=== PATIENT | female | born 1940 | race Caucasian/White ===

== ENCOUNTER 2020-04-18 11:26 | Outpatient (REF) | payer MEDICARE, SELFPAY ==
--- NOTE | 2020-04-18 11:31 | MM_ITS ---
EXAMINATION: MM SCREENING DIGITAL BREAST TOMOSYNTHESIS, BILATERAL CLINICAL INFORMATION: Screening. Asymptomatic. The lifetime risk of breast cancer based on the Tyrer-Cuzick Model is 2%. COMPARISON: Mammography: 04/06/2019, 03/28/2018, 03/05/2017 TECHNIQUE: Digital breast tomosynthesis is performed in both the craniocaudal and mediolateral oblique views along with computer-aided detection (CAD). Synthesized 2D images are generated from the tomosynthesis. FINDINGS: There are scattered areas of fibroglandular density (ACR BI-RADS breast composition Category b). Breast tissue composition borders on predominantly fatty. Background stromal densities are stable. There are no significant masses, abnormal calcifications, or other abnormalities. Right axillary node stable. No significant changes. MM/MM tomosynthesis screening BI IMPRESSION: No significant changes from prior studies. ASSESSMENT: BI-RADS 2: Benign RECOMMENDATION: Routine annual mammography screening. This patient's information was entered into a reminder system with a target due date for their next mammogram.
== END 2020-04-18 11:27 | disposition home or self-care (01) ==
LOC: HO.MAMMO 11:26
PROVIDERS: PCP Nurse Practitioner Family; Visit Provider Nurse Practitioner Family
DX: Z12.31 Encounter for screening mammogram for malignant neoplasm of breast (principal)
CPT/HCPCS: 77063; 77067

== ENCOUNTER → 2020-06-05 08:21 | Outpatient (BNVA) | payer MEDICARE, SELFPAY | PROVIDERS: PCP Nurse Practitioner Family; Visit Provider Internal Medicine | DX: Z13.89 Encounter for screening for other disorder (principal) | CPT/HCPCS: Q3014 ==

== ENCOUNTER 2020-06-07 07:20 | Outpatient (REF) | payer MEDICARE, SELFPAY ==
[2020-06-07 08:31] LABS: Anion Gap 11 (12-20); Blood Urea Nitrogen 14 mg/dL (9-16); Calcium 8.9 mg/dL (8.4-10.2); Carbon Dioxide 29 mmol/L (22-29); Chloride 105 mmol/L (96-108); Estimated Glomerular Filt Rate > 60; Glucose Fasting 90 mg/dL (60-99); Potassium 4.6 mmol/l (3.3-5.1); Sodium 140 mmol/L (135-145)
[2020-06-07 08:53] LABS: Thyroid Stimulating Hormone 1.47 uIU/mL (0.32-4.0)
[2020-06-07 09:33] LABS: Glucose Fasting 91 mg/dL (60-99)
[2020-06-07 09:33] LABS: Glucose 1 Hour 149 mg/dL
[2020-06-07 12:32] LABS: Glucose 3 Hour 62 mg/dL
[2020-06-07 12:54] LABS: Glucose 4 Hour 80 mg/dL
[2020-06-07 13:12] LABS: Glucose 2 Hour 34 mg/dL
[2020-06-09 07:37] LABS: C Peptide 0.96 ng/mL (0.80-3.85)
[2020-06-10 13:12] LABS: Insulin Level Total 4.7 uIU/mL
[2020-06-10 22:38] LABS: Adrenocorticotropic Hormone 14 pg/mL (6-50)
[2020-06-12 22:52] LABS: Beta-Hydroxybutyrate 0.05 mmol/L
[2020-06-13 00:52] LABS: Insulin Auto Antibody <0.4 U/mL (<0.4)
[2020-06-14 10:56] LABS: Chlorpropamide None Detected; Glimepiride None Detected; Glipizide None Detected; Glyburide None Detected; Nateglinide None Detected; Pioglitazone None Detected; Repaglinide None Detected; Rosiglitazone None Detected; Tolazamide None Detected; Tolbutamide None Detected
[2020-06-14 18:26] LABS: Insulinoma associated 2 aatb <5.4 U/mL (<5.4)
[2020-06-16 13:22] LABS: Insulin Growth Factor 2 512 ng/mL (267-616)
[2020-06-19 04:08] LABS: Proinsulin 4.5 pmol/L (< OR = 18.8)
== END 2020-06-07 07:21 | disposition home or self-care (01) ==
LOC: HO.LAB 07:20
PROVIDERS: PCP Nurse Practitioner Family; Visit Provider Internal Medicine
DX: E16.2 Hypoglycemia, unspecified (principal)
CPT/HCPCS: 36415; 80048; 80337; 82010; 82024; 82533; 82952; 83525; 83789; 84206; 84439; 84443; 84681; 86337

== ENCOUNTER 2020-06-17 08:26 | Outpatient (REF) | payer MEDICARE, SELFPAY ==
[2020-06-18 13:12] LABS: Cortisol 30 Minute 28.4 mcg/dL; Cortisol 60 Minute 35.9 mcg/dL; Cortisol Baseline 17.4 mcg/dL
[2020-06-19 22:08] LABS: Adrenocorticotropic Hormone 21 pg/mL (6-50)
== END 2020-06-17 08:27 | disposition home or self-care (01) ==
LOC: HO.MDS 08:26
PROVIDERS: PCP Nurse Practitioner Family; Visit Provider Internal Medicine
DX: E27.40 Unspecified adrenocortical insufficiency (principal)
CPT/HCPCS: 36415; 82024; 82533; 96374; J0834

== ENCOUNTER → 2020-08-12 09:39 | Outpatient (BNVA) | payer MEDICARE, SELFPAY | PROVIDERS: PCP Nurse Practitioner Family; Visit Provider Internal Medicine | DX: Z13.89 Encounter for screening for other disorder (principal) | CPT/HCPCS: Q3014 ==

== ENCOUNTER → 2021-02-17 10:34 | Outpatient (BNVA) | payer MEDICARE, SELFPAY | PROVIDERS: PCP Nurse Practitioner Family; Visit Provider Internal Medicine | DX: E16.2 Hypoglycemia, unspecified (principal) | CPT/HCPCS: 99212 ==

== ENCOUNTER 2021-04-26 10:27 | Outpatient (REF) | payer MEDICARE, SELFPAY ==
--- NOTE | ~2021-04-26 | MM_ITS ---
EXAMINATION: MM SCREENING DIGITAL BREAST TOMOSYNTHESIS, BILATERAL CLINICAL INFORMATION: Screening. Asymptomatic. The lifetime risk of breast cancer based on the Tyrer-Cuzick Model is under 2%. COMPARISON: Mammography: 04/18/2020, 04/06/2019, 03/28/2018 TECHNIQUE: Digital breast tomosynthesis is performed in both the craniocaudal and mediolateral oblique views along with computer-aided detection (CAD). Synthesized 2D images are generated from the tomosynthesis. FINDINGS: There are scattered areas of fibroglandular density (ACR BI-RADS breast composition Category b). There are no significant masses, abnormal calcifications, or other abnormalities. Breast tissue composition borders on predominantly fatty. The stromal markings are stable. There is no developing density or significant changes from prior exams. MM/MM tomosynthesis screening BI IMPRESSION: No mammographic evidence of malignancy. ASSESSMENT: BI-RADS 1: Negative RECOMMENDATION: Routine annual mammography screening. This patient's information was entered into a reminder system with a target due date for their next mammogram.
== END 2021-04-26 10:28 | disposition home or self-care (01) ==
LOC: HO.MAMMO 10:27
PROVIDERS: Visit Provider Internal Medicine
DX: Z12.31 Encounter for screening mammogram for malignant neoplasm of breast (principal)
CPT/HCPCS: 77063; 77067

== ENCOUNTER 2021-05-05 11:00 | Outpatient (RCR) | payer MEDICARE, SELFPAY | END 2021-08-28 09:34 | disposition home or self-care (01) | LOC: HO.PTCHIC 11:00 | PROVIDERS: PCP Internal Medicine; Visit Provider Physician Assistant | DX: M54.32 Sciatica, left side (principal) | CPT/HCPCS: 97110; 97140; 97162 ==

== ENCOUNTER 2021-06-23 20:59 | Inpatient (IN) | payer MEDICARE, SELFPAY ==
--- NOTE | ~2021-06-23 | XR_ITS ---
EXAMINATION: XR CHEST CLINICAL INFORMATION: NG tube placement COMPARISON: 06/23/2021 TECHNIQUE: Frontal view of the chest was obtained. FINDINGS: Enteric tube terminates in the stomach. The side port is near the gastroesophageal junction. The lungs are well expanded. Bibasilar markings favor atelectasis. No pleural effusion or pneumothorax. The cardiomediastinal silhouette is within normal limits of size with a calcified aorta. XR/XR chest 1V IMPRESSION: Enteric tube side port is at the level of the gastroesophageal junction. Suggest advancement.
--- NOTE | ~2021-06-23 | XR_ITS ---
EXAMINATION: XR ABDOMEN KUB CLINICAL INDICATION: Abdominal pain. History of small bowel obstruction. COMPARISON: CT abdomen pelvis dated 04/03/2013. TECHNIQUE: AP view of the abdomen. FINDINGS: Multiple dilated loops of small bowel are evident in the central abdomen, measuring up to 3.5 cm in diameter. Intraluminal gas is present within the colon which is relatively decompressed by comparison. No gross evidence of intraperitoneal free gas on these supine images. Status post ventral hernia mesh repair. Cholecystectomy clips are present in the right upper quadrant. Lung bases are clear. Mild sigmoid scoliosis with degenerative disc disease. Bones are osteopenic. No acute osseous findings in the pelvis. XR/XR KUB IMPRESSION: Small bowel dilatation with relative decompression of the colon, most concerning for obstruction. Ileus is also on the differential.
--- NOTE | ~2021-06-23 | CT_ITS ---
EXAMINATION: CT ABDOMEN AND PELVIS WITH CONTRAST CLINICAL INFORMATION: Abdominal distention. KUB earlier today suspicious for small bowel obstruction COMPARISON: KUB earlier today CT abdomen pelvis 04/03/2013 TECHNIQUE: Multidetector volumetric images were obtained from the superior aspect of the liver through the pubic symphysis following administration 85 mL of Omnipaque 350 intravenous contrast. Sagittal and coronal reformatted images were obtained on the technologist's workstation. Oral contrast: No This CT examination was performed using dose optimization techniques as appropriate, variously including the following: *Automated exposure control *Adjustment of mA and/or kV according to patient size (this includes techniques or standardized protocols for targeted exams where dose is matched to indication/reason for exam; i.e. extremities or head) *Use of iterative reconstruction technique DLP: 535 mGy-cm FINDINGS: LUNG BASES: Bibasilar atelectasis is present. LIVER, GALLBLADDER, AND BILIARY TREE: The liver is normal in size, shape, and attenuation. No focal hepatic lesion or biliary ductal dilatation is present. Status post cholecystectomy PANCREAS: Unremarkable. SPLEEN: Unremarkable. ADRENAL GLANDS: Unremarkable. KIDNEYS AND URETERS: The kidneys are normal in size, shape, and attenuation. There is some mild fullness in the right collecting system slightly greater than in 2013. No erosive hydronephrosis, hydroureter, or calculi seen. No perinephric stranding. BLADDER: Markedly distended but unremarkable. GASTROINTESTINAL TRACT: Status post gastric bypass the colon appears unremarkable with stool seen throughout. Multiple mildly dilated loops of small bowel are seen measuring up to 3.3 cm in diameter. A clear-cut transition zone is not seen and at this point I do not see definite evidence of small bowel obstruction. Findings may be due to ileus. Continued follow-up is recommended. The small and large bowel are unremarkable. The appendix is unremarkable. ABDOMINAL WALL: There is been prior abdominal wall surgery with extensive mesh anchors, also seen in 2013. There is marked diastases and forward bulging, more than in 2013. LYMPH NODES: There is some shotty retroperitoneal lymph nodes present but no gross adenopathy. Mildly enlarged left external iliac node slightly increased in size measuring 1.9 x 1.5 cm compared with 1.5 x 1.3 cm (see geller image) . VASCULAR: Calcific atherosclerotic plaque is present but there is no aneurysm PELVIC VISCERA: Surgically removed. A small amount of free pelvic fluid is present in the cul-de-sac OSSEOUS STRUCTURES: Degenerative changes are present. No bony destructive lesions are seen. CT/CT abdomen pelvis w con IMPRESSION: Dilatation of small bowel without transition zone seen. Gas and stool seen throughout the colon. Findings more suggestive of ileus rather than obstruction. Continued follow-up recommended. Fleischner guidelines were followed.
--- NOTE | ~2021-06-23 | XR_ITS ---
EXAMINATION: XR CHEST CLINICAL INFORMATION: NG tube placement COMPARISON: 06/24/2021 TECHNIQUE: Frontal view of the chest was obtained. FINDINGS: Advancement of the enteric tube now terminating in good position within the stomach. The lungs are well expanded. Minimal basilar atelectasis. No consolidation. No edema or effusion. No pneumothorax. The cardiomediastinal silhouette is normal in size with a calcified aorta. XR/XR chest 1V IMPRESSION: Enteric tube terminates in the stomach, in good position.
--- NOTE | ~2021-06-23 | XR_ITS ---
EXAMINATION: XR CHEST CLINICAL INFORMATION: Shortness of breath. COMPARISON: 07/29/2017 TECHNIQUE: Frontal view of the chest was obtained. FINDINGS: Cardiac and mediastinal contours are normal. Lungs are mildly hyperexpanded. No consolidation, pneumothorax, or pleural effusion. Calcific atherosclerosis is present in the thoracic aorta. Pulmonary vasculature is unremarkable. Bones are osteopenic. No acute osseous findings. Mild right convex thoracic scoliosis. XR/XR chest 1V IMPRESSION: No acute pulmonary findings.
[2021-06-23 21:22] VITALS: BP 156/54; PULSE 73; RESP 18; TEMP 36.6; O2SAT 99; BMI 32.5
[2021-06-23 21:58] LABS: Basophils Absolute Auto 0.1 X10*3/uL (0.0-0.2); Basophils Percent Auto 0.4 % (0-2); Lymphocytes Absolute Auto 5.3 X10*3/uL (1.2-4.9); SCAN SMEAR FLAG 1
--- NOTE | 2021-06-23 21:59 | PC.NURSE ---
Josemanuel (Son) HCP is waiting in car [phone]
[2021-06-23 22:00] LABS: Eosinophils Absolute Auto 0.2 X10*3/uL (0.0-0.4); Eosinophils Percent Auto 1.2 % (0-4); Hematocrit 34.5 % (37.0-47.0); Hemoglobin 10.7 g/dl (12.0-16.0); Imm Gran Abs Auto 0.09 X10*3/uL (0.00-0.03); Imm Gran Pct Auto 0.5 % (0.0-0.4); Lymphocytes Percent Auto 30.7 % (20-40); MANUAL DIFF FLAG SCAN; Mean Corpuscular Hemoglobin 26.6 pg (27.0-33.0); Mean Corpuscular Volume 85.8 fL (80.0-98.0); Mean Platelet Volume 12.5 fL (9.4-12.3); Monocytes Absolute Auto 0.7 X10*3/uL (0.1-1.2); Monocytes Percent Auto 4.1 % (2-11); Neutrophils Absolute Auto 10.8 x10*3/uL (2.0-8.3); Neutrophils Percent Auto 63.1 % (45-73); Platelet Count 167 X10*3/uL (160-400); Red Blood Count 4.02 X10*6/uL (4.20-5.50); Red Cell Distribution Width 15.2 % (11.0-16.0); White Blood Count 17.2 X10*3/uL (4.8-10.8)
[2021-06-23 22:02] LABS: PLT ABN DIST 1
[2021-06-23 22:03] LABS: Lactic Acid 0.9 mmol/L (0.5-2.0)
[2021-06-23 22:09] LABS: COVID-19 Test Positive (Negative); IDNOW Serial# 55D5AD1C
[2021-06-23 22:11] LABS: Alanine Aminotransferase 8 U/L (0-31); Albumin Level 4.5 g/dL (3.5-5.0); Alkaline Phosphatase 96 U/L (39-117); Anion Gap 14 (12-20); Aspartate Amino Transferase 20 U/L (5-31); Bilirubin Total 0.3 mg/dL (0.0-1.0); Blood Urea Nitrogen 25 mg/dL (9-16); Carbon Dioxide 26 mmol/L (22-29); Chloride 106 mmol/L (96-108); Creatinine Clr Calc Pharmacy 29.3; Estimated Glomerular Filt Rate 50; Glucose Random 111 mg/dL (60-115); Lipase 26 U/L (8-78); Potassium 5.1 mmol/L (3.3-5.1); Sodium 141 mmol/L (135-145)
--- NOTE | 2021-06-23 22:37 | ED_ITS ---
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 She also complains of body aches. Patient reports she has had both COVID-19 vaccinations (Moderna) and a booster which was [employer] as well as her influenza shot. Related Data Home Medications Medication Instructions Recorded Confirmed artificial tears(hypromellose) 0.3 1 drp OPHTHALMIC (EYE) QID PRN 04/22/20 02/17/21 % eye gel (Systane Gel) cetirizine 10 mg tablet 10 mg PO BEDTIME 04/22/20 02/17/21 citalopram 10 mg tablet 10 mg PO QAM 04/22/20 02/17/21 ergocalciferol (vitamin D2) 1,250 1,250 mcg PO QWEEK 04/22/20 02/17/21 mcg (50,000 unit) capsule fluticasone propionate 50 2 spray INTRANASAL QAM 04/22/20 02/17/21 mcg/actuation nasal spray,suspension losartan 25 mg tablet 25 mg PO DAILY 04/22/20 02/17/21 meclizine 12.5 mg tablet 12.5 mg PO TID 04/22/20 02/17/21 meloxicam 7.5 mg tablet 7.5 mg PO BID PRN 04/22/20 02/17/21 multivitamin 1 tab PO QAM 04/22/20 02/17/21 rabeprazole 20 mg tablet,delayed 20 mg PO QAM 04/22/20 02/17/21 release rosuvastatin 10 mg tablet 10 mg PO BEDTIME 04/22/20 02/17/21 acetaminophen 500 mg tablet 500 mg PO TID PRN tab 06/05/20 02/17/21 albuterol sulfate 90 mcg/actuation 90 mcg INHALATION g 06/05/20 02/17/21 aerosol inhaler alprazolam 0.5 mg tablet 0.5 mg PO DAILY PRN 06/05/20 02/17/21 alprazolam 1 mg tablet 1 mg PO BEDTIME tab 06/05/20 02/17/21 baclofen 10 mg tablet 10 mg PO BID PRN 06/05/20 02/17/21 diltiazem HCl 240 mg capsule,24 240 mg PO QAM 06/05/20 02/17/21 hr,extended release fluticasone propionate 230 2 puff INHALATION g 06/05/20 02/17/21 mcg-salmeterol 21 mcg/actuation HFA inhaler simethicone 80 mg chewable tablet 80 mg PO DAILY tab 06/05/20 02/17/21 theophylline 300 mg 300 mg PO 06/05/20 02/17/21 tablet,extended release,12 hr tramadol 50 mg tablet 50 mg PO TID PRN 06/05/20 02/17/21 famotidine 20 mg tablet 20 mg PO BID 08/12/20 02/17/21 ondansetron HCl 4 mg tablet 8 mg PO BID 08/12/20 02/17/21 dicyclomine 20 mg tablet 20 mg PO DAILY 02/17/21 02/17/21 Previous Rx's Medication Instructions Recorded blood-glucose meter (FreeStyle #1 ea 06/07/20 Lite Meter) acarbose 25 mg tablet 25 mg PO TID #30 tab 06/10/20 lancets 28 gauge (FreeStyle #100 ea 06/11/20 Lancets) blood sugar diagnostic (FreeStyle 1 strip MISCELLANEOUS QID 30 Days 06/24/20 Lite Strips) #100 strip Allergies Allergy/AdvReac Type Severity Reaction Status Date / Time morphine [MORPHINE] Allergy Unknown unknown Verified 06/23/21 21:22 milk [MILK] AdvReac Mild STOMACH Verified 06/23/21 21:22 UPSET oxycodone [From Percocet] AdvReac Mild NAUSEA/RAPID Verified 06/23/21 21:22 HR/BLURRED VISION protonix Allergy Unknown Unknown Uncoded 06/23/21 21:22 tramadol Allergy Unknown stomach Uncoded 06/23/21 21:22 upset/constipation Review of Systems Review of Systems: Pertinent positives and negatives as stated in HPI 10 point review of systems is otherwise negative. [facility] Past Medical History Source: nursing notes reviewed Medical History Arthritis Asthma Glaucoma HLD (hyperlipidemia) HTN (hypertension) Hypoglycemia Surgical History History of knee replacement procedure of right knee Hx of gastric bypass Hx of hysterectomy Family History Family History Father No problems noted. Mother No problems noted. Social History Social History Alcohol intake: never Patient Tobacco Use Status: Never used Tobacco Advance Directives: Yes Advance Directives Information Provided: No Advance Directives on File: No Physical Exam Vital Signs: Vital Signs: Last Vital Signs Temp 98.4 F 06/23/21 22:54 Pulse 71 06/23/21 22:54 Resp 16 06/23/21 22:54 BP 152/68 H 06/23/21 22:54 Pulse Ox 97 06/23/21 22:54 BMI result Body Mass Index 32.5 VITAL SIGNS: Reviewed. GENERAL: Elderly, appears stated age, in no acute distress. HEAD: Normocephalic/atraumatic EYES: PERRLA, EOMI OROPHARYNX: no oral lesions noted, posterior pharynx clear NECK: Supple, no adenopathy LUNGS: Normal breath sounds, no tachypnea, no wheeze/rales/rhonchi. SpO2<99> CARDIOVASCULAR: Regular rate and rhythm without noted murmurs, no JVD or lower extremity edema. ABDOMEN: Soft, non-tender, distension noted over the epigastrium MUSCULOSKELETAL: No tenderness, deformities, or effusions noted on gross inspection. EXTREMITIES: No cyanosis, clubbing or edema. SKIN: Inspection of the skin reveals no rashes NEUROLOGIC: Alert and oriented x 4. Strength and sensation to light touch were grossly intact x 4. Course Course Course Narrative: 81-year-old female with history and clinical presentation consistent with COVID-19 infection, viral syndrome but due to elevated white count will pursue ruling out obstruction. Review of all investigations demonstrates the patient is COVID-19 positive and has an ileus. Patient received antibiotics as well NG placement. This case was discussed with surgery who recommends admission to medicine they will be consultants and otherwise agrees with the current treatment plan. I discussed the case with inpatient hospitalist who accepts admission. Medical Decision Making Lab Data Result diagrams: 06/23/21 21:38 06/23/21 21:38 Labs: Lab Results 06/23/21 06/23/21 06/23/21 Range/Units 21:38 21:38 21:38 WBC 17.2 H (4.8-10.8) X10*3/uL RBC 4.02 L (4.20-5.50) X10*6/uL Hgb 10.7 L (12.0-16.0) g/dl Hct 34.5 L (37.0-47.0) % MCV 85.8 (80.0-98.0) fL MCH 26.6 L (27.0-33.0) pg MCHC 31.0 (31.0-35.0) g/dl RDW 15.2 (11.0-16.0) % Plt Count 167 (160-400) X10*3/uL MPV 12.5 H (9.4-12.3) fL Immature Gran % (Auto) 0.5 H (0.0-0.4) % Neut % (Auto) 63.1 (45-73) % Lymph % (Auto) 30.7 (20-40) % Cottle % (Auto) 4.1 (2-11) % Eos % (Auto) 1.2 (0-4) % Baso % (Auto) 0.4 (0-2) % Lymph # (Auto) 5.3 H (1.2-4.9) X10*3/uL Cottle # (Auto) 0.7 (0.1-1.2) X10*3/uL Eos # (Auto) 0.2 (0.0-0.4) X10*3/uL Baso # (Auto) 0.1 (0.0-0.2) X10*3/uL Abs Immat Gran (auto) 0.09 H (0.00-0.03) X10*3/uL Absolute Neuts (auto) 10.8 H (2.0-8.3) x10*3/uL Absolute Nucleated RBC 0.000 (0.0-0.012) X10*3/uL Nucleated RBC % (auto) 0.0 (0.0-0.2) /100WBC Smear Tech's Comments VERIFIED VBG pH (7.32-7.43) VBG pCO2 mmHg VBG pO2 mmHg VBG HCO3 (22-26) mmol/L VBG O2 Saturation % VBG Base Excess mmol/L Sodium 141 (135-145) mmol/L Potassium 5.1 (3.3-5.1) mmol/L Chloride 106 (96-108) mmol/L Carbon Dioxide 26 (22-29) mmol/L Anion Gap 14 (12-20) BUN 25 H (9-16) mg/dL Creatinine 1.05 (0.5-1.4) mg/dL Estim Creat Clear Calc 29.3 Estimated GFR 50 Random Glucose 111 (60-115) mg/dL Lactic Acid (0.5-2.0) mmol/L Calcium 10.0 D (8.4-10.2) mg/dL Total Bilirubin 0.3 (0.0-1.0) mg/dL AST 20 (5-31) U/L ALT 8 (0-31) U/L Alkaline Phosphatase 96 (39-117) U/L B-Natriuretic Peptide (<100) pg/mL Total Protein 7.0 (6.5-8.0) g/dL Albumin 4.5 (3.5-5.0) g/dL Lipase 26 (8-78) U/L COVID-19 (SHAQ) Positive A (Negative) COVID-19 Clin Com See Note 06/23/21 06/23/21 06/23/21 Range/Units 21:38 22:51 22:56 WBC (4.8-10.8) X10*3/uL RBC (4.20-5.50) X10*6/uL Hgb (12.0-16.0) g/dl Hct (37.0-47.0) % MCV (80.0-98.0) fL MCH (27.0-33.0) pg MCHC (31.0-35.0) g/dl RDW (11.0-16.0) % Plt Count (160-400) X10*3/uL MPV (9.4-12.3) fL Immature Gran % (Auto) (0.0-0.4) % Neut % (Auto) (45-73) % Lymph % (Auto) (20-40) % Cottle % (Auto) (2-11) % Eos % (Auto) (0-4) % Baso % (Auto) (0-2) % Lymph # (Auto) (1.2-4.9) X10*3/uL Cottle # (Auto) (0.1-1.2) X10*3/uL Eos # (Auto) (0.0-0.4) X10*3/uL Baso # (Auto) (0.0-0.2) X10*3/uL Abs Immat Gran (auto) (0.00-0.03) X10*3/uL Absolute Neuts (auto) (2.0-8.3) x10*3/uL Absolute Nucleated RBC (0.0-0.012) X10*3/uL Nucleated RBC % (auto) (0.0-0.2) /100WBC Smear Tech's Comments VBG pH 7.52 H (7.32-7.43) VBG pCO2 24 mmHg VBG pO2 125 mmHg VBG HCO3 19 L (22-26) mmol/L VBG O2 Saturation 99.0 % VBG Base Excess -1.4 mmol/L Sodium (135-145) mmol/L Potassium (3.3-5.1) mmol/L Chloride (96-108) mmol/L Carbon Dioxide (22-29) mmol/L Anion Gap (12-20) BUN (9-16) mg/dL Creatinine (0.5-1.4) mg/dL Estim Creat Clear Calc Estimated GFR Random Glucose (60-115) mg/dL Lactic Acid 0.9 (0.5-2.0) mmol/L Calcium (8.4-10.2) mg/dL Total Bilirubin (0.0-1.0) mg/dL AST (5-31) U/L ALT (0-31) U/L Alkaline Phosphatase (39-117) U/L B-Natriuretic Peptide 144 H (<100) pg/mL Total Protein (6.5-8.0) g/dL Albumin (3.5-5.0) g/dL Lipase (8-78) U/L COVID-19 (SHAQ) (Negative) COVID-19 Clin Com Discharge Plan Discharge Clinical Impression: Lab test positive for detection of COVID-19 virus, Viral syndrome, Ileus Patient Disposition: Admitted As Inpatient Prescriptions: No Action (DME) blood-glucose meter [FreeStyle Lite Meter] Kit See Rx Instructions .ROUTE .MEDSUPPLY Qty: 1 RF: 0 acarbose 25 mg tablet 25 mg PO TID Qty: 30 RF: 11 (DME) lancets [FreeStyle Lancets] 28 gauge misc See Rx Instructions .ROUTE .MEDSUPPLY Qty: 100 RF: 11 blood sugar diagnostic [FreeStyle Lite Strips] Strip 1 strip miscellaneous QID 30 Days Qty: 100 RF: 12 losartan 25 mg tablet 25 mg PO DAILY RF: 0 rosuvastatin 10 mg tablet 10 mg PO BEDTIME RF: 0 fluticasone propionate 50 mcg/actuation spray,suspension 2 spray intranasal QAM RF: 0 citalopram 10 mg tablet 10 mg PO QAM RF: 0 cetirizine 10 mg tablet 10 mg PO BEDTIME RF: 0 multivitamin Tablet 1 tab PO QAM RF: 0 ergocalciferol (vitamin D2) 1,250 mcg (50,000 unit) capsule 1,250 mcg PO QWEEK RF: 0 rabeprazole 20 mg tablet,delayed release (DR/EC) 20 mg PO QAM RF: 0 Systane Gel 0.3 % gel 1 drp ophthalmic (eye) QID PRNRF: 0 meclizine 12.5 mg tablet 12.5 mg PO TID RF: 0 meloxicam 7.5 mg tablet 7.5 mg PO BID PRNRF: 0 acetaminophen 500 mg tablet 500 mg PO TID PRNRF: 0 albuterol sulfate 90 mcg/actuation HFA aerosol inhaler 90 mcg inhalation RF: 0 alprazolam 1 mg tablet 1 mg PO BEDTIME RF: 0 alprazolam 0.5 mg tablet 0.5 mg PO DAILY PRNRF: 0 baclofen 10 mg tablet 10 mg PO BID PRNRF: 0 diltiazem HCl 240 mg capsule,extended release 24 hr 240 mg PO QAM RF: 0 fluticasone propion-salmeterol 230-21 mcg/actuation HFA aerosol inhaler 2 puff inhalation RF: 0 simethicone 80 mg tablet,chewable 80 mg PO DAILY RF: 0 theophylline 300 mg tablet extended release 12 hr 300 mg PO RF: 0 tramadol 50 mg tablet 50 mg PO TID PRNRF: 0 dicyclomine 20 mg tablet 20 mg PO DAILY RF: 0 famotidine 20 mg tablet 20 mg PO BID RF: 0 ondansetron HCl 4 mg tablet 8 mg PO BID RF: 0
[2021-06-23 22:44] LABS: SLIDE REVIEW VERIFIED
[2021-06-23] MEDS: Piperacillin Sodium/Tazobactam 3.375 GM in 0.9 % Sodium Chloride 50 ML IV (22:53)
[2021-06-23 22:54] VITALS: BP 152/68; PULSE 71; RESP 16; TEMP 36.9; O2SAT 97
[2021-06-23 23:02] LABS: Venous Blood Gas Refer to POC result
[2021-06-23 23:03] LABS: VBG Base Excess -1.4 mmol/L; VBG HCO3 19 mmol/L (22-26); VBG pCO2 24 mmHg; VBG pH 7.52 (7.32-7.43); VBG pO2 125 mmHg
[2021-06-23 23:43] LABS: B Type Natriuretic Peptide 144 pg/mL (<100)
[2021-06-23] MEDS: iohexoL 350 MG/ML 100 ML INFUS..BTL 85 ML IV (23:50)
[2021-06-24] VITALS (7 sets, daily range): BP systolic 127–172; BP diastolic 61–91; PULSE 76–99; RESP 16–21; TEMP 36.1–37.1; O2SAT 93–99
--- NOTE | 2021-06-24 00:50 | PM.IMHP ---
History of Present Illness Date of Service: 06/24/21 Chief Complaint: bloated abd This is an 81-year-old female with past medical history of asthma, hyperlipidemia, hypertension, history of gastric bypass, who presents to the hospital with abdominal bloating. Patient reports that about 4 days ago she started having flu-like symptoms including dry cough, chills, generalized weakness, headache, rhinorrhea but did not think much of it, she was recovering at home when today she has thyroid having abdominal distension, nausea, no vomiting, has been constipated for 2 days, and has not had any gas movement for 2 days. Patient reports that her bloating increased and therefore was brought into the hospital by her son. She denies any fever no chills, no production of sputum. No urinary symptoms. No lower extremity edema. She has not had any similar episode in the past. She does have a history of cholecystectomy, hysterectomy, and appendectomy. On arrival to the ED patient hemodynamically stable with no significant abnormal vitals except slightly elevated blood pressure Labs are significant for WBC count of 17.2, hemoglobin of 10.7, pH of 7.52, BUN of 25, creatinine of 1.05, BNP of 144, COVID-19 positive, Abdomen pelvic CT showed dilatation of small bowel without transition zone seen. Gas and stool seen throughout the colon. Findings more suggestive of ileus. Chest x-ray showed bibasilar markings for atelectasis, no pleural effusion or pneumothorax. NG tube placed in the ED and patient will be admitted for further management. Review of Systems Review of Systems: Yes all other systems are reviewed and are negative [facility] Medical History Arthritis Asthma Glaucoma HLD (hyperlipidemia) HTN (hypertension) Hypoglycemia Family History Father No problems noted. Mother No problems noted. Surgical History History of appendectomy History of cholecystectomy History of knee replacement procedure of right knee Hx of gastric bypass Hx of hysterectomy Social History Alcohol intake: never Patient Tobacco Use Status: Never used Tobacco Advance Directives: Yes Advance Directives Information Provided: No Advance Directives on File: No Meds Allergies Allergy/AdvReac Type Severity Reaction Status Date / Time morphine [MORPHINE] Allergy Unknown unknown Verified 06/23/21 21:22 milk [MILK] AdvReac Mild STOMACH Verified 06/23/21 21:22 UPSET oxycodone [From Percocet] AdvReac Mild NAUSEA/RAPID Verified 06/23/21 21:22 HR/BLURRED VISION protonix Allergy Unknown Unknown Uncoded 06/23/21 21:22 tramadol Allergy Unknown stomach Uncoded 06/23/21 21:22 upset/constipation Home Medications Medication Instructions Recorded Confirmed Last Taken Type cetirizine 10 mg tablet 10 mg PO BEDTIME 04/22/20 06/24/21 Unknown History citalopram 10 mg tablet 10 mg PO QAM 04/22/20 06/24/21 Unknown History ergocalciferol (vitamin D2) 1,250 1,250 mcg PO QWEEK 04/22/20 06/24/21 Unknown History mcg (50,000 unit) capsule fluticasone propionate 50 2 spray INTRANASAL QAM 04/22/20 06/24/21 Unknown History mcg/actuation nasal spray,suspension losartan 25 mg tablet 25 mg PO DAILY 04/22/20 06/24/21 Unknown History multivitamin 1 tab PO QAM 04/22/20 06/24/21 Unknown History rabeprazole 20 mg tablet,delayed 20 mg PO QAM 04/22/20 06/24/21 Unknown History release rosuvastatin 10 mg tablet 10 mg PO BEDTIME 04/22/20 06/24/21 Unknown History acetaminophen 500 mg tablet 500 mg PO TID PRN tab 06/05/20 06/24/21 Unknown History albuterol sulfate 90 mcg/actuation 90 mcg INHALATION g 06/05/20 02/17/21 Unknown History aerosol inhaler alprazolam 0.5 mg tablet 0.5 mg PO DAILY PRN 06/05/20 06/24/21 Unknown History alprazolam 1 mg tablet 1 mg PO BEDTIME tab 06/05/20 06/24/21 Unknown History diltiazem HCl 240 mg capsule,24 240 mg PO QAM 06/05/20 06/24/21 Unknown History hr,extended release fluticasone propionate 230 2 puff INHALATION g 06/05/20 02/17/21 Unknown History mcg-salmeterol 21 mcg/actuation HFA inhaler simethicone 80 mg chewable tablet 80 mg PO DAILY tab 06/05/20 06/24/21 Unknown History theophylline 300 mg 300 mg PO 06/05/20 02/17/21 Unknown History tablet,extended release,12 hr tramadol 50 mg tablet 50 mg PO TID PRN 06/05/20 06/24/21 Unknown History famotidine 20 mg tablet 20 mg PO BID 08/12/20 06/24/21 Unknown History dicyclomine 20 mg tablet 20 mg PO DAILY 02/17/21 06/24/21 Unknown History Physical Exam Vital Signs and Narrative: Vital Signs: Last Vital Signs Temp 98.4 F 06/23/21 22:54 Pulse 71 06/23/21 22:54 Resp 16 06/23/21 22:54 BP 152/68 H 06/23/21 22:54 Pulse Ox 97 06/23/21 22:54 BMI result Body Mass Index 32.5 Const: General: cooperative and no acute distress Orientation/consciousness: patient oriented x3 HENMT: Other: NG tube in place draining minimal Eyes: General: appearance normal, both eyes and all related structures Resp: Effort & Inspection: normal respiratory effort Auscultation: clear to auscultation bilaterally Cardio: Rate: regular rate Rhythm: regular rhythm GI: Other: Hyperactive bowel sounds, distended abdomen, guarding, tender on minimal palpation Skin: General skin exam: no rashes or lesions noted Neuro: General: patient oriented x3 Cognition (Neuro): normal cognition Extrem: General: Yes normal to inspection and Yes no pedal edema Results Labs CBC and Chem 7: 06/23/21 21:38 06/23/21 21:38 Labs: Laboratory Results - last 24 hr 06/23/21 06/23/21 06/23/21 21:38 21:38 21:38 MCV 85.8 MCH 26.6 L MCHC 31.0 RDW 15.2 Plt Count 167 MPV 12.5 H Immature Gran % (Auto) 0.5 H Neut % (Auto) 63.1 Lymph % (Auto) 30.7 [place] % (Auto) 4.1 Eos % (Auto) 1.2 Baso % (Auto) 0.4 Lymph # (Auto) 5.[address] [place] # (Auto) 0.7 Eos # (Auto) 0.2 Baso # (Auto) 0.1 Abs Immat Gran (auto) 0.09 H Absolute Neuts (auto) 10.8 H Absolute Nucleated RBC 0.000 Nucleated RBC % (auto) 0.0 Smear Tech's Comments VERIFIED VBG pH VBG pCO2 VBG pO2 VBG HCO3 VBG O2 Saturation VBG Base Excess Anion Gap 14 Estim Creat Clear Calc 29.3 Estimated GFR 50 Random Glucose 111 Lactic Acid Calcium 10.0 D Total Bilirubin 0.3 AST 20 ALT 8 Alkaline Phosphatase 96 B-Natriuretic Peptide Total Protein 7.0 Albumin 4.5 Lipase 26 COVID-19 (SHAQ) Positive A COVID-19 Clin Com See Note 06/23/21 06/23/21 06/23/21 21:38 22:51 22:56 MCV MCH MCHC RDW Plt Count MPV Immature Gran % (Auto) Neut % (Auto) Lymph % (Auto) [place] % (Auto) Eos % (Auto) Baso % (Auto) Lymph # (Auto) [place] # (Auto) Eos # (Auto) Baso # (Auto) Abs Immat Gran (auto) Absolute Neuts (auto) Absolute Nucleated RBC Nucleated RBC % (auto) Smear Tech's Comments VBG pH 7.52 H VBG pCO2 24 VBG pO2 125 VBG HCO3 19 L VBG O2 Saturation 99.0 VBG Base Excess -1.4 Anion Gap Estim Creat Clear Calc Estimated GFR Random Glucose Lactic Acid 0.9 Calcium Total Bilirubin AST ALT Alkaline Phosphatase B-Natriuretic Peptide 144 H Total Protein Albumin Lipase COVID-19 (SHAQ) COVID-19 Clin Com Imaging Radiologist's Impressions: Impressions Chest X-Ray 06/23/21 22:27 IMPRESSION: No acute pulmonary findings. KUB X-Ray 06/23/21 22:27 IMPRESSION: Small bowel dilatation with relative decompression of the colon, most concerning for obstruction. Ileus is also on the differential. Abdomen/Pelvis CT 06/23/21 23:45 IMPRESSION: Dilatation of small bowel without transition zone seen. Gas and stool seen throughout the colon. Findings more suggestive of ileus rather than obstruction. Continued follow-up recommended. Fleischner guidelines were followed. Assessment and Plan (1) Ileus: Status: Acute (2) Lab test positive for detection of COVID-19 virus: Status: Acute 81-year-old female with past medical history of asthma hypertension, hyperlipidemia oa, gastric BiPAP, who presents to the hospital with abdominal distension found to have ileus as well as COVID-19 positive # ileus - bowel rest, NPO - NG tube is in place but is not draining significant amount - will consult General surgery - IV fluids Lovenox for - pain management # COVID-19 infection - vaccinated with Moderna x2, and Pfizer booster - no hypoxia but does have upper respiratory symptoms including dry cough, rhinorrhea - monitor respiration # hypertension - elevated - resume home medications # hyperlipidemia - Stable - continue home meds # asthma - no exacerbation - continue home inhalers DVT prophylaxis: lovenox Quality Stroke Does the patient have a stroke diagnosis?: No VTE Prior VTE?: No VTE Risk Level:: Medical - moderate - high VTE Device Contraindication: Treatment Not Indicated VTE Drug Contraindication: N/A - Med Ordered
[2021-06-24] MEDS: Enoxaparin Sodium 40 MG/0.4 ML SYRINGE SUBCUT (02:48)
[2021-06-24 05:38] LABS: Glucose, Whole Blood 93 mg/dL (60-115)
[2021-06-24] MEDS: Dextrose 5 % and Lactated Ring 1,000 ML 80 ML IVCONT ×2 (06:35→20:27)
--- NOTE | 2021-06-24 06:42 | PC.NURSE ---
nurse to nurse report given to Catina STOKES
--- NOTE | 2021-06-24 08:18 | P.PNIM_ITS ---
Subjective Subjective Date of Service: 06/24/21 Interval History: Ielus Review of Systems abd Discomfort improving, started passing some gas is today. No BM yet. Physical Exam Vital Signs: Vital Signs: Last Vital Signs Temp 97.9 F 06/24/21 01:23 Pulse 86 06/24/21 01:23 Resp 16 06/24/21 01:23 BP 162/91 H 06/24/21 01:23 Pulse Ox 93 06/24/21 01:23 BMI result Body Mass Index 32.5 Physical exam: Appearance: Alert.? Oriented X3.? ENT: Pharynx normal.? Moist mucous membranes. cvs: rrr, [id number] , no murmur res: clear to auscultation ,no rhonchii or wheezing abd: no rebound or guarding ,nt, bs present. ext pulses present , no cyanosis. neuro: axo3 , nonfocal. Objective Data Active Medications Acetaminophen (Acetaminophen Supp 650 Mg Supp.Rect) 650 mg VT Q6H PRN PRN Reason: Pain, Mild (Pain Scale 1-3) Enoxaparin Sodium (Enoxaparin Sodium 40 Mg/0.4 Ml Syringe) 40 mg SUBCUT Q24H [facility] Last Admin: 06/24/21 02:48 Dose: 40 mg Documented by: SANCHO Dextrose/Lactated Ringer's (D5lr) 1,000 mls @ 80 mls/hr IVCONT .[id number] [facility] Last Admin: 06/24/21 06:35 Dose: 80 mls/hr Documented by: TUTU Morphine Sulfate (Morphine Sulfate 4 Mg/Ml Cartridge) 4 mg IVPUSH Q4H PRN; Protocol PRN Reason: Pain, Severe (Pain Scale 7-10) Ondansetron HCl (Ondansetron Hcl 4 Mg/2 Ml Vial) 4 mg IVPUSH Q8H PRN PRN Reason: Nausea and Vomiting Sodium Chloride (0.9 % Sodium Chloride Flush 3 Ml Syringe) 3 ml IVFLUSH QSHIFT [facility] Labs CBC & Chem 7: 06/24/21 09:57 06/24/21 09:57 Labs: Laboratory Results - last 24 hr 06/23/21 06/23/21 06/23/21 21:38 21:38 21:38 MCV 85.8 MCH 26.6 L MCHC 31.0 RDW 15.2 Plt Count 167 MPV 12.5 H Immature Gran % (Auto) 0.5 H Neut % (Auto) 63.1 Lymph % (Auto) 30.7 [place] % (Auto) 4.1 Eos % (Auto) 1.2 Baso % (Auto) 0.4 Lymph # (Auto) 5.3 H [place] # (Auto) 0.7 Eos # (Auto) 0.2 Baso # (Auto) 0.1 Abs Immat Gran (auto) 0.09 H Absolute Neuts (auto) 10.8 H Absolute Nucleated RBC 0.000 Nucleated RBC % (auto) 0.0 Smear Tech's Comments VERIFIED VBG pH VBG pCO2 VBG pO2 VBG HCO3 VBG O2 Saturation VBG Base Excess Anion Gap 14 Estim Creat Clear Calc 29.3 Estimated GFR 50 POC Glucose Random Glucose 111 Lactic Acid Calcium 10.0 D Total Bilirubin 0.3 AST 20 ALT 8 Alkaline Phosphatase 96 B-Natriuretic Peptide Total Protein 7.0 Albumin 4.5 Lipase 26 COVID-19 (SHAQ) Positive A [email or web address] See Note 06/23/21 06/23/21 06/23/21 21:38 22:51 22:56 MCV MCH MCHC RDW Plt Count MPV Immature Gran % (Auto) Neut % (Auto) Lymph % (Auto) [place] % (Auto) Eos % (Auto) Baso % (Auto) Lymph # (Auto) [place] # (Auto) Eos # (Auto) Baso # (Auto) Abs Immat Gran (auto) Absolute Neuts (auto) Absolute Nucleated RBC Nucleated RBC % (auto) Smear Tech's Comments VBG pH 7.52 H VBG pCO2 24 VBG pO2 125 VBG HCO3 19 L VBG O2 Saturation 99.0 VBG Base Excess -1.4 Anion Gap Estim Creat Clear Calc Estimated GFR POC Glucose Random Glucose Lactic Acid 0.9 Calcium Total Bilirubin AST ALT Alkaline Phosphatase B-Natriuretic Peptide 144 H Total Protein Albumin Lipase COVID-19 (SHAQ) [facility] [email or web address] 06/24/21 05:34 MCV MCH MCHC RDW Plt Count MPV Immature Gran % (Auto) Neut % (Auto) Lymph % (Auto) [place] % (Auto) Eos % (Auto) Baso % (Auto) Lymph # (Auto) [place] # (Auto) Eos # (Auto) Baso # (Auto) Abs Immat Gran (auto) Absolute Neuts (auto) Absolute Nucleated RBC Nucleated RBC % (auto) Smear Tech's Comments VBG pH VBG pCO2 VBG pO2 VBG HCO3 VBG O2 Saturation VBG Base Excess Anion Gap Estim Creat Clear Calc Estimated GFR POC Glucose 93 Random Glucose Lactic Acid Calcium Total Bilirubin AST ALT Alkaline Phosphatase B-Natriuretic Peptide Total Protein Albumin Lipase COVID-19 (SHAQ) COVID-19 Clin Com Assessment and Plan (1) Ileus: Status: Acute Assessment and Plan: ? 81-year-old female with past medical history of asthma hypertension, hyperlipidemia oa, gastric BiPAP, who presents to the hospital with abdominal distension found to have ileus as well as COVID-19 positive 1. ileus - bowel rest, NPO - NG tube is in place but is not draining significant amount - will consult General surgery - IV fluids , will advance to clear diet - pain management 2.COVID-19 infection - vaccinated with Moderna x2, and Pfizer booster - no hypoxia but does have upper respiratory symptoms including dry cough, rhinorrhea - monitor respiration # hypertension - elevated - resume home medications # hyperlipidemia - Stable - continue home meds # asthma -? no exacerbation - continue home inhalers DVT prophylaxis: lovenox Quality Stroke Does the patient have a stroke diagnosis?: No VTE Prior VTE?: No VTE Risk Level:: Medical - moderate - high VTE Device Contraindication: Treatment Not Indicated VTE Drug Contraindication: N/A - Med Ordered
--- NOTE | 2021-06-24 08:27 | PM.CNGS ---
History of Present Illness Consult details Consult date: 06/24/21 Reason for consult: abdominal pain Narrative: 81-year-old female patient presenting with nausea, abdominal bloating, and increased difficulty breathing with a prior history of asthma and recently diagnosed with COVID-19. She has a prior history of small-bowel obstructions and reports anorexia currently. She has a 4 day history of flu-like symptoms as well as a 2 day history of constipation. She presented to the emergency department underwent evaluation CT abdomen and pelvis. This revealed diffusely distended loops of small and large bowel without a clear transition point. Gas and stool is noted in the large bowel. Findings are suggestive of an ileus. This morning the patient does feel improved and denies nausea or vomiting. She denies any significant abdominal pain. She reports a prior history of cholecystectomy, appendectomy, gastric bypass surgery. Review of Systems Review of Systems: Yes all other systems are reviewed and are negative Cardiovascular: Cardiovascular: Reports dyspnea Respiratory: Respiratory: Reports dyspnea, Denies stridor and Denies wheezing Gastrointestinal: Gastrointestinal: Reports abdominal pain, Reports bloating, Reports constipation, Denies diarrhea, Reports nausea and Denies vomiting Genitourinary: Genitourinary: Reports no additional female genitourinary complaints Allergic/Immunologic: Allergic/Immunologic: Denies wheezing PMFSH Past Medical History Medical History Arthritis Asthma Glaucoma HLD (hyperlipidemia) HTN (hypertension) Hypoglycemia Family History Family History Father No problems noted. Mother No problems noted. Surgical History Surgical History History of appendectomy History of cholecystectomy History of knee replacement procedure of right knee Hx of gastric bypass Hx of hysterectomy Social History Social History Alcohol intake: never Patient Tobacco Use Status: Never used Tobacco Advance Directives: Yes Advance Directives Information Provided: No Advance Directives on File: No Meds Allergies Allergy/AdvReac Type Severity Reaction Status Date / Time morphine [MORPHINE] Allergy Unknown unknown Verified 06/23/21 21:22 milk [MILK] AdvReac Mild STOMACH Verified 06/23/21 21:22 UPSET oxycodone [From Percocet] AdvReac Mild NAUSEA/RAPID Verified 06/23/21 21:22 HR/BLURRED VISION protonix Allergy Unknown Unknown Uncoded 06/23/21 21:22 tramadol Allergy Unknown stomach Uncoded 06/23/21 21:22 upset/constipation Active Medications: Current Medications Acetaminophen (Acetaminophen Supp 650 Mg Supp.Rect) 650 mg NE Q6H PRN PRN Reason: Pain, Mild (Pain Scale 1-3) Albuterol/Ipratropium (Albuterol/Iprat 2.5/0.5mg 3 Ml Ampul.Neb) 3 ml INHALE RQ4H WHILE AWAKE [facility] Enoxaparin Sodium (Enoxaparin Sodium 40 Mg/0.4 Ml Syringe) 40 mg SUBCUT Q24H [facility] Last Admin: 06/24/21 02:48 Dose: 40 mg Documented by: Dextrose/Lactated Ringer's (D5lr) 1,000 mls @ 80 mls/hr IVCONT .[id number] [facility] Last Admin: 06/24/21 06:35 Dose: 80 mls/hr Documented by: Morphine Sulfate (Morphine Sulfate 4 Mg/Ml Cartridge) 4 mg IVPUSH Q4H PRN; Protocol PRN Reason: Pain, Severe (Pain Scale 7-10) Ondansetron HCl (Ondansetron Hcl 4 Mg/2 Ml Vial) 4 mg IVPUSH Q8H PRN PRN Reason: Nausea and Vomiting Pantoprazole Sodium (Pantoprazole Sodium 40 Mg/10 Ml Vial) 40 mg IVPUSH DAILY@0630 [facility] Sodium Chloride (0.9 % Sodium Chloride Flush 3 Ml Syringe) 3 ml IVFLUSH QSHIFT [facility] Home Medications Medication Instructions Recorded Confirmed Last Taken Type cetirizine 10 mg tablet 10 mg PO BEDTIME 04/22/20 06/24/21 Unknown History citalopram 10 mg tablet 10 mg PO QAM 04/22/20 06/24/21 Unknown History ergocalciferol (vitamin D2) 1,250 1,250 mcg PO QWEEK 04/22/20 06/24/21 Unknown History mcg (50,000 unit) capsule fluticasone propionate 50 2 spray INTRANASAL QAM 04/22/20 06/24/21 Unknown History mcg/actuation nasal spray,suspension losartan 25 mg tablet 25 mg PO DAILY 04/22/20 06/24/21 Unknown History multivitamin 1 tab PO QAM 04/22/20 06/24/21 Unknown History rabeprazole 20 mg tablet,delayed 20 mg PO QAM 04/22/20 06/24/21 Unknown History release rosuvastatin 10 mg tablet 10 mg PO BEDTIME 04/22/20 06/24/21 Unknown History acetaminophen 500 mg tablet 500 mg PO TID PRN tab 06/05/20 06/24/21 Unknown History albuterol sulfate 90 mcg/actuation 90 mcg INHALATION g 06/05/20 02/17/21 Unknown History aerosol inhaler alprazolam 0.5 mg tablet 0.5 mg PO DAILY PRN 06/05/20 06/24/21 Unknown History alprazolam 1 mg tablet 1 mg PO BEDTIME tab 06/05/20 06/24/21 Unknown History diltiazem HCl 240 mg capsule,24 240 mg PO QAM 06/05/20 06/24/21 Unknown History hr,extended release fluticasone propionate 230 2 puff INHALATION g 06/05/20 02/17/21 Unknown History mcg-salmeterol 21 mcg/actuation HFA inhaler simethicone 80 mg chewable tablet 80 mg PO DAILY tab 06/05/20 06/24/21 Unknown History theophylline 300 mg 300 mg PO BID 06/05/20 02/17/21 Unknown History tablet,extended release,12 hr tramadol 50 mg tablet 50 mg PO TID PRN 06/05/20 06/24/21 Unknown History famotidine 20 mg tablet 20 mg PO BID 08/12/20 06/24/21 Unknown History dicyclomine 20 mg tablet 20 mg PO DAILY 02/17/21 06/24/21 Unknown History baclofen 10 mg tablet 1 tab PO BID 06/24/21 Unknown History plecanatide 3 mg tablet (Trulance) 1 tab PO DAILY 06/24/21 Unknown History Physical Exam Vital Signs: Vital Signs: Last Vital Signs Temp 97.0 F 06/24/21 08:00 Pulse 99 06/24/21 08:00 Resp 20 06/24/21 08:00 BP 143/65 H 06/24/21 08:00 Pulse Ox 97 06/24/21 08:00 BMI result Body Mass Index 32.5 Const: General: cooperative, no acute distress and well developed Nutritional Appearance: well nourished Orientation/consciousness: patient oriented x3 Limitations: no limitations HENMT: Head: Yes normocephalic and Yes atraumatic Ears: hearing grossly normal bilaterally Resp: Effort & Inspection: normal respiratory effort, no audible wheezes, no cough and no respiratory distress GI: Palpation (GI): Soft to palpation, nontender, no guarding and not rigid Percussion: Yes normal to percussion Auscultation: normal bowel sounds Rectal Exam - Female: deferred Skin: General skin exam: no rashes or lesions noted Neuro: General: patient oriented x3 Extrem: General: Yes no clubbing, cyanosis or edema Results Labs Result diagrams: 06/23/21 21:38 06/23/21 21:38 Labs: Abnormal lab results 06/23/21 06/23/21 06/23/21 Range/Units 21:38 21:38 21:38 WBC 17.2 H (4.8-10.8) X10*3/uL RBC 4.02 L (4.20-5.50) X10*6/uL Hgb 10.7 L (12.0-16.0) g/dl Hct 34.5 L (37.0-47.0) % MCH 26.6 L (27.0-33.0) pg MPV 12.5 H (9.4-12.3) fL Immature Gran % (Auto) 0.5 H (0.0-0.4) % Lymph # (Auto) 5.3 H (1.2-4.9) X10*3/uL Abs Immat Gran (auto) 0.09 H (0.00-0.03) X10*3/uL Absolute Neuts (auto) 10.8 H (2.0-8.3) x10*3/uL VBG pH (7.32-7.43) VBG HCO3 (22-26) mmol/L BUN 25 H (9-16) mg/dL B-Natriuretic Peptide (<100) pg/mL COVID-19 (SHAQ) Positive A (Negative) 06/23/21 06/23/21 Range/Units 22:51 22:56 WBC (4.8-10.8) X10*3/uL RBC (4.20-5.50) X10*6/uL Hgb (12.0-16.0) g/dl Hct (37.0-47.0) % MCH (27.0-33.0) pg MPV (9.4-12.3) fL Immature Gran % (Auto) (0.0-0.4) % Lymph # (Auto) (1.2-4.9) X10*3/uL Abs Immat Gran (auto) (0.00-0.03) X10*3/uL Absolute Neuts (auto) (2.0-8.3) x10*3/uL VBG pH 7.52 H (7.32-7.43) VBG HCO3 19 L (22-26) mmol/L BUN (9-16) mg/dL B-Natriuretic Peptide 144 H (<100) pg/mL COVID-19 (SHAQ) (Negative) Short CBC 06/23/21 Range/Units 21:38 WBC 17.2 H (4.8-10.8) X10*3/uL Hgb 10.7 L (12.0-16.0) g/dl Hct 34.5 L (37.0-47.0) % Plt Count 167 (160-400) X10*3/uL BMP 06/23/21 21:38 Sodium 141 Potassium 5.1 Chloride 106 Carbon Dioxide 26 BUN 25 H Creatinine 1.05 Calcium 10.0 D Liver Function 06/23/21 Range/Units 21:38 Total Bilirubin 0.3 (0.0-1.0) mg/dL AST 20 (5-31) U/L ALT 8 (0-31) U/L Alkaline Phosphatase 96 (39-117) U/L Albumin 4.5 (3.5-5.0) g/dL All other labs normal. Assessment and Plan (1) Ileus: Status: Acute (2) Lab test positive for detection of COVID-19 virus: Status: Acute Pleasant 81-year-old female with flu like symptoms and abdominal distension found on CT to have dilated small and large bowel with gas and stool within the colon. No clear obstruction is identified in findings appear most consistent with ileus. Patient feels improved this morning her abdomen is soft and nondistended. I would suggest starting clear liquids and advance as tolerated. Procedures Date of Service Date of Service: 06/24/21
[2021-06-24 08:33] LABS: Glucose, Whole Blood 100 mg/dL (60-115)
--- NOTE | 2021-06-24 09:52 | PHA.MEDREC ---
Pharmacy Consult ? Medication Reconciliation Pharmacy has completed the medication reconciliation. Spoke to pt's son Josemanuel who manages her medication with his sister. No remarkable issues. Katlin Mortensen, KerryD
[2021-06-24 10:14] LABS: MANUAL DIFF FLAG NO
[2021-06-24 10:17] LABS: Basophils Percent Auto 0.4 % (0-2); Eosinophils Absolute Auto 0.1 X10*3/uL (0.0-0.4); Eosinophils Percent Auto 1.5 % (0-4); Hematocrit 35.3 % (37.0-47.0); Hemoglobin 11.1 g/dl (12.0-16.0); Imm Gran Abs Auto 0.01 X10*3/uL (0.00-0.03); Imm Gran Pct Auto 0.1 % (0.0-0.4); Lymphocytes Absolute Auto 3.4 X10*3/uL (1.2-4.9); Lymphocytes Percent Auto 36.9 % (20-40); Mean Corpuscular HGB Conc 31.4 g/dl (31.0-35.0); Mean Corpuscular Hemoglobin 26.5 pg (27.0-33.0); Mean Corpuscular Volume 84.2 fL (80.0-98.0); Mean Platelet Volume 13.3 fL (9.4-12.3); Monocytes Absolute Auto 0.5 X10*3/uL (0.1-1.2); Monocytes Percent Auto 5.9 % (2-11); Neutrophils Percent Auto 55.2 % (45-73); Platelet Count 164 X10*3/uL (160-400); Red Blood Count 4.19 X10*6/uL (4.20-5.50); Red Cell Distribution Width 15.3 % (11.0-16.0); White Blood Count 9.2 X10*3/uL (4.8-10.8)
[2021-06-24 10:37] LABS: Anion Gap 13 (12-20); Blood Urea Nitrogen 15 mg/dL (9-16); Calcium 9.8 mg/dL (8.4-10.2); Carbon Dioxide 25 mmol/L (22-29); Chloride 110 mmol/L (96-108); Creatinine Clr Calc Pharmacy 40.5; Estimated Glomerular Filt Rate > 60; Glucose Random 97 mg/dL (60-115); Potassium 4.2 mmol/L (3.3-5.1); Sodium 144 mmol/L (135-145)
[2021-06-24] MEDS: Albuterol/Iprat 2.5/0.5MG 3 ML AMPUL.NEB INHALE (12:17)
[2021-06-24 12:19] LABS: Glucose, Whole Blood 117 mg/dL (60-115)
--- NOTE | 2021-06-24 12:39 | MHC.CM.PN ---
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
[2021-06-24] MEDS: Simethicone 80 MG TAB.CHEW PO (14:33)
[2021-06-24] MEDS: Dicyclomine HCl 10 MG CAPSULE 20 MG PO (14:33)
[2021-06-24] MEDS: Loratadine 10 MG TABLET PO (14:34)
[2021-06-24] MEDS: dilTIAZem HCL CD 240 MG CAP.ER.DEG PO (14:34)
[2021-06-24] MEDS: Multivitamin TABLET 1 TAB PO (14:34)
[2021-06-24] MEDS: Escitalopram Oxalate 5 MG TABLET PO (14:35)
[2021-06-24] MEDS: Famotidine 20 MG TABLET PO ×2 (14:35→20:28)
[2021-06-24] MEDS: ALPRAZolam 0.5 MG TABLET PO (14:40)
[2021-06-24] MEDS: 0.9 % Sodium Chloride Flush 3 ML SYRINGE IVFLUSH ×2 (14:42→20:27)
[2021-06-24] MEDS: Milk of Magnesia 30 ML ORAL.SUSP PO (15:44)
[2021-06-24 16:17] LABS: Glucose, Whole Blood 108 mg/dL (60-115)
[2021-06-24 19:38] LABS: Glucose, Whole Blood 89 mg/dL (60-115)
[2021-06-24] MEDS: Atorvastatin Calcium 40 MG TABLET PO (20:27)
[2021-06-24] MEDS: Theophylline Anhydrous ER 300 MG TAB.ER.12H PO (20:27)
[2021-06-24] MEDS: ALPRAZolam 0.5 MG TABLET 1 MG PO (20:27)
[2021-06-24] MEDS: traMADoL HCL 50 MG TABLET PO (21:08)
[2021-06-25] MEDS: Enoxaparin Sodium 40 MG/0.4 ML SYRINGE SUBCUT (01:23)
[2021-06-25 02:39] VITALS: BP 142/60; PULSE 80; RESP 20; TEMP 37.3; O2SAT 95
[2021-06-25] MEDS: Pantoprazole Sodium 40 MG/10 ML VIAL IVPUSH (06:08)
[2021-06-25] MEDS: Omeprazole 20 MG CAPSULE.DR PO (06:08)
[2021-06-25 07:09] LABS: Anion Gap 11 (12-20); Blood Urea Nitrogen 10 mg/dL (9-16); Calcium 9.3 mg/dL (8.4-10.2); Carbon Dioxide 28 mmol/L (22-29); Chloride 109 mmol/L (96-108); Estimated Glomerular Filt Rate > 60; Glucose Random 92 mg/dL (60-115); Potassium 3.8 mmol/L (3.3-5.1); Sodium 144 mmol/L (135-145)
[2021-06-25 07:11] LABS: Glucose, Whole Blood 91 mg/dL (60-115)
[2021-06-25 07:47] VITALS: BP 140/65; PULSE 69; RESP 18; TEMP 36.4; O2SAT 97
[2021-06-25 07:59] VITALS: PULSE 69; RESP 18; O2SAT 97
[2021-06-25] MEDS: Albuterol/Iprat 2.5/0.5MG 3 ML AMPUL.NEB INHALE (07:59)
[2021-06-25] MEDS: Fluticasone/Vilanterol 200/25 BLST.W.DEV 1 PUFF INHALE (08:02)
--- NOTE | 2021-06-25 08:10 | P.DS_ITS ---
DS: Providers Provider Date of Service: 06/25/21 Date of admission: 06/24/21 00:48 Primary care physician: Glenna Hassan MD Consults: 06/24/21 00:48 Consult to General Surgery Routine Consulting Provider: Lawson Noel Reason for consultation: Ileus Has provider been notified: Yes DS: Diagnosis Discharge Diagnosis (1) Ileus: Status: Acute DS: Summary Hospital Course Hospital Course: 81-year-old female with past medical history of asthma, hyperlipidemia, hypertension, history of gastric bypass, who presents to the hospital with abdominal bloating.? Patient reports that about 4 days ago she started having flu-like symptoms including dry cough, chills, generalized weakness, headache, rhinorrhea but did not think much of it, she was recovering at home when today she has thyroid having abdominal distension, nausea, no vomiting, has been constipated for 2 days, and has not had any gas movement for 2 days.? Patient reports that her bloating increased and therefore was brought into the hospital by her son.? She denies any fever no chills, no production of sputum.? No urinary symptoms.? No lower extremity edema.? She has not had any similar episode in the past.? She does have a history of cholecystectomy, hysterectomy, and appendectomy. On arrival to the ED patient hemodynamically stable with no significant abnormal vitals except slightly elevated blood pressure Labs are significant for WBC count of 17.2, hemoglobin of 10.7, pH of 7.52, BUN of 25, creatinine of 1.05, BNP of 144, COVID-19 positive, Abdomen pelvic CT showed dilatation of small bowel without transition zone seen.? Gas and stool seen throughout the colon.? Findings more suggestive of ileus. Chest x-ray showed bibasilar markings for atelectasis, no pleural effusion or pneumothorax. NG tube placed in the ED and patient will be admitted for further management. hospital course: Time Spent with Patient Time attestation: Total time spent providing and/or coordinating discharge services: Discharge coordination time: Greater than 30 minutes Quality: Stroke Does the patient have a stroke diagnosis?: No Physical Exam Verdana 4l Vital Signs: Verdana 4d Verdana 4d Vital Signs: Verdana 4d Verdana 4Bd Last Vital Signs Verdana 4d Ticket Chopper Assembler New 4d Ticket Chopper Assembler New 4d Temp 97.6 F 06/25/21 07:47 Ticket Chopper Assembler New 4d Pulse 69 06/25/21 07:59 Ticket Chopper Assembler New 4d Resp 18 06/25/21 07:59 BP 140/65 H 06/25/21 07:47 Pulse Ox 97 06/25/21 07:47 BMI result Body Mass Index 32.5 Appearance: Alert.? Oriented X3.? ENT: Pharynx normal.? Moist mucous membranes. cvs: rrr, [id number] , no murmur res: clear to auscultation ,no rhonchii or wheezing abd: no rebound or guarding ,nt, bs present. ext pulses present , no cyanosis. neuro: axo3 , nonfocal. DS: Data Data Completed and Pending Labs on day of discharge: Laboratory Results - last 24 hr 06/24/21 06/24/21 06/24/21 08:27 09:57 09:57 WBC 9.2 RBC 4.19 L Hgb 11.1 L Hct 35.3 L MCV 84.2 MCH 26.5 L MCHC 31.4 RDW 15.3 Plt Count 164 MPV 13.3 H Immature Gran % (Auto) 0.1 Neut % (Auto) 55.2 Lymph % (Auto) 36.9 [place] % (Auto) 5.9 Eos % (Auto) 1.5 Baso % (Auto) 0.4 Lymph # (Auto) 3.4 [place] # (Auto) 0.5 Eos # (Auto) 0.1 Baso # (Auto) 0.0 Abs Immat Gran (auto) 0.01 Absolute Neuts (auto) 5.0 Absolute Nucleated RBC 0.000 Nucleated RBC % (auto) 0.0 Sodium 144 Potassium 4.2 Chloride 110 H Carbon Dioxide 25 Anion Gap 13 BUN 15 Creatinine 0.76 Estim Creat Clear Calc 40.5 Estimated GFR > 60 POC Glucose 100 Random Glucose 97 Calcium 9.8 06/24/21 06/24/21 06/24/21 11:59 16:13 19:35 WBC RBC Hgb Hct MCV MCH MCHC RDW Plt Count MPV Immature Gran % (Auto) Neut % (Auto) Lymph % (Auto) [place] % (Auto) Eos % (Auto) Baso % (Auto) Lymph # (Auto) [place] # (Auto) Eos # (Auto) Baso # (Auto) Abs Immat Gran (auto) Absolute Neuts (auto) Absolute Nucleated RBC Nucleated RBC % (auto) Sodium Potassium Chloride Carbon Dioxide Anion Gap BUN Creatinine Estim Creat Clear Calc Estimated GFR POC Glucose 117 H 108 89 Random Glucose Calcium 06/25/21 06/25/21 06:00 07:07 WBC RBC Hgb Hct MCV MCH MCHC RDW Plt Count MPV Immature Gran % (Auto) Neut % (Auto) Lymph % (Auto) [place] % (Auto) Eos % (Auto) Baso % (Auto) Lymph # (Auto) [place] # (Auto) Eos # (Auto) Baso # (Auto) Abs Immat Gran (auto) Absolute Neuts (auto) Absolute Nucleated RBC Nucleated RBC % (auto) Sodium 144 Potassium 3.8 Chloride 109 H Carbon Dioxide 28 Anion Gap 11 L BUN 10 Creatinine 0.70 Estim Creat Clear Calc 44.0 Estimated GFR > 60 POC Glucose 91 Random Glucose 92 Calcium 9.3 Additional Comments Additional comments: XR/XR chest 1V IMPRESSION: Enteric tube terminates in the stomach, in good position. CT/CT abdomen pelvis w con IMPRESSION: Dilatation of small bowel without transition zone seen. Gas and stool seen throughout the colon. Findings more suggestive of ileus rather than obstruction. Continued follow-up recommended.? ? Fleischner guidelines were followed. Discharge Plan Discharge Patient Disposition: Home, Self-Care Discharge Diagnosis: Ielius , covid infection Referrals: Glenna Grossman MD [Primary Care Provider] - 1 Week Discharge Medications: Continued (DME) blood-glucose meter [FreeStyle Lite Meter] Kit See Rx Instructions .ROUTE .MEDSUPPLY Qty: 1 0RF Rx Instructions: As directed (DME) lancets [FreeStyle Lancets] 28 gauge misc See Rx Instructions .ROUTE .MEDSUPPLY Qty: 100 11RF Rx Instructions: 4x daily as needed Trulance 3 mg tablet 1 tab PO DAILY 0RF Systane (propylene glycol) 0.4-0.3 % Drops 1 drp OPHTHALMIC (EYE) DAILY PRN (Reason: Dry Eye(S)) 0RF albuterol sulfate 2.5 mg /3 mL (0.083 %) solution for nebulization 1 amp inhalation 6XD PRN (Reason: Wheezing) 0RF losartan 25 mg tablet 25 mg PO DAILY 0RF rosuvastatin 10 mg tablet 10 mg PO BEDTIME 0RF fluticasone propionate 50 mcg/actuation spray,suspension 2 spray intranasal DAILY 0RF citalopram 10 mg tablet 10 mg PO DAILY 0RF cetirizine 10 mg tablet 10 mg PO DAILY 0RF multivitamin Tablet 1 tab PO QAM 0RF ergocalciferol (vitamin D2) 1,250 mcg (50,000 unit) capsule 1,250 mcg PO SANDS 0RF rabeprazole 20 mg tablet,delayed release (DR/EC) 20 mg PO DAILY 0RF acetaminophen 500 mg tablet 500 mg PO TID PRN (Reason: Pain) 0RF albuterol sulfate 90 mcg/actuation HFA aerosol inhaler 2 inh inhalation QID PRN (Reason: Shortness Of Breath) 0RF alprazolam 1 mg tablet 1 mg PO BEDTIME 0RF alprazolam 0.5 mg tablet 0.5 mg PO BEDTIME PRN (Reason: Anxiety) 0RF diltiazem HCl 240 mg capsule,extended release 24 hr 240 mg PO DAILY 0RF fluticasone propion-salmeterol 230-21 mcg/actuation HFA aerosol inhaler 2 puff inhalation DAILY 0RF simethicone 80 mg tablet,chewable 80 mg PO DAILY 0RF theophylline 300 mg tablet extended release 12 hr 300 mg PO BID 0RF tramadol 50 mg tablet 50 mg PO TID PRN (Reason: Pain) 0RF dicyclomine 20 mg tablet 20 mg PO DAILY 0RF famotidine 20 mg tablet 20 mg PO BID 0RF Discharge Orders: Discharge Order (Routine); Ordered 06/25/21 Ordered By: Cade Handley Diet: advance to usual diet Activity on Discharge: As tolerated Stand Alone Forms: Patient Portal Discharge page Care Plan Goals: Patient came to the hospital because of ileus - given bowel regimen and seems to be improved passing bowels. Going home with her home regimen. Patient also had possible COVID infection -currently asymptomatic no shortness of breath no cough or any hypoxia. further management outpatient as per PCP. Health Concerns: As above. Plan of Treatment: As above. Assessment: As above. Discharge Date/Time: 06/25/21 11:25
[2021-06-25] MEDS: Multivitamin TABLET 1 TAB PO (09:28)
[2021-06-25] MEDS: Simethicone 80 MG TAB.CHEW PO (09:28)
[2021-06-25] MEDS: 0.9 % Sodium Chloride Flush 3 ML SYRINGE IVFLUSH (09:28)
[2021-06-25] MEDS: Losartan Potassium 25 MG TABLET PO (09:28)
[2021-06-25] MEDS: Famotidine 20 MG TABLET PO (09:29)
[2021-06-25] MEDS: dilTIAZem HCL CD 240 MG CAP.ER.DEG PO (09:29)
[2021-06-25] MEDS: Loratadine 10 MG TABLET PO (09:29)
[2021-06-25] MEDS: Theophylline Anhydrous ER 300 MG TAB.ER.12H PO (09:29)
[2021-06-25] MEDS: Dicyclomine HCl 10 MG CAPSULE 20 MG PO (09:29)
[2021-06-25] MEDS: Escitalopram Oxalate 5 MG TABLET PO (09:29)
== END 2021-06-25 11:25 | disposition home or self-care (01) | DRG 388 ==
LOC: HO.ED 06-24 00:56 → HO.EDOVER 06-24 06:26 → HO.IMC 06-24 06:32
PROVIDERS: Admitting Provider Internal Medicine; Emergency Provider Student in an Organized Health Care Education/Training Program; PCP Internal Medicine; Visit Provider Internal Medicine
DX: K56.7 Ileus, unspecified (principal); U07.1 COVID-19; I10 Essential (primary) hypertension; E78.5 Hyperlipidemia, unspecified; J45.909 Unspecified asthma, uncomplicated; Z88.5 Allergy status to narcotic agent; Z79.51 Long term (current) use of inhaled steroids; Z79.899 Other long term (current) drug therapy
CPT/HCPCS: 36415; 71045; 74018; 74177; 80048; 80053; 82803; 82947; 83605; 83690; 83880; 85025; 87635; 94640; 96365; 97161; 99285; J1650; J2543; Q9967

== ENCOUNTER → 2021-08-25 10:53 | Outpatient (BNVA) | payer MEDICARE, SELFPAY | PROVIDERS: PCP Internal Medicine; Referring Provider Internal Medicine; Visit Provider Internal Medicine Gastroenterology | DX: K59.04 Chronic idiopathic constipation (principal); K21.9 Gastro-esophageal reflux disease without esophagitis | CPT/HCPCS: 99212 ==

== ENCOUNTER 2021-09-09 10:48 | Outpatient (REF) | payer OTHER, SELFPAY ==
--- NOTE | 2021-09-09 | PFT_ITS ---
FLOWS: FEV1 134% of predicted at 1.43 L. FVC 133% of predicted at 2.03 L. FEV1 to FVC ratio of 0.71. No bronchodilator response. LUNG VOLUMES: Total lung capacity 101% of predicted at 3.62 L. Residual volume 88% of predicted at 1.68 L. Slow vital capacity 116% of predicted at 1.94 L. Expiratory reserve volume 102% of predicted at 0.55 L. Diffusion capacity is normal. In comparison to pulmonary function test from March 2014; FEV1, FVC, TLC, RV, SVC, ERV, and diffusion capacity have been without significant changes. IMPRESSION: Mild reversible obstructive ventilatory defect. Bridger Brannon MD AP/MODL / [id number]
== END 2021-09-09 10:49 | disposition home or self-care (01) ==
LOC: HO.RESP 10:48
PROVIDERS: PCP Internal Medicine; Visit Provider Internal Medicine
DX: J45.909 Unspecified asthma, uncomplicated (principal); R53.1 Weakness
CPT/HCPCS: 94060; 94727; 94729

== ENCOUNTER → 2021-09-19 10:30 | Outpatient (REF) | payer OTHER, SELFPAY ==
--- NOTE | 2021-09-19 10:29 | CA_ITS ---
Transthoracic Echocardiogram Patient (Last, First, Middle): Lia Strauss, Gender: Female Date of : 1940 Age: 81 Procedure Date: 09/19/2021 Procedure Type: Transthoracic Echocardiogram Location: OP Height: 134.62 cm Weight: 59.88 kg BSA: 1.43 m2 Heart Rate: bpm BP: 110 / 58 mmHg Joy Loader: YR/TO Referring MD: Ana Kraft MD Bankman: Janes Brooke MD Symptoms: I10 HTN R53.1 WEAKNESS Study Quality: Fair ECG Rhythm: Sinus Conclusions: - 1. Normal LV systolic function with impaired relaxation filling pattern 2. Mildly dilated left atrium 3. Tski-ji-[id number] aortic stenosis 4. Moderate mitral annular calcification 5. Normal RV systolic pressure 6. No pericardial effusion Findings Left Ventricle Normal left ventricular size, thickness, and systolic function. The visually estimated ejection fraction is between 60-65%. Spectral Doppler is indicative of an impaired relaxation filling pattern. E/E prime ratio is between 8 and 15 consistent with indeterminate filling pressures. Right Ventricle Normal right ventricular cavity size and systolic function. Atria The left atrium is mildly dilated. There is no evidence of interatrial shunt. The right atrium is normal in size. Aortic Valve There is mild calcification of the aortic valve. There is mild thickening of the aortic valve. There is mild to moderate aortic valve stenosis. The peak aortic gradient is 27 mmHg.The mean gradient is 14 mmHg. The aortic valve area is 1.30 cm2. There is no aortic valve regurgitation. Mitral Valve There is mild anterior and moderate posterior mitral leaflet thickening. There is moderate mitral annular calcification. There is trace mitral valve regurgitation. There is no mitral valve stenosis. Pulmonic Valve The pulmonic valve was not well visualized. Tricuspid Valve Likely normal tricuspid valve structure and function. There is mild tricuspid valve regurgitation. The right ventricular systolic pressure is normal. The right ventricular systolic pressure is 26 mmHg. Normal right atrial pressure. There is no evidence of pulmonary hypertension. Great Vessels All visible segments of the aorta are normal in size. The pulmonary artery was not well visualized. Venous The inferior vena cava is normal in size and collapses greater than 50% with inspiration. Pericardium/Pleural There is no evidence of pericardial effusion. Prior Study Comparison No prior study available for comparison. Measurements 2D Linear Measurements IVSd: 1.07 0.6-0.9/0.6-1.0 cm LVIDd: 4.04 3.9-5.3/4.2-5.9 cm LVIDd Index: 2.83 2.4-3.2/2.2-3.1 cm/m2 LVIDs: 2.37 2.0-3.6 cm LVPWd: 1.05 0.7-1.1 cm LA Diam: 3.60 2.7-3.8/3.0-4.0 cm LAIDs Index: 2.52 1.5-2.3 cm/m2 LV Mass: 174.52 67-162/88-224 g LV Mass Index: 122.04 43-95/49-115 g/m2 LVOT Diam: 1.80 3.0+(-)1.3 cm 2D Systolic Function EF 4C: 62.80 >55% EF 2C: 62.40 >55% EF BiP: 62.40 >55% Mitral Valve MV Pk E: 0.90 MV PK A: 1.17 MV Decel Time: 249.00 E/A: 0.80 E'Lateral: 6.91 E'Medial: 6.09 E/E' Med: 14.80 E/E' Lat: 13.10 PHT: 73.00 MVA PHT: 3.01 Decel Clayton: 3.62 Aortic Valve AoV Pk Guevara: 2.59 AoV Mn Guevara: 1.76 AoV VTI: 0.60 AoV Pk Grad: 27.00 Aov Mn Grad: 14.00 PABLO Cont.VTI: 1.30 AI Pk Guevara: 4.04 AI [place]: 3.17 LVOT LVOT Pk Guevara: 1.29 LVOT Mn Guevara: 0.92 LVOT VTI: 0.31 LVOT Pk Grad: 7.00 LVOT Mn Grad: 4.00 LVOT Diam: 1.80 LVOT Area: 2.54 Diastolic Function MV Pk E: 0.90 MV Pk A: 1.17 E/A: 0.80 E'Medial: 6.09 E/E' Med: 14.80 E' Laterial: 6.91 E/E' Lat: 13.10 Right Ventricle TAPSE (mm): 26.00 TVS' Guevara: 10.80 Tricuspid Valve TR Pk Guevara: 2.40 TR Pk Grad: 23.00 RA Press: 3.00 RVSP: 26.00 Great Vessels Aorta Sinus of Valsalva: 2.99 2.0-3.[address] [place]: 2.18 1.7-3.4 cm Ao Asc: 3.20 2.1-3.4 cm Updated in Other Vendor System with Status of Final Janes Brooke MD electronically signed on 09/20/2021 2:03:01 PM with status of Final
== END ==
LOC: HO.CARD 10:30
PROVIDERS: PCP Internal Medicine; Visit Provider Internal Medicine
DX: I10 Essential (primary) hypertension (principal); R53.1 Weakness
CPT/HCPCS: 93306

== ENCOUNTER 2022-01-31 18:48 | Emergency (ER) | payer OTHER, SELFPAY ==
--- NOTE | ~2022-01-31 | CT_ITS ---
EXAMINATION: CT HEAD WITHOUT CONTRAST CLINICAL INFORMATION: Headache. COMPARISON: CT head 04/25/2019 TECHNIQUE: Contiguous axial imaging was performed from the skull base to vertex without intravenous administration of contrast. Coronal and sagittal reformatted images are performed at the CT scanner. [This CT examination was performed using dose optimization techniques as appropriate, variously including the following: *Automated exposure control *Adjustment of mA and/or kV according to patient size (this includes techniques or standardized protocols for targeted exams where dose is matched to indication/reason for exam; i.e. extremities or head) *Use of iterative reconstruction technique] DLP: 563 mGy-cm. FINDINGS: There is no evidence of acute intracranial hemorrhage or territorial infarction. No abnormal mass-effect or midline shift is seen. Ceron to white matter differentiation is well preserved. No extra-axial fluid collections are identified. The ventricles are normal in size. There is no abnormal attenuation within the brain parenchyma. There is no osseous abnormality. The mastoid air cells and visualized portions of the paranasal sinuses are well-aerated. CT/CT head/brain wo IV con IMPRESSION: No acute intracranial pathology.
[2022-01-31 19:39] VITALS: BP 150/72; PULSE 68; RESP 20; TEMP 36.7; O2SAT 99; BMI 29.5
[2022-01-31 20:41] LABS: Basophils Absolute Auto 0.1 X10*3/uL (0.0-0.2); Basophils Percent Auto 0.6 % (0-2); Eosinophils Absolute Auto 0.3 X10*3/uL (0.0-0.4); Hematocrit 36.9 % (37.0-47.0); Hemoglobin 11.8 g/dl (12.0-16.0); Imm Gran Abs Auto 0.03 X10*3/uL (0.00-0.03); Imm Gran Pct Auto 0.2 % (0.0-0.4); Lymphocytes Absolute Auto 9.7 X10*3/uL (1.2-4.9); MANUAL DIFF FLAG SCAN; Mean Corpuscular Hemoglobin 27.8 pg (27.0-33.0); Mean Platelet Volume 11.8 fL (9.4-12.3); Monocytes Absolute Auto 0.7 X10*3/uL (0.1-1.2); Monocytes Percent Auto 4.5 % (2-11); Neutrophils Absolute Auto 3.7 x10*3/uL (2.0-8.3); Neutrophils Percent Auto 25.7 % (45-73); Platelet Count 133 X10*3/uL (160-400); Red Blood Count 4.24 X10*6/uL (4.20-5.50); Red Cell Distribution Width 18.7 % (11.0-16.0); SCAN SMEAR FLAG 1; White Blood Count 14.5 X10*3/uL (4.8-10.8)
[2022-01-31 20:56] LABS: Alanine Aminotransferase 11 U/L (0-31); Albumin Level 4.4 g/dL (3.5-5.0); Alkaline Phosphatase 89 U/L (39-117); Anion Gap 17 (12-20); Aspartate Amino Transferase 21 U/L (5-31); Bilirubin Direct < 0.2 mg/dL (0.0-0.5); Bilirubin Total 0.3 mg/dL (0.0-1.0); Blood Urea Nitrogen 19 mg/dL (9-16); Calcium 9.2 mg/dL (8.4-10.2); Carbon Dioxide 24 mmol/L (22-29); Chloride 107 mmol/L (96-108); Creatinine Clr Calc Pharmacy 36.4; Estimated Glomerular Filt Rate > 60; Glucose Random 100 mg/dL (60-115); Lipase 30 U/L (8-78); Potassium 4.8 mmol/L (3.3-5.1); Sodium 143 mmol/L (135-145); Total Protein 6.9 g/dL (6.5-8.0)
[2022-01-31 21:29] LABS: SLIDE REVIEW VERIFIED
[2022-01-31 21:52] VITALS: BP 148/47; PULSE 62; RESP 18; TEMP 36.6; O2SAT 99
[2022-01-31 22:09] LABS: Appearance Urine Clear; Color Urine Yellow; Glucose Urine UA Negative (Negative); Leukocyte Esterase Urine Negative (Negative); Nitrite Urine Negative (Negative); PH 6.5 (5.0-9.0); Specific Gravity - Urine <= 1.005 (1.005-1.025); Urine Blood Negative (Negative); Urine Ketones Negative (Negative); Urine Protein Negative (Neg-Trace)
--- NOTE | 2022-01-31 22:37 | ED.GENADULT ---
HPI - General Adult General Chief complaint: Nausea/Vomiting/Diarrhea Stated complaint: right sided headache Time Seen by Provider: 01/31/22 21:52 Source: patient Mode of arrival: ambulatory Limitations: no limitations History of Present Illness HPI narrative: This is an 81-year-old female presenting to the emergency department with a right-sided headache, urinary frequency x4 days. Patient tells me that the headache is localized to the right side of head in goes down into the right side of her neck and into her right shoulder. Patient tells me this feels like her typical headache however it is not going away despite Tylenol and Excedrin. Patient tells me that it is an aching pain that is constant in nature, denies scotoma is or photophobia, denies head trauma. Patient is not on blood thinners. Patient tells me that she has just been feeling off for the last few days she also notes that she has been peeing more frequently however she does state she has been drinking a lot more water than usual. She denies chest pain, shortness of breath, vision changes, dizziness, weakness, cough, fevers, chills, nausea, vomiting, abdominal pain. Related Data Home Medications Medication Instructions Recorded Confirmed cetirizine 10 mg tablet 10 mg PO DAILY 04/22/20 06/24/21 citalopram 10 mg tablet 10 mg PO DAILY 04/22/20 06/24/21 ergocalciferol (vitamin D2) 1,250 1,250 mcg PO SANDS 04/22/20 06/24/21 mcg (50,000 unit) capsule fluticasone propionate 50 2 spray intranasal DAILY 04/22/20 06/24/21 mcg/actuation nasal spray,suspension losartan 25 mg tablet 25 mg PO DAILY 04/22/20 06/24/21 multivitamin 1 tab PO QAM 04/22/20 06/24/21 rabeprazole 20 mg tablet,delayed 20 mg PO DAILY 04/22/20 06/24/21 release rosuvastatin 10 mg tablet 10 mg PO BEDTIME 04/22/20 06/24/21 acetaminophen 500 mg tablet 500 mg PO TID PRN Pain 06/05/20 06/24/21 albuterol sulfate 90 mcg/actuation 2 inh inhalation QID PRN Shortness 06/05/20 06/24/21 aerosol inhaler Of Breath alprazolam 0.5 mg tablet 0.5 mg PO BEDTIME PRN Anxiety 06/05/20 06/24/21 alprazolam 1 mg tablet 1 mg PO BEDTIME 06/05/20 06/24/21 diltiazem HCl 240 mg capsule,24 240 mg PO DAILY 06/05/20 06/24/21 hr,extended release fluticasone propionate 230 2 puff inhalation DAILY 06/05/20 06/24/21 mcg-salmeterol 21 mcg/actuation HFA inhaler simethicone 80 mg chewable tablet 80 mg PO DAILY 06/05/20 06/24/21 theophylline 300 mg 300 mg PO BID 06/05/20 06/24/21 tablet,extended release,12 hr tramadol 50 mg tablet 50 mg PO TID PRN Pain 06/05/20 06/24/21 dicyclomine 20 mg tablet 20 mg PO DAILY 02/17/21 06/24/21 albuterol sulfate 2.5 mg/3 mL 1 amp inhalation 6XD PRN Wheezing 06/24/21 06/24/21 (0.083 %) solution for nebulization peg 400-propylene glycol 0.4 %-0.3 1 drp ophthalmic (eye) DAILY PRN 06/24/21 06/24/21 % eye drops (Systane (propylene Dry Eye(S) glycol)) plecanatide 3 mg tablet (Trulance) 1 tab PO DAILY 06/24/21 06/24/21 Previous Rx's Medication Instructions Recorded blood-glucose meter (FreeStyle #1 ea 06/07/20 Lite Meter kit) lancets 28 gauge (FreeStyle #100 ea 06/11/20 Lancets) famotidine 40 mg tablet 40 mg PO BID #90 tabs 11/11/21 ondansetron 4 mg disintegrating 4 mg PO Q8H PRN for 01/06/22 tablet nausea/vomiting #20 ea simethicone 80 mg chewable tablet 80 mg PO BID-QID PRN abdominal 01/08/22 (Gas Relief (simethicone)) distention #90 tabs Allergies Allergy/AdvReac Type Severity Reaction Status Date / Time morphine [MORPHINE] Allergy Unknown unknown Verified 01/31/22 19:45 milk [MILK] AdvReac Mild STOMACH Verified 01/31/22 19:45 UPSET oxycodone [From Percocet] AdvReac Mild NAUSEA/RAPID Verified 01/31/22 19:45 HR/BLURRED VISION protonix Allergy Unknown Unknown Uncoded 08/25/21 11:02 tramadol Allergy Unknown stomach Uncoded 08/25/21 11:02 upset/constipation Review of Systems Review of Systems: Constitutional : No Weight loss, No Fever, No Chills, No Fatigue, No Malaise ENT/Mouth : No sore throat, No Rhinorrhea Eyes: No Eye Pain, No Swelling, No Redness Cardiovascular : No Chest Pain, No SOB, No Dyspnea on Exertion, No Orthopnea, No Edema, No Palpitations Respiratory : No Cough, No Sputum, No Wheezing Gastrointestinal : No Nausea, No Vomiting, No Diarrhea, No Constipation, No abdominal Pain, No Hematochezia, No Melena Genitourinary : No Dysuria, + Urinary Frequency, No Hematuria, Musculoskeletal : No joint pain, No Myalgias, No Joint Swelling Skin : No Skin Lesions, No rash Neuro : No Weakness, No Numbness, No Dizziness, + Headache Psych : No Anxiety/Panic, No Depression All other systems reviewed and are negative Yes all other systems are reviewed and are negative PMFSH Past Medical History Attestation statement: The following information was validated with the patient. Source: old records reviewed and nursing notes reviewed Medical History Arthritis Asthma Glaucoma HLD (hyperlipidemia) HTN (hypertension) Hypoglycemia Surgical History History of appendectomy History of cholecystectomy History of knee replacement procedure of right knee Hx of colonoscopy Hx of gastric bypass Hx of hysterectomy Family History Family History Father No problems noted. Mother No problems noted. Social History Social History Household Members: None Household Members Other:: daughter lives downstairs Housing: House Do you presently have visiting nurse or other home services: Yes (and EMERGENCY MANAGEMENT DIRECTOR/son) Alcohol intake: never Patient Tobacco Use Status: Never used Tobacco Use of substances other than those prescribed or required for medical reasons: No Advance Directives: No Advance Directives Information Provided: No Advance Directives Date on File: 06/24/21 service: No Physical Exam ED Vital Signs: Vital Signs - 24 hr 01/31/22 19:39 01/31/22 21:52 01/31/22 22:41 Temperature 98.1 F 97.9 F 98.3 F Pulse Rate 68 62 58 Respiratory Rate 20 18 14 Blood Pressure 150/72 H 148/47 H 126/37 L Pulse Oximetry 99 99 98 Oxygen Delivery Method Room Air Room Air Room Air 01/31/22 23:31 Temperature 98.0 F Pulse Rate 59 Respiratory Rate 16 Blood Pressure 143/48 H Pulse Oximetry 97 Oxygen Delivery Method Room Air BMI result Body Mass Index 29.5 vss Appearance: Alert.? Oriented X3.? No acute distress.? Head: Normocephalic, atraumatic, no step-offs or deformities Eyes: Pupils equal, round and reactive to light.? Extraocular movements intact. ENT: Pharynx normal.? Neck: Normal inspection.? Neck supple.? Negative Kernig and Brudzinski. CVS: Normal heart rate and rhythm.? Pulses normal.? Respiratory: No respiratory distress.? Breath sounds normal.? Abdomen: Soft and nontender.? Skin: Skin warm and dry.? Normal skin color.? Normal skin turgor.? Extremities: No lower extremity edema.? No calf ttp. 5/5 strength to bilateral upper and lower extremities Back: No midline tenderness, no C-spine tenderness, full range of motion, no CVA tenderness bilaterally Neuro: Oriented X 3.? No motor deficit.? No sensory deficit. CN 2-12 intact . Normal [id number], ambulating with steady tandem gait normal coordination. GCS score 15, NIH stroke scale negative. Normal [id number]. Course Reevaluation(s) Reevaluation #1: CBC was slight leukocytosis, and a normocytic anemia. Chemistry w/o acute electrolyte abnormalities requiring intervention. Urine clean. CT of the head with no acute findings. Time: 23:21 Reevaluation #2: Patient feeling slightly better. Sign-out given to pending reevaluation, flu/covid/rsv and improvement Time: 01:39 Medical Decision Making [facility] Narrative Medical decision making narrative: 1020 81-year-old female presents with a right-sided headache, extending into the neck and right shoulder x4 days, also has complaints of urinary frequency over the past 4 days. Tells me this feels like her typical headache, no head trauma, not on blood thinners. Physical examination benign, normal neuro function, cerebellar function intact. Vital signs are stable. Likely migraine, unlikely intracranial hemorrhage, meningitis, encephalitis. Will rule out UTI. Unlikely stroke or posterior stroke. No meningeal signs on exam, unlikely meningitis. Plan at this time is labs, imaging, urine. Medical Records Medical records reviewed: Yes I reviewed the patient's medical records. Lab Data Lab results reviewed: Yes I reviewed the patient's lab results. Result diagrams: 01/31/22 20:31 01/31/22 20:31 Labs: Lab Results 01/31/22 01/31/22 01/31/22 Range/Units 20:31 20:31 21:58 WBC 14.5 H (4.8-10.8) X10*3/uL RBC 4.24 (4.20-5.50) X10*6/uL Hgb 11.8 L (12.0-16.0) g/dl Hct 36.9 L (37.0-47.0) % MCV 87.0 (80.0-98.0) fL MCH 27.8 (27.0-33.0) pg MCHC 32.0 (31.0-35.0) g/dl RDW 18.7 H (11.0-16.0) % Plt Count 133 L (160-400) X10*3/uL MPV 11.8 (9.4-12.3) fL Immature Gran % (Auto) 0.2 (0.0-0.4) % Neut % (Auto) 25.7 L (45-73) % Lymph % (Auto) 67.0 H (20-40) % [place] % (Auto) 4.5 (2-11) % Eos % (Auto) 2.0 (0-4) % Baso % (Auto) 0.6 (0-2) % Lymph # (Auto) 9.7 H (1.2-4.9) X10*3/uL [place] # (Auto) 0.7 (0.1-1.2) X10*3/uL Eos # (Auto) 0.3 (0.0-0.4) X10*3/uL Baso # (Auto) 0.1 (0.0-0.2) X10*3/uL Abs Immat Gran (auto) 0.03 (0.00-0.03) X10*3/uL Absolute Neuts (auto) 3.7 (2.0-8.3) x10*3/uL Absolute Nucleated RBC 0.000 (0.0-0.012) X10*3/uL Nucleated RBC % (auto) 0.0 (0.0-0.2) /100WBC Smear Tech's Comments VERIFIED Sodium 143 (135-145) mmol/L Potassium 4.8 D (3.3-5.1) mmol/L Chloride 107 (96-108) mmol/L Carbon Dioxide 24 (22-29) mmol/L Anion Gap 17 (12-20) BUN 19 H D (9-16) mg/dL Creatinine 0.89 (0.5-1.4) mg/dL Estim Creat Clear Calc 36.4 Estimated GFR > 60 Random Glucose 100 (60-115) mg/dL Calcium 9.2 (8.4-10.2) mg/dL Total Bilirubin 0.3 (0.0-1.0) mg/dL Direct Bilirubin < 0.2 (0.0-0.5) mg/dL AST 21 (5-31) U/L ALT 11 (0-31) U/L Alkaline Phosphatase 89 (39-117) U/L Total Protein 6.9 (6.5-8.0) g/dL Albumin 4.4 (3.5-5.0) g/dL Lipase 30 (8-78) U/L Urine Color Yellow Urine Appearance Clear Urine pH 6.5 (5.0-9.0) Ur Specific [place] <= 1.005 (1.005-1.025) Urine Protein Negative (Neg-Trace) mg/dL Urine Glucose (UA) Negative (Negative) mg/dL Urine Ketones Negative (Negative) mg/dL Urine Blood Negative (Negative) Urine Nitrite Negative (Negative) Ur Leukocyte Esterase Negative (Negative) Critical Care Time Critical Care Time Critical Care Time: No Discharge Plan Discharge Clinical Impression: Viral syndrome, Headache Patient Disposition: Home, Self-Care Prescriptions: No Action (DME) blood-glucose meter [FreeStyle Lite Meter] Kit See Rx Instructions .ROUTE .MEDSUPPLY Qty: 1 0RF Rx Instructions: As directed (DME) lancets [FreeStyle Lancets] 28 gauge misc See Rx Instructions .ROUTE .MEDSUPPLY Qty: 100 11RF Rx Instructions: 4x daily as needed famotidine 40 mg tablet 40 mg PO BID Qty: 90 1RF ondansetron 4 mg tablet,disintegrating 4 mg PO Q8H PRN (Reason: for nausea/vomiting) Qty: 20 1RF simethicone [Gas Relief (simethicone)] 80 mg tablet,chewable 80 mg PO BID-QID PRN (Reason: abdominal distention) Qty: 90 1RF Trulance 3 mg tablet 1 tab PO DAILY Systane (propylene glycol) 0.4-0.3 % Drops 1 drp OPHTHALMIC (EYE) DAILY PRN (Reason: Dry Eye(S)) albuterol sulfate 2.5 mg /3 mL (0.083 %) solution for nebulization 1 amp inhalation 6XD PRN (Reason: Wheezing) losartan 25 mg tablet 25 mg PO DAILY rosuvastatin 10 mg tablet 10 mg PO BEDTIME fluticasone propionate 50 mcg/actuation spray,suspension 2 spray intranasal DAILY citalopram 10 mg tablet 10 mg PO DAILY cetirizine 10 mg tablet 10 mg PO DAILY multivitamin Tablet 1 tab PO QAM ergocalciferol (vitamin D2) 1,250 mcg (50,000 unit) capsule 1,250 mcg PO SANDS rabeprazole 20 mg tablet,delayed release (DR/EC) 20 mg PO DAILY acetaminophen 500 mg tablet 500 mg PO TID PRN (Reason: Pain) albuterol sulfate 90 mcg/actuation HFA aerosol inhaler 2 inh inhalation QID PRN (Reason: Shortness Of Breath) alprazolam 1 mg tablet 1 mg PO BEDTIME alprazolam 0.5 mg tablet 0.5 mg PO BEDTIME PRN (Reason: Anxiety) diltiazem HCl 240 mg capsule,extended release 24 hr 240 mg PO DAILY fluticasone propion-salmeterol 230-21 mcg/actuation HFA aerosol inhaler 2 puff inhalation DAILY simethicone 80 mg tablet,chewable 80 mg PO DAILY theophylline 300 mg tablet extended release 12 hr 300 mg PO BID tramadol 50 mg tablet 50 mg PO TID PRN (Reason: Pain) dicyclomine 20 mg tablet 20 mg PO DAILY
[2022-01-31 22:41] VITALS: BP 126/37; PULSE 58; RESP 14; TEMP 36.8; O2SAT 98
[2022-01-31] MEDS: Metoclopramide HCl 10 MG/2 ML VIAL IVPUSH (23:18)
[2022-01-31] MEDS: diphenhydrAMINE HCL 50 MG/ML VIAL 25 MG IVPUSH (23:18)
[2022-01-31 23:31] VITALS: BP 143/48; PULSE 59; RESP 16; TEMP 36.7; O2SAT 97
--- NOTE | 2022-01-31 23:51 | PC.NURSE ---
Assumed care of pt at 2351.
--- NOTE | 2022-02-01 | PC.NURSE ---
Pt.'s son at bedside notified this RN that pt. is experiencing unusual leg spasms while trying to fall asleep. States that this is abnormal for pt. VIJAY Paula notified and one-time dose of Ativan ordered
[2022-02-01] MEDS: 0.9 % Sodium Chloride 1,000 ML 999 ML IV (00:09)
--- NOTE | 2022-02-01 00:28 | PC.NURSE ---
patient was assisted to bedside commode ,patient voided large amount of urine .
[2022-02-01] MEDS: LORazepam 0.5 MG TABLET PO (01:07)
[2022-02-01 02:31] VITALS: BP 143/64; PULSE 66; RESP 15; TEMP 36.7; O2SAT 97
[2022-02-01 03:56] VITALS: BP 165/50; PULSE 70; RESP 14; O2SAT 97
[2022-02-01 04:31] LABS: Influenza A PCR NEGATIVE (Negative); Influenza B PCR NEGATIVE (Negative); Resp Syncy Virus RNA Qual PCR NEGATIVE (Negative); SARS COV2 PCR INHOUSE NEGATIVE (Negative)
[2022-02-01 05:52] VITALS: BP 162/46; PULSE 68; RESP 20; TEMP 37; O2SAT 95
== END 2022-02-01 06:08 | disposition home or self-care (01) ==
PROVIDERS: Physician Assistant; Emergency Provider Emergency Medicine Emergency Medical Services; PCP Internal Medicine
DX: B34.9 Viral infection, unspecified (principal); R51.9 Headache, unspecified; Z20.822 Contact with and (suspected) exposure to COVID-19; I10 Essential (primary) hypertension; E78.5 Hyperlipidemia, unspecified; Z79.02 Long term (current) use of antithrombotics/antiplatelets; Z79.899 Other long term (current) drug therapy
CPT/HCPCS: 0241U; 36415; 70450; 80048; 80076; 81003; 83690; 85025; 96361; 96374; 96375; 99284; 99285; J1200; J2765

== ENCOUNTER → 2022-02-06 09:01 | Outpatient (BNVA) | payer OTHER, SELFPAY | PROVIDERS: PCP Internal Medicine; Visit Provider Internal Medicine Gastroenterology | DX: K59.04 Chronic idiopathic constipation (principal); K21.9 Gastro-esophageal reflux disease without esophagitis; D64.9 Anemia, unspecified | CPT/HCPCS: 99212 ==

== ENCOUNTER 2022-05-03 09:22 | Emergency (ER) | payer OTHER, SELFPAY ==
--- NOTE | ~2022-05-03 | CT_ITS ---
EXAMINATION: CT CHEST WITHOUT CONTRAST CLINICAL INFORMATION: Coughing, question pneumonia. COMPARISON: X-ray of same day and June 24, 2021 TECHNIQUE: Multidetector volumetric CT imaging of the chest was done. Axial MIP volume rendering provided. Sagittal and coronal reformatted images were obtained. This CT examination was performed using dose optimization techniques as appropriate, variously including the following: *Automated exposure control *Adjustment of mA and/or kV according to patient size (this includes techniques or standardized protocols for targeted exams where dose is matched to indication/reason for exam; i.e. extremities or head) *Use of iterative reconstruction technique DLP: 242 mGy-cm FINDINGS: There is motion artifact present degrading study. LUNGS: Central airways are patent. There is bronchial wall thickening without evidence of bronchiectasis. There are scattered regions of groundglass opacity seen bilaterally in a somewhat mosaic pattern. No confluent airspace disease is seen. Scattered sub-4 mm densities are present. There is atelectasis/scarring noted within the lower lobes bilaterally. MEDIASTINUM: There is a 1.3 cm calcified nodule seen within the left thyroid gland. Heart normal size. No pericardial effusion. No thoracic aortic aneurysm. There are a few prominent but not pathologically enlarged mediastinal lymph nodes present including one which is calcified. CORONARY ARTERY CALCIFICATION: Coronary artery calcification is seen as well as aortic and mitral annulus calcification. PLEURA: There is no pleural effusion. No pleural mass or thickening. AXILLA: There are prominent axillary lymph nodes seen bilaterally measuring up to 1 cm in short axis. UPPER ABDOMEN: Patient is status post gastric bypass surgery. Status post cholecystectomy. Status post anterior abdominal wall mesh placement. OSSEOUS STRUCTURES: No suspicious destructive bony lesion identified. Multilevel degenerative disc disease. Scoliosis thoracic spine convex right and lumbar spine convex left CT/CT chest wo IV con IMPRESSION: Numerous scattered regions of groundglass opacity without confluent pneumonitis. Above appearance can be seen with acute or subacute infection such as viral or atypical pneumonitis, interstitial edema, regions of air trapping versus reduced perfusion. 1.3 cm calcified thyroid nodule. Ultrasound may be of help in further evaluation of this finding. Fleischner guidelines were followed.
--- NOTE | ~2022-05-03 | XR_ITS ---
EXAMINATION: XR CHEST CLINICAL INFORMATION: Flulike symptoms COMPARISON: June 24, 2021 and March 09, 2016 TECHNIQUE: AP portable view of the chest was obtained. FINDINGS: Previous mid right lung density has improved. There is some density seen about the left upper lobe which appears to be related to overlap of anterior aspect of the first rib and some vasculature. Some of this also appears be related to some linear scarring. No definite acute confluent parenchymal disease is seen. No pneumothorax or pleural effusion is seen. There is scoliosis of the thoracic spine convex right and lumbar spine convex left. There is a stable calcified nodular density seen about the medial apex which was present on prior studies. There is chronic left pleural parenchymal scarring present. XR/XR chest 1V IMPRESSION: No acute disease.
[2022-05-03 09:27] VITALS: BP 141/56; PULSE 92; RESP 20; TEMP 37.7; O2SAT 96
[2022-05-03 09:33] VITALS: BP 196/72; PULSE 84; RESP 18; TEMP 37; O2SAT 96; BMI 29.6
--- NOTE | 2022-05-03 09:41 | ECG_ITS ---
Test Reason : Cough and SOB Blood Pressure : / mmHG Vent. Rate : 073 BPM Atrial Rate : 073 BPM P-R Int : 150 ms QRS Dur : 084 ms QT Int : 376 ms P-R-T Axes : 069 004 045 degrees QTc Int : 414 ms Normal sinus rhythm Normal ECG When compared to the previous EKG of Nonspecific T wave abnormality, improved in Anterolateral leads Referred By: Brett Prado Electronically Signed By:JAMA LOPEZ MD
--- NOTE | 2022-05-03 10:12 | ED.GENADULT ---
HPI - General Adult General Chief complaint: Upper Respiratory Symptoms Stated complaint: Flu symptoms Time Seen by Provider: 05/03/22 09:36 Source: patient Mode of arrival: ambulatory Limitations: no limitations History of Present Illness HPI narrative: 81 yold female with past medical history of asthma and HTN presents to the ED for coughing, shortness of breath, body aches, chills for the past 3 weeks. She denies any leg swelling, coughing up blood, pleurisy, recent long travel, recent surgery, chest pain, or syncopal episodes. Patient states this worsening cough with white phelghm and SOB. Related Data Home Medications Medication Instructions Recorded Confirmed cetirizine 10 mg tablet 10 mg PO DAILY 04/22/20 06/24/21 citalopram 10 mg tablet 10 mg PO DAILY 04/22/20 06/24/21 ergocalciferol (vitamin D2) 1,250 1,250 mcg PO OLIVEIRA 04/22/20 06/24/21 mcg (50,000 unit) capsule fluticasone propionate 50 2 spray intranasal DAILY 04/22/20 06/24/21 mcg/actuation nasal spray,suspension losartan 25 mg tablet 25 mg PO DAILY 04/22/20 06/24/21 multivitamin 1 tab PO QAM 04/22/20 06/24/21 rabeprazole 20 mg tablet,delayed 20 mg PO DAILY 04/22/20 06/24/21 release rosuvastatin 10 mg tablet 10 mg PO BEDTIME 04/22/20 06/24/21 acetaminophen 500 mg tablet 500 mg PO TID PRN Pain 06/05/20 06/24/21 albuterol sulfate 90 mcg/actuation 2 inh inhalation QID PRN Shortness 06/05/20 06/24/21 aerosol inhaler Of Breath alprazolam 0.5 mg tablet 0.5 mg PO BEDTIME PRN Anxiety 06/05/20 06/24/21 alprazolam 1 mg tablet 1 mg PO BEDTIME 06/05/20 06/24/21 diltiazem HCl 240 mg capsule,24 240 mg PO DAILY 06/05/20 06/24/21 hr,extended release fluticasone propionate 230 2 puff inhalation DAILY 06/05/20 06/24/21 mcg-salmeterol 21 mcg/actuation HFA inhaler simethicone 80 mg chewable tablet 80 mg PO DAILY 06/05/20 06/24/21 theophylline 300 mg 300 mg PO BID 06/05/20 06/24/21 tablet,extended release,12 hr tramadol 50 mg tablet 50 mg PO TID PRN Pain 06/05/20 06/24/21 dicyclomine 20 mg tablet 20 mg PO DAILY 02/17/21 06/24/21 albuterol sulfate 2.5 mg/3 mL 1 amp inhalation 6XD PRN Wheezing 06/24/21 06/24/21 (0.083 %) solution for nebulization peg 400-propylene glycol 0.4 %-0.3 1 drp ophthalmic (eye) DAILY PRN 06/24/21 06/24/21 % eye drops (Systane (propylene Dry Eye(S) glycol)) plecanatide 3 mg tablet (Trulance) 1 tab PO DAILY 06/24/21 06/24/21 baclofen 20 mg tablet 20 mg PO BID 02/06/22 ferrous gluconate 324 mg (38 mg 324 mg PO Q OTHER DAY 02/06/22 iron) tablet Previous Rx's Medication Instructions Recorded blood-glucose meter (FreeStyle #1 ea 06/07/20 Lite Meter kit) lancets 28 gauge (FreeStyle #100 ea 06/11/20 Lancets) ondansetron 4 mg disintegrating 4 mg PO Q8H PRN for 01/06/22 tablet nausea/vomiting #20 ea ondansetron 4 mg disintegrating 4 mg PO Q6-8H PRN nausea and 02/01/22 tablet vomiting #14 tabs peg 3350 240 gram-electrolytes 240 ml PO Q10M #4,000 mL 02/06/22 22.72 gram-6.72 g-5.84 g powdr for soln (Gavilyte-C) famotidine 40 mg tablet 40 mg PO BID #90 tabs 03/03/22 simethicone 80 mg chewable tablet 80 mg PO BID-QID for gas #90 tabs 03/11/22 benzonatate 100 mg capsule 100 mg PO TID PRN cough 5 days #15 05/03/22 caps levofloxacin 750 mg tablet 750 mg PO DAILY 5 days #5 tabs 05/03/22 prednisone 20 mg tablet 40 mg PO DAILY 5 days #10 tabs 05/03/22 Allergies Allergy/AdvReac Type Severity Reaction Status Date / Time morphine [MORPHINE] Allergy Unknown unknown Verified 02/06/22 09:07 milk [MILK] AdvReac Mild STOMACH Verified 02/06/22 09:07 UPSET oxycodone [From Percocet] AdvReac Mild NAUSEA/RAPID Verified 02/06/22 09:07 HR/BLURRED VISION protonix Allergy Unknown Unknown Uncoded 02/06/22 09:07 tramadol Allergy Unknown stomach Uncoded 02/06/22 09:07 upset/constipation Review of Systems Review of Systems: Cough, body aches, chills, for 3 weeks Yes all other systems are reviewed and are negative [facility] Past Medical History Medical History Arthritis Asthma Glaucoma HLD (hyperlipidemia) HTN (hypertension) Hypoglycemia Surgical History History of appendectomy History of cholecystectomy History of knee replacement procedure of right knee Hx of colonoscopy Hx of gastric bypass Hx of hysterectomy Family History Family History Father No problems noted. Mother No problems noted. Social History Social History Household Members: None Household Members Other:: daughter lives downstairs Housing: House Do you presently have visiting nurse or other home services: Yes (and [employer] COUNSELING AIDE/son) Alcohol intake: never Patient Tobacco Use Status: Never used Tobacco Advance Directives: No Advance Directives Information Provided: No Advance Directives Date on File: 06/24/21 service: No Physical Exam ED Vital Signs: Vital Signs - 24 hr 05/03/22 09:27 05/03/22 09:33 05/03/22 10:34 Temperature 99.8 F 98.6 F Pulse Rate 92 84 81 Respiratory Rate 20 18 18 Blood Pressure 141/56 H 196/72 H Pulse Oximetry 96 96 Oxygen Delivery Method Room Air Room Air 05/03/22 14:10 Temperature 98.5 F Pulse Rate 78 Respiratory Rate 18 Blood Pressure 187/80 H Pulse Oximetry 97 Oxygen Delivery Method Room Air BMI result Body Mass Index 29.6 Const General: cooperative, healthy appearing, comfortable, no acute distress, well developed, alert and awake Orientation/consciousness: oriented to person, oriented to place, oriented to time and patient oriented x3 [facility] Head: Yes normal to inspection, Yes No palpable skull fracture present, Yes normocephalic, Yes atraumatic and No abrasion Ears: hearing grossly normal bilaterally, external ears normal, TM's normal bilaterally, EAC's normal, mastoids normal and no periauricular adenopathy Throat: Yes posterior oropharynx normal, Yes tonsils normal and Yes uvula midline Eyes General: appearance normal, both eyes and all related structures Neck Neck: Yes normal visual inspection, Yes full ROM, Yes no lymphadenopathy, Yes no meningeal signs, Yes trachea midline, Yes supple, No anterior neck swelling and No tender Chest Chest palpation & inspection: normal inspection of the chest and normal palpation of entire chest wall Resp Effort & Inspection: normal respiratory effort and able to speak in complete sentences Auscultation: clear to auscultation bilaterally Cardio Jugular venous distension: no JVD Heart sounds: S1 normal heart sound present and S2 normal heart sound present GI Inspection: Yes normal to inspection and No abdominal wall ecchymosis Palpation (GI): Soft to palpation, not firm, nontender, no guarding and not rigid General: No CVA tenderness and Yes no CVA tenderness Back/Spine/Pelvis Back: no CVA tenderness, No CVA tenderness and No back tenderness Skin General skin exam: no rashes or lesions noted and elasticity normal Neuro General: oriented to person, oriented to place, oriented to time, patient oriented x3, gait normal, tone normal, moves all extremities, no meningeal signs, no focal motor deficits, CN's II-XI intact bilaterally and normal sensation to monofilament Cranial nerves: Yes CN's II-XII intact bilaterally, Yes Facial sensation intact/muscles of mastication intact and Yes Intact sense of smell present Extrem Other: Lower extremities negative for swelling, pitting edema, calf tenderness General: Yes normal to inspection and Yes full ROM Psych Appearance: grossly normal, well kempt and not disheveled Course Course Course Narrative: Patient coughing profusely during evaluation with white phlegm. Due to age will do cardiac evaluation of the likely patient having viral infection. Reevaluation(s) Reevaluation #1: Patient's EKG negative STEMI. Two troponins negative. Chest CT shows atypical pneumonia versus viral pneumonia. Influenza positive after symptoms for 3 weeks. Kidney function normal. Patient not in heart failure. Treat with antibiotics due to opacity CT scan influenza can cause pneumonia. Would not give Tamiflu. Symptoms over 48 hours. Patient well-appearing. Patient not hypoxic.. Time: 14:04 Medications Administered Discontinued Medications Generic Name Dose Route Start Last Admin Trade Name Freq PRN Reason Stop Dose Admin Albuterol/Ipratropium 3 ml 05/03/22 10:13 05/03/22 10:32 Albuterol/Iprat 2.5/0.5mg 3 Ml Ampul.Neb INHALE 05/03/22 10:14 3 ml ONCE ONE Administration Prednisone 40 mg 05/03/22 10:13 05/03/22 11:17 Prednisone 20 Mg Tablet PO 05/03/22 10:14 40 mg ONCE ONE Administration Medical Decision Making MDM Narrative Medical decision making narrative: Influenza. Pneumonia. Patient well-appearing. Patient not hypoxic. Will discharge with antibiotics for pneumonia caused by flu. Lab Data Result diagrams: 05/03/22 10:36 05/03/22 12:26 Labs: Lab Results 05/03/22 05/03/22 05/03/22 Range/Units 10:10 10:36 10:36 WBC 6.4 (4.8-10.8) X10*3/uL RBC 4.09 L (4.20-5.50) X10*6/uL Hgb 11.9 L (12.0-16.0) g/dl Hct 37.0 (37.0-47.0) % MCV 90.5 (80.0-98.0) fL MCH 29.1 (27.0-33.0) pg MCHC 32.2 (31.0-35.0) g/dl RDW 15.2 (11.0-16.0) % Plt Count 133 L (160-400) X10*3/uL MPV 12.1 (9.4-12.3) fL Immature Gran % (Auto) 0.3 (0.0-0.4) % Neut % (Auto) 59.0 (45-73) % Lymph % (Auto) 27.4 (20-40) % [place] % (Auto) 10.5 (2-11) % Eos % (Auto) 2.0 (0-4) % Baso % (Auto) 0.8 (0-2) % Lymph # (Auto) 1.8 (1.2-4.9) X10*3/uL [place] # (Auto) 0.7 (0.1-1.2) X10*3/uL Eos # (Auto) 0.1 (0.0-0.4) X10*3/uL Baso # (Auto) 0.1 (0.0-0.2) X10*3/uL Abs Immat Gran (auto) 0.02 (0.00-0.03) X10*3/uL Absolute Neuts (auto) 3.8 (2.0-8.3) x10*3/uL Absolute Nucleated RBC 0.000 (0.0-0.012) X10*3/uL Nucleated RBC % (auto) 0.0 (0.0-0.2) /100WBC PT 11.3 (10.0-13.1) SEC INR 1.0 (0.9-1.1) APTT 28.7 (26.0-36.4) SEC Sodium (135-145) mmol/L Potassium (3.3-5.1) mmol/L Chloride (96-108) mmol/L Carbon Dioxide (22-29) mmol/L Anion Gap (12-20) BUN (9-16) mg/dL Creatinine (0.5-1.4) mg/dL Estim Creat Clear Calc Estimated GFR Random Glucose (60-115) mg/dL Lactic Acid (0.5-2.0) mmol/L Calcium (8.4-10.2) mg/dL Total Bilirubin (0.0-1.0) mg/dL AST (5-31) U/L ALT (0-31) U/L Alkaline Phosphatase (39-117) U/L Troponin I High Sens (<3.5-17.0) ng/L B-Natriuretic Peptide (<100) pg/mL Total Protein (6.5-8.0) g/dL Albumin (3.5-5.0) g/dL Urine Color Urine Appearance Urine pH (5.0-9.0) Ur Specific [place] (1.005-1.025) Urine Protein (Neg-Trace) mg/dL Urine Glucose (UA) (Negative) mg/dL Urine Ketones (Negative) mg/dL Urine Blood (Negative) Urine Nitrite (Negative) Ur Leukocyte Esterase (Negative) Influenza Type A (PCR) POSITIVE A (Negative) Influenza Type B (PCR) NEGATIVE (Negative) RSV RNA Qual (PCR) NEGATIVE (Negative) SARS-CoV-2 RNA (RT-PCR) NEGATIVE (Negative) 05/03/22 05/03/22 05/03/22 Range/Units 10:36 10:36 11:08 WBC (4.8-10.8) X10*3/uL RBC (4.20-5.50) X10*6/uL Hgb (12.0-16.0) g/dl Hct (37.0-47.0) % MCV (80.0-98.0) fL MCH (27.0-33.0) pg MCHC (31.0-35.0) g/dl RDW (11.0-16.0) % Plt Count (160-400) X10*3/uL MPV (9.4-12.3) fL Immature Gran % (Auto) (0.0-0.4) % Neut % (Auto) (45-73) % Lymph % (Auto) (20-40) % [place] % (Auto) (2-11) % Eos % (Auto) (0-4) % Baso % (Auto) (0-2) % Lymph # (Auto) (1.2-4.9) X10*3/uL [place] # (Auto) (0.1-1.2) X10*3/uL Eos # (Auto) (0.0-0.4) X10*3/uL Baso # (Auto) (0.0-0.2) X10*3/uL Abs Immat Gran (auto) (0.00-0.03) X10*3/uL Absolute Neuts (auto) (2.0-8.3) x10*3/uL Absolute Nucleated RBC (0.0-0.012) X10*3/uL Nucleated RBC % (auto) (0.0-0.2) /100WBC PT (10.0-13.1) SEC INR (0.9-1.1) APTT (26.0-36.4) SEC Sodium (135-145) mmol/L Potassium (3.3-5.1) mmol/L Chloride (96-108) mmol/L Carbon Dioxide (22-29) mmol/L Anion Gap (12-20) BUN (9-16) mg/dL Creatinine (0.5-1.4) mg/dL Estim Creat Clear Calc Estimated GFR Random Glucose (60-115) mg/dL Lactic Acid 0.8 (0.5-2.0) mmol/L Calcium (8.4-10.2) mg/dL Total Bilirubin (0.0-1.0) mg/dL AST (5-31) U/L ALT (0-31) U/L Alkaline Phosphatase (39-117) U/L Troponin I High Sens 6.8 (<3.5-17.0) ng/L B-Natriuretic Peptide 126 H (<100) pg/mL Total Protein (6.5-8.0) g/dL Albumin (3.5-5.0) g/dL Urine Color Urine Appearance Urine pH (5.0-9.0) Ur Specific [place] (1.005-1.025) Urine Protein (Neg-Trace) mg/dL Urine Glucose (UA) (Negative) mg/dL Urine Ketones (Negative) mg/dL Urine Blood (Negative) Urine Nitrite (Negative) Ur Leukocyte Esterase (Negative) Influenza Type A (PCR) (Negative) Influenza Type B (PCR) (Negative) RSV RNA Qual (PCR) (Negative) SARS-CoV-2 RNA (RT-PCR) (Negative) 05/03/22 05/03/22 05/03/22 Range/Units 11:52 12:26 12:26 WBC (4.8-10.8) X10*3/uL RBC (4.20-5.50) X10*6/uL Hgb (12.0-16.0) g/dl Hct (37.0-47.0) % MCV (80.0-98.0) fL MCH (27.0-33.0) pg MCHC (31.0-35.0) g/dl RDW (11.0-16.0) % Plt Count (160-400) X10*3/uL MPV (9.4-12.3) fL Immature Gran % (Auto) (0.0-0.4) % Neut % (Auto) (45-73) % Lymph % (Auto) (20-40) % [place] % (Auto) (2-11) % Eos % (Auto) (0-4) % Baso % (Auto) (0-2) % Lymph # (Auto) (1.2-4.9) X10*3/uL [place] # (Auto) (0.1-1.2) X10*3/uL Eos # (Auto) (0.0-0.4) X10*3/uL Baso # (Auto) (0.0-0.2) X10*3/uL Abs Immat Gran (auto) (0.00-0.03) X10*3/uL Absolute Neuts (auto) (2.0-8.3) x10*3/uL Absolute Nucleated RBC (0.0-0.012) X10*3/uL Nucleated RBC % (auto) (0.0-0.2) /100WBC PT (10.0-13.1) SEC INR (0.9-1.1) APTT (26.0-36.4) SEC Sodium 137 (135-145) mmol/L Potassium 4.5 (3.3-5.1) mmol/L Chloride 107 (96-108) mmol/L Carbon Dioxide 26 (22-29) mmol/L Anion Gap 9 L (12-20) BUN 12 (9-16) mg/dL Creatinine 0.79 (0.5-1.4) mg/dL Estim Creat Clear Calc 43.0 Estimated GFR > 60 Random Glucose 176 H (60-115) mg/dL Lactic Acid (0.5-2.0) mmol/L Calcium 9.5 (8.4-10.2) mg/dL Total Bilirubin 0.3 (0.0-1.0) mg/dL AST 17 (5-31) U/L ALT 10 (0-31) U/L Alkaline Phosphatase 106 (39-117) U/L Troponin I High Sens 6.2 (<3.5-17.0) ng/L B-Natriuretic Peptide (<100) pg/mL Total Protein 6.5 (6.5-8.0) g/dL Albumin 4.4 (3.5-5.0) g/dL Urine Color Yellow Urine Appearance Clear Urine pH 7.5 (5.0-9.0) Ur Specific [place] <= 1.005 (1.005-1.025) Urine Protein Negative (Neg-Trace) mg/dL Urine Glucose (UA) Negative (Negative) mg/dL Urine Ketones Negative (Negative) mg/dL Urine Blood Negative (Negative) Urine Nitrite Negative (Negative) Ur Leukocyte Esterase Negative (Negative) Influenza Type A (PCR) (Negative) Influenza Type B (PCR) (Negative) RSV RNA Qual (PCR) (Negative) SARS-CoV-2 RNA (RT-PCR) (Negative) ECG Data Attestation: I personally reviewed and interpreted this ECG as follows: Interpretation: Normal sinus rhythm. Normal EKG. Ventricular rate 73. Pr interval 150. QRS 84. QTC 414. Negative STEMI Discharge Plan Discharge Clinical Impression: Influenza A, Pneumonia Patient Disposition: Home, Self-Care Instructions: Influenza (ED), Pneumonia (ED) Additional Instructions: Usted tiene la gripe. A veces, la gripe puede provocar neumon?a, por lo que se le fox? de yoseph con antibi?ticos y medicamentos para la tos. Regres? negativo para COVID y RSV. El an?lisis de kenisha y el electrocardiograma resultaron negativos para signos de insuficiencia card?kush y ataque card?aco. Por favor, zoya un seguimiento con oliveira proveedor de atenci?n primaria. Regrese al servicio de urgencias por cualquier dolor en el pecho, dificultad para respirar, debilidad, mareos, hinchaz?n de las piernas, dolor en la pantorrilla, tos con kenisha, dolor en el pecho al inspirar, cualquier otro s?ntoma preocupante. Prescriptions: New levofloxacin 750 mg tablet 750 mg PO DAILY 5 Days Qty: 5 0RF benzonatate 100 mg capsule 100 mg PO TID PRN (Reason: cough) 5 Days Qty: 15 0RF prednisone 20 mg tablet 40 mg PO DAILY 5 Days Qty: 10 0RF No Action (DME) blood-glucose meter [FreeStyle Lite Meter] Kit See Rx Instructions .ROUTE .MEDSUPPLY Qty: 1 0RF Rx Instructions: As directed (DME) lancets [FreeStyle Lancets] 28 gauge misc See Rx Instructions .ROUTE .MEDSUPPLY Qty: 100 11RF Rx Instructions: 4x daily as needed ondansetron 4 mg tablet,disintegrating 4 mg PO Q8H PRN (Reason: for nausea/vomiting) Qty: 20 1RF famotidine 40 mg tablet 40 mg PO BID Qty: 90 1RF simethicone 80 mg tablet,chewable 80 mg PO BID-QID Qty: 90 1RF ondansetron 4 mg tablet,disintegrating 4 mg PO Q6-8H PRN (Reason: nausea and vomiting) Qty: 14 0RF Trulance 3 mg tablet 1 tab PO DAILY Systane (propylene glycol) 0.4-0.3 % Drops 1 drp OPHTHALMIC (EYE) DAILY PRN (Reason: Dry Eye(S)) albuterol sulfate 2.5 mg /3 mL (0.083 %) solution for nebulization 1 amp inhalation 6XD PRN (Reason: Wheezing) losartan 25 mg tablet 25 mg PO DAILY rosuvastatin 10 mg tablet 10 mg PO BEDTIME fluticasone propionate 50 mcg/actuation spray,suspension 2 spray intranasal DAILY citalopram 10 mg tablet 10 mg PO DAILY cetirizine 10 mg tablet 10 mg PO DAILY multivitamin Tablet 1 tab PO QAM ergocalciferol (vitamin D2) 1,250 mcg (50,000 unit) capsule 1,250 mcg PO OLIVEIRA rabeprazole 20 mg tablet,delayed release (DR/EC) 20 mg PO DAILY acetaminophen 500 mg tablet 500 mg PO TID PRN (Reason: Pain) albuterol sulfate 90 mcg/actuation HFA aerosol inhaler 2 inh inhalation QID PRN (Reason: Shortness Of Breath) alprazolam 1 mg tablet 1 mg PO BEDTIME alprazolam 0.5 mg tablet 0.5 mg PO BEDTIME PRN (Reason: Anxiety) diltiazem HCl 240 mg capsule,extended release 24 hr 240 mg PO DAILY fluticasone propion-salmeterol 230-21 mcg/actuation HFA aerosol inhaler 2 puff inhalation DAILY simethicone 80 mg tablet,chewable 80 mg PO DAILY theophylline 300 mg tablet extended release 12 hr 300 mg PO BID tramadol 50 mg tablet 50 mg PO TID PRN (Reason: Pain) dicyclomine 20 mg tablet 20 mg PO DAILY ferrous gluconate 324 mg (38 mg iron) tablet 324 mg PO Q OTHER DAY baclofen 20 mg tablet 20 mg PO BID peg 3350-electrolytes [GaviLyte-C] 240-22.72-6.72 -5.84 gram recon soln 240 ml PO Q10M Qty: 4000 0RF Rx Instructions: until fecal effluent is clear Referrals: Glenna Grossman MD [Primary Care Provider] - (Influenza/pneumonia. Discharged with antibiotics.) Interventions: ED Discharge Assessment Last Done: 05/03/22 14:18 Discharge Date/Time: 05/03/22 14:19 Print Language: Chilean
[2022-05-03] MEDS: Albuterol/Iprat 2.5/0.5MG 3 ML AMPUL.NEB INHALE (10:32)
[2022-05-03 10:34] VITALS: PULSE 81; RESP 18; O2SAT 96
[2022-05-03 10:42] LABS: MANUAL DIFF FLAG NO
[2022-05-03 10:47] LABS: Basophils Absolute Auto 0.1 X10*3/uL (0.0-0.2); Basophils Percent Auto 0.8 % (0-2); Eosinophils Absolute Auto 0.1 X10*3/uL (0.0-0.4); Hemoglobin 11.9 g/dl (12.0-16.0); Imm Gran Abs Auto 0.02 X10*3/uL (0.00-0.03); Imm Gran Pct Auto 0.3 % (0.0-0.4); Lymphocytes Absolute Auto 1.8 X10*3/uL (1.2-4.9); Lymphocytes Percent Auto 27.4 % (20-40); Mean Corpuscular HGB Conc 32.2 g/dl (31.0-35.0); Mean Corpuscular Hemoglobin 29.1 pg (27.0-33.0); Mean Corpuscular Volume 90.5 fL (80.0-98.0); Mean Platelet Volume 12.1 fL (9.4-12.3); Monocytes Absolute Auto 0.7 X10*3/uL (0.1-1.2); Monocytes Percent Auto 10.5 % (2-11); Neutrophils Absolute Auto 3.8 x10*3/uL (2.0-8.3); Platelet Count 133 X10*3/uL (160-400); Red Blood Count 4.09 X10*6/uL (4.20-5.50); Red Cell Distribution Width 15.2 % (11.0-16.0); White Blood Count 6.4 X10*3/uL (4.8-10.8)
[2022-05-03 10:52] LABS: Prothrombin Time 11.3 SEC (10.0-13.1)
[2022-05-03 10:55] LABS: Partial Thromboplastin Time 28.7 SEC (26.0-36.4)
[2022-05-03 11:08] LABS: B Type Natriuretic Peptide 126 pg/mL (<100)
[2022-05-03 11:10] LABS: Influenza A PCR POSITIVE (Negative); Influenza B PCR NEGATIVE (Negative); Resp Syncy Virus RNA Qual PCR NEGATIVE (Negative); SARS COV2 PCR INHOUSE NEGATIVE (Negative)
[2022-05-03] MEDS: predniSONE 20 MG TABLET 40 MG PO (11:17)
[2022-05-03 11:31] LABS: Troponin-I High Sensitivity 6.8 ng/L (<3.5-17.0)
[2022-05-03 11:33] LABS: Lactic Acid 0.8 mmol/L (0.5-2.0)
[2022-05-03 12:01] LABS: Appearance Urine Clear; Color Urine Yellow; Glucose Urine UA Negative (Negative); Leukocyte Esterase Urine Negative (Negative); Nitrite Urine Negative (Negative); PH 7.5 (5.0-9.0); Specific Gravity - Urine <= 1.005 (1.005-1.025); Urine Blood Negative (Negative); Urine Ketones Negative (Negative); Urine Protein Negative (Neg-Trace)
[2022-05-03 12:53] LABS: Alanine Aminotransferase 10 U/L (0-31); Albumin Level 4.4 g/dL (3.5-5.0); Alkaline Phosphatase 106 U/L (39-117); Anion Gap 9 (12-20); Aspartate Amino Transferase 17 U/L (5-31); Bilirubin Total 0.3 mg/dL (0.0-1.0); Blood Urea Nitrogen 12 mg/dL (9-16); Calcium 9.5 mg/dL (8.4-10.2); Carbon Dioxide 26 mmol/L (22-29); Chloride 107 mmol/L (96-108); Estimated Glomerular Filt Rate > 60; Glucose Random 176 mg/dL (60-115); Potassium 4.5 mmol/L (3.3-5.1); Sodium 137 mmol/L (135-145); Total Protein 6.5 g/dL (6.5-8.0)
[2022-05-03 13:00] LABS: Troponin-I High Sensitivity 6.2 ng/L (<3.5-17.0)
[2022-05-03 14:10] VITALS: BP 187/80; PULSE 78; RESP 18; TEMP 36.9; O2SAT 97
== END 2022-05-03 14:19 | disposition home or self-care (01) ==
PROVIDERS: Physician Assistant; Emergency Provider Emergency Medicine; PCP Internal Medicine
DX: J10.00 Influenza due to other identified influenza virus with unspecified type of pneumonia (principal); R05.9 Cough, unspecified; R06.02 Shortness of breath; M79.10 Myalgia, unspecified site; Z20.822 Contact with and (suspected) exposure to COVID-19; Z79.899 Other long term (current) drug therapy
CPT/HCPCS: 0241U; 36415; 71045; 71250; 80053; 81003; 83605; 83880; 84484; 85025; 85610; 85730; 87040; 93005; 94640; 99284

== ENCOUNTER 2022-06-19 10:30 | Outpatient (REF) | payer OTHER, SELFPAY ==
--- NOTE | ~2022-06-19 | MM_ITS ---
EXAMINATION: MM SCREENING DIGITAL BREAST TOMOSYNTHESIS, BILATERAL CLINICAL INFORMATION: Screening. Asymptomatic. The lifetime risk of breast cancer based on the Tyrer-Cuzick Model is 1%. COMPARISON: Mammography: 04/26/2021, 04/18/2020, 04/06/2019 TECHNIQUE: Digital breast tomosynthesis is performed in both the craniocaudal and mediolateral oblique views along with computer-aided detection (CAD). Synthesized 2D images are generated from the tomosynthesis. Additional left CC view is provided. FINDINGS: There are scattered areas of fibroglandular density (ACR BI-RADS breast composition Category b). Breast tissue composition borders on predominantly fatty. Background stromal markings are stable. No interval mass or developing density or architectural abnormality. No abnormal calcifications. The axilla are stable. No significant changes. MM/MM tomosynthesis screening BI IMPRESSION: No mammographic evidence of malignancy. ASSESSMENT: BI-RADS 1: Negative RECOMMENDATION: Routine annual mammography screening. This patient's information was entered into a reminder system with a target due date for their next mammogram.
== END 2022-06-19 10:31 | disposition home or self-care (01) ==
LOC: HO.MAMMO 10:30
PROVIDERS: PCP Internal Medicine; Visit Provider Internal Medicine
DX: Z12.31 Encounter for screening mammogram for malignant neoplasm of breast (principal)
CPT/HCPCS: 77063; 77067

== ENCOUNTER → 2022-06-23 11:23 | Outpatient (BNVA) | payer OTHER, SELFPAY | PROVIDERS: PCP Internal Medicine; Visit Provider Surgery Vascular Surgery | DX: I83.11 Varicose veins of right lower extremity with inflammation (principal) | CPT/HCPCS: 99202 ==

== ENCOUNTER 2022-07-14 10:21 | Outpatient (REF) | payer OTHER, SELFPAY ==
--- NOTE | ~2022-07-14 | US_ITS ---
EXAMINATION: US VENOUS REFLUX/INSUFFICIENCY CLINICAL INFORMATION: The patient is an 82 year-old woman with right lower extremity varicosities and inflammation. COMPARISON: Venous ultrasound dated 02/12/2012. TECHNIQUE: Bilateral lower extremity and venous insufficiency ultrasound was performed with velocity measurements. Color flow Doppler imaging was performed. FINDINGS: RIGHT SIDE: GREATER SAPHENOUS VEIN: The right saphenofemoral junction diameter is 0.6 cm. There is no reflux. The right proximal thigh diameter is 0.4 cm. There is no reflux. The right mid thigh diameter is 0.3 cm. There is no reflux. The right above-knee diameter is 0.2 cm. There is no reflux. The right at-knee diameter is 0.3 cm. There is no reflux. The right below-knee diameter is 0.2 cm. There is no reflux. The right mid calf diameter is 0.2 cm. There is no reflux. The right ankle diameter is 0.2 cm. There is no reflux. MEDIAL ACCESSORY GREATER SAPHENOUS VEIN: The right saphenofemoral junction diameter is 0.3 cm. There is no reflux The mid thigh diameter is 0.2 cm. There is no reflux. LESSER SAPHENOUS VEIN: The right saphenopopliteal junction diameter is 0.2 cm. There is no reflux. The right mid calf diameter is 0.2 cm. There is no reflux. The right distal calf diameter is 0.2 cm. There is no reflux. LEFT SIDE: GREATER SAPHENOUS VEIN: The left saphenofemoral junction diameter is 0.7 cm. There is no reflux. The left proximal thigh diameter is 0.4 cm. There is no reflux. The left mid thigh diameter is 0.3 cm. There is no reflux. The left above-knee diameter is 0.3 cm. There is no reflux. The left at-knee diameter is 0.3 cm. There is no reflux. The left below-knee diameter is 0.2 cm. There is no reflux. The left mid calf diameter is 0.2 cm. There is no reflux. The left ankle diameter is 0.2 cm. There is no reflux. LATERAL ACCESSORY GREATER SAPHENOUS VEIN: The left saphenofemoral junction diameter is 0.3 cm. There is no reflux The mid thigh diameter is 0.3 cm. There is no reflux. LESSER SAPHENOUS VEIN: The left saphenopopliteal junction diameter is 0.3 cm. There is no reflux. The left mid calf diameter is 0.1 cm. There is no reflux. The left distal calf diameter is 0.2 cm. There is no reflux. BILATERAL DEEP VENOUS SYSTEMS: There is no deep venous thrombosis or reflux on the right. There is no deep venous thrombosis or reflux on the left. US/US venous duplex LE BI IMPRESSION: No hemodynamically significant reflux is seen of the bilateral greater or lesser saphenous veins.
== END 2022-07-14 10:22 | disposition home or self-care (01) ==
LOC: HO.US 10:21
PROVIDERS: Visit Provider Surgery Vascular Surgery
DX: I83.11 Varicose veins of right lower extremity with inflammation (principal); I83.893 Varicose veins of bilateral lower extremities with other complications
CPT/HCPCS: 93970

== ENCOUNTER → 2022-07-21 14:42 | Outpatient (BNVA) | payer OTHER, SELFPAY | PROVIDERS: PCP Internal Medicine; Visit Provider Surgery Vascular Surgery | DX: I83.11 Varicose veins of right lower extremity with inflammation (principal) | CPT/HCPCS: 99212 ==

== ENCOUNTER 2022-11-20 13:00 | Outpatient (RCR) | payer OTHER, SELFPAY | END 2022-12-31 09:30 | disposition home or self-care (01) | LOC: HO.PTCHIC 13:00 | PROVIDERS: PCP Internal Medicine; Visit Provider Orthopaedic Surgery | DX: M75.41 Impingement syndrome of right shoulder (principal) | CPT/HCPCS: 97014; 97110; 97140; 97162 ==

== ENCOUNTER 2023-01-02 09:09 | Emergency (ER) | payer OTHER, SELFPAY ==
--- NOTE | ~2023-01-02 | CT_ITS ---
EXAMINATION: CT ABDOMEN AND PELVIS WITH CONTRAST CLINICAL INFORMATION: Abdominal pain and constipation. COMPARISON: None available. TECHNIQUE: Multidetector volumetric images were obtained from the superior aspect of the liver through the pubic symphysis following administration 85 mL of Omnipaque 350 intravenous contrast. Sagittal and coronal reformatted images were obtained on the technologist's workstation. Oral contrast: No This CT examination was performed using dose optimization techniques as appropriate, variously including the following: *Automated exposure control *Adjustment of mA and/or kV according to patient size (this includes techniques or standardized protocols for targeted exams where dose is matched to indication/reason for exam; i.e. extremities or head) *Use of iterative reconstruction technique DLP: 521 mGy-cm FINDINGS: LUNG BASES: Heart size is normal. There is platelike atelectasis or scarring in the left lung base. A small hiatal hernia suspected. LIVER, GALLBLADDER, AND BILIARY TREE: The liver is borderline enlarged measuring 17 cm.. It has normal shape, and attenuation. There is 5 mm hypodensity right hepatic lobe. No additional lesions seen. There is no intrahepatic ductal dilatation. The gallbladder has been surgically removed. PANCREAS: Unremarkable. SPLEEN: Unremarkable. ADRENAL GLANDS: Unremarkable. KIDNEYS AND URETERS: The kidneys are normal in size, shape, and attenuation. No hydronephrosis, hydroureter, or calculi seen. No perinephric stranding. BLADDER: Unremarkable. GASTROINTESTINAL TRACT: There is a gastric sleeve surgical changes. The small bowel loops are unremarkable. There is scattered stool in colon without distention. No bowel obstruction, free air or free fluid. ABDOMINAL WALL: There is anterior abdominal wall hernia repair with mesh in place the upper abdominal mesh appears slightly crumpled but otherwise intact LYMPH NODES: Normal. VASCULAR: Unremarkable. PELVIC VISCERA: Unremarkable. OSSEOUS STRUCTURES: No aggressive lytic or sclerotic process seen. There are degenerative disc changes at all lumbar disc levels. There is grade 1 retrolisthesis L2 over L3 and L3 over L4. CT/CT abdomen pelvis w IV con IMPRESSION: 1. No acute intra-abdominal process seen. 2. There is gastric sleeve surgical changes. 3. There is anterior abdominal wall hernia repair with large mesh in place. The mesh appears slightly crumpled in the upper abdomen but otherwise intact. Fleischner guidelines were followed.
[2023-01-02 09:11] VITALS: BP 159/57; PULSE 78; RESP 18; TEMP 36.8; O2SAT 96; BMI 36.1
--- NOTE | 2023-01-02 09:42 | ED_ITS ---
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 No vomiting, urinary symptoms, fevers, chills. Followed by GI here at [facility] [place]. Last colonoscopy per patient was 2 yr ago and was n ormal . Related Data Home Medications Medication Instructions Recorded Confirmed cetirizine 10 mg tablet 10 mg PO DAILY 04/22/20 07/24/22 citalopram 10 mg tablet 10 mg PO DAILY 04/22/20 07/24/22 ergocalciferol (vitamin D2) 1,250 1,250 mcg PO SANDS 04/22/20 06/24/21 mcg (50,000 unit) capsule fluticasone propionate 50 2 spray intranasal DAILY 04/22/20 07/24/22 mcg/actuation nasal spray,suspension losartan 25 mg tablet 25 mg PO DAILY 04/22/20 07/24/22 multivitamin 1 tab PO QAM 04/22/20 07/24/22 rabeprazole 20 mg tablet,delayed 20 mg PO DAILY 04/22/20 06/24/21 release rosuvastatin 10 mg tablet 10 mg PO BEDTIME 04/22/20 07/24/22 acetaminophen 500 mg tablet 500 mg PO TID PRN Pain 06/05/20 07/24/22 albuterol sulfate 90 mcg/actuation 2 inh inhalation QID PRN Shortness 06/05/20 07/24/22 aerosol inhaler Of Breath alprazolam 0.5 mg tablet 0.5 mg PO BEDTIME PRN Anxiety 06/05/20 06/24/21 alprazolam 1 mg tablet 1 mg PO BEDTIME 06/05/20 06/24/21 diltiazem HCl 240 mg capsule,24 240 mg PO DAILY 06/05/20 07/24/22 hr,extended release fluticasone propionate 230 2 puff inhalation DAILY 06/05/20 07/24/22 mcg-salmeterol 21 mcg/actuation HFA inhaler theophylline 300 mg 300 mg PO BID 06/05/20 07/24/22 tablet,extended release,12 hr tramadol 50 mg tablet 50 mg PO TID PRN Pain 06/05/20 07/24/22 dicyclomine 20 mg tablet 20 mg PO DAILY 02/17/21 07/24/22 albuterol sulfate 2.5 mg/3 mL 1 amp inhalation 6XD PRN Wheezing 06/24/21 07/24/22 (0.083 %) solution for nebulization peg 400-propylene glycol 0.4 %-0.3 1 drp ophthalmic (eye) DAILY PRN 06/24/21 06/24/21 % eye drops (Systane (propylene Dry Eye(S) glycol)) plecanatide 3 mg tablet (Trulance) 1 tab PO DAILY 06/24/21 06/24/21 baclofen 20 mg tablet 20 mg PO BID 02/06/22 07/24/22 ferrous gluconate 324 mg (38 mg 324 mg PO Q OTHER DAY 02/06/22 iron) tablet Previous Rx's Medication Instructions Recorded blood-glucose meter (FreeStyle #1 ea 06/07/20 Lite Meter kit) lancets 28 gauge (FreeStyle #100 ea 06/11/20 Lancets) ondansetron 4 mg disintegrating 4 mg PO Q6-8H PRN nausea and 02/01/22 tablet vomiting #14 tabs peg 3350 240 gram-electrolytes 240 ml PO Q10M #4,000 mL 02/06/22 22.72 gram-6.72 g-5.84 g powdr for soln (Gavilyte-C) famotidine 40 mg tablet 40 mg PO BID #90 tabs 03/03/22 benzonatate 100 mg capsule 100 mg PO TID PRN cough 5 days #15 05/03/22 caps levofloxacin 750 mg tablet 750 mg PO DAILY 5 days #5 tabs 05/03/22 prednisone 20 mg tablet 40 mg PO DAILY 5 days #10 tabs 05/03/22 ondansetron 4 mg disintegrating 4 mg PO Q8H PRN for 06/16/22 tablet nausea/vomiting #20 ea simethicone 80 mg chewable tablet 80 mg PO BID-QID for gas #90 tabs 06/16/22 polyethylene glycol 3350 17 17 g PO BID #119 grams 01/02/23 gram/dose oral powder (Miralax) Allergies Allergy/AdvReac Type Severity Reaction Status Date / Time WADE Inhibitors Allergy Intermediate mouth Verified 01/02/23 09:36 swelling/cough amlodipine Allergy Intermediate headache/di Verified 01/02/23 09:36 zziness/galina sea/vomitin g morphine [MORPHINE] Allergy Unknown unknown Verified 01/02/23 09:36 pantoprazole [From Protonix] Allergy Unknown Unknown Verified 01/02/23 09:36 celecoxib [From Celebrex] AdvReac Mild Weakness Verified 01/02/23 09:36 milk [MILK] AdvReac Mild STOMACH Verified 01/02/23 09:36 UPSET oxycodone [From Percocet] AdvReac Mild NAUSEA/RAPID Verified 01/02/23 09:36 HR/BLURRED VISION Review of Systems Review of Systems Yes all other systems are reviewed and are negative Constitutional: Reports no additional constitutional complaints, Denies body ache(s), Denies chills, Denies fever(s), Denies headache(s) and Denies weakness Eyes: Reports no additional eye complaints and Denies change in vision Reports system reviewed and no additional complaints, except as documented, Denies dizziness, Denies headache(s), Denies nasal congestion, Denies nasal discharge and Denies neck pain Cardiovascular: Reports no additional cardiovascular complaints, Denies chest pain, Denies leg edema and Denies dyspnea Respiratory: Reports no additional respiratory complaints, Denies cough and Denies dyspnea Gastrointestinal: Reports no additional gastrointestinal complaints, Reports abdominal pain, Reports bloating, Reports constipation, Denies diarrhea, Reports nausea and Denies vomiting Genitourinary: Reports no additional female genitourinary complaints and Denies urinary incontinence Musculoskeletal: Reports no additional musculoskeletal complaints, Denies back pain, Denies arthralgias, Denies joint swelling, Denies neck pain, Denies numbness and Denies tingling Skin/Breast: Reports system reviewed and no additional complaints, except as docu and Denies rash Reports system reviewed and no additional complaints, except as documented, Denies dizziness, Denies headache(s), Denies numbness, Denies tingling and Denies weakness PMFSH Past Medical History Attestation statement: The following information was validated with the patient. Source: old records reviewed and nursing notes reviewed Medical History Arthritis Asthma GERD (gastroesophageal reflux disease) Glaucoma HLD (hyperlipidemia) HTN (hypertension) Hypoglycemia Sleep apnea Surgical History History of appendectomy History of cholecystectomy History of esophagogastroduodenoscopy (EGD) History of knee replacement procedure of right knee Hx of breast biopsy Hx of cataract extraction Hx of colonoscopy Hx of gastric bypass Hx of hysterectomy Family History Family History Father No problems noted. Mother No problems noted. 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) Alcohol intake: never Patient Tobacco Use Status: Never used Tobacco Smoked in Last 30 Days: No Advance Directives: No Advance Directives Information Provided: No Advance Directives Date on File: 06/24/21 service: No Physical Exam ED Vital Signs: Vital Signs - 24 hr 01/02/23 09:11 01/02/23 15:22 Temperature 98.2 F 98.6 F Pulse Rate 78 64 Respiratory Rate 18 16 Blood Pressure 159/57 H 147/60 H Pulse Oximetry 96 Oxygen Delivery Method Room Air Room Air BMI result Body Mass Index 36.1 Const General: cooperative, healthy appearing, comfortable and no acute distress Orientation/consciousness: patient oriented x3 Limitations: language barrier HENMT Head: Yes normal to inspection Ears: hearing grossly normal bilaterally Eyes General: appearance normal, both eyes and all related structures Pupils: Equal, round and reactive pupils present Neck Neck: Yes normal visual inspection and Yes full ROM Chest Chest palpation & inspection: normal inspection of the chest Resp Effort & Inspection: normal respiratory effort Auscultation: clear to auscultation bilaterally Cardio Rate: regular rate Rhythm: regular rhythm Peripheral pulses: Peripheral pulses 2+ throughout GI Inspection: Yes normal to inspection Palpation (GI): Soft to palpation, Tenderness to palpation present (GI) (diffuse TTP-no rebound or guarding ) with no rebound tenderness and no guarding Auscultation: normal bowel sounds General: Yes no CVA tenderness Back/Spine/Pelvis Back: no CVA tenderness Thoracic/Lumbar Spine: thoracic and lumbar spine normal to inspection Skin General skin exam: no rashes or lesions noted Neuro General: patient oriented x3 and moves all extremities Cranial nerves: Yes Equal, round and reactive pupils present Cognition (Neuro): normal cognition Gait exam (Neuro): Normal gait present Extrem General: Yes normal to inspection Course Course Course Narrative: 1400-I was informed that the patient has had difficult IV access. I was able to place a 20 gauge IV in the left forearm and get some of her labs. Nursing will call phlebotomy to have her additional labs drawn. Reevaluation(s) Reevaluation #1: 1600-Sign out to Mago LINARES pending labs, CT A/P. We were finally able to get labs Reevaluation #2: sign-out from Kim barry nurse practitioner pending labs and CT scan patient presenting with abdominal discomfort, bloating with increased flatulence and burping feeling constipated. Reports she is on milk of Mag. Being followed by GI. Had hernia surgery years ago at [facility] although would rather have a general surgeon here due to her GI doctor is here. She denies any other symptoms. Labs reviewed patient with leukocytosis of 11,000 otherwise all her other labs are normal. UA within normal limits. CT scan abdomen pelvis with IV contrast negative for any acute processes, gastric sleeve appears normal, she does have an abdominal wall hernia repair with large mesh the mesh is in place although slightly crumpled therefore I discussed this with the patient and her family explained her that she might want a follow-up with the general surgeon for further evaluation treatment regarding her mesh otherwise this is not causing her bloating this at this time. I explained to the patient I can give her prescription for Colace and MiraLax she reports she is already on Colace and taking Gas-X. I will add MiraLax refer her to General surgery regarding her mesh and to return if any new or worsening symptoms follow up with PCP and GI. Patient with family at bedside understand agree this plan. Time: 17:39 Medical Decision Making Medical Decision Making [facility] Narrative: 82 yo female with history of gastric bypass, previous ileus here with several days of abdominal bloating, constipation On exam mild diffuse tenderness to palp, normal BS. No rebound or guarding. Will obtain labs, UA, CT A/P Differential Diagnosis Differential Diagnoses: The differential diagnosis associated with the presentation includes SBO, ileus, constipation Lab Data MDM Lab Attestation statement: I reviewed the patient's lab results. 01/02/23 14:00 Labs: Lab Results 01/02/23 01/02/23 01/02/23 Range/Units 10:17 14:00 15:41 WBC 11.3 H (4.8-10.8) X10*3/uL RBC 4.25 (4.20-5.50) X10*6/uL Hgb 12.8 (12.0-16.0) g/dl Hct 39.6 (37.0-47.0) % MCV 93.2 (80.0-98.0) fL MCH 30.1 (27.0-33.0) pg MCHC 32.3 (31.0-35.0) g/dl RDW 14.5 (11.0-16.0) % Plt Count 136 L (160-400) X10*3/uL MPV 12.4 H (9.4-12.3) fL Immature Gran % (Auto) 0.2 (0.0-0.4) % Neut % (Auto) 34.5 L (45-73) % Lymph % (Auto) 57.0 H (20-40) % [place] % (Auto) 6.7 (2-11) % Eos % (Auto) 1.1 (0-4) % Baso % (Auto) 0.5 (0-2) % Lymph # (Auto) 6.4 H (1.2-4.9) X10*3/uL [place] # (Auto) 0.8 (0.1-1.2) X10*3/uL Eos # (Auto) 0.1 (0.0-0.4) X10*3/uL Baso # (Auto) 0.1 (0.0-0.2) X10*3/uL Abs Immat Gran (auto) 0.02 (0.00-0.03) X10*3/uL Absolute Neuts (auto) 3.9 (2.0-8.3) x10*3/uL Absolute Nucleated RBC 0.000 (0.0-0.012) X10*3/uL Nucleated RBC % (auto) 0.0 (0.0-0.2) /100WBC Smear Tech's Comments VERIFIED Sodium 144 (135-145) mmol/L Potassium 4.1 (3.3-5.1) mmol/L Chloride 111 H (96-108) mmol/L Carbon Dioxide 23 (22-29) mmol/L Anion Gap 14 (12-20) BUN 11 (9-16) mg/dL Creatinine 0.74 (0.5-1.4) mg/dL Estim Creat Clear Calc 41.2 Estimated GFR > 60 Random Glucose 96 (60-115) mg/dL Calcium 9.9 (8.4-10.2) mg/dL Total Bilirubin 0.5 (0.0-1.0) mg/dL Direct Bilirubin 0.2 (0.0-0.5) mg/dL AST 19 (5-31) U/L ALT 14 (0-31) U/L Alkaline Phosphatase 94 (39-117) U/L Total Protein 6.6 (6.5-8.0) g/dL Albumin 4.2 (3.5-5.0) g/dL Lipase 15 (8-78) U/L Urine Color Yellow Urine Appearance Clear Urine pH 7.5 (5.0-9.0) Ur Specific [place] <= 1.005 (1.005-1.025) Urine Protein Negative (Neg-Trace) mg/dL Urine Glucose (UA) Negative (Negative) mg/dL Urine Ketones Negative (Negative) mg/dL Urine Blood Negative (Negative) Urine Nitrite Negative (Negative) Ur Leukocyte Esterase Negative (Negative) Independent Interpretation I performed an independent interpretation of an: CT Scan Interpretation: CT scan of abdomen pelvis with IV contrast reviewed by myself this is my independent interpretation agreeable with radiologist report no acute findings only chronic changes Radiology Impression Discussion of test interpretation with radiology: I have reviewed the radio logist's reading. Radiologist Impression: FINDINGS: LUNG BASES: Heart size is normal. There is platelike atelectasis or scarring in the left lung base. A small hiatal hernia suspected.? LIVER, GALLBLADDER, AND BILIARY TREE: The liver is borderline enlarged measuring 17 cm.. It has normal shape, and attenuation. There is 5 mm hypodensity right hepatic lobe. No additional lesions seen. There is no intrahepatic ductal dilatation. The gallbladder has been surgically removed.? PANCREAS: Unremarkable.? SPLEEN: Unremarkable.? ADRENAL GLANDS: Unremarkable.? KIDNEYS AND URETERS: The kidneys are normal in size, shape, and attenuation. No hydronephrosis, hydroureter, or calculi seen. No perinephric stranding. ? BLADDER: Unremarkable.? GASTROINTESTINAL TRACT: There is a gastric sleeve surgical changes. The small bowel loops are unremarkable. There is scattered stool in colon without distention. No bowel obstruction, free air or free fluid.? ABDOMINAL WALL: There is anterior abdominal wall hernia repair with mesh in place the upper abdominal mesh appears slightly crumpled but otherwise intact LYMPH NODES: Normal. VASCULAR: Unremarkable. PELVIC VISCERA: Unremarkable.? OSSEOUS STRUCTURES: No aggressive lytic or sclerotic process seen. There are degenerative disc changes at all lumbar disc levels. There is grade 1 retrolisthesis L2 over L3 and L3 over L4.? CT/CT abdomen pelvis w IV con IMPRESSION: 1.? No acute intra-abdominal process seen. 2.? There is gastric sleeve surgical changes. 3.? There is anterior abdominal wall hernia repair with large mesh in place. The mesh appears slightly crumpled in the upper abdomen but otherwise intact. ? Fleischner guidelines were followed. Independent Historian Clinical information obtained from an independent historian. History obtained from or confirmed by: Other (daughter) Social Determinants Patient?s care significantly limited by Social Determinants of Health including: Other Social Determinant of Health Medications Administered Discontinued Medications Generic Name Dose Route Start Last Admin Trade Name Freq PRN Reason Stop Dose Admin Iohexol 100 ml 01/02/23 16:56 01/02/23 16:56 Iohexol 350 Mg/Ml 100 Ml Infus..Btl IV 01/02/23 16:57 85 ml ONCE ONE Administration Discharge Plan Discharge Clinical Impression: Abdominal pain, Constipation Patient Disposition: Home, Self-Care Instructions: Abdominal Pain (ED) Additional Instructions: Follow-up with your unemployment insurance hearing officer Return for any worsening symptoms Prescriptions: New polyethylene glycol 3350 [Miralax] 17 gram/dose powder 17 g PO BID Qty: 119 0RF No Action (DME) blood-glucose meter [FreeStyle Lite Meter] Kit See Rx Instructions .ROUTE .MEDSUPPLY Qty: 1 0RF Rx Instructions: As directed (DME) lancets [FreeStyle Lancets] 28 gauge misc See Rx Instructions .ROUTE .MEDSUPPLY Qty: 100 11RF Rx Instructions: 4x daily as needed famotidine 40 mg tablet 40 mg PO BID Qty: 90 1RF ondansetron 4 mg tablet,disintegrating 4 mg PO Q8H PRN (Reason: for nausea/vomiting) Qty: 20 1RF simethicone 80 mg tablet,chewable 80 mg PO BID-QID Qty: 90 1RF ondansetron 4 mg tablet,disintegrating 4 mg PO Q6-8H PRN (Reason: nausea and vomiting) Qty: 14 0RF Trulance 3 mg tablet 1 tab PO DAILY Systane (propylene glycol) 0.4-0.3 % Drops 1 drp OPHTHALMIC (EYE) DAILY PRN (Reason: Dry Eye(S)) albuterol sulfate 2.5 mg /3 mL (0.083 %) solution for nebulization 1 amp inhalation 6XD PRN (Reason: Wheezing) levofloxacin 750 mg tablet 750 mg PO DAILY 5 Days Qty: 5 0RF benzonatate 100 mg capsule 100 mg PO TID PRN (Reason: cough) 5 Days Qty: 15 0RF prednisone 20 mg tablet 40 mg PO DAILY 5 Days Qty: 10 0RF losartan 25 mg tablet 25 mg PO DAILY rosuvastatin 10 mg tablet 10 mg PO BEDTIME fluticasone propionate 50 mcg/actuation spray,suspension 2 spray intranasal DAILY citalopram 10 mg tablet 10 mg PO DAILY cetirizine 10 mg tablet 10 mg PO DAILY multivitamin Tablet 1 tab PO QAM ergocalciferol (vitamin D2) 1,250 mcg (50,000 unit) capsule 1,250 mcg PO SANDS rabeprazole 20 mg tablet,delayed release (DR/EC) 20 mg PO DAILY acetaminophen 500 mg tablet 500 mg PO TID PRN (Reason: Pain) albuterol sulfate 90 mcg/actuation HFA aerosol inhaler 2 inh inhalation QID PRN (Reason: Shortness Of Breath) alprazolam 1 mg tablet 1 mg PO BEDTIME alprazolam 0.5 mg tablet 0.5 mg PO BEDTIME PRN (Reason: Anxiety) diltiazem HCl 240 mg capsule,extended release 24 hr 240 mg PO DAILY fluticasone propion-salmeterol 230-21 mcg/actuation HFA aerosol inhaler 2 puff inhalation DAILY theophylline 300 mg tablet extended release 12 hr 300 mg PO BID tramadol 50 mg tablet 50 mg PO TID PRN (Reason: Pain) dicyclomine 20 mg tablet 20 mg PO DAILY ferrous gluconate 324 mg (38 mg iron) tablet 324 mg PO Q OTHER DAY baclofen 20 mg tablet 20 mg PO BID peg 3350-electrolytes [GaviLyte-C] 240-22.72-6.72 -5.84 gram recon soln 240 ml PO Q10M Qty: 4000 0RF Rx Instructions: until fecal effluent is clear Referrals: Claudia Acosta MD [Physician] - 1 week Lawson Noel MD [Physician] - Print Language: Portuguese
[2023-01-02 10:33] LABS: Appearance Urine Clear; Color Urine Yellow; Glucose Urine UA Negative (Negative); Leukocyte Esterase Urine Negative (Negative); Nitrite Urine Negative (Negative); PH 7.5 (5.0-9.0); Specific Gravity - Urine <= 1.005 (1.005-1.025); Urine Blood Negative (Negative); Urine Ketones Negative (Negative); Urine Protein Negative (Neg-Trace)
--- NOTE | 2023-01-02 11:19 | PC.NURSE ---
3 IV's attempted on pt, ultrasound iv to be attempted now
--- NOTE | 2023-01-02 13:44 | PC.NURSE ---
provider at bedside to attempt ultrasound iv, unsuccessful at this time
[2023-01-02 14:08] LABS: Basophils Absolute Auto 0.1 X10*3/uL (0.0-0.2); Basophils Percent Auto 0.5 % (0-2); Eosinophils Absolute Auto 0.1 X10*3/uL (0.0-0.4); Eosinophils Percent Auto 1.1 % (0-4); Hematocrit 39.6 % (37.0-47.0); Hemoglobin 12.8 g/dl (12.0-16.0); Imm Gran Abs Auto 0.02 X10*3/uL (0.00-0.03); Imm Gran Pct Auto 0.2 % (0.0-0.4); Lymphocytes Absolute Auto 6.4 X10*3/uL (1.2-4.9); MANUAL DIFF FLAG SCAN; Mean Corpuscular HGB Conc 32.3 g/dl (31.0-35.0); Mean Corpuscular Hemoglobin 30.1 pg (27.0-33.0); Mean Corpuscular Volume 93.2 fL (80.0-98.0); Mean Platelet Volume 12.4 fL (9.4-12.3); Monocytes Absolute Auto 0.8 X10*3/uL (0.1-1.2); Monocytes Percent Auto 6.7 % (2-11); Neutrophils Absolute Auto 3.9 x10*3/uL (2.0-8.3); Neutrophils Percent Auto 34.5 % (45-73); PLT CLUMP 1; Red Blood Count 4.25 X10*6/uL (4.20-5.50); Red Cell Distribution Width 14.5 % (11.0-16.0); SCAN SMEAR FLAG 1
[2023-01-02 14:09] LABS: Platelet Count 136 X10*3/uL (160-400); White Blood Count 11.3 X10*3/uL (4.8-10.8)
[2023-01-02 14:27] LABS: SLIDE REVIEW VERIFIED
[2023-01-02 15:22] VITALS: BP 147/60; PULSE 64; RESP 16; TEMP 37
[2023-01-02 16:15] LABS: Alanine Aminotransferase 14 U/L (0-31); Albumin Level 4.2 g/dL (3.5-5.0); Alkaline Phosphatase 94 U/L (39-117); Anion Gap 14 (12-20); Aspartate Amino Transferase 19 U/L (5-31); Bilirubin Direct 0.2 mg/dL (0.0-0.5); Bilirubin Total 0.5 mg/dL (0.0-1.0); Blood Urea Nitrogen 11 mg/dL (9-16); Calcium 9.9 mg/dL (8.4-10.2); Carbon Dioxide 23 mmol/L (22-29); Chloride 111 mmol/L (96-108); Creatinine Clr Calc Pharmacy 41.2; Estimated Glomerular Filt Rate > 60; Glucose Random 96 mg/dL (60-115); Lipase 15 U/L (8-78); Potassium 4.1 mmol/L (3.3-5.1); Sodium 144 mmol/L (135-145); Total Protein 6.6 g/dL (6.5-8.0)
[2023-01-02] MEDS: iohexoL 350 MG/ML 100 ML INFUS..BTL IV (16:56)
== END 2023-01-02 18:04 | disposition home or self-care (01) ==
PROVIDERS: Nurse Practitioner Family; Emergency Provider Emergency Medicine; PCP Internal Medicine
DX: R10.9 Unspecified abdominal pain (principal); K59.00 Constipation, unspecified; I10 Essential (primary) hypertension; E78.5 Hyperlipidemia, unspecified; Z98.84 Bariatric surgery status
CPT/HCPCS: 36415; 74177; 80048; 80076; 81003; 83690; 85025; 99284; Q9967

== ENCOUNTER 2023-01-22 13:28 | Outpatient (AMB) | payer OTHER, SELFPAY ==
--- NOTE | 2023-01-22 13:31 | MHC.OFFVIS ---
Intake Vital Signs 01/22/23 13:35 Height 4 ft 5 in Weight 145 lb BMI 36.3 BP 143/66 H Blood Pressure Location Rt brachial Position Sitting Pulse 77 Intake Visit Reasons: Abdominal pain, poss mesh removal Intake Note: This patient presents for [facility] emergency department follow-up for abdominal pain, possible mesh removal. Patient c/o; reports Hx gastric bypass 2002, reports loss of appetite and nausea, reports ? fluid retention, reports back pain, reports abdominal pain. Leadite Worker Required: Yes Leadite Worker Language: Field Service Manager Name: Grandson declined subsystems engineer Accompanied by: Grand Child Allergies WADE Inhibitors Allergy (Intermediate, Verified 01/22/23 13:36) mouth swelling/cough amlodipine Allergy (Intermediate, Verified 01/22/23 13:36) headache/dizziness/nausea/vomiting morphine [MORPHINE] Allergy (Unknown, Verified 01/22/23 13:36) unknown pantoprazole [From Protonix] Allergy (Unknown, Verified 01/22/23 13:36) Unknown celecoxib [From Celebrex] Adverse Reaction (Mild, Verified 01/22/23 13:36) Weakness milk [MILK] Adverse Reaction (Mild, Verified 01/22/23 13:36) STOMACH UPSET oxycodone [From Percocet] Adverse Reaction (Mild, Verified 01/22/23 13:36) NAUSEA/RAPID HR/BLURRED VISION HPI HPI Comments History of Present Illness Details 82-year-old female patient with multiple medical problems presenting for evaluation of a large incisional hernia. She has a prior history of asthma, hypertension, hyperlipidemia chronic constipation and is status post gastric bypass surgery and a large incisional hernia repair with mesh performed approximately 20 years ago. She now complains of chronic constipation, abdominal bloating and pressure. She was evaluated in the emergency department on 01/02/2023. CT abdomen and pelvis was obtained which revealed a large mesh repair of the incisional hernia with evidence of the mesh stretching in the central portion. She presents today for possible revision of this mesh repair. [facility] Medical History Arthritis Asthma GERD (gastroesophageal reflux disease) Glaucoma HLD (hyperlipidemia) HTN (hypertension) Hypoglycemia Sleep apnea Surgical History History of appendectomy History of cholecystectomy History of esophagogastroduodenoscopy (EGD) History of knee replacement procedure of right knee Hx of breast biopsy Hx of cataract extraction Hx of colonoscopy Hx of gastric bypass Hx of hysterectomy Family History Father No problems noted. Mother No problems noted. Social History Household Members: None Household Members Other:: daughter lives downstairs Housing: House Do you presently have visiting nurse or other home services: Yes (and OBSTETRICS GYN/son) Alcohol intake: never Patient Tobacco Use Status: Never used Tobacco Advance Directives Date on File: 06/24/21 service: No Review of Systems Const All systems reviewed & are unremarkable except as noted in HPI and below Denies chills, Denies fever(s), Denies headache(s), Denies poor appetite and Denies weakness ENT Denies headache(s) Card Denies chest pain, Denies irregular heart rhythm, Denies palpitations and Denies dyspnea Resp Denies cough, Denies excessive phlegm production and Denies dyspnea GI Reports abdominal pain, Reports bloating, Denies change in bowel habits, Reports constipation, Denies heartburn, Denies diarrhea, Reports nausea and Denies vomiting Denies urinary frequency Musc Denies back pain, Denies muscle weakness and Denies numbness Skin/Breast Denies changing lesions and Denies unusual bruising Neuro Denies headache(s), Denies numbness, Denies paresthesias and Denies weakness Psych Denies anxiety and Denies depression Endo Denies palpitations Umer/Lymph Denies lymphadenopathy Physical Exam Const General: cooperative and no acute distress Nutritional Appearance: well nourished Orientation/consciousness: patient oriented x3 Limitations: no limitations HEENT Head: Yes normocephalic and Yes atraumatic Ears: hearing grossly normal bilaterally Resp Effort & Inspection: normal respiratory effort, no audible wheezes, no cough and no respiratory distress Cardio Jugular venous distension: no JVD GI Other: Soft, obese with palpable laxity in the midline but no wander hernia identified in the standing position. No tenderness to palpation. Inspection: Yes normal to inspection Skin Other: Warm, dry, no rash Neuro General: patient oriented x3 Extrem General: Yes no clubbing, cyanosis or edema Assessment & Plan Assessment & Plan (1) Incisional hernia: Code(s): K43.2 - Incisional hernia without obstruction or gangrene Plan 82-year-old female patient presenting with previous history of incisional hernia previously repaired approximately 20 years ago with a large mesh repair. CT abdomen and pelvis was reviewed with the patient. This does review laxity in the central portion of the mesh suggestive of stretching however no hernias identified and the margins of the mesh are intact. Of concern is the intestine appears to be closely associated with the mesh which may indicate adhesions to the anterior abdominal wall and mesh. If this is the case, any operation to tighten the mesh may result in injury to the bowel, both large and small and certainly would risk infecting the mesh. In terms of risks and benefits of this procedure, my feeling is the risks far outweigh the benefit and in fact as there is no hernia, the procedure may actually make her symptoms worse. She expressed understanding. I recommended follow-up examination by Gastroenterology for additional management of her intestinal symptoms. She should follow up as needed. Coding Level of Care Code New Pt Level 4 (78204) Diagnoses Incisional hernia K43.2
[2023-01-22 13:35] VITALS: BP 143/66; PULSE 77; BMI 36.3
== END 2023-01-22 14:01 | disposition home or self-care (01) ==
PROVIDERS: PCP Internal Medicine; Visit Provider Surgery
DX: K43.2 Incisional hernia without obstruction or gangrene (principal)
CPT/HCPCS: 99214

== ENCOUNTER → 2023-01-22 13:28 | Outpatient (BNVA) | payer OTHER, SELFPAY | PROVIDERS: PCP Internal Medicine; Visit Provider Surgery | DX: R10.9 Unspecified abdominal pain (principal); Z87.19 Personal history of other diseases of the digestive system | CPT/HCPCS: 99212 ==

== ENCOUNTER 2023-07-12 09:33 | Outpatient (REF) | payer OTHER, SELFPAY ==
[2023-07-12 13:15] VITALS: BMI 39.9
[2023-07-12 13:17] VITALS: BP 139/63; PULSE 71; RESP 17; TEMP 36.8; O2SAT 97
== END 2023-07-12 09:34 | disposition home or self-care (01) ==
LOC: HO.MS 09:33
PROVIDERS: PCP Internal Medicine; Visit Provider Ophthalmology
DX: H26.492 Other secondary cataract, left eye (principal); Z53.9 Procedure and treatment not carried out, unspecified reason

== ENCOUNTER 2023-07-22 13:22 | Outpatient (REF) | payer OTHER, SELFPAY ==
--- NOTE | ~2023-07-22 | XR_ITS ---
EXAMINATION: XR LUMBAR SPINE XR RIGHT HIP XR LEFT HIP XR RIGHT SHOULDER XR LEFT SHOULDER CLINICAL INDICATION: Lumbosacral spondylosis without myelopathy. Bilateral hip and shoulder pain. Low back pain. COMPARISON: CT abdomen and pelvis 01/02/2023. CT chest and x-ray chest 05/03/2022. KUB 06/23/2021. Radiographs bilateral hips of 10/05/2012. Radiographs of lumbar spine 01/02/2013. TECHNIQUE: 5 views of each shoulder. 2 views right hip. 3 views left hip. 3 views lumbar spine. Visualization limited due to body habitus. FINDINGS: RIGHT HIP: Degenerative changes with moderate joint space narrowing in the hip. Alignment preserved. Limited visualization. Bones are diffusely demineralized. Degenerative changes of the sacroiliac joint. LEFT HIP: Degenerative changes with moderate joint space narrowing in the hip. Alignment preserved. Limited visualization. Bones are diffusely demineralized. Degenerative changes of the sacroiliac joint. LUMBAR SPINE: The bones are diffusely demineralized. Degenerative changes in the imaged lower thoracic spine. Degenerative changes in the bilateral sacroiliac joints, postsurgical changes with redemonstration of surgical clips, sutures and hernia repair mesh. Scoliosis with rightward curvature of the [id number] lumbar spine. Advanced multilevel degenerative changes in the lumbar spine with multilevel loss of disc space height particularly notable. Atherosclerotic aortic calcifications. LEFT SHOULDER: Moderate degenerative changes in the acromioclavicular joint with joint space narrowing and hypertrophic change. Degenerative changes with hypertrophic change along the glenoid. The bones are diffusely demineralized. Degenerative changes on very limited images of the upper thoracic spine. Small soft tissue calcifications along the acromioclavicular joint and lateral to the acromion. RIGHT SHOULDER: Moderate degenerative changes in the acromioclavicular joint with joint space narrowing and hypertrophic change. Degenerative changes with hypertrophic change along the glenoid. Soft tissue calcifications along the acromioclavicular joint. XR/XR shoulder RT min 2V IMPRESSION: 1. Moderate degenerative changes in the bilateral hips. 2. Advanced multilevel degenerative changes in the lumbar spine. 3. Moderate degenerative changes in the bilateral acromioclavicular joints. 4. Moderate degenerative changes in the bilateral glenohumeral joints. 5. Additional imaging with CT scan could be considered for further evaluation if there is clinical concern for fracture.
--- NOTE | ~2023-07-22 | XR_ITS ---
EXAMINATION: XR LUMBAR SPINE XR RIGHT HIP XR LEFT HIP XR RIGHT SHOULDER XR LEFT SHOULDER CLINICAL INDICATION: Lumbosacral spondylosis without myelopathy. Bilateral hip and shoulder pain. Low back pain. COMPARISON: CT abdomen and pelvis 01/02/2023. CT chest and x-ray chest 05/03/2022. KUB 06/23/2021. Radiographs bilateral hips of 10/05/2012. Radiographs of lumbar spine 01/02/2013. TECHNIQUE: 5 views of each shoulder. 2 views right hip. 3 views left hip. 3 views lumbar spine. Visualization limited due to body habitus. FINDINGS: RIGHT HIP: Degenerative changes with moderate joint space narrowing in the hip. Alignment preserved. Limited visualization. Bones are diffusely demineralized. Degenerative changes of the sacroiliac joint. LEFT HIP: Degenerative changes with moderate joint space narrowing in the hip. Alignment preserved. Limited visualization. Bones are diffusely demineralized. Degenerative changes of the sacroiliac joint. LUMBAR SPINE: The bones are diffusely demineralized. Degenerative changes in the imaged lower thoracic spine. Degenerative changes in the bilateral sacroiliac joints, postsurgical changes with redemonstration of surgical clips, sutures and hernia repair mesh. Scoliosis with rightward curvature of the [id number]-[id number]-vabtu lumbar spine. Advanced multilevel degenerative changes in the lumbar spine with multilevel loss of disc space height particularly notable. Atherosclerotic aortic calcifications. LEFT SHOULDER: Moderate degenerative changes in the acromioclavicular joint with joint space narrowing and hypertrophic change. Degenerative changes with hypertrophic change along the glenoid. The bones are diffusely demineralized. Degenerative changes on very limited images of the upper thoracic spine. Small soft tissue calcifications along the acromioclavicular joint and lateral to the acromion. RIGHT SHOULDER: Moderate degenerative changes in the acromioclavicular joint with joint space narrowing and hypertrophic change. Degenerative changes with hypertrophic change along the glenoid. Soft tissue calcifications along the acromioclavicular joint. XR/XR hip RT min 2V IMPRESSION: 1. Moderate degenerative changes in the bilateral hips. 2. Advanced multilevel degenerative changes in the lumbar spine. 3. Moderate degenerative changes in the bilateral acromioclavicular joints. 4. Moderate degenerative changes in the bilateral glenohumeral joints. 5. Additional imaging with CT scan could be considered for further evaluation if there is clinical concern for fracture.
--- NOTE | ~2023-07-22 | XR_ITS ---
EXAMINATION: XR LUMBAR SPINE XR RIGHT HIP XR LEFT HIP XR RIGHT SHOULDER XR LEFT SHOULDER CLINICAL INDICATION: Lumbosacral spondylosis without myelopathy. Bilateral hip and shoulder pain. Low back pain. COMPARISON: CT abdomen and pelvis 01/02/2023. CT chest and x-ray chest 05/03/2022. KUB 06/23/2021. Radiographs bilateral hips of 10/05/2012. Radiographs of lumbar spine 01/02/2013. TECHNIQUE: 5 views of each shoulder. 2 views right hip. 3 views left hip. 3 views lumbar spine. Visualization limited due to body habitus. FINDINGS: RIGHT HIP: Degenerative changes with moderate joint space narrowing in the hip. Alignment preserved. Limited visualization. Bones are diffusely demineralized. Degenerative changes of the sacroiliac joint. LEFT HIP: Degenerative changes with moderate joint space narrowing in the hip. Alignment preserved. Limited visualization. Bones are diffusely demineralized. Degenerative changes of the sacroiliac joint. LUMBAR SPINE: The bones are diffusely demineralized. Degenerative changes in the imaged lower thoracic spine. Degenerative changes in the bilateral sacroiliac joints, postsurgical changes with redemonstration of surgical clips, sutures and hernia repair mesh. Scoliosis with rightward curvature of the [id number] lumbar spine. Advanced multilevel degenerative changes in the lumbar spine with multilevel loss of disc space height particularly notable. Atherosclerotic aortic calcifications. LEFT SHOULDER: Moderate degenerative changes in the acromioclavicular joint with joint space narrowing and hypertrophic change. Degenerative changes with hypertrophic change along the glenoid. The bones are diffusely demineralized. Degenerative changes on very limited images of the upper thoracic spine. Small soft tissue calcifications along the acromioclavicular joint and lateral to the acromion. RIGHT SHOULDER: Moderate degenerative changes in the acromioclavicular joint with joint space narrowing and hypertrophic change. Degenerative changes with hypertrophic change along the glenoid. Soft tissue calcifications along the acromioclavicular joint. XR/XR lumbar spine 2-3V IMPRESSION: 1. Moderate degenerative changes in the bilateral hips. 2. Advanced multilevel degenerative changes in the lumbar spine. 3. Moderate degenerative changes in the bilateral acromioclavicular joints. 4. Moderate degenerative changes in the bilateral glenohumeral joints. 5. Additional imaging with CT scan could be considered for further evaluation if there is clinical concern for fracture.
--- NOTE | ~2023-07-22 | XR_ITS ---
EXAMINATION: XR LUMBAR SPINE XR RIGHT HIP XR LEFT HIP XR RIGHT SHOULDER XR LEFT SHOULDER CLINICAL INDICATION: Lumbosacral spondylosis without myelopathy. Bilateral hip and shoulder pain. Low back pain. COMPARISON: CT abdomen and pelvis 01/02/2023. CT chest and x-ray chest 05/03/2022. KUB 06/23/2021. Radiographs bilateral hips of 10/05/2012. Radiographs of lumbar spine 01/02/2013. TECHNIQUE: 5 views of each shoulder. 2 views right hip. 3 views left hip. 3 views lumbar spine. Visualization limited due to body habitus. FINDINGS: RIGHT HIP: Degenerative changes with moderate joint space narrowing in the hip. Alignment preserved. Limited visualization. Bones are diffusely demineralized. Degenerative changes of the sacroiliac joint. LEFT HIP: Degenerative changes with moderate joint space narrowing in the hip. Alignment preserved. Limited visualization. Bones are diffusely demineralized. Degenerative changes of the sacroiliac joint. LUMBAR SPINE: The bones are diffusely demineralized. Degenerative changes in the imaged lower thoracic spine. Degenerative changes in the bilateral sacroiliac joints, postsurgical changes with redemonstration of surgical clips, sutures and hernia repair mesh. Scoliosis with rightward curvature of the [id number]-[id number]-[id number] lumbar spine. Advanced multilevel degenerative changes in the lumbar spine with multilevel loss of disc space height particularly notable. Atherosclerotic aortic calcifications. LEFT SHOULDER: Moderate degenerative changes in the acromioclavicular joint with joint space narrowing and hypertrophic change. Degenerative changes with hypertrophic change along the glenoid. The bones are diffusely demineralized. Degenerative changes on very limited images of the upper thoracic spine. Small soft tissue calcifications along the acromioclavicular joint and lateral to the acromion. RIGHT SHOULDER: Moderate degenerative changes in the acromioclavicular joint with joint space narrowing and hypertrophic change. Degenerative changes with hypertrophic change along the glenoid. Soft tissue calcifications along the acromioclavicular joint. XR/XR hip LT min 2V IMPRESSION: 1. Moderate degenerative changes in the bilateral hips. 2. Advanced multilevel degenerative changes in the lumbar spine. 3. Moderate degenerative changes in the bilateral acromioclavicular joints. 4. Moderate degenerative changes in the bilateral glenohumeral joints. 5. Additional imaging with CT scan could be considered for further evaluation if there is clinical concern for fracture.
--- NOTE | ~2023-07-22 | XR_ITS ---
EXAMINATION: XR LUMBAR SPINE XR RIGHT HIP XR LEFT HIP XR RIGHT SHOULDER XR LEFT SHOULDER CLINICAL INDICATION: Lumbosacral spondylosis without myelopathy. Bilateral hip and shoulder pain. Low back pain. COMPARISON: CT abdomen and pelvis 01/02/2023. CT chest and x-ray chest 05/03/2022. KUB 06/23/2021. Radiographs bilateral hips of 10/05/2012. Radiographs of lumbar spine 01/02/2013. TECHNIQUE: 5 views of each shoulder. 2 views right hip. 3 views left hip. 3 views lumbar spine. Visualization limited due to body habitus. FINDINGS: RIGHT HIP: Degenerative changes with moderate joint space narrowing in the hip. Alignment preserved. Limited visualization. Bones are diffusely demineralized. Degenerative changes of the sacroiliac joint. LEFT HIP: Degenerative changes with moderate joint space narrowing in the hip. Alignment preserved. Limited visualization. Bones are diffusely demineralized. Degenerative changes of the sacroiliac joint. LUMBAR SPINE: The bones are diffusely demineralized. Degenerative changes in the imaged lower thoracic spine. Degenerative changes in the bilateral sacroiliac joints, postsurgical changes with redemonstration of surgical clips, sutures and hernia repair mesh. Scoliosis with rightward curvature of the [id number] lumbar spine. Advanced multilevel degenerative changes in the lumbar spine with multilevel loss of disc space height particularly notable. Atherosclerotic aortic calcifications. LEFT SHOULDER: Moderate degenerative changes in the acromioclavicular joint with joint space narrowing and hypertrophic change. Degenerative changes with hypertrophic change along the glenoid. The bones are diffusely demineralized. Degenerative changes on very limited images of the upper thoracic spine. Small soft tissue calcifications along the acromioclavicular joint and lateral to the acromion. RIGHT SHOULDER: Moderate degenerative changes in the acromioclavicular joint with joint space narrowing and hypertrophic change. Degenerative changes with hypertrophic change along the glenoid. Soft tissue calcifications along the acromioclavicular joint. XR/XR shoulder LT min 2V IMPRESSION: 1. Moderate degenerative changes in the bilateral hips. 2. Advanced multilevel degenerative changes in the lumbar spine. 3. Moderate degenerative changes in the bilateral acromioclavicular joints. 4. Moderate degenerative changes in the bilateral glenohumeral joints. 5. Additional imaging with CT scan could be considered for further evaluation if there is clinical concern for fracture.
== END 2023-07-22 13:23 | disposition home or self-care (01) ==
LOC: HO.MAMMO 13:22
PROVIDERS: PCP Internal Medicine; Visit Provider Internal Medicine
DX: M25.551 Pain in right hip (principal); M25.552 Pain in left hip; M47.817 Spondylosis without myelopathy or radiculopathy, lumbosacral region; M25.511 Pain in right shoulder; G89.29 Other chronic pain; M25.512 Pain in left shoulder; Z12.31 Encounter for screening mammogram for malignant neoplasm of breast
CPT/HCPCS: 72100; 73030; 73502; 77063; 77067

== ENCOUNTER → 2023-07-22 13:30 | Outpatient (BNV) | payer OTHER, SELFPAY | PROVIDERS: PCP Internal Medicine; Visit Provider Radiology Diagnostic Radiology | DX: Z12.31 Encounter for screening mammogram for malignant neoplasm of breast (principal) | CPT/HCPCS: 77063; 77067 ==

== ENCOUNTER 2023-07-26 10:22 | Outpatient (REF) | payer OTHER, SELFPAY ==
[2023-07-26 16:03] VITALS: BMI 41.1
[2023-07-26 16:05] VITALS: BP 144/67; PULSE 67; RESP 18; TEMP 36.4; O2SAT 96
== END 2023-07-26 10:23 | disposition home or self-care (01) ==
LOC: HO.MS 10:22
PROVIDERS: PCP Internal Medicine; Visit Provider Ophthalmology
PROC: (CPT 66821; principal; 2023-07-26 12:20)
DX: H26.492 Other secondary cataract, left eye (principal)
CPT/HCPCS: 66821

== ENCOUNTER 2023-09-17 11:49 | Outpatient (AMB) | payer OTHER, SELFPAY ==
--- NOTE | 2023-09-17 11:54 | MHC.OFFVIS ---
Vital Signs 09/17/23 11:55 Height 4 ft 2 in Weight 143 lb 4.807 oz BMI 40.3 BP 140/74 H Blood Pressure Location Lt brachial Position Sitting Pulse 83 Intake Visit Reasons: ED Follow up Intake Note: Lia presents in the office as a ED follow up. CC: She states that she is having pains in the stomach. Constipation every day and she has to take medication to loosen up her stools. She was a little confused when I was going through her medications because she has [facility] and not all medications are on there. I went through the best of my abilities. [employer] Required: Yes Allergies WADE Inhibitors Allergy (Intermediate, Verified 09/17/23 11:56) mouth swelling/cough amlodipine Allergy (Intermediate, Verified 09/17/23 11:56) headache/dizziness/nausea/vomiting morphine [MORPHINE] Allergy (Unknown, Verified 09/17/23 11:56) unknown pantoprazole [From Protonix] Allergy (Unknown, Verified 09/17/23 11:56) Unknown celecoxib [From Celebrex] Adverse Reaction (Mild, Verified 09/17/23 11:56) Weakness milk [MILK] Adverse Reaction (Mild, Verified 09/17/23 11:56) STOMACH UPSET oxycodone [From Percocet] Adverse Reaction (Mild, Verified 09/17/23 11:56) NAUSEA/RAPID HR/BLURRED VISION HPI HPI ED Follow up: Details: 81 y/o f w/ VIRIDIANA, OA, gastric bypass being seen for for f/u RECAP: Issues: 1/ GERD--I changed her from rabeprazole to pantoprazole 2/ chronic constipation--takes MoM once a week which was helping her EGD/colonoscopy: 2012- small hiatal hernia, one small tubular adenoma removed. colonoscopy--11/2018--serrated polyp removed, redundant colon with looping, tortuous, suspected she had right sided ischemic colitis Admission with ileus 05/2021, medically managed, constipation noted, she also had covid INTERIM: she has been having abdominal pain she feels constipated she went to the ED 01/20 with the same sx and had ct --nothing acute, mesh was crumpled --saw [facility] and no plans for surgery she feels like her intestine is turning, and she has inflammation she conts to take tramadol for arthritis pain, not taking MOM daily, EXAM: GENERAL: The patient is well developed and nontoxic. VITAL SIGNS:see workflow HEENT: Nonicteric sclerae, PERRLA, EOMI. Oropharynx clear. Moist mucous membranes. Conjunctivae appear well perfused. No thyroid mass. CHEST: Chest wall is nontender. HEART: Regular rate and rhythm without murmurs. LUNGS: Clear to auscultation bilaterally. ABDOMEN: Soft, positive bowel sounds, nontender, no organomegaly.no flank tenderness SKIN: No rash, no excessive bruising, petechiae, or purpura. NEUROLOGIC: Cranial nerves II-XII intact without motor/sensory deficit. psych--nml affect A/P 1. Chronic idiopathic constipation--taking MOm q2 --- may also be due to tramadol use 2. Chronic GERD, on H2B, PPI not covered by insurance 3. anemia, may be due to bypass itself ddx; polyps, neoplasia, ulcers, esophagitis --stable PLAN: 1/ trial of relistor, if not successful then MOM daily, one cupful PFSH Medical History Arthritis Asthma GERD (gastroesophageal reflux disease) Glaucoma HLD (hyperlipidemia) HTN (hypertension) Hypoglycemia Sleep apnea Surgical History History of appendectomy History of cholecystectomy History of esophagogastroduodenoscopy (EGD) History of knee replacement procedure of right knee Hx of breast biopsy Hx of cataract extraction Hx of colonoscopy Hx of gastric bypass Hx of hysterectomy Family History Father No problems noted. Mother No problems noted. 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
[2023-09-17 11:55] VITALS: BP 140/74; PULSE 83; BMI 40.3
== END 2023-09-17 12:27 | disposition home or self-care (01) ==
PROVIDERS: PCP Internal Medicine; Visit Provider Internal Medicine Gastroenterology
DX: K59.01 Slow transit constipation (principal)
CPT/HCPCS: 99213

== ENCOUNTER → 2023-09-17 11:49 | Outpatient (BNVA) | payer OTHER, SELFPAY | PROVIDERS: PCP Internal Medicine; Visit Provider Internal Medicine Gastroenterology | DX: K59.01 Slow transit constipation (principal) | CPT/HCPCS: 99212 ==

== ENCOUNTER 2023-10-06 15:04 | Outpatient (REF) | payer OTHER, SELFPAY ==
[2023-10-06 16:43] LABS: Alanine Aminotransferase 13 U/L (0-31); Albumin Level 4.3 g/dL (3.5-5.0); Alkaline Phosphatase 101 U/L (39-117); Anion Gap 14 (12-20); Aspartate Amino Transferase 16 U/L (5-31); Bilirubin Direct 0.1 mg/dL (0.0-0.5); Bilirubin Total 0.3 mg/dL (0.0-1.0); Blood Urea Nitrogen 19 mg/dL (9-16); Calcium 9.5 mg/dL (8.4-10.2); Carbon Dioxide 22 mmol/L (22-29); Chloride 110 mmol/L (96-108); Cholesterol 145 mg/dL (<200); Estimated Glomerular Filt Rate > 60; Glucose Random 108 mg/dL (60-115); HDL Cholesterol 73 mg/dL (>40); LDL Cholesterol Calculated 59 mg/dL (<100); Sodium 142 mmol/L (135-145); Total Protein 6.7 g/dL (6.5-8.0); Triglycerides 65 mg/dL (<150)
[2023-10-07 04:26] LABS: HBS Num1 0.12 mIU/mL (0-7.99); HBc Num1 0.12 S/CO (0.00-0.79); HBsAGNum1 0.25 S/CO (0.00-0.99); Hepatitis B Core Antibody Nonreactive (Nonreactive); Hepatitis B Surface Antigen Negative (Negative); ~HepC Num1 0.12 S/CO (0.00-0.79); ~Hepatitis B Surface Antibody NONREACTIVE (Nonreactive); ~Hepatitis C Antibody Nonreactive (Nonreactive)
[2023-10-07 05:03] LABS: Hepatitis A Antibody IgM 0.16 Index (0-0.79); ~Hepatitis A Antibody IgM Nonreactive (Nonreactive)
== END 2023-10-06 15:05 | disposition home or self-care (01) ==
LOC: HO.HHCL 15:04
PROVIDERS: Visit Provider Internal Medicine
DX: I10 Essential (primary) hypertension (principal); E11.9 Type 2 diabetes mellitus without complications
CPT/HCPCS: 36415; 80048; 80061; 80076; 86704; 86706; 86709; 86803; 87340

== ENCOUNTER 2023-10-15 10:38 | Outpatient (AMB) | payer OTHER, SELFPAY ==
[2023-10-15 10:39] VITALS: BP 146/64; PULSE 84; BMI 40.2
--- NOTE | 2023-10-15 10:39 | MHC.OFFVIS ---
Vital Signs 10/15/23 10:39 Height 4 ft 2 in Weight 143 lb BMI 40.2 BP 146/64 H Blood Pressure Location Lt brachial Position Sitting Pulse 84 Intake Visit Reasons: 6 weeks Intake Note: Lia presents in the office as a follow up 6 weeks. CC: She still has constipation - she states that she does not feel like the medication for constipation is working for her. Electronic Musical Instrument Repairer Required: Yes Electronic Musical Instrument Repairer Name: son and daughter Allergies WADE Inhibitors Allergy (Intermediate, Verified 10/15/23 10:43) mouth swelling/cough amlodipine Allergy (Intermediate, Verified 10/15/23 10:43) headache/dizziness/nausea/vomiting morphine [MORPHINE] Allergy (Unknown, Verified 10/15/23 10:43) unknown pantoprazole [From Protonix] Allergy (Unknown, Verified 10/15/23 10:43) Unknown celecoxib [From Celebrex] Adverse Reaction (Mild, Verified 10/15/23 10:43) Weakness milk [MILK] Adverse Reaction (Mild, Verified 10/15/23 10:43) STOMACH UPSET oxycodone [From Percocet] Adverse Reaction (Mild, Verified 10/15/23 10:43) NAUSEA/RAPID HR/BLURRED VISION HPI HPI 6 weeks: Details: 83 y/o f w/ VIRIDIANA, OA, gastric bypass being seen for f/u RECAP: Issues: 1/ GERD--I changed her from rabeprazole to pantoprazole 2/ chronic constipation--takes MoM once a week which was helping her EGD/colonoscopy: 2012- small hiatal hernia, one small tubular adenoma removed. colonoscopy--11/2018--serrated polyp removed, redundant colon with looping, tortuous, suspected she had right sided ischemic colitis Admission with ileus 05/2021, medically managed, constipation noted, she also had covid chronci tramdol use for arthritis pain INTERIM: she tried relistor with mag citrate eventually had some movement but still incomplete evacuation she felt bloated with nausea felt her hemorrhoids acting up she thinks overall the MOM is better and she needs to take daily EXAM: GENERAL: The patient is well developed and nontoxic. VITAL SIGNS:see workflow HEENT: Nonicteric sclerae, PERRLA, EOMI. Oropharynx clear. Moist mucous membranes. Conjunctivae appear well perfused. No thyroid mass. CHEST: Chest wall is nontender. HEART: Regular rate and rhythm without murmurs. LUNGS: Clear to auscultation bilaterally. ABDOMEN: Soft, positive bowel sounds, nontender, no organomegaly.no flank tenderness--scar noted from prior mesh surgery SKIN: No rash, no excessive bruising, petechiae, or purpura. NEUROLOGIC: Cranial nerves II-XII intact without motor/sensory deficit. psych--nml affect A/P 1. Chronic idiopathic constipation--taking MOm q2 --- may also be due to tramadol use, adhesions, slow transit and age 2. Chronic GERD, on H2B, PPI not covered by insurance 3. anemia, may be due to bypass itself ddx; polyps, neoplasia, ulcers, esophagitis --stable PLAN: 1/ stop relistor, sent script for MOM 1200 mg/5 ml ---10 ml daily, can take extra dose if needed PFSH Medical History Sleep apnea GERD (gastroesophageal reflux disease) Hypoglycemia Glaucoma Arthritis Asthma HTN (hypertension) HLD (hyperlipidemia) Surgical History Hx of cataract extraction Hx of breast biopsy History of esophagogastroduodenoscopy (EGD) Hx of colonoscopy History of appendectomy History of cholecystectomy History of knee replacement procedure of right knee Hx of gastric bypass Hx of hysterectomy Family History Father No problems noted. Mother No problems noted. Social History Household Members: None Household Members Other:: daughter lives downstairs Housing: House Do you presently have visiting nurse or other home services: Yes (and MODERN DANCER/son) Alcohol intake: never Patient Tobacco Use Status: Never used Tobacco Advance Directives Date on File: 06/24/21 service: No Physical Exam Vital Signs: Last Vital Signs Pulse 84 10/15/23 10:39 BP 146/64 H 10/15/23 10:39 BMI result Body Mass Index 40.2 Assessment & Plan Assessment & Plan (1) Constipation by delayed colonic transit: Code(s): K59.01 - Slow transit constipation Category: Medical Plan: see above Medications: New magnesium hydroxide (Milk Of Magnesia Concentrated) 10 mL PO DAILY PRN 1,000 mL 1RF constipation Discontinued methylnaltrexone (Relistor) Discontinued Reason: Doctor's Order 450 mg (3 x 150 mg) PO DAILY 90 tabs 1RF Coding Level of Care Code Est Pt Level 3 (70579) Diagnoses Constipation by delayed colonic transit K59.01
== END 2023-10-15 11:28 | disposition home or self-care (01) ==
PROVIDERS: PCP Internal Medicine; Visit Provider Internal Medicine Gastroenterology
DX: K59.01 Slow transit constipation (principal)
CPT/HCPCS: 99213

== ENCOUNTER → 2023-10-15 10:38 | Outpatient (BNVA) | payer OTHER, SELFPAY | PROVIDERS: PCP Internal Medicine; Visit Provider Internal Medicine Gastroenterology | DX: K59.01 Slow transit constipation (principal) | CPT/HCPCS: 99212 ==

== ENCOUNTER 2023-11-05 10:50 | Outpatient (REF) | payer OTHER, SELFPAY ==
--- NOTE | ~2023-11-05 | MM_ITS ---
EXAMINATION: BONE DENSITOMETRY CLINICAL INDICATION: Encounter for screening for osteoporosis. COMPARISON: Previous BD dated 04/06/2019 and baseline BD dated 01/27/2008. TECHNIQUE: Using a [employer] DXA System (software version: 13.1) manufactured by [employer], dual-energy x-ray absorptiometry was performed of the lumbar spine and left hip. The images are of good technical quality. Summary results are attached. FINDINGS: LEFT FEMUR, NECK: Current: BMD 0.600 g/cm2, Z-score -0.9, T-score -3.2, osteoporosis. Prior: BMD 0.583 g/cm2. Baseline: BMD 0.794 g/cm2. LEFT FEMUR, TOTAL: Current: BMD 0.664 g/cm2, Z-score -0.6, T-score -2.7, osteoporosis, 1.5% decrease from previous, 25.5% decrease from baseline (<5% change is not significant). Prior: BMD 0.674 g/cm2. Baseline: BMD 0.891 g/cm2. AP SPINE L1-L4: Current: BMD 0.844 g/cm2, Z-score -0.9, T-score -2.8, osteoporosis, 0.8% decrease from previous, 10.5% decrease from baseline (<5% change is not significant). Prior: BMD 0.851 g/cm2. Baseline: BMD 0.943 g/cm2. IDENTIFIED RISK FACTORS: Menopause, rheumatoid arthritis, height loss. HISTORY OF FRACTURE: None listed. MEDICATIONS: Calcium supplements or multivitamin, vitamin D. MM/XR DEXA axial skeleton IMPRESSION: 1. DIAGNOSIS: Osteoporosis based on the lowest T-score value of -3.2 in the femoral neck applying World Health Organization criteria. 2. 10-YEAR FRACTURE RISK PREDICTION, FRAX: According to the guidelines, FRAX calculation should only be performed on patients in the osteopenia bone density category. Therefore, FRAX was not performed on this patient. 3. Treatment Recommendations: NOF guidelines recommend consideration for treatment in postmenopausal women and men age 50 and older presenting with the following: -A hip or vertebral (clinical or morphometric) fracture. -T-score less than or equal to -2.5 at the femoral neck or spine after appropriate evaluation to exclude secondary causes. -Low bone mass at the hip or spine and a 10-year fracture probability by FRAX of greater than or equal to 3% for hip fracture or greater than or equal to 20% for major osteoporotic fracture based on the [place] adapted WHO algorithm. 4. Other Recommendations: All treatment decisions require clinical judgment and consideration of individual patient factors, including patient preferences, comorbidities, previous drug use, risk factors not captured in the FRAX model (e.g. frailty, falls, vitamin D deficiency, increased bone turnover, interval significant decline in bone density) and possible under or overestimation of fracture risk by FRAX. Additional medical evaluation for secondary cause of low bone mineral density may be appropriate. FUTURE SCAN RECOMMENDATION: People with diagnosed cases of osteoporosis or at high risk for fracture should have regular bone mineral density tests. For patients eligible for Medicare, routine testing is allowed once every 2 years. The testing frequency can be increased to one year for patients who have rapidly progressing disease, those who are receiving or discontinuing medical therapy to restore bone mass, or have additional risk factors.
== END 2023-11-05 10:51 | disposition home or self-care (01) ==
LOC: HO.MAMMO 10:50
PROVIDERS: Visit Provider Internal Medicine
DX: Z13.820 Encounter for screening for osteoporosis (principal); Z78.0 Asymptomatic menopausal state
CPT/HCPCS: 77080

== ENCOUNTER 2024-01-13 10:59 | Outpatient (AMB) | payer OTHER, SELFPAY ==
--- NOTE | 2024-01-13 11:01 | A.OFFVIS_ITS ---
Vital Signs 01/13/24 11:02 Height 4 ft 7.59 in Weight 142 lb 6.698 oz BMI 32.4 BP 138/58 L Blood Pressure Location Lt brachial Position Sitting Pulse 74 Pulse Source Pulse Oximeter Intake Visit Reasons: Osteoporosis-lvm Intake Note: New patient present today for Osteoporosis, referred by PCP. Cereal Chemist Required: No Cereal Chemist Services: Cereal Chemist Offered & Declined Cereal Chemist Name: Grandson will interpret Information Interpreted: non-clinical & clinical Accompanied by: Daughter, Grandson Allergies WADE Inhibitors Allergy (Intermediate, Verified 01/13/24 11:06) mouth swelling/cough amlodipine Allergy (Intermediate, Verified 01/13/24 11:06) headache/dizziness/nausea/vomiting morphine [MORPHINE] Allergy (Unknown, Verified 01/13/24 11:06) unknown pantoprazole [From Protonix] Allergy (Unknown, Verified 01/13/24 11:06) Unknown celecoxib [From Celebrex] Adverse Reaction (Mild, Verified 01/13/24 11:06) Weakness milk [MILK] Adverse Reaction (Mild, Verified 01/13/24 11:06) STOMACH UPSET oxycodone [From Percocet] Adverse Reaction (Mild, Verified 01/13/24 11:06) NAUSEA/RAPID HR/BLURRED VISION HPI Comments Details: 83 YO Female with PMHx bariatric surgery is seen in consultation at the [facility] of PCP for Osteoporosis. Patient was previously seen by Dr. Batista for hypoglycemia First diagnosed in 10 yrs ago .Never saw specialist before for osteoporosis Never Received treatment in the past . No history of pathologic fracture or ONJ. Has several servings of dietary calcium per day in the form of cheese , yogurt .Not Takes Calcium supplement mg daily in divided doses. Not Takes [] IU of Vitamin D daily except in MVI . Denies ever using PPI, anticoagulant, antiepileptic but intermittent glucocorticoid medication for asthma. 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 UTD on dental cleanings and sees dentist every 6 months. No planned upcoming dental work or extractions. DXA dated 10/05/23: FINDINGS: LEFT FEMUR, NECK: Current: BMD 0.600 g/cm2, Z-score -0.9, T-score -3.2, osteoporosis. Prior: BMD 0.583 g/cm2. Baseline: BMD 0.794 g/cm2. LEFT FEMUR, TOTAL: Current: BMD 0.664 g/cm2, Z-score -0.6, T-score -2.7, osteoporosis, 1.5% decrease from previous, 25.5% decrease from baseline (<5% change is not significant). Prior: BMD 0.674 g/cm2. Baseline: BMD 0.891 g/cm2. AP SPINE L1-L4: Current: BMD 0.844 g/cm2, Z-score -0.9, T-score -2.8, osteoporosis, 0.8% decrease from previous, 10.5% decrease from baseline (<5% change is not significant). Prior: BMD 0.851 g/cm2. Baseline: BMD 0.943 g/cm2. IDENTIFIED RISK FACTORS: Menopause, rheumatoid arthritis, height loss. HISTORY OF FRACTURE: None listed. MEDICATIONS: Calcium supplements or multivitamin, vitamin D. MM/XR DEXA axial skeleton IMPRESSION: 1. DIAGNOSIS: Osteoporosis based on the lowest T-score value Labs: [facility] Medical History Sleep apnea GERD (gastroesophageal reflux disease) Hypoglycemia Glaucoma Arthritis Asthma HTN (hypertension) HLD (hyperlipidemia) Surgical History Hx of cataract extraction Hx of breast biopsy History of esophagogastroduodenoscopy (EGD) Hx of colonoscopy History of appendectomy History of cholecystectomy History of knee replacement procedure of right knee Hx of gastric bypass Hx of hysterectomy Family History Father No problems noted. Mother No problems noted. Social History Household Members: None Household Members Other:: daughter lives downstairs Housing: House Do you presently have visiting nurse or other home services: Yes (and CREW CLERK/son) Alcohol intake: never Patient Tobacco Use Status: Never used Tobacco Advance Directives Date on File: 06/24/21 service: No Physical Exam Vital Signs: BMI result Body Mass Index 40.0 There are no Cushingoid features. Absence of blue sclera. Absence of kyphosis. Thyroid gland is of nl size and weighs 15 gms. There are no thyroid nodules palpated. Lungs CTA. Heart S1 S2 Reg R/R Abdominal exam benign. Muscle strength 5/5 . Examination of spine reveals absence of tenderness on palpation Assessment & Plan Assessment & Plan (1) Osteoporosis: Code(s): M81.0 - Age-related osteoporosis without current pathological fracture Category: Medical Plan: This 81-year-old female status post bariatric surgery found to have moderate to severe osteoporosis on bone density. Rule out osteomalacia and low calcium absorption status post bariatric surgery a secondary causes Plan is to check a TSH, free T4, SPEP, urine immunofixation, twenty-five hydroxy vitamin-D, 24 hour urine for calcium and creatinine to rule out secondary causes. Continue vitamin-D supplementation ensure 1200 mg of calcium supplementation and suggested she take calcium citrate in the form of Viactiv. Once secondary workup is complete, can discuss with patient use of pharmacologic therapy should as initial anabolic therapy proceeded by anti resorptive therapy considering very low bone density and high risk of fracture. Orders: Orders Free T4 (Free Thyroxine) Today M81.0 - Age-related osteoporosis without current pathological fracture Phosphorus Today M81.0 - Age-related osteoporosis without current pathological fracture Protein Electrophoresis, Serum Today M81.0 - Age-related osteoporosis without current pathological fracture Thyroid Stimulating Hormone Today M81.0 - Age-related osteoporosis without current pathological fracture Vitamin D 25-OH Total Today M81.0 - Age-related osteoporosis without current pathological fracture Immunofixation, Random Urine Today M81.0 - Age-related osteoporosis without current pathological fracture Calcium, 24 Hr Ur Today M81.0 - Age-related osteoporosis without current pathological fracture Creatinine, 24 Hr Group Today M81.0 - Age-related osteoporosis without current pathological fracture Medications: New cholecalciferol (vitamin D3) 50 mcg PO DAILY 30 caps 5RF Coding Level of Care Code New Pt Level 4 (42954) Diagnoses Osteoporosis M81.0
[2024-01-13 11:02] VITALS: BP 138/58; PULSE 74; BMI 32.4
== END 2024-01-13 11:50 | disposition home or self-care (01) ==
PROVIDERS: Visit Provider Internal Medicine Endocrinology, Diabetes & Metabolism
DX: M81.0 Age-related osteoporosis without current pathological fracture (principal)
CPT/HCPCS: 99204

== ENCOUNTER → 2024-01-13 10:59 | Outpatient (BNVA) | payer OTHER, SELFPAY | PROVIDERS: Visit Provider Internal Medicine Endocrinology, Diabetes & Metabolism | DX: M81.0 Age-related osteoporosis without current pathological fracture (principal); Z78.0 Asymptomatic menopausal state | CPT/HCPCS: 99202 ==

== ENCOUNTER 2024-01-15 12:19 | Outpatient (REF) | payer OTHER, SELFPAY ==
[2024-01-15 13:05] LABS: Creatinine, mg/dL 14.33
[2024-01-15 13:37] LABS: Creatinine, 24Hr Urine 0.4 G/Day (1.0-2.0); Total Volume 24 Hour Urine 2725 mL
[2024-01-17 15:28] LABS: Calcium, 24 Hr Urine 8 mg/24 h; Calcium/Creatinine Ratio 20 mg/g creat (30-275); Creatinine 24Hr Urine 0.41 g/24 h (0.50-2.15)
== END 2024-01-15 12:20 | disposition home or self-care (01) ==
LOC: HO.LNP 12:19
PROVIDERS: Visit Provider Internal Medicine Endocrinology, Diabetes & Metabolism
DX: M81.0 Age-related osteoporosis without current pathological fracture (principal)
CPT/HCPCS: 82340; 82570; 86335

== ENCOUNTER 2024-01-17 09:31 | Outpatient (REF) | payer OTHER, SELFPAY ==
[2024-01-17 10:48] LABS: Phosphorus 2.6 mg/dL (2.7-4.5)
[2024-01-17 11:08] LABS: Free T4 (Free Thyroxine) 0.93 ng/dL (0.71-1.85); Thyroid Stimulating Hormone 1.93 uIU/mL (0.32-4.0); Vitamin D 25-OH Total 24.7 ng/mL (>30)
[2024-01-19 11:04] LABS: Prot Elec - Albumin 4.1 g/dL (3.8-4.8); Prot Elec - Alpha1 0.3 g/dL (0.2-0.3); Prot Elec - Alpha2 0.8 g/dL (0.5-0.9); Prot Elec - Beta 1 0.5 g/dL (0.4-0.6); Prot Elec - Beta 2 0.2 g/dL (0.2-0.5); Prot Elec - Gamma 0.5 g/dL (0.8-1.7); Prot Elec - Total Protein 6.4 g/dL (6.1-8.1)
== END 2024-01-17 09:32 | disposition home or self-care (01) ==
LOC: HO.LAB 09:31
PROVIDERS: PCP Internal Medicine; Visit Provider Internal Medicine Endocrinology, Diabetes & Metabolism
DX: M81.0 Age-related osteoporosis without current pathological fracture (principal)
CPT/HCPCS: 36415; 82306; 84100; 84165; 84439; 84443

== ENCOUNTER 2024-04-19 10:02 | Outpatient (REF) | payer OTHER, SELFPAY ==
[2024-04-19 10:55] LABS: Total Volume 24 Hour Urine 2450 mL
[2024-04-19 11:20] LABS: Vitamin D 25-OH Total 35.9 ng/mL (>30)
[2024-04-19 12:17] LABS: Creatinine, 24Hr Urine 0.6 G/Day (1.0-2.0); Creatinine, mg/dL 24.14
[2024-04-21 17:07] LABS: Calcium, 24 Hr Urine 25 mg/24 h; Calcium/Creatinine Ratio 37 mg/g creat (30-275); Creatinine 24Hr Urine 0.66 g/24 h (0.50-2.15)
== END 2024-04-19 10:03 | disposition home or self-care (01) ==
LOC: HO.LAB 10:02
PROVIDERS: PCP Internal Medicine; Visit Provider Internal Medicine Endocrinology, Diabetes & Metabolism
DX: M81.0 Age-related osteoporosis without current pathological fracture (principal)
CPT/HCPCS: 36415; 82306; 82340; 82570

== ENCOUNTER 2024-05-08 12:56 | Outpatient (AMB) | payer OTHER, SELFPAY ==
[2024-05-08 13:18] VITALS: BP 128/58; PULSE 88; BMI 31.2
--- NOTE | 2024-05-08 13:18 | A.OFFVIS_ITS ---
Vital Signs 05/08/24 13:18 Height 4 ft 7.91 in Weight 138 lb 10.732 oz BMI 31.2 BP 128/58 L Blood Pressure Location Rt brachial Position Sitting Pulse 88 Pulse Source Pulse Oximeter Intake Visit Reasons: Osteoporosis Intake Note: Patient presents today for Osteoporosis follow up. Fast Foods Worker Required: Yes Fast Foods Worker Language: Gambling Cashier Services: Fast Foods Worker Present Fast Foods Worker Name: Lisa Information Interpreted: non-clinical & clinical Accompanied by: Grandson Allergies WADE Inhibitors Allergy (Intermediate, Verified 05/08/24 13:19) mouth swelling/cough amlodipine Allergy (Intermediate, Verified 05/08/24 13:19) headache/dizziness/nausea/vomiting morphine [MORPHINE] Allergy (Unknown, Verified 05/08/24 13:19) unknown pantoprazole [From Protonix] Allergy (Unknown, Verified 05/08/24 13:19) Unknown celecoxib [From Celebrex] Adverse Reaction (Mild, Verified 05/08/24 13:19) Weakness milk [MILK] Adverse Reaction (Mild, Verified 05/08/24 13:19) STOMACH UPSET oxycodone [From Percocet] Adverse Reaction (Mild, Verified 05/08/24 13:19) NAUSEA/RAPID HR/BLURRED VISION HPI Comments Details: 83 YO Female with PMHx bariatric surgery is seen in consultation at the request of PCP for Osteoporosis. Patient was previously seen by Dr. Batista for hypoglycemia First diagnosed in 10 yrs ago .Never saw specialist before for osteoporosis Never Received treatment in the past . No history of pathologic fracture or ONJ. Has several servings of dietary calcium per day in the form of cheese , yogurt .Not Takes Calcium supplement mg daily in divided doses. Not Takes [] IU of Vitamin D daily except in MVI . Denies ever using PPI, anticoagulant, antiepileptic but intermittent glucocorticoid medication for asthma. 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 UTD on dental cleanings and sees dentist every 6 months. No planned upcoming dental work or extractions. DXA dated 10/05/23: FINDINGS: LEFT FEMUR, NECK: Current: BMD 0.600 g/cm2, Z-score -0.9, T-score -3.2, osteoporosis. Prior: BMD 0.583 g/cm2. Baseline: BMD 0.794 g/cm2. LEFT FEMUR, TOTAL: Current: BMD 0.664 g/cm2, Z-score -0.6, T-score -2.7, osteoporosis, 1.5% decrease from previous, 25.5% decrease from baseline (<5% change is not significant). Prior: BMD 0.674 g/cm2. Baseline: BMD 0.891 g/cm2. AP SPINE L1-L4: Current: BMD 0.844 g/cm2, Z-score -0.9, T-score -2.8, osteoporosis, 0.8% decrease from previous, 10.5% decrease from baseline (<5% change is not significant). Prior: BMD 0.851 g/cm2. Baseline: BMD 0.943 g/cm2. IDENTIFIED RISK FACTORS: Menopause, rheumatoid arthritis, height loss. HISTORY OF FRACTURE: None listed. MEDICATIONS: Calcium supplements or multivitamin, vitamin D. MM/XR DEXA axial skeleton IMPRESSION: 1. DIAGNOSIS: Osteoporosis based on the lowest T-score value Labs: Secondary workup revealed a very low urinary calcium suggesting calcium malabsorption. Taking calcium [facility] Medical History (Updated 01/13/24 @ 11:08 by Narendra Elias MD) Osteoporosis Sleep apnea GERD (gastroesophageal reflux disease) Hypoglycemia Glaucoma Arthritis Asthma HTN (hypertension) HLD (hyperlipidemia) Surgical History Hx of cataract extraction Hx of breast biopsy History of esophagogastroduodenoscopy (EGD) Hx of colonoscopy History of appendectomy History of cholecystectomy History of knee replacement procedure of right knee Hx of gastric bypass Hx of hysterectomy Family History Father No problems noted. Mother No problems noted. Social History Household Members: None Household Members Other:: daughter lives downstairs Housing: House Do you presently have visiting nurse or other home services: Yes (and SENIOR BUSINESS INTELLIGENCE ANALYST/son) Alcohol intake: never Patient Tobacco Use Status: Never used Tobacco Advance Directives Date on File: 06/24/21 service: No Physical Exam Vital Signs: BMI result Body Mass Index 31.2 Assessment & Plan Assessment & Plan (1) Osteoporosis: Code(s): M81.0 - Age-related osteoporosis without current pathological fracture Category: Medical Plan: This 81-year-old female status post bariatric surgery found to have moderate to severe osteoporosis on bone density. Rule out osteomalacia and low calcium absorption status post bariatric surgery a secondary causes Plan is to increase the calcium to 650 mg BID . Will recheck urinary calcium in 10 weeks. Once urinary calcium is sufficient, could consider initiation of an anabolic agent proceeded by an anti resorptive agent. Told pt and son to talk to PCP about slightly low phosphorus. I recommended that she drink a glass of skim milk each day as well to replete phosphorus Orders: Orders Calcium, 24 Hr Ur 10 Weeks M81.0 - Age-related osteoporosis without current pathological fracture Creatinine, 24 Hr Group 10 Weeks M81.0 - Age-related osteoporosis without current pathological fracture Coding Level of Care Code Est Pt Level 3 (96287) Diagnoses Osteoporosis M81.0
== END 2024-05-08 13:54 | disposition home or self-care (01) ==
PROVIDERS: Visit Provider Internal Medicine Endocrinology, Diabetes & Metabolism
DX: M81.0 Age-related osteoporosis without current pathological fracture (principal)
CPT/HCPCS: 99213

== ENCOUNTER → 2024-05-08 12:56 | Outpatient (BNVA) | payer OTHER, SELFPAY | PROVIDERS: Visit Provider Internal Medicine Endocrinology, Diabetes & Metabolism | DX: M81.0 Age-related osteoporosis without current pathological fracture (principal) | CPT/HCPCS: 99212 ==

== ENCOUNTER 2024-06-14 12:56 | Outpatient (REF) | payer OTHER, SELFPAY ==
--- NOTE | ~2024-06-14 | US_ITS ---
EXAMINATION: US SOFT TISSUE HEAD AND/OR NECK CLINICAL INFORMATION: 2 months lymphadenopathy posterior neck. 84-year-old female. COMPARISON: None available. TECHNIQUE: Linear transducer mcwilliams-scale and color Doppler examination with attention to the region of bilateral neck, with attention to the right posterior neck in the region of concern. FINDINGS: NODES: -Numerous enlarged lymph nodes are present in the lower right neck, with thickened cortex, loss of fatty hilum, and mild hyperemia on color Doppler imaging. -A right level II lymph node measures 2.4 x 0.9 x 2.3 cm. -A right level III lymph node measures 1.4 x 1.3 x 0.8 cm. -A right level V lymph node measures 1.3 x 1.1 x 0.6 cm. A left level III lymph node measures 1.5 x 1.2 x 0.7 cm. -No abnormal fluid collections are identified. US/US soft tiss head and/or neck IMPRESSION: 1. Left greater than right abnormal lymphadenopathy, with the largest lymph node on the right, level II, measuring 2.4 x 0.9 x 2.3 cm. There is loss of fatty anthony and thickened cortex, with mild hyperemia on color Doppler imaging. These are nonspecific and given appearance, could be reactive and/or neoplastic. Etiology is not clear. Correlating with CT of the neck with contrast is recommended for further characterization. 2. No discrete fluid collection. Electronically signed by: Osmany Tavarez MD 06/15/2024 08:57 AM [facility]
== END 2024-06-14 12:57 | disposition home or self-care (01) ==
LOC: HO.US 12:56
PROVIDERS: PCP Internal Medicine; Visit Provider Internal Medicine
DX: R59.1 Generalized enlarged lymph nodes (principal)
CPT/HCPCS: 76536

== ENCOUNTER → 2024-06-14 12:57 | Outpatient (BNV) | payer OTHER, SELFPAY | PROVIDERS: PCP Internal Medicine; Visit Provider Radiology Diagnostic Radiology | DX: R59.0 Localized enlarged lymph nodes (principal) | CPT/HCPCS: 76536 ==

== ENCOUNTER 2024-06-20 13:28 | Outpatient (AMB) | payer OTHER, SELFPAY ==
--- NOTE | 2024-06-20 13:30 | A.OFFVIS_ITS ---
Vital Signs 06/20/24 13:39 Height 4 ft 7.9 in Weight 133 lb BMI 29.9 BP 151/69 H Blood Pressure Location Rt brachial Position Sitting Pulse 88 Intake Visit Reasons: Lymphadenopathy of head and neck Intake Note: Patient referred by pcp Dr. Hayes Hassan for lymphadenopathy of head and neck. First noticed about 3m ago. Patient c/o: pain, swelling bumps on Lt post scalp that spreads to neck area. Bothersome with touch when inflamed. Head and Neck U/S: 06-14-2024 Dining Car Server Required: No Accompanied by: zheng Dyer Allergies WADE Inhibitors Allergy (Intermediate, Verified 06/20/24 13:37) mouth swelling/cough amlodipine Allergy (Intermediate, Verified 06/20/24 13:37) headache/dizziness/nausea/vomiting morphine [MORPHINE] Allergy (Unknown, Verified 06/20/24 13:37) unknown pantoprazole [From Protonix] Allergy (Unknown, Verified 06/20/24 13:37) Unknown celecoxib [From Celebrex] Adverse Reaction (Mild, Verified 06/20/24 13:37) Weakness milk [MILK] Adverse Reaction (Mild, Verified 06/20/24 13:37) STOMACH UPSET oxycodone [From Percocet] Adverse Reaction (Mild, Verified 06/20/24 13:37) NAUSEA/RAPID HR/BLURRED VISION HPI Comments Details: Patient presents with a grandson. She has had a several month history of progressively enlarging symptomatic bilateral cervical and supraclavicular lymph nodes/masses. She had a sonogram which confirms these findings. Patient denies any fever, chills, night sweats, or weight loss. She otherwise has been doing relatively well. Chart was reviewed and patient evaluated [facility] Medical History Osteoporosis Sleep apnea GERD (gastroesophageal reflux disease) Hypoglycemia Glaucoma Arthritis Asthma HTN (hypertension) HLD (hyperlipidemia) Surgical History Hx of cataract extraction Hx of breast biopsy History of esophagogastroduodenoscopy (EGD) Hx of colonoscopy History of appendectomy History of cholecystectomy History of knee replacement procedure of right knee Hx of gastric bypass Hx of hysterectomy Family History Father No problems noted. Mother No problems noted. Social History Household Members: None Household Members Other:: daughter lives downstairs Housing: House Do you presently have visiting nurse or other home services: Yes (and CLINICAL TRAINING SPECIALIST/son) Alcohol intake: never Patient Tobacco Use Status: Never used Tobacco Advance Directives Date on File: 06/24/21 service: No Physical Exam Vital Signs: Last Vital Signs Pulse 88 06/20/24 13:39 BP 151/69 H 06/20/24 13:39 BMI result Body Mass Index 29.9 Neck Other: Patient has significant bilateral cervical posterior triangle right and bilateral supraclavicular adenopathy. The nodes are very firm, nontender. No overlying skin changes. Patient also has a deep right axillary lymph node. None on the left. Bilateral groin exam negative. Chest Other: Chest breath sounds bilaterally, HS 1 in 2 GI Other: abdomen corpulent, soft, benign Assessment & Plan Assessment & Plan (1) Adenopathy, cervical: Code(s): R59.0 - Localized enlarged lymph nodes Category: Surgical (2) Supraclavicular adenopathy: Code(s): R59.0 - Localized enlarged lymph nodes Category: Surgical (3) Axillary lymphadenopathy: Code(s): R59.0 - Localized enlarged lymph nodes Category: Surgical Plan I discussed with the patient was findings very suspicious for a possible neoplastic process/lymphoma. My recommendation is for excisional biopsy of 1 of these lymph nodes in particular right supraclavicular/neck area. Risks, benefits, alternatives of the procedure reviewed with the patient and her grandson which included but not limited to bleeding, infection, recurrence, numbness, pain, scarring, non diagnosis and the patient wishes to proceed. All questions answered. Arrangements were made for this on a day which is convenient for her. Coding Level of Care Code New Pt Level 5 (33315) Diagnoses Adenopathy, cervical R59.0 Supraclavicular adenopathy R59.0 Axillary lymphadenopathy R59.0
[2024-06-20 13:39] VITALS: BP 151/69; PULSE 88; BMI 29.9
== END 2024-06-20 14:07 | disposition home or self-care (01) ==
PROVIDERS: PCP Internal Medicine; Referring Provider Internal Medicine; Visit Provider Surgery
DX: R59.0 Localized enlarged lymph nodes (principal)
CPT/HCPCS: 99204

== ENCOUNTER → 2024-06-20 13:28 | Outpatient (BNVA) | payer OTHER, SELFPAY | PROVIDERS: PCP Internal Medicine; Referring Provider Internal Medicine; Visit Provider Surgery | DX: R59.0 Localized enlarged lymph nodes (principal) | CPT/HCPCS: 99202 ==

== ENCOUNTER 2024-07-07 06:04 | Day surgery (SDC) | payer OTHER, SELFPAY ==
--- NOTE | 2024-07-05 14:18 | P.CONAN_ITS ---
Documented by User: Amaya Shah NP 07/05/24 14:19 HPI - Anesthesia Eval Consult details Narrative: 84yo F for Right Wide Local Excision Supra-clavicular Mass PMFSH Active Problems Active Problems: All Active Problems Axillary lymphadenopathy (Acute) Supraclavicular adenopathy (Acute) Adenopathy, cervical (Acute) Osteoporosis (Acute) Constipation by delayed colonic transit (Acute) Incisional hernia (Acute) Lab test positive for detection of COVID-19 virus (Acute) Viral syndrome (Acute) Ileus (Acute) Varicose veins of right lower extremity with inflammation (Acute) Hypoglycemia (Acute) Past Medical History Medical History Heart attack Osteoporosis Sleep apnea GERD (gastroesophageal reflux disease) Hypoglycemia Glaucoma Arthritis Asthma HTN (hypertension) HLD (hyperlipidemia) Family History Family History Father No problems noted. Mother No problems noted. Surgical History Surgical History History of knee replacement procedure of left knee Hx of cataract extraction Hx of breast biopsy History of esophagogastroduodenoscopy (EGD) Hx of colonoscopy History of appendectomy History of cholecystectomy History of knee replacement procedure of right knee Hx of gastric bypass Hx of hysterectomy Social History Social History Household Members: None Household Members Other:: daughter lives downstairs Housing: House Are you a primary home health aide caregiver to a significant other at home: No Do you presently have visiting nurse or other home services: No Alcohol intake: never Patient Tobacco Use Status: Never used Tobacco Use of substances other than those prescribed or required for medical reasons: No Have you been hit, kicked, punched, or otherwise hurt by someone within the past year? If so, by whom?: No Are you DNR?: No Advance Directives: No Advance Directives Information Provided: Yes (Daughter (Susana) per patient) Advance Directives on File: No (Nothing on file) Advance Directives Date on File: 06/24/21 Recently lost weight without trying: No How much weight loss: Not applicable Eating poorly because of decreased appetite: No Nutrition screen score: 0 Nutrition Risks: No Nutritional Risk Patient : No : No Poor oral hygiene: Yes (missing teeth top) service: No Meds Allergies Allergy/AdvReac Type Severity Reaction Status Date / Time morphine [MORPHINE] Allergy Severe Agitated Verified 07/07/24 06:26 WADE Inhibitors Allergy Intermediate mouth Verified 07/07/24 06:26 swelling/cough amlodipine Allergy Intermediate headache/di Verified 07/07/24 06:26 zziness/galina sea/vomitin g pantoprazole [From Protonix] Allergy Intermediate Agitated Verified 07/07/24 06:26 celecoxib [From Celebrex] AdvReac Mild Weakness Verified 07/07/24 06:26 milk [MILK] AdvReac Mild STOMACH Verified 07/07/24 06:26 UPSET oxycodone [From Percocet] AdvReac Mild NAUSEA/RAPID Verified 07/07/24 06:26 HR/BLURRED VISION Home Medications ?Medication ?Instructions ?Recorded ?Confirmed ?Last Taken ?Type cetirizine 10 mg tablet 10 mg PO DAILY 04/22/20 07/07/24 Unknown History citalopram 10 mg tablet 10 mg PO DAILY 04/22/20 07/07/24 Unknown History fluticasone propionate 50 2 spray intranasal DAILY 04/22/20 06/20/24 Unknown History mcg/actuation nasal spray,suspension losartan 25 mg tablet 25 mg PO DAILY 04/22/20 07/07/24 07/07/24 History multivitamin 1 tab PO QAM 04/22/20 07/07/24 Unknown History rabeprazole 20 mg tablet,delayed 20 mg PO DAILY 04/22/20 06/20/24 Unknown History release rosuvastatin 10 mg tablet 10 mg PO BEDTIME 04/22/20 07/07/24 Unknown History acetaminophen 500 mg tablet 500 mg PO TID PRN Pain 06/05/20 06/20/24 Unknown History albuterol sulfate 90 mcg/actuation 2 inh inhalation QID PRN Shortness 06/05/20 07/07/24 07/07/24 History aerosol inhaler Of Breath fluticasone propionate 230 2 puff inhalation DAILY 06/05/20 07/07/24 07/07/24 History mcg-salmeterol 21 mcg/actuation HFA inhaler theophylline 300 mg 300 mg PO BID 06/05/20 07/07/24 Unknown History tablet,extended release,12 hr tramadol 50 mg tablet 50 mg PO TID PRN Pain 06/05/20 07/07/24 Unknown History albuterol sulfate 2.5 mg/3 mL 1 amp inhalation 6XD PRN Wheezing 06/24/21 07/07/24 Unknown History (0.083 %) solution for nebulization magnesium 200 mg tablet 200 mg PO DAILY 09/17/23 06/20/24 Unknown History tizanidine 4 mg tablet 4 mg PO TID 09/17/23 06/20/24 Unknown History alprazolam 0.5 mg tablet mg PO DAILY 01/13/24 06/20/24 Unknown History alprazolam 1 mg tablet 1 mg PO DAILY PRN 01/13/24 06/20/24 Unknown History Exam Pertinent Lab Results Pertinent Lab Results: Laboratory Tests 01/02/23 10/06/23 14:00 15:07 WBC 11.3 H Hgb 12.8 Hct 39.6 Plt Count 136 L Sodium 142 Potassium 4.0 Chloride 110 H Carbon Dioxide 22 BUN 19 H Creatinine 0.78 Assessment and Plan Assessment Anesthesia Assessment: Chart Reviewed Documented by User: Deisy Bourne MD 07/07/24 08:09 [facility] Past Medical History Medical History Heart attack Osteoporosis Sleep apnea GERD (gastroesophageal reflux disease) Hypoglycemia Glaucoma Arthritis Asthma HTN (hypertension) HLD (hyperlipidemia) Family History Family History Father No problems noted. Mother No problems noted. Surgical History Surgical History History of knee replacement procedure of left knee Hx of cataract extraction Hx of breast biopsy History of esophagogastroduodenoscopy (EGD) Hx of colonoscopy History of appendectomy History of cholecystectomy History of knee replacement procedure of right knee Hx of gastric bypass Hx of hysterectomy History of Problems with Anesthesia: No Social History Social History Household Members: None Household Members Other:: daughter lives downstairs Housing: House Are you a primary home health aide caregiver to a significant other at home: No Do you presently have visiting nurse or other home services: No Alcohol intake: never Patient Tobacco Use Status: Never used Tobacco Use of substances other than those prescribed or required for medical reasons: No Have you been hit, kicked, punched, or otherwise hurt by someone within the past year? If so, by whom?: No Are you DNR?: No Advance Directives: No Advance Directives Information Provided: Yes (Daughter (Susana) per patient) Advance Directives on File: No (Nothing on file) Advance Directives Date on File: 06/24/21 Recently lost weight without trying: No How much weight loss: Not applicable Eating poorly because of decreased appetite: No Nutrition screen score: 0 Nutrition Risks: No Nutritional Risk Patient : No : No Poor oral hygiene: Yes (missing teeth top) service: No Meds Allergies Allergy/AdvReac Type Severity Reaction Status Date / Time morphine [MORPHINE] Allergy Severe Agitated Verified 07/07/24 06:26 WADE Inhibitors Allergy Intermediate mouth Verified 07/07/24 06:26 swelling/cough amlodipine Allergy Intermediate headache/di Verified 07/07/24 06:26 zziness/galina sea/vomitin g pantoprazole [From Protonix] Allergy Intermediate Agitated Verified 07/07/24 06:26 celecoxib [From Celebrex] AdvReac Mild Weakness Verified 07/07/24 06:26 milk [MILK] AdvReac Mild STOMACH Verified 07/07/24 06:26 UPSET oxycodone [From Percocet] AdvReac Mild NAUSEA/RAPID Verified 07/07/24 06:26 HR/BLURRED VISION Home Medications ?Medication ?Instructions ?Recorded ?Confirmed ?Last Taken ?Type cetirizine 10 mg tablet 10 mg PO DAILY 04/22/20 07/07/24 Unknown History citalopram 10 mg tablet 10 mg PO DAILY 04/22/20 07/07/24 Unknown History fluticasone propionate 50 2 spray intranasal DAILY 04/22/20 06/20/24 Unknown History mcg/actuation nasal spray,suspension losartan 25 mg tablet 25 mg PO DAILY 04/22/20 07/07/24 07/07/24 History multivitamin 1 tab PO QAM 04/22/20 07/07/24 Unknown History rabeprazole 20 mg tablet,delayed 20 mg PO DAILY 04/22/20 06/20/24 Unknown History release rosuvastatin 10 mg tablet 10 mg PO BEDTIME 04/22/20 07/07/24 Unknown History acetaminophen 500 mg tablet 500 mg PO TID PRN Pain 06/05/20 06/20/24 Unknown History albuterol sulfate 90 mcg/actuation 2 inh inhalation QID PRN Shortness 06/05/20 07/07/24 07/07/24 History aerosol inhaler Of Breath fluticasone propionate 230 2 puff inhalation DAILY 06/05/20 07/07/24 07/07/24 History mcg-salmeterol 21 mcg/actuation HFA inhaler theophylline 300 mg 300 mg PO BID 06/05/20 07/07/24 Unknown History tablet,extended release,12 hr tramadol 50 mg tablet 50 mg PO TID PRN Pain 06/05/20 07/07/24 Unknown History albuterol sulfate 2.5 mg/3 mL 1 amp inhalation 6XD PRN Wheezing 06/24/21 07/07/24 Unknown History (0.083 %) solution for nebulization magnesium 200 mg tablet 200 mg PO DAILY 09/17/23 06/20/24 Unknown History tizanidine 4 mg tablet 4 mg PO TID 09/17/23 06/20/24 Unknown History alprazolam 0.5 mg tablet mg PO DAILY 01/13/24 06/20/24 Unknown History alprazolam 1 mg tablet 1 mg PO DAILY PRN 01/13/24 06/20/24 Unknown History Exam Airway Mallampati Class: II TM Dist: >3cm Neck ROM: Full Denture: Upper Loose/Missing/Broken Teeth: Yes, Upper and Lower Heart: RRR Lungs: CTA Assessment and Plan Assessment Anesthesia Assessment: Anesthesia Plan Discussed Final Anesthetic Review History of Problems with Anesthesia: No NPO: Yes ASA Class: III Final Preanesthetic Review: Meds/Allgs Chart Reviewed, Consent Obtained/Reviewed and Anes Risks/Benef Reviewed Patient Risk: Intermediate Procedure Risk: Low Anesthetic Plan Anesthetic Plan: MAC: Disposition: Standard PACU
--- NOTE | 2024-07-06 14:03 | P.HPSUR_ITS ---
Pre-Procedural Eval Section A - 24 Hr Update-Section A only Date of Service: 07/07/24 The patient is an INPATIENT: No Changes since office visit: No Cold of Flu in the past 2 weeks, No New Medical Problems, No Changes in Medication and No Patient answered all questions Section B - Complete if H&P > 30 days Chief Complaint: Localized enlarged lymph nodes Allergies: Allergies Allergy/AdvReac Type Severity Reaction Status Date / Time WADE Inhibitors Allergy Intermediate mouth Verified 06/20/24 13:37 swelling/cough amlodipine Allergy Intermediate headache/di Verified 06/20/24 13:37 zziness/galina sea/vomitin g morphine [MORPHINE] Allergy Unknown unknown Verified 06/20/24 13:37 pantoprazole [From Protonix] Allergy Unknown Unknown Verified 06/20/24 13:37 celecoxib [From Celebrex] AdvReac Mild Weakness Verified 06/20/24 13:37 milk [MILK] AdvReac Mild STOMACH Verified 06/20/24 13:37 UPSET oxycodone [From Percocet] AdvReac Mild NAUSEA/RAPID Verified 06/20/24 13:37 HR/BLURRED VISION Review of Systems Sugical H&P ROS: Negative: Constitution, Cardiovascular, Respiratory, Neurolo gical, Psychiatric, Hem-Onc, Allergic/Immunologic, Gastrointestinal, Genitourinary, Musculoskeletal, Integumentary, Endocrine and Eyes/Ears/Nose/Throat Exam Surgical H&P Exam: Normal: HEENT, Normal: Heart, Normal: Lungs, Normal: Extremities, Normal: Abdomen, Normal: Skin and Normal: Neurological Plan I have reviewed the history and physical and performed a pertinent physical examination on my patient. No changes have occurred unless specified. Time Spent With Patient Time: Total time managing care of this patient today ____ minutes.
--- OUTSIDE RECORDS SUMMARY | 2024-07-07 06:06 | XMS_ITS | Encounter Summary ---
Author Organization [employer] Address [address] [place] [address] [address] [place] [address] Care Team Providers Care Marine Designer Name Role Phone Glenna Grossman MD Primary Care Provide r Reason for Visit * Reason Comments Med Refill Encounter Details Date Type Department Care Team (Late st Contact Info) Description 08/24/2022 Refill [facility] [address] [place] [address] [phone] Delores Alexis MD [address] [place] [address] [phone] Chronic bilateral low back pain, unspecified whether sciatica present Social History Tobacco Use Types Packs/Day Years Used Date Smoking Tobacco: Never Assessed Comments Unknown Sex and Gender Information Value Date Recorded Sex Assigned at Female 03/30/2022 10:14 AM EDT Legal Sex Female 10:14 AM EDT Gender Identity Female 03/30/2022 10:14 AM EDT Sexual Orientation Straight 03/30/2022 10 :14 AM EDT documented as of this encounter Plan of Treatment Upcoming Encounters Date Type Department Care Team (Late st Contact Info) Description 08/09/2024 2:45 PM EDT Office Visit [facility] [address] [place] [address] [phone] Glenna Grossman MD [address] [place] [address] [phone] 08/25/2024 1:30 PM EDT Telemedicine [facility] [address] [place] [address] [phone] Tracy, Steph, RN documented as of this encounter Visit Diagnoses Diagnosis Chronic bilateral low back pain, unspecified whether sciatica present documented in this encounter Care Teams Marine Designer Relationship Specialty Start Date End Date Glenna Grossman MD [address] [place] [address] PCP - General Family Medicine 07/10/20 documented as of this encounter
--- OUTSIDE RECORDS SUMMARY | 2024-07-07 06:06 | XMS_ITS | Encounter Summary ---
Author Organization [facility] Address [address] [place] [address] [address] [place] [address] Care Team Providers Care Blood Bank Attendant Name Role Phone Glenna Grossman MD Primary Care Provide r Encounter Details Date Type Department Care Team (Late st Contact Info) Description 05/28/2022 Orders Only [address] [phone] Isabella Cardoso RN Social History Tobacco Use Types Packs/Day Years [...] Description 08/09/2024 2:45 PM EDT Office Visit [address] [phone] Glenna Grossman MD [address] [place] [phone] 08/25/2024 1:30 PM EDT Telemedicine [address] [phone] Steph Molina RN documented as of this encounter Procedures Procedure Name Priority Date/Time Associated Diagnosis Comments BI MAMMOGRAM SCREENING TOMOSYNTHESIS BILATERAL Routine 06/19/2022 10:55 AM EST documented in this encounter Results * BI Mammogram Screening Tomosynthesis Bilateral (06/19/2022 10:55 AM EST) Anatomical Region Laterality Modality Breast Bilateral Mammography 06/19/2022 10:5 5 AM EST Narrative 06/22/2022 3:57 PM EST ? [facility] ? [address] ?[place] [address] ? Mammography Report ? Signed ? Patient: Mayco Antonio,Lia ?MR#: ?? [id number] ? : 1940 ?Acct:[id number] ? Age/Sex: 82 / F ?ADM Date: 06/19/22 ? Loc: HO.MAMMO ? Attending Dr: Glenna Hassan MD ? Ordering Physician: Glenna Grossman MD ?Results: ?? 1Negative ? Date of Service: 06/19/22 ?Follow Up: 1 Year From Orig ?? inal Mammogram ? Procedure(s): MM tomosynthesis screening BI ?? Accession Number(s): [id number] ? cc: Glenna Grossman MD ? EXAMINATION: ?? MM SCREENING DIGITAL BREAST TOMOSYNTHESIS, BILATERAL ? CLINICAL INFORMATION: ? Screening. Asymptomatic. ? The lifetime risk of breast cancer based on the Tyrer-Cuzick Model is ?? 1%. ? COMPARISON: ?? Mammography: 04/26/2021, 04/18/2020, 04/06/2019 ? TECHNIQUE: ?? Digital breast tomosynthesis is performed in both the craniocaudal and ?? mediolateral oblique views along with computer-aided detection (CAD). ?? Synthesized 2D images are generated from the tomosynthesis. ??Additional ?? left CC view is provided. ? FINDINGS: ?? There are scattered areas of fibroglandular density (ACR BI-RADS breast ?? composition Category b). ? Breast tissue composition borders on predominantly fatty. Background ?? stromal markings are stable. No interval mass or developing density or ?? architectural abnormality. No abnormal calcifications. The axilla are ?? stable. No significant changes. ? MM/MM tomosynthesis screening BI ?? IMPRESSION: ?? No mammographic evidence of malignancy. ? ASSESSMENT: ? BI-RADS 1: Negative ? RECOMMENDATION: ?? Routine annual mammography screening. ? This patient's information was entered into a reminder system with a ?? target due date for their next mammogram. ? Dictated By: ?Jorge Rahman MD ? Signed By: ?<Electronically signed by Jorge Rahman MD in [place]> ?01/23/23 1555 ? DD/ 1055 ? TD/TT: ? Ornamental Metal Worker Helper: SANDS ? Procedure Note Nandiniter, Image - 06/22/2022 [facility] [address] [place], [place] [address] Mammography Report Signed Patient: Lia Strauss#: [id number] : 2Acct:[id number] Age/Sex: 82 / FADM Date: 06/19/22 Loc: [facility] Attending Dr: Glenna Hassan MD Ordering Physician: Glenna Grossman MDResults: 1Negative Date of Service: 06/19/22Follow Up: 1 Year From Orig inal Mammogram Procedure(s): MM tomosynthesis screening BI Accession Number(s): [id number] cc: Glenna Grossman MD EXAMINATION: MM SCREENING DIGITAL BREAST TOMOSYNTHESIS, BILATERAL CLINICAL INFORMATION: Screening. Asymptomatic. The lifetime risk of breast cancer based on the Tyrer-Cuzick Model is 1%. COMPARISON: Mammography: 04/26/2021, 04/18/2020, 04/06/2019 TECHNIQUE: Digital breast tomosynthesis is performed in both the craniocaudal and mediolateral oblique views along with computer-aided detection (CAD). Synthesized 2D images are generated from the tomosynthesis. Additional left CC view is provided. FINDINGS: There are scattered areas of fibroglandular density (ACR BI-RADS breast composition Category b). Breast tissue composition borders on predominantly fatty. Background stromal markings are stable. No interval mass or developing density or architectural abnormality. No abnormal calcifications. The axilla are stable. No significant changes. MM/MM tomosynthesis screening BI IMPRESSION: No mammographic evidence of malignancy. ASSESSMENT: BI-RADS 1: Negative RECOMMENDATION: Routine annual mammography screening. This patient's information was entered into a reminder system with a target due date for their next mammogram. Dictated By: Jorge Rahman MD Signed By: <Electronically signed by Jorge Rahman MD in [place]> 06/22/22 1555 DD/ 1055 TD/TT: Ornamental Metal Worker Helper: SANDS [facility] External Provider IMG BI PROCEDURES Edited Result - Final documented in this encounter Visit Diagnoses Not on filedocumented in this encounter Care Teams Blood Bank Attendant Relationship Specialty Start Date End Date Glenna Grossman MD [address] [place] [phone] PCP - General Family Medicine 07/10/20 documented as of this encounter
--- OUTSIDE RECORDS SUMMARY | 2024-07-07 06:06 | XMS_ITS | Encounter Summary ---
Author Organization [employer] Address [address] [place] [address] 7[address] [place] [address] Care Team Providers Care Engraver Pantograph Name Role Phone Glenna Grossman MD Primary Care Provide r Encounter Details Date Type Department Care Team (Latest Contact Info) Description 01/09/2019 Abstract [facility] CONVERSIONS Dental, Provider, DDS Social History Tobacco Use Types Packs/Day Years [...] Description 08/09/2024 2:45 PM EDT Office Visit [facility] MEDICINE [address] [place] [phone] Glenna Grossman MD [address] [place] [phone] 08/25/2024 1:30 PM EDT Telemedicine [facility] MEDICINE [address] [place] [address] [phone] Steph Molina RN documented as of this encounter Visit Diagnoses Not on filedocumented in this encounter Care Teams Engraver Pantograph Relationship Specialty Start Date End Date Glenna Grossman MD [address] [place] [address] [phone] PCP - General Family Medicine 07/10/20 documented as of this encounter
--- OUTSIDE RECORDS SUMMARY | 2024-07-07 06:06 | XMS_ITS | Encounter Summary ---
Author Organization [employer] Address [address] [place] [address] 7t [place] [address] Care Team Providers Care Marketing Regional Consultant Name Role Phone Glenna Grossman MD Primary Care Provide r Encounter Details Date Type Department Care Team (Late st Contact Info) Description 06/23/2022 Abstract [facility] [address] [place] [address] [phone] Shahla Simon, RN [address] [place] [phone] Social History Tobacco Use Types Packs/Day Years Used Date Smoking Tobacco: Never Assessed Comments Unknown Sex and Gender Information Value Date Recorded Sex Assigned at Female 03/30/2022 10:14 AM EDT Legal Sex Female 10:14 AM EDT Gender Identity Female 03/30/2022 10:14 AM EDT Sexual Orientation Straight 03/30/2022 10 :14 AM EDT COVID-19 Exposure Response Date Recorded In the last 10 days, have yo u been in contact with someone who was confirmed or suspected to have Coronavirus/COVID-19? No / Unsure 06/11/2022 1:24 PM EST documented as of this encounter Plan of Treatment Upcoming Encounters Date Type Department Care Team (Late st Contact Info) Description 08/09/2024 2:45 PM EDT Office Visit [facility] [address] [place] [address] [phone] Glenna Grossman MD [address] [place], [place] [phone] 08/25/2024 1:30 PM EDT Telemedicine [address] [phone] Steph Molina, RN documented as of this encounter Procedures Procedure Name Priority Date/Time Associated Diagnosis Comments MAMMOGRAPHY Routine 06/19/2022 documented in this encounter Results * Mammography (06/19/2022) Mammogram BIRADS 1: Negative Repeat in 1 year Anatomical Region Laterality Modality Other Historical Provider HEALTH MAINTENANCE Final Result documented in this encounter Visit Diagnoses Not on filedocumented in this encounter Care Teams Marketing Regional Consultant Relationship Specialty Start Date End Date Glenna Grossman MD [address] [place] [phone] PCP - General Family Medicine 07/10/20 documented as of this encounter
--- OUTSIDE RECORDS SUMMARY | 2024-07-07 06:06 | XMS_ITS | Encounter Summary ---
Author Organization [employer] Address [address] [facility] 7t [place] [address] Care Team Providers Care Relationship Consultant Name Role Phone Glenna Grossman MD Primary Care Provide r Encounter Details Date Type Department Care Team (Latest Contact Info) Description 06/16/2024 Travel Social History Tobacco Use Types Packs/Day Years Used Date Smoking Tobacco: Never Passive Smoke Exposure: Never Smokeless Tobacco: Never Alcohol Use Standard Drinks/Week Comments Never 0 (1 standard drink = 0.6 oz pur e alcohol) Alcohol Answer Date Recorded Frequency of Alcohol Consumption Not on file 01/12/2024 Average Number of Drinks Not on file 024 Frequency of Binge Drinking Not on file 12/29 Score 0 01/12/2024 Depression Answer Date Recorded Patient Health Questionnaire-9 Score 9 05/02/2024 Patient Health Questionnaire-9 Score 9 05/02/2024 Last PHQ-9: Questionnaire Data Not on file 1 07/03/2023 Housing Stability Answer Date Recorded What is your housing situation today? I have garcía ochoa 03/18/[address] you li ve. Do you have problems with any of the following? None of the above 03/18/2023 Food Insecurity Answer Date Recorded Within the past 12 months, y ou worried that your food would run out before you got money to buy more: Never True 03/18/2023 Within the past 12 months,th e food you bought just didn't last and you didn't have enough money to get more: Never True Transportation Answer Date Recorded In the past 12 months, has l ack of transportation kept you from medical appts, meetings, work or from getting things needed for daily living? No 03/18/2023 Utilities Answer Date Recorded In the past 12 months, has t he electric, gas, oil or water company threatened to shut off services in your home? No 03/18/2023 Depression Answer Date Recorded Patient Health Questionnaire-2 Score 2 05/02/2024 Comments Unknown Sex and Gender Information Value [...] Description 08/09/2024 2:45 PM EDT Office Visit [facility] [address] [place] [phone] Glenna Grossman MD [address] [place] [phone] 08/25/2024 1:30 PM EDT Telemedicine [facility] [address] [place] [address] [phone] Steph Molina, DIVYA documented as of this encounter Visit Diagnoses Not on filedocumented in this encounter Additional Health Concerns Assessment Noted Time PHQ-9 Depression Total Score: 9 05/02/20 24 11:03 AM EST documented as of this encounter Care Teams Relationship Consultant Relationship Specialty Start Date End Date Glenna Grossman MD [address] [place] [phone] PCP - General Family Medicine 07/10/20 documented as of this encounter
--- OUTSIDE RECORDS SUMMARY | 2024-07-07 06:07 | XMS_ITS | Encounter Summary ---
Author Organization [employer] Address [address] [facility] 7t [place] [address] Care Team Providers Care Fusion Operator Name Role Phone Glenna Grossman MD Primary Care Provide r Reason for Visit * Reason Comments Med Refill Encounter Details Date Type Department Care Team ([facility] st Contact Info) Description 04/26/2023 Refill [facility] [address] [place], [place] [phone] Glenna Grossman MD [address] [place] [address] Irritable bowel syndrome with constipation Social History Tobacco Use Types Packs/Day Years Used Date Smoking Tobacco: Never Passive Smoke Exposure: Never Smokeless Tobacco: Never Alcohol Use Standard Drinks/Week Comments Never 0 (1 standard drink = 0.6 oz pur e alcohol) Depression Answer Date Recorded Patient Health Questionnaire-9 Score 0 01/06/2023 Housing Stability Answer Date Recorded What is [...] Answer Date Recorded Patient Health Questionnaire-2 Score 0 01/06/2023 Comments Unknown Sex and Gender Information Value [...] 08/09/2024 2:45 PM EDT Office Visit [facility] [address] [place] [phone] Glenna Grossman MD [address] [place] [phone] 08/25/2024 1:30 PM EDT Telemedicine [facility] [address] [place] [phone] Steph Molina, DIVYA documented as of this encounter Visit Diagnoses Diagnosis Irritable bowel syndrome with constipation Irritable bowel syndrome documented in this encounter Additional Health Concerns Assessment Noted Time PHQ-9 Depression Total Score: 0 01/07/20 23 11:14 AM EDT documented as of this encounter Care Teams Fusion Operator Relationship Specialty Start Date End Date Glenna Grossman MD [address] [place] [phone] PCP - General Family Medicine 07/10/20 documented as of this encounter
--- OUTSIDE RECORDS SUMMARY | 2024-07-07 06:07 | XMS_ITS | Encounter Summary ---
Author Organization [employer] Address [address] [place] [address] 7t [place] [address] Care Team Providers Care Warrant Clerk Name Role Phone Glenna Grossman MD Primary Care Provide r Reason for Visit * Reason Comments Med Refill Encounter Details Date Type Department Care Team ([facility] Contact Info) Description 11/20/2022 Refill [facility] [address] [place], [place] [phone] Glenna Grossman MD [address] [place], [place] [phone] Low back pain, unspecified Social History Tobacco Use Types Packs/Day Years Used Date Smoking Tobacco: Never Passive Smoke Exposure: Never Smokeless Tobacco: Never Alcohol Use Standard Drinks/Week Comments Never 0 (1 standard drink = 0.6 oz pur e alcohol) Comments Unknown Sex and Gender Information Value [...] suspected to have Coronavirus/COVID-19? No / Unsure 11/09/2022 3:13 PM EDT documented as of this encounter Plan of Treatment Upcoming Encounters Date Type Department Care Team ([facility] Contact Info) Description 08/09/2024 2:45 PM EDT Office Visit [facility] [address] [place] [address] Glenna Grossman MD [address] [place] [phone] 08/25/2024 1:30 PM EDT Telemedicine [facility] [address] [place] [phone] Steph Molina RN documented as of this encounter Visit Diagnoses Diagnosis Low back pain, unspecified documented in this encounter Care Teams Warrant Clerk Relationship Specialty Start Date End Date Glenna Grossman MD [address] [place] [phone] PCP - General Family Medicine 07/10/20 documented as of this encounter
--- OUTSIDE RECORDS SUMMARY | 2024-07-07 06:07 | XMS_ITS | Encounter Summary ---
Author Organization [employer] Address [address] [facility] [address]t [place] [address] Care Team Providers Care Glost Tile Sorter Name Role Phone Glenna Grossman MD Primary Care Provide r Reason for Visit * Reason Comments Med Refill Encounter Details Date Type Department Care Team (Late st Contact Info) Description 06/13/2024 Refill [facility] [address] [place], [place] [phone] lGenna Grossman MD [address] [place] [address] Severe persistent asthma, unspecified whether complicated Social History Tobacco Use Types Packs/Day Years [...] Description 08/09/2024 2:45 PM EDT Office Visit [facility] [address] [place] [phone] Glenna Grossman MD [address] [place] [phone] 08/25/2024 1:30 PM EDT Telemedicine [facility] [address] [place] [phone] Steph Molina RN documented as of this encounter Visit Diagnoses Diagnosis Severe persistent asthma, unspecified whether complicated documented in this encounter Additional Health Concerns Assessment Noted Time PHQ-9 Depression Total Score: 9 05/02/20 24 11:03 AM EST documented as of this encounter Care Teams Glost Tile Sorter Relationship Specialty Start Date End Date Glenna Grossman MD [address] [place] [phone] PCP - General Family Medicine 07/10/20 documented as of this encounter
--- OUTSIDE RECORDS SUMMARY | 2024-07-07 06:07 | XMS_ITS | Encounter Summary ---
Author Organization [employer] Address [address] [facility] 7t [place] [address] Care Team Providers Care Trust Clerk Name Role Phone Glenna Grossman MD Primary Care Provide r Reason for Visit * Reason Comments Med Refill Encounter Details Date Type Department Care Team ([facility] st Contact Info) Description 05/25/2023 Refill [facility] [address] [place], [place] [phone] Glenna Grossman MD [address] [place] [phone] Social History Tobacco Use Types Packs/Day Years [...] Description 08/09/2024 2:45 PM EDT Office Visit [facility] [address] [place] [address] [phone] Glenna Grossman MD [address] [place] [phone] 08/25/2024 1:30 PM EDT Telemedicine [facility] [address] [place] [address] [phone] Steph Molina, DIVYA documented as of this encounter Visit Diagnoses Not on filedocumented in this encounter Additional Health Concerns Assessment Noted Time PHQ-9 Depression Total Score: 0 01/07/20 23 11:14 AM EDT documented as of this encounter Care Teams Trust Clerk Relationship Specialty Start Date End Date Glenna Grossman MD [address] [place] [address] [phone] PCP - General Family Medicine 07/10/20 documented as of this encounter
--- OUTSIDE RECORDS SUMMARY | 2024-07-07 06:07 | XMS_ITS | Clinical Summary ---
Author Organization [employer] Address [address] [place] [address] [address] [place] [address] Care Team Providers Care Mold Changer Name Role Phone Glenna Grossman MD Primary Care Provide r Allergies Active Allergy Reactions Criticality Noted Date Comments Avinash Inhibitors Angioedema High 03/21/2015 Other reaction(s): cough & mouth swelling Amlodipine Headache,Dizziness 01/14/2018 Nausea, vomiting Celecoxib 11/28/2018 weakness Other reaction(s): weakness Metoclopramide Hives 06/26/2010 Oxycodone Hives 06/26/2010 Pantoprazole Unknown 06/26/2010 Tiotropium 07/06/2018 Other reaction(s): per roll filler Medications meclizine (Antivert) 25 MG tabletIndications:Dizz iness TAKE 1 TABLET BY MOUTH THREE TIMES DAILY IN THE MORNING, AT NOON, AND AT BEDTIME NEEDED FOR DIZZINESS 30 tablet 2022 Active Menthol (Cepacol Sore Throat) 5.4 MG lozengeIndications:Sor e throat Dissolve 1 tablet in the mouth every 2 (two) hours if needed (angy throat). 20 lozenge 2023 Active fluticasone (Flonase) 50 MCG/ACT nasal spray USE 2 SPRAYS IN EACH NOSTRIL EVERY MORNING 48 g 2023 Active naloxone (Narcan) 4 mg/0.1 mL nasal sprayIndications:Chron ic 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 Administer 1 spray (4 mg) into affected nostril(s) if needed for opioid reversal. May repeat every 2-3 minutes if needed, alternating nostrils, until medical assistance becomes available. 2 each 3 08/29 Active famotidine (Pepcid) 40 MG tabletIndications:Shahana roesophageal reflux disease without esophagitis TAKE 1 TABLET BY MOUTH TWICE DAILY IN THE MORNING AND AT BEDTIME 180 tablet 2 2023 Active cetirizine (ZyrTEC) 10 MG tabletIndications:Sheldon rgic rhinitis, unspecified seasonality, unspecified trigger TAKE 1 TABLET BY MOUTH EVERY EVENING 90 tablet 1 2023 Active diclofenac (Cataflam) 50 MG tabletIndications:Poly arthralgia,Myalgia,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 30 tablet 1 01/11 Active Multiple Vitamin (Multivitamin) tabletIndications:Pure hypercholesterolemia TAKE 1 TABLET BY MOUTH EVERY MORNING 90 tablet 1 2023 Active theophylline ER (Elbert-Dur) 300 MG 12 hr tabletIndications:Samantha re persistent asthma without complication TAKE 1 TABLET BY MOUTH TWICE DAILY IN THE MORNING AND AT BEDTIME 180 tablet 1 2023 Active losartan (Cozaar) 25 MG tabletIndications:Samantha re persistent asthma without complication TAKE 1 TABLET BY MOUTH EVERY MORNING 90 tablet 1 2023 Active acetaminophen (Tylenol 8 Hour) 650 MG ER tabletIndications:Othe r type of osteoarthritis, unspecified site TAKE 1 TABLET BY MOUTH EVERY 8 HOURS NEEDED 60 tablet 1 2023 Active baclofen (Lioresal) 5 MG tabletIndications:Myal darren TAKE 1 TABLET BY MOUTH THREE TIMES DAILY 30 tablet 1 2023 Active albuterol (2.5 MG/3ML) 0.083% nebulizer solutionIndications:Se karie asthma, unspecified whether complicated, unspecified whether persistent INHALE 1 AMPULE USING A NEBULIZER SIX TIMES DAILY 180 mL 2023 Active albuterol (Ventolin HFA) 108 (90 Base) MCG/ACT inhalerIndications:Sev ere asthma, unspecified whether complicated, unspecified whether persistent INHALE 2 PUFFS BY MOUTH FOUR TIMES DAILY DIRECTED 18 g 2023 Active rosuvastatin (Crestor) 10 MG tabletIndications:Pure hypercholesterolemia TAKE 1 TABLET BY MOUTH EVERY MORNING 90 tablet 1 2023 Active triamcinolone (Kenalog) 0.1 % creamIndications:Dry skin dermatitis Apply topically if needed in the morning and at bedtime (pain and swelling). 30 g 2 2023 Active ondansetron (Zofran) 4 MG tabletIndications:Shahana roesophageal reflux disease without esophagitis Take 2 tablets (8 mg) by mouth every 8 (eight) hours if needed for nausea or vomiting. TAKE 2 TABLETS BY MOUTH EVERY 8 HOURS NEEDED FOR NAUSEA AND VOMITING 30 tablet 1 2023 Active dicyclomine (Bentyl) 20 MG tabletIndications:Abdo maxim pain, unspecified abdominal location TAKE 1 TABLET BY MOUTH EVERY MORNING 30 tablet 1 2024 Active simethicone (Mylicon) 80 MG chewable tablet CHEW 1 TABLET BY MOUTH FOUR TIMES DAILY NEEDED 120 tablet 1 2024 Active Advair HFA 230-21 MCG/ACT inhalerIndications:Sev ere persistent asthma, unspecified whether complicated INHALE 1 PUFF BY MOUTH TWICE DAILY IN THE MORNING AND AT BEDTIME. RINSE MOUTH AFTER USING., DO NOT SWALLOW. ADMINISTER WITH SPACER 12 g 11 2024 Active traMADol (Ultram) 50 MG tabletIndications:Pick Pulling Machine Tender dom bilateral low back pain with left-sided sciatica TAKE 2 TABLETS BY MOUTH EVERY 8 HOURS NEEDED FOR SEVERE PAIN 168 tablet 07/11 Active Advair HFA 230-21 MCG/ACT inhalerIndications:Sev ere persistent asthma, unspecified whether complicated INHALE 1 PUFF BY MOUTH TWICE DAILY IN THE MORNING AND AT BEDTIME. RINSE MOUTH AFTER USING. DO NOT SWALLOW. ADMINISTER WITH SPACER. 12 g 11 06/13 Discontinued traMADol (Ultram) 50 MG tabletIndications:Pick Pulling Machine Tender dom bilateral low back pain with left-sided sciatica TAKE 2 TABLETS BY MOUTH EVERY 8 HOURS NEEDED FOR SEVERE PAIN 168 tablet 06/13 Discontinued simethicone (Mylicon) 80 MG chewable tablet CHEW 1 TABLET BY MOUTH FOUR TIMES DAILY NEEDED 120 tablet 1 06/12 Discontinued dicyclomine (Bentyl) 20 MG tabletIndications:Abdo maxim pain, unspecified abdominal location TAKE 1 TABLET BY MOUTH EVERY MORNING 30 tablet 1 06/12 Discontinued Active Problems Problem Noted Date Diagnosed Date Head and neck lymphadenopathy 05/02/2024 Dry skin dermatitis 05/02/2024 Non-healing skin lesion 05/02/2024 Prediabetes 01/12/2024 Assessment & Plan (01/12/2024 4:11 PM EDT): Today extensive discussion was done about life style modifications I advise healthy diet (low calorie) and cardiovascular exercise Decreased hearing of both ears 01/12/2024 Polyarthralgia 01/12/2024 Myalgia 01/12/2024 Encounter for preventive care 01/12/2024 Assessment & Plan (01/12/2024 11:35 AM EDT): See HPI Asymptomatic menopause 10/06/2023 Assessment & Plan (10/06/2023 4:41 PM EDT): DEXA scan ordered today Bilateral hip pain 07/21/2023 Assessment & Plan (10/06/2023 4:42 PM EDT): We will call pain management office to help her with an appointment Assessment & Plan (07/21/2023 2:14 PM EST): As above Chronic 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 07/21/2023 Assessment & Plan (07/21/2023 2:14 PM EST): As above Shoulder pain 07/21/2023 Hearing loss 06/24/2023 Assessment & Plan (06/24/2023 8:16 AM EST): Referred today to crop adjuster w noted hearing loss -reported as chronic per pt Encounter for preventative adult health care exa mination 01/06/2023 Assessment & Plan (01/06/2023 12:54 PM EDT): Please refer to HPI Edentulous maxilla 11/10/2022 Laceration of oral cavity 09/23/2022 Anemia 05/28/2022 Asthenia 05/28/2022 Atopic dermatitis 05/28/2022 Chronic low back pain 05/28/2022 Assessment & Plan (01/06/2023 12:56 PM EDT): She will like to try another muscle relaxer I discontinue baclofen and started her on tizanidine Concentration deficit 05/28/2022 Constipation 05/28/2022 Hypoglycemia 05/28/2022 COVID-19 05/28/2022 Ileus 05/28/2022 Lower abdominal pain 05/28/2022 Mixed anxiety and depressive disorder 05/28/2022 Spasm 05/28/2022 Vascular insufficiency 05/28/2022 Glaucoma 12/24/2017 Female stress incontinence 02/05/2017 Assessment & Plan (07/21/2023 2:12 PM EST): Prescription for underwear pads will be done for patient Empty sella syndrome 10/23/2015 Allergic rhinitis 04/10/2015 Anxiety 04/10/2015 Dizziness 04/10/2015 Essential hypertension 04/10/2015 Assessment & Plan (05/03/2024 5:04 PM EST): I advise: - Aerobic exercise to reduce BP. Initial goal of 30 min walk 3-5x/week. Increase as tolerated. - low-sodium diet (goal: <2g/day) and heart healthy diet such as DASH to reduce BP and prevent ASCVD. - Home BP monitoring 1-2 x day with goal of <140/90. - Seek immediate medical attention for chest pain, palpitations, SOB, syncope, or sudden changes in mental status. - Do not change or discontinue current prescriptions without first consulting health care provider Assessment & Plan (01/12/2024 4:10 PM EDT): - Aerobic exercise to reduce BP. Initial goal of 30 min walk 3-5x/week. Increase as tolerated. - low-sodium diet (goal: <2g/day) and heart healthy diet such as DASH to reduce BP and prevent ASCVD. - Home BP monitoring 1-2 x day with goal of <140/90. - Seek immediate medical attention for chest pain, palpitations, SOB, syncope, or sudden changes in mental status. - Do not change or discontinue current prescriptions without first consulting health care provider Assessment & Plan (10/06/2023 4:39 PM EDT): - Aerobic exercise to reduce BP. Initial goal of 30 min walk 3-5x/week. Increase as tolerated. - low-sodium diet (goal: <2g/day) and heart healthy diet such as DASH to reduce BP and prevent ASCVD. - Home BP monitoring 1-2 x day with goal of <140/90. - Seek immediate medical attention for chest pain, palpitations, SOB, syncope, or sudden changes in mental status. - Do not change or discontinue current prescriptions without first consulting health care provider Assessment & Plan (07/21/2023 2:12 PM EST): Maintenance: BMP: up to date Lipid Panel: ordered today ASCVD Risk: Calculate pending updated labs - Aerobic exercise to reduce BP. Initial goal of 30 min walk 3-5x/week. Increase as tolerated. - low-sodium diet (goal: <2g/day) and heart healthy diet such as DASH to reduce BP and prevent ASCVD. - Home BP monitoring 1-2 x day with goal of <140/90. - Seek immediate medical attention for chest pain, palpitations, SOB, syncope, or sudden changes in mental status. - Do not change or discontinue current prescriptions without first consulting health care provider History of total knee arthroplasty 04/10/2015 Gastroesophageal reflux disease without esophagi tis 04/10/2015 Assessment & Plan (01/06/2023 12:55 PM EDT): Medications refilled Continue to f/u with GI Continue with current interventions Lumbosacral spondylosis without myelopathy 04/10 Assessment & Plan (07/21/2023 2:14 PM EST): C/w current medications I added today diclofenac 50mg Q 8hrs just if really needed with full stomach XRAYs ordered Referral to pain management done Severe asthma 04/10/2015 Assessment & Plan (01/06/2023 12:54 PM EDT): Controlled albuterol inhaler refilled today Obesity 04/10/2015 Obstructive sleep apnea syndrome 04/10/2015 Osteoarthritis of knee 04/10/2015 Pure hypercholesterolemia 04/10/2015 Upper respiratory infection Assessment & Plan (06/24/2023 8:20 AM EST): Pt w upper respiratory symptoms ,stable VS, lung exam is normal and has reproduced discomfort in chest wall that seems caused from her coughing Likely viral syndrome Strep,flu, covid neg -advised hydration -supportive tx w cepacol,tylenol ,dextromethorphan -Warm compresses in chest -alarm signs and symptoms discussed w pt today in case needs to come to WIC or ED Resolved Problems Problem Noted Date Diagnosed Date Resolved Date Diabetes mellitus 01/12/2024 Assessment & Plan (10/06/2023 4:41 PM EDT): At this point her A1c has not being reflected diabetes for sometime, I advise to c/w interventions healthy diet and avoid sugar Assessment & Plan (07/21/2023 2:16 PM EST): Patient not on medications, is now h/o of diabetes at this point but she is doing hypoglycemia events (not that often) patient is s/p bariatric surgery a long time ago, I explain this is a common side effect form procedure, Ia advise small frequent meals low in sugars and high in protein Assessment & Plan (06/24/2023 8:21 AM EST): Hb1AC 5.4, CBG 154 today after eating Pt has hx of DM 2 not on meds -well controlled -pt to f w her PCP for chronic conditions Encounters Date Type Department Care Team Description 06/16/2024 10:30 AM EST Telemedicine [facility] MED[facility] [address] [place] [address] Steph Molina, gang drill press operator 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 06/16/2024 Travel 06/16/2024 Telephone [facility]INE [address] [place] [address] Aileen Palacios RN Results 06/16/2024 Telephone [facility] MED[facility]INE [address] [place] [address] Steph Molina, RN Recommend PRELOAD SUPERVISOR Tele Tier 2 06/15/2024 Orders Only [facility] MEDICINE [address] [place] [id number] Glenna Grossman MD 06/13/2024 Refill [facility]INE [address] [place] [phone] Glenna Grossman MD Chronic bilateral low back pain with left-sided sciatica 06/13/2024 Refill [facility] [address] [place] [address] Glenna Grossman MD Severe persistent asthma, unspecified whether complicated 06/09/2024 Refill [facility]INE [address] [place] [phone] Glenna Grossman MD Abdominal pain, unspecified abdominal location 05/22/2024 Refill [facility] [address] [place] [address] Glenna Grossman MD Gastroesophageal reflux disease without esophagitis 05/10/[address] [address] Glenna Grossman MD 05/02/2024 11:00 AM EST Office Visit [address] [phone] Glenna Grossman MD Head and neck lymphadenopathy (Primary Dx); Dry skin dermatitis; Non-healing skin lesion; Essential hypertension; Encounter for immunization 05/02/2024 Travel 05/01/[address] [address] Sonia Saldana [place] Chart Prep 04/19/2024 Orders Only GENERIC EXTERNAL DATA DEPARTMENT Provider, Generic External Data 04/19/2024 Refill [facility] [address] [place] [phone] Glenna Grossman MD Pure hypercholesterolemia; Abdominal pain, unspecified abdominal location 04/18/2024 Patient Outreach [address] [address] Glenna Grossman MD Pre-visit Planning ([facility] screening completed on 09/28/2023) 04/17/2024 Refill [facility] [address] [place] [address] Ana Kraft MD Severe asthma, unspecified whether complicated, unspecified whether persistent 04/17/2024 Refill [facility] [address] [place] [address] Glenna Grossman MD Chronic bilateral low back pain with left-sided sciatica; Severe asthma, unspecified whether complicated, unspecified whether persistent from Last 3 Months Immunizations Name Administration Dates Next Due Hep B, adult 06/23/2007,05/22/2001,03/29/2001 Influenza High-dose Quadriva lent Preservative Free 04/14/2022,04/01/2021 Influenza Injectable Quadriv alant Preservative Free IIV4 MDCK 04/10/2020 Influenza injectable quadriv alent IIV4 with preservative 04/10/2015 Influenza injectable quadriv alent preservative free 03/06/2019 Influenza, High Dose Seasona l, Preservative Free 03/28/2018,03/24/2017 Influenza, IIV3, injectable 03/26/2014 Influenza, Split (incl. seda fied surface antigen) 02/08/2013 Influenza, seasonal, injecta ble, preservative free 05/02/2024,03/10/2016 Pneumococcal Conjugate PCV 13 04/22/2016 Pneumococcal Conjugate PCV 20 07/30/2023 Pneumococcal Polysaccharide PPSV23 04/10/2015,,03/22/1993 RSV Bivalent 07/30/2023 TD (adult), 2 Lf tetanus tox oid, preservative free, adsorbed 08/26/2010,07/16/2000,11/22/1990 Tdap 07/21/2023,02/08/2013 Zoster, Recombinant 04/10/2020,04/03/2019 Zoster, live 04/10/2015 Social History Tobacco Use Types Packs/Day Years Used Date Smoking Tobacco: Never Passive Smoke Exposure: Never Smokeless Tobacco: Never Tobacco Cessation:Counseling Given: Not Answered Alcohol Use Standard Drinks/Week Comments Never 0 [...] Orientation Straight 03/30/2022 10 :14 AM EDT Last Filed Vital Signs Vital Sign Reading Time Taken Comments Blood Pressure 152/64 05/02/2024 10:53 AM EST Pulse 85 05/02/2024 10:53 AM EST Temperature 36.9 ??C (98.4 ??F) 05/02/2024 10:[address] Respiratory Rate 20 05/02/2024 10:53 AM EST Oxygen Saturation 98% 05/02/2024 10:53 AM EST Inhaled Oxygen Concentration - - Weight 61.4 kg (135 lb 6.4 oz) 05/02/2024 10:53 AM EST Height 137.2 cm (4' 6 ) 05/02/2024 10:53 AM EST Body Mass Index 32.65 05/02/2024 10:53 AM EST Plan of Treatment Upcoming Encounters Date Type Department Care Team (Late st Contact Info) Description 08/09/2024 2:45 PM EDT Office Visit [facility] MEDICINE [address] [place] [phone] Glenna Grossman MD [address] [place] [address] 08/25/2024 1:30 PM EDT Telemedicine [facility] MED[facility]INE [address] [place], [place] [phone] Steph Molina, DIVYA Health Maintenance Due Date Last Done Comments Dental Prophylaxis 1940 Dental X-Ray: Bitewings 1941 Diabetes: Foot Exam 1951 Eye Exam 1951 Diabetes: Urine Protein Screening 1960 Dental Oral Exam 03/26/2023 09/23/2022 COVID-19 Vaccine ( season) 2024 04/01/2021, 08/09/2020, 07/12/2020 Diabetes: Hemoglobin A1C 07/14/2024 024, 10/06/2023, 06/23/2023, Additional history exists Mammogram 07/22/2024 07/22/2023, 06/01, 06/19/2022, Additional history exists SDOH Screening 09/27/2024 09/28/2023 Lipid Panel 10/05/2024 10/06/2023, 12/04/2021 Depression Monitoring (PHQ-9) 10/31/2024 05/02/2024, 05/02/2024 Alcohol/Substance Use Screening 01/11/2025 01/12/2024 Depression Screening 05/02/2025 05/02/2024, 05/02/20 Tobacco Screening 05/02/2025 05/02/2024 Dental X-Ray: Full Mouth 09/24/2025 09/23/2022 DTaP/Tdap/Td Vaccines (3 - Td or Tdap) 07/21/2033 07/21/2023, 02/08/2013, 08/26/2010, Additional history exists Hepatitis B Vaccines Completed 06/23/2007, 05/22/2001, 03/29/2001 Zoster Vaccines Completed 04/10/2020, 08/2018, 04/10/2015 Pneumococcal Vaccine: 50+ Years Completed 07/30/2023, 04/22/2016, 04/10/2015, Additional history exists RSV Patients and Patients Aged 60 years or older Completed 07/30/2023 Influenza Vaccine Completed 05/02/2024, , 04/01/2021, Additional history exists HIB Vaccines Aged Out No longer eligi ble based on patient's age to complete this topic HPV Vaccines Aged Out No longer eligi ble based on patient's age to complete this topic Hepatitis A Vaccines Aged Out No long er eligible based on patient's age to complete this topic IPV Vaccines Aged Out No longer eligi ble based on patient's age to complete this topic Meningococcal Vaccine Aged Out No catalina mary beth eligible based on patient's age to complete this topic RSV under 20 months Aged Out No longe r eligible based on patient's age to complete this topic Rotavirus Vaccines Aged Out No longer eligible based on patient's age to complete this topic Procedures Procedure Name Priority Date/Time Associated Diagnosis Comments US HEAD NECK SOFT TISSUE Routine 06/14/2024 1:10 PM EST Head and neck lymphadenopathy VITAMIN D,25-OH,TOTAL,IA Routine 04/19/2024 10:18 AM EST CALCIUM, 24 HOUR URINE (W/ CREATININE) Routine 04/19/2024 9:22 AM EST CREATININE, 24 HR GROUP Routine 04/19/2024 9:22 AM EST POCT GLYCATED HEMOGLOBIN, TOTAL Routine 01/12/2024 11:05 AM EDT Prediabetes LIPID PANEL, STANDARD Routine 10/06/2023 3:07 PM EDT Essential hypertension Type 2 diabetes mellitus without complication, without long-term current use of insulin ([facility]) BI MAMMOGRAM SCREENING TOMOSYNTHESIS BILATERAL Routine 07/22/2023 1:40 PM EST PANORAMIC RADIOGRAPHIC IMAGE Routine 09/23/2022 3:30 PM EDT PERIODIC ORAL EVALUATION - ESTABLISHED PATIENT Routine 09/23/2022 3:30 PM EDT from Last 3 Months or Most Recently Relevant to Health Maintenance Results * US Head Neck Soft Tissue (06/14/2024 1:10 PM EST) Anatomical Region Laterality Modality Head, Neck Ultrasound 06/14/2024 1:10 PM EST Narrative 06/15/2024 8:59 AM EST ? [facility] ?[address] ?[place] [address] ? Ultrasound Report ? Signed ? Patient: Lia Strauss ?MR#: ?? [id number] ? : 1940 ?Acct:[id number] ? Age/Sex: 84 / F ?ADM Date: 06/14/24 ? Loc: HO.US ? Attending Dr: Glenna Hassan MD ? Ordering Physician: Glenna Grossman MD ?? Date of Service: 06/14/24 ?? Procedure(s): US soft tiss head and/or neck ?? Accession Number(s): [id number] ? cc: Glenna Grossman MD ? EXAMINATION: ?? US SOFT TISSUE HEAD AND/OR NECK ? CLINICAL INFORMATION: ?? 2 months lymphadenopathy posterior neck. 84-year-old female. ? COMPARISON: ?? None available. ? TECHNIQUE: ?? Linear transducer mcwilliams-scale and color Doppler examination with ?? attention to the region of bilateral neck, with attention to the right ?? posterior neck in the region of concern. ? FINDINGS: ? NODES: ?? -Numerous enlarged lymph nodes are present in the lower right neck, ?? with thickened cortex, loss of fatty hilum, and mild hyperemia on color ?? Doppler imaging. ?? -A right level II lymph node measures 2.4 x 0.9 x 2.3 cm. ?? -A right level III lymph node measures 1.4 x 1.3 x 0.8 cm. ?? -A right level V lymph node measures 1.3 x 1.1 x 0.6 cm. ? A left level III lymph node measures 1.5 x 1.2 x 0.7 cm. ? -No abnormal fluid collections are identified. ? US/US soft tiss head and/or neck ?? IMPRESSION: ?? 1. Left greater than right abnormal lymphadenopathy, with the largest ?? lymph node on the right, level II, measuring 2.4 x 0.9 x 2.3 cm. There ?? is loss of fatty anthony and thickened cortex, with mild hyperemia on ?? color Doppler imaging. These are nonspecific and given appearance, ?? could be reactive and/or neoplastic. Etiology is not clear. ?? Correlating with CT of the neck with contrast is recommended for ?? further characterization. ?? 2. No discrete fluid collection. ? Electronically signed by: ??Osmany Tavarez MD ??06/15/2024 08:57 AM EST RP ? Dictated By: ?Osmany Tavarez MD ? Signed By: ?<Electronically signed by Osmany Tavarez MD in OV> ?06/15/24 0857 ? DD/ 1310 ? TD/TT: 06/14/24 1325 ? Injection Molding Machine Setter: ? Procedure Note Donmarielleter, Image - 06/15/2024 [place] [address] Ultrasound Report Signed Patient: Humera Strauss#: [id number] : 2Acct:[id number] Age/Sex: 84 / FADM Date: 06/14/24 Loc: HO.US Attending Dr: Glenna Hassan MD Ordering Physician: Glenna Grossman MD Date of Service: 06/14/24 Procedure(s): US soft tiss head and/or neck Accession Number(s): [id number] cc: Glenna Grossman MD EXAMINATION: US SOFT TISSUE HEAD AND/OR NECK CLINICAL INFORMATION: 2 months lymphadenopathy posterior neck. 84-year-old female. COMPARISON: None available. TECHNIQUE: Linear transducer mcwilliams-scale and color Doppler examination with attention to the region of bilateral neck, with attention to the right posterior neck in the region of concern. FINDINGS: NODES: -Numerous enlarged lymph nodes are present in the lower right neck, with thickened cortex, loss of fatty hilum, and mild hyperemia on color Doppler imaging. -A right level II lymph node measures 2.4 x 0.9 x 2.3 cm. -A right level III lymph node measures 1.4 x 1.3 x 0.8 cm. -A right level V lymph node measures 1.3 x 1.1 x 0.6 cm. A left level III lymph node measures 1.5 x 1.2 x 0.7 cm. -No abnormal fluid collections are identified. US/US soft tiss head and/or neck IMPRESSION: 1. Left greater than right abnormal lymphadenopathy, with the largest lymph node on the right, level II, measuring 2.4 x 0.9 x 2.3 cm. There is loss of fatty anthony and thickened cortex, with mild hyperemia on color Doppler imaging. These are nonspecific and given appearance, could be reactive and/or neoplastic. Etiology is not clear. Correlating with CT of the neck with contrast is recommended for further characterization. 2. No discrete fluid collection. Electronically signed by: Osmany Tavarez MD 06/15/2024 08:57 AM EST Dictated By: Osmany Tavarez MD Signed By: <Electronically signed by Osmany Tavarez MD in OV> 06/15/24 0857 DD/ 1310 TD/TT: 06/14/24 1325 Injection Molding Machine Setter: us Glenna Hassan MD IM US PROCEDURES Orestes eusebio Result - Final * Vitamin D, 25-Hydroxy, Total, Immunoassay (04/19/2024 10:18 AM EST) Vitamin D 25-OH Total 35.9 >30 ng/mL [facility] Comment:Health Based Referen ce Values*< 20 ng/mL Qfloygdav14-28 ng/mL Insufficient> 30 ng/mL Sufficient*Yoly PENALOZA. N Engl J Med. 2007;357:266-280Care must be taken in interpreting Vitamin D results fromdifferent laboratories and methodologies. Published datademonstrated that results from patients undergoinghemodialysis may show a negative bias when tested withvarious automated 25-OH vitamin D assays when compared toLC-MS/MS.When testing samples from patients whose predominant form ofVitamin D is Vitamin D2, such as patients receiving VitaminD2 supplementation, results that are subtherapeutic shouldbe confirmed with another method such as LC-MS/MS. 04/19/2024 10:1 8 AM EST 04/19/2024 10:18 AM EST Generic External Data Provider LAB BLOOD ORDERAB LES Final Result Performing Organization Address [facility] de Phone Number [facility] [address] [place] [phone] * (ABNORMAL) CREATININE, 24 HR GROUP (04/19/2024 9:22 AM EST) Creatinine, 24 Hour Urine 0.6(L) 1.0 - 2.0 G/Day [facility] Creatinine, Urine 24.14 [facility] Urine Total Volume 24 Hour 2,450 mL [facility] 04/19/2024 9:22 AM EST 04/19/2024 10:36 AM EST Narrative [facility] - 04/19/2024 12:17 PM EST [id number] Generic External Data Provider LAB URINE ORDERAB LES Final Result Performing Organization Address [facility] de Phone Number [facility] [address] [place] [address] [phone] * (ABNORMAL) Calcium, 24 Hour Urine W/ Creatinine (04/19/2024 9:22 AM EST) Calcium, 24 Hour Urine 25(A) mg/24 h [facility] Comment:Reference Range 35-2 50 Low calcium diet 35-200 Calcium/Creatini ne Ratio 37 30 - 275 mg/g creat [facility] Creatinine, 24 Hour Urine 0.66 0.50 - 2.15 g/24 h [facility] Comment:THIS TEST WAS PERFOR MED AT:[facility] [place] [phone] AVENDAÑO MD 04/19/2024 9:22 AM EST 04/19/2024 10:36 AM EST Narrative [facility] - 04/21/2024 5:07 PM EST [id number] us Generic External Data Provider LAB URINE ORDERAB LES Final Result [facility] [address] [place] [phone] * POCT HGB A1C (01/12/2024 11:05 AM EDT) Hemoglobin A1C 5.3 4.0 - 6.0 % QC Media Lot # [id number] Lot# Expiration Date ,026 Blood 01/12/2024 11:0 5 AM EDT us Glenna Hassan MD POINT OF CARE TEST EN TER/EDIT ORDERABLES Final Result * Lipid Panel, Standard (10/06/2023 3:07 PM EDT) Triglycerides 65 <150 mg/dL [facility] Comment:Desirable Triglyceri de: less than 150 mg/dLBorderline High Triglyceride 150-199 mg/dLHigh Triglyceride: 200-499 mg/dLVery High Triglyceride: greater than or equal to 5OO mg/dL Cholesterol 145 <200 mg/dL [facility] Comment:Desirable Cholestero l: less than 200 mg/dLBorderline High Cholesterol: 200-239 mg/dLHigh Cholesterol: greater than 239 mg/dL LDL Cholesterol Calculated 59 <100 mg/dL [facility] Comment:Desirable LDL: less than 100 mg/dLNear Optimal/Above Optimal LDL: 110- 129 mg/dLBorderline High LDL: 130-159 mg/dLHigh LDL: 160-189 mg/dLVery High LDL: greater than or equal to 190 mg/dL HDL Cholesterol 73 >40 mg/dL [facility] Comment:Desirable HDL: great er than 40 mg/dL Note: This HDL assay may give artificially low results in patients with liver disease. Blood Venous blood specimen / Unknown 10/06/2023 3:07 PM EDT 10/06/2023 4:15 PM EDT us Glenna Hassan MD LAB BLOOD ORDERABLES Final Result [facility] [address] [place] [phone] [phone] * BI Mammogram Screening Tomosynthesis Bilateral (07/22/2023 1:40 PM EST) Anatomical Region Laterality Modality Breast Bilateral Mammography 07/22/2023 1:40 PM EST Narrative 08/14/2023 10:46 PM EDT ? [facility] ? [address] ?[place] [address] ? Mammography Report ? Signed ? Patient: Lia Strauss ?MR#: ?? [id number] ? : 1940 ?Acct:[id number] ? Age/Sex: 83 / F ?ADM Date: 07/22/ ? Loc: HO.MAMMO ? Attending Dr: Glenna Hassan MD ? Ordering Physician: Glenna Grossman MD ?Results: ?? 1Negative ? Date of Service: 07/22/ ?Follow Up: 1 Year From Orig ?? inal Mammogram ? Procedure(s): MM tomosynthesis screening BI ?? Accession Number(s): [id number] ? cc: Glenna Grossman MD ? EXAMINATION: ?? MM SCREENING DIGITAL BREAST TOMOSYNTHESIS, BILATERAL ? CLINICAL INFORMATION: ? Screening. Asymptomatic. ? COMPARISON: ?? Mammography: This study is compared with prior exams dating back to ?? 2019. ? TECHNIQUE: ?? Digital breast tomosynthesis is performed in both the craniocaudal and ?? mediolateral oblique views along with computer-aided detection (CAD). ?? Synthesized 2D images are generated from the tomosynthesis. ? FINDINGS: ?? There are scattered areas of fibroglandular density (ACR BI-RADS breast ?? composition Category b). ? There are no significant masses, abnormal calcifications, or other ?? abnormalities. ? MM/MM tomosynthesis screening BI ?? IMPRESSION: ?? No mammographic evidence of malignancy. ? ASSESSMENT: ? BI-RADS BI-RADS 1 - Negative ? RECOMMENDATION: ?? Routine annual mammography screening. ? 1 year F/U ? This examination should not preclude the clinical evaluation of a ?? suspicious palpable abnormality. ? This patient's information was entered into a reminder system with a ?? target due date for their next mammogram. ? Dictated By: ?Abby Etienne MD ? Signed By: ?<Electronically signed by Abby Etienne MD in OV> ? 08/14/23 2243 ? DD/ 1340 ? TD/TT: ? Injection Molding Machine Setter: ? Procedure Note Emily, Image - 08/14/2023 [facility] [address] [place] [address] Dr. Green, ANJALI [address] Mammography Report Signed Patient: Lia Strauss#: [id number] : 2Acct:[id number] Age/Sex: 83 / FADM Date: 07/22/23 Loc: [facility] Attending Dr: Glenna Hassan MD Ordering Physician: Glenna Grossman MDResults: 1Negative Date of Service: 07/22/23Follow Up: 1 Year From Orig inal Mammogram Procedure(s): MM tomosynthesis screening BI Accession Number(s): [id number] cc: Glenna Grossman MD EXAMINATION: MM SCREENING DIGITAL BREAST TOMOSYNTHESIS, BILATERAL CLINICAL INFORMATION: Screening. Asymptomatic. COMPARISON: Mammography: This study is compared with prior exams dating back to 2019. TECHNIQUE: Digital breast tomosynthesis is performed in both the craniocaudal and mediolateral oblique views along with computer-aided detection (CAD). Synthesized 2D images are generated from the tomosynthesis. FINDINGS: There are scattered areas of fibroglandular density (ACR BI-RADS breast composition Category b). There are no significant masses, abnormal calcifications, or other abnormalities. MM/MM tomosynthesis screening BI IMPRESSION: No mammographic evidence of malignancy. ASSESSMENT: BI-RADS BI-RADS 1 - Negative RECOMMENDATION: Routine annual mammography screening. 1 year F/U This examination should not preclude the clinical evaluation of a suspicious palpable abnormality. This patient's information was entered into a reminder system with a target due date for their next mammogram. Dictated By: Abby Etienne MD Signed By: <Electronically signed by Abby Etienne MD in OV> 08/14/23 2243 DD/ 1340 TD/TT: Injection Molding Machine Setter: Glenna Hassan MD IMG BI PROCEDURES Fin al Result from Last 3 Months or Most Recently Relevant to Health Maintenance Insurance [facility] [address] [place] [address] Care Teams Mold Changer Relationship Specialty Start Date End Date Glenna Grossman MD [address] [place] [phone] PCP - General Family Medicine 07/10/20
--- OUTSIDE RECORDS SUMMARY | 2024-07-07 06:07 | XMS_ITS | Encounter Summary ---
Author Organization [employer] Address [address] [facility] 7t [place] [address] Care Team Providers Care Sander And Buffer Name Role Phone Glenna Grossman MD Primary Care Provide r Reason for Visit * Reason Comments Med Refill Encounter Details Date Type Department Care Team ([facility] st Contact Info) Description 04/21/2023 Refill [facility] [address] [place], [place] [phone] Glenna Grossman MD 230 [place] [address] Irritable bowel syndrome with constipation Social History [...] Description 08/09/2024 2:45 PM EDT Office Visit [facility] [address] [place] [phone] Glenna Grossman MD [address] [place] [address] 08/25/2024 1:30 PM EDT Telemedicine [facility] [address] [place] [phone] Steph Molina, DIVYA documented as of this encounter Visit Diagnoses Diagnosis Irritable bowel syndrome with constipation Irritable bowel syndrome documented in this encounter Additional Health Concerns Assessment Noted Time PHQ-9 Depression Total Score: 0 01/07/20 23 11:14 AM EDT documented as of this encounter Care Teams Sander And Buffer Relationship Specialty Start Date End Date Glenna Grossman MD [address] [place] [phone] PCP - General Family Medicine 07/10/20 documented as of this encounter
--- OUTSIDE RECORDS SUMMARY | 2024-07-07 06:07 | XMS_ITS | Encounter Summary ---
Author Organization [employer] Address [address] [place] [address] 7t [place] [address] Care Team Providers Care Paddle Dyeing Machine Operator Name Role Phone Glenna Grossman MD Primary Care Provide r Reason for Visit * Reason Comments Med Refill Encounter Details Date Type Department Care Team (Late Contact Info) Description 02/21/2023 Refill [facility] [address] [place] [address] [phone] Glenna Grossman MD 230 [place], [place] [phone] Social History Tobacco Use Types Packs/Day Years Used Date Smoking Tobacco: Never Passive Smoke Exposure: Never Smokeless Tobacco: Never Alcohol Use Standard Drinks/Week Comments Never 0 (1 standard drink = 0.6 oz pur e alcohol) Depression Answer Date Recorded Patient Health Questionnaire-9 Score 0 01/06/2023 Depression Answer Date Recorded Patient Health Questionnaire-2 [...] Encounters Date Type Department Care Team (Late Contact Info) Description 08/09/2024 2:45 PM EDT Office Visit [facility] [address] [place] [address] [phone] Glenna Grossman MD 230 [place], [place] [phone] 08/25/2024 1:30 PM EDT Telemedicine [facility] [address] [place], [place] [phone] Steph Molina, DIVYA documented as of this encounter Visit Diagnoses Not on filedocumented in this encounter Additional Health Concerns Assessment Noted Time PHQ-9 Depression Total Score: 0 01/07/20 23 11:14 AM EDT documented as of this encounter Care Teams Paddle Dyeing Machine Operator Relationship Specialty Start Date End Date Glenna Grossman MD [address] [place] [address] PCP - General Family Medicine 07/10/20 documented as of this encounter
--- OUTSIDE RECORDS SUMMARY | 2024-07-07 06:07 | XMS_ITS | Encounter Summary ---
Author Organization [employer] Address [address] [facility] 7t [place] [address] Care Team Providers Care Insurance Verification Clerk Name Role Phone Glenna Grossman MD Primary Care Provide r Reason for Visit * Reason Comments Med Refill Encounter Details Date Type Department Care Team (Late st Contact Info) Description 06/09/2024 Refill [facility] 230 [place], [place] [phone] Glenna Grossman MD 230 [place], [place] [phone] Abdominal pain, unspecified abdominal location Social History Tobacco Use Types Packs/Day Years [...] Description 08/09/2024 2:45 PM EDT Office Visit [facility] [address] [place] [phone] Glenna Grossman MD [address] [place] [phone] 08/25/2024 1:30 PM EDT Telemedicine [facility] [address] [place] [phone] Steph Molina RN documented as of this encounter Visit Diagnoses Diagnosis Abdominal pain, unspecified abdominal location documented in this encounter Additional Health Concerns Assessment Noted Time PHQ-9 Depression Total Score: 9 05/02/20 24 11:03 AM EST documented as of this encounter Care Teams Insurance Verification Clerk Relationship Specialty Start Date End Date Glenna Grossman MD [address] [place] [phone] PCP - General Family Medicine 07/10/20 documented as of this encounter
--- OUTSIDE RECORDS SUMMARY | 2024-07-07 06:07 | XMS_ITS | Encounter Summary ---
Author Organization [employer] Address [address] [place] [address] 7t [place] [address] Care Team Providers Care Assembly Machine Feeder Name Role Phone Glenna Grossman MD Primary Care Provide r Reason for Visit * Reason Onset Date Comments Med Refill 04/26/2023 Encounter Details Date Type Department Care Team ([facility] st Contact Info) Description 04/26/2023 Telephone [facility] 230 [place], [place] [phone] Glenna Grossman MD 230 [place], [place] [phone] Med Refill Social History Tobacco Use Types Packs/Day Years [...] AM EDT documented as of this encounter Miscellaneous Notes * Telephone Encounter - Ernestina Browne LPN - 04/26/2023 1:08 PM EST Medication pended to provider. * Telephone Encounter - Tita Londono - 04/26/2023 12:57 PM EST Pt also request acetaminophen (Tylenol 8 Hour) 650 MG ER tablet * Telephone Encounter - Tita Londono - 04/26/2023 12:53 PM EST Tc from pt requesting med refill on albuterol (2.5 MG/3ML) 0.083% nebulizer solution documented in this encounter Plan of Treatment Upcoming Encounters Date Type Department Care Team (Late st Contact Info) Description 08/09/2024 2:45 PM EDT Office Visit [facility] [address] [place] [phone] Glenna Grossman MD [address] [place] [address] 08/25/2024 1:30 PM EDT Telemedicine [facility] [address] [place] [address] [phone] Steph Molina RN documented as of this encounter Visit Diagnoses Not on filedocumented in this encounter Additional Health Concerns Assessment Noted Time PHQ-9 Depression Total Score: 0 01/07/20 23 11:14 AM EDT documented as of this encounter Care Teams Assembly Machine Feeder Relationship Specialty Start Date End Date Glenna Grossman MD 230 [place] [address] PCP - General Family Medicine 07/10/20 documented as of this encounter
--- OUTSIDE RECORDS SUMMARY | 2024-07-07 06:07 | XMS_ITS | Encounter Summary ---
Author Organization [employer] Address [address] [facility] 7t [place] [address] Care Team Providers Care Highway Maintenance Technician Name Role Phone Glenna Grossman MD Primary Care Provide r Reason for Visit * Reason Comments Med Refill Encounter Details Date Type Department Care Team (Late st Contact Info) Description 06/13/2024 Refill [facility] 230 [place], [place] [phone] Glenna Grossman MD [address] [place] [address] Chronic bilateral low back pain with left-sided sciatica Social History Tobacco Use Types Packs/Day Years [...] Description 08/09/2024 2:45 PM EDT Office Visit [facility] [address] [place] [phone] Glenna Grossman MD [address] [place] [address] 08/25/2024 1:30 PM EDT Telemedicine [facility] [address] [place] [address] [phone] Steph Molina RN documented as of this encounter Visit Diagnoses Diagnosis Chronic bilateral low back pain with left-sided sciatica documented in this encounter Additional Health Concerns Assessment Noted Time PHQ-9 Depression Total Score: 9 05/02/20 24 11:03 AM EST documented as of this encounter Care Teams Highway Maintenance Technician Relationship Specialty Start Date End Date Glenna Grossman MD [address] [place] [phone] PCP - General Family Medicine 07/10/20 documented as of this encounter
--- OUTSIDE RECORDS SUMMARY | 2024-07-07 06:07 | XMS_ITS | Encounter Summary ---
Author Organization [employer] Address [address] [facility] 7t [place] [address] Care Team Providers Care Airport Operations Supervisor Name Role Phone Glenna Grossman MD Primary Care Provide r Encounter Details Date Type Department Care Team ([facility] st Contact Info) Description 06/15/2024 Orders Only [facility] [address] [place], [place] [phone] Glenna Grossman MD 230 [place], [place] [phone] Social History Tobacco Use Types Packs/Day Years [...] Description 08/09/2024 2:45 PM EDT Office Visit [facility] [address] [place] [phone] Glenna Grossman MD [address] [place] [address] 08/25/2024 1:30 PM EDT Telemedicine [facility] [address] [place] [address] Steph Molina, RN documented as of this encounter Visit Diagnoses Not on filedocumented in this encounter Additional Health Concerns Assessment Noted Time PHQ-9 Depression Total Score: 9 05/02/20 24 11:03 AM EST documented as of this encounter Care Teams Airport Operations Supervisor Relationship Specialty Start Date End Date Glenna Grossman MD [address] [place] [phone] PCP - General Family Medicine 07/10/20 documented as of this encounter
--- OUTSIDE RECORDS SUMMARY | 2024-07-07 06:07 | XMS_ITS | Encounter Summary ---
Author Organization [employer] Address [address] [place] [address] 7t [place] [address] Care Team Providers Care Emu Farm Worker Name Role Phone Glenna Grossman MD Primary Care Provide r Reason for Visit * Reason Onset Date Comments Results 06/16/2024 Encounter Details Date Type Department Care Team ([facility] st Contact Info) Description 06/16/2024 Telephone [facility] [address] [place], [place] [phone] Aileen Palacios RN Results Social History Tobacco Use Types Packs/Day Years [...] encounter Miscellaneous Notes * Telephone Encounter - Aileen Palacios RN - 06/16/2024 8:59 AM EST Telephone call to pt using [facility] skip tender Temo #[id number]. Advised her that recent ultrasound of the head and neck shows several prominent lymph nodes that require follow up by general surgery. Pt reports that she saw Dr Acevedo in April and has a follow up with him maybe next Wednesday. Advised her to keep the appt and that [facility] will fax the results over Dr Espinosa office in advance of theappt. Pt verbalized understanding, no further questions. Faxed ultrasound results to Dr Acevedo at [phone], confirmation received. * Telephone Encounter - Aileen Palacios RN - 06/16/2024 8:44 AM EST ----- Message from Glenna Hassan MD sent at 06/15/2024 4:17 PM EST ----- Please let patient know I reviewed her US, she has several prominent lymph node that will require follow up, I did refer her to surgery please ensure patient has an appointment with them and that this results are available for them thank you documented in this encounter Plan of Treatment Upcoming Encounters Date Type Department Care Team (Late st Contact Info) Description 08/09/2024 2:45 PM EDT Office Visit [facility] [address] [place] [phone] Glenna Grossman MD [address] [place] [phone] 08/25/2024 1:30 PM EDT Telemedicine [address] [phone] Steph Molina, DIVYA documented as of this encounter Visit Diagnoses Not on filedocumented in this encounter Additional Health Concerns Assessment Noted Time PHQ-9 Depression Total Score: 9 05/02/20 24 11:03 AM EST documented as of this encounter Care Teams Emu Farm Worker Relationship Specialty Start Date End Date Glenna Grossman MD [address] [place] [phone] PCP - General Family Medicine 07/10/20 documented as of this encounter
--- OUTSIDE RECORDS SUMMARY | 2024-07-07 06:07 | XMS_ITS | Encounter Summary ---
Author Organization [employer] Address [address] [place] [address] 7t [place] [address] Care Team Providers Care Tree Girdler Name Role Phone Glenna Grossman MD Primary Care Provide r Reason for Visit * Reason Onset Date Comments Nurse Triage 03/28/2024 Encounter Details Date Type Department Care Team ([facility] st Contact Info) Description 03/28/2024 Telephone [facility] [address] [place], [place] [phone] Glenna Grossman MD [address] [place] [address] Nurse Triage Social History Tobacco Use Types Packs/Day Years [...] Answer Date Recorded Patient Health Questionnaire-9 Score 17 01/12/2024 Patient Health Questionnaire-9 Score 17 01/12/2024 Last PHQ-9: Questionnaire Data Not on file 0 01/12/2024 Housing Stability Answer Date Recorded What is [...] Answer Date Recorded Patient Health Questionnaire-2 Score 6 01/12/2024 Comments Unknown Sex and Gender Information Value Date Recorded Sex Assigned at Female 03/30/2022 10:14 AM EDT Legal Sex Female 10:14 AM EDT Gender Identity Female 03/30/2022 10:14 AM EDT Sexual Orientation Straight 03/30/2022 10 :14 AM EDT documented as of this encounter Miscellaneous Notes * Telephone Encounter - Rema Langford RN - 03/28/2024 1:40 PM EDT [place]riage [place] [id number] Mario Alberto, Pt is asking about hemaglobin possibly being low. Lab result on chart shows HGB with in normal limits. Pt reports appetite is poor but, hasbeen for a while. Pt reports obtained an earlier apt with PCP scheduled for 05/02/24 instead of July. Pt is asking about medications ordered by cardiology. Pt is encouraged to call the youth counselor office to inquire about orders. Pt has no further questions. Protocol Used: Information Only Call - No Triage (Adult) Protocol-Based Disposition: See in Office or Video Visit within 2 Weeks Positive Triage Question: * Requesting regular office appointment and adult stable (no new symptoms, not getting worse) * All higher-acuity triage questions were negative Care Advice Discussed: * Reasons To Call Back - New symptoms develop - You have more questions - You become worse * Telephone Encounter - Maggy Thibodeaux - 03/28/2024 1:05 PM EDT Symptom: Lethargic (Tired) Outcome: Schedule an urgent appointment (within 4 hours) or talk to a nurse or provider soon Reason: Getting worse The caller accepted this outcome. Contact pt at [phone] (greenlandic) documented in this encounter Plan of Treatment Upcoming Encounters Date Type Department Care Team (Late st Contact Info) Description 08/09/2024 2:45 PM EDT Office Visit [facility] [address] [place] [phone] Glenna Grossman MD [address] [place] [address] 08/25/2024 1:30 PM EDT Telemedicine [address] [address] Steph Molina RN documented as of this encounter Visit Diagnoses Not on filedocumented in this encounter Additional Health Concerns Assessment Noted Time PHQ-9 Depression Total Score: 17 024 11:08 AM EDT documented as of this encounter Care Teams Tree Girdler Relationship Specialty Start Date End Date Glenna Grossman MD [address] [place] [address] [phone] PCP - General Family Medicine 07/10/20 documented as of this encounter
--- OUTSIDE RECORDS SUMMARY | 2024-07-07 06:07 | XMS_ITS | Encounter Summary ---
Author Organization [employer] Address [address] [facility] 7t [place] [address] Care Team Providers Care School Child Care Attendant Name Role Phone Glenna Grossman MD Primary Care Provide r Reason for Visit * Reason Comments Med Refill Encounter Details Date Type Department Care Team (Late st Contact Info) Description 11/19/2022 Refill [facility] MED & PEDS [address] [place], [place] [phone] Glenna Grossman MD [address] [place] [address] Chronic bilateral low back pain, unspecified whether [...] PM EDT documented as of this encounter Miscellaneous Notes * Telephone Encounter - Isabella Cardoso RN - 11/19/2022 12:13 PM EDT Duplicate. Medication request already sent to PCP via patient call documented in this encounter Plan of Treatment Upcoming Encounters Date Type Department Care Team (Late st Contact Info) Description 08/09/2024 2:45 PM EDT Office Visit [facility] MEDICINE [address] [place] [phone] Glenna Grossman MD [address] [place] [phone] 08/25/2024 1:30 PM EDT Telemedicine [facility] MEDICINE [address] [place] [address] [phone] Steph Molina, DIVYA documented as of this encounter Visit Diagnoses Diagnosis Chronic bilateral low back pain, unspecified whether sciatica present documented in this encounter Care Teams School Child Care Attendant Relationship Specialty Start Date End Date Glenna Grossman MD [address] [place] [phone] PCP - General Family Medicine 07/10/20 documented as of this encounter
--- OUTSIDE RECORDS SUMMARY | 2024-07-07 06:07 | XMS_ITS | Encounter Summary ---
Author Organization [employer] Address [address] [place] [address] 7t [place] [address] Care Team Providers Care Electric Installer Name Role Phone Glenna Grossman MD Primary Care Provide r Reason for Visit * Reason Onset Date Comments Recommend [employer] MEDIA SPECIALIST Tele Tier 2 06/16/2024 Encounter Details Date Type Department Care Team ([facility] st Contact Info) Description 06/16/2024 Telephone [facility] MEDICINE [address] [place] [address] Steph Molina RN Recommend [employer] S[employer]OL LIBRARY MEDIA SPECIALIST Tele Tier 2 Social History Tobacco Use Types Packs/Day Years [...] encounter Miscellaneous Notes * Telephone Encounter - Steph Molina RN - 06/16/2024 7:36 AM EST What HIGH SCHOOL LIBRARY MEDIA SPECIALIST Tier would you like this patient to be? I recommend Tele Tier 2, please let me know if you agree or would rather patient be in another [employer]IGH S[employer]OL LIBRARY MEDIA SPECIALIST Tier. Tier 1 = HIGH RISK, Monthly HIGH SCHOOL LIBRARY MEDIA SPECIALIST visits Tier 2 = MODerate RISK, Q3 Month visits Tier 3 = LOW RISK = Q4-6 month visits documented in this encounter Plan of Treatment Upcoming Encounters Date Type Department Care Team (Late st Contact Info) Description 08/09/2024 2:45 PM EDT Office Visit [facility] MEDICINE [address] [place] [phone] Glenna Grossman MD [address] [place] [address] 08/25/2024 1:30 PM EDT Telemedicine [facility] MEDICINE [address] [place] [phone] Steph Molina, RN documented as of this encounter Visit Diagnoses Not on filedocumented in this encounter Additional Health Concerns Assessment Noted Time PHQ-9 Depression Total Score: 9 05/02/20 24 11:03 AM EST documented as of this encounter Care Teams Electric Installer Relationship Specialty Start Date End Date Glenna Grossman MD [address] [place] [address] PCP - General Family Medicine 07/10/20 documented as of this encounter
--- OUTSIDE RECORDS SUMMARY | 2024-07-07 06:07 | XMS_ITS | Encounter Summary ---
Author Organization [employer] Address [address] [place] [address] 7t [place] [address] Care Team Providers Care Electrician Supervisor Airplane Name Role Phone Glenna Grossman MD Primary Care Provide r Reason for Visit * Reason Comments SPINNER OPEN [employer] RV SP[employer]NER [employer] RV Encounter Details Date Type Department Care Team (Late st Contact Info) Description 06/16/2024 10:30 AM EST Telemedicine [facility] MEDICINE [address] [place] [address] Steph Molina RN Chronic 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 Social History Tobacco Use Types Packs/Day Years [...] AM EDT documented as of this encounter Progress Notes * Steph Molina RN - 06/16/2024 10:30 AM EST S: Pt called for [employer]NER [employer] Revisit, via BLS#[id number]. Prescribed Tramadol 50mg 2 tablets Q8hr PRN. States she has been taking only 4-5 doses a day, last dose taken was this morning @ 9:30am. Denies smoking cigarettes, ETOH use, Illicit drug use and marijuana use. Currently rates her pain a 6 and states medication is 75% effective at alleviating pain. Current pain sites are her 'whole body,' lower back, hips and knee's. She takes tylenol arthritis with her tramadol and feels like it does help her arthritis pain. O: SPINNER OPEN END Tele Tier 3. Pt currently prescribed Tramadol 50mg 2 tablets Q8hr PRN. 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 Rx last filled on 04/20/24. Pill count performed over the phone. Pt reports having 18 pills at this time, 0 at least expected. Medication is not overused by patient. Patient states she has picked up her refill bottle from 06/13/24 but is still using her November bottle. Last PCP visit was 05/02/24. 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 P: Pt to continue taking medication only as prescribed; Next Tele [employer] END Renewal appointment scheduledfor 08/25/24 @ 1:30pm, F/U sooner PRN. Appointment reminder mailed. Pt verbalized understanding and agreed to plan. documented in this encounter Plan of Treatment Upcoming Encounters Date Type Department Care Team (Late st Contact Info) Description 08/09/2024 2:45 PM EDT Office Visit [facility] MEDICINE [address] [place] [phone] Glenna Grossman MD [address] [place] [phone] 08/25/2024 1:30 PM EDT Telemedicine [facility] MEDICINE [address] [place] [phone] Steph Molina RN documented as of this encounter Visit Diagnoses Diagnosis Chronic 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 documented in this encounter Additional Health Concerns Assessment Noted Time PHQ-9 Depression Total Score: 9 05/02/20 24 11:03 AM EST documented as of this encounter Care Teams Electrician Supervisor Airplane Relationship Specialty Start Date End Date Glenna Grossman MD [address] [place] [phone] PCP - General Family Medicine 07/10/20 documented as of this encounter
--- OUTSIDE RECORDS SUMMARY | 2024-07-07 06:07 | XMS_ITS | Encounter Summary ---
Author Organization [employer] Address [address] [place] [address] 7t [place] [address] Care Team Providers Care Appliance Painter And Refinisher Name Role Phone Glenna Grossman MD Primary Care Provide r Encounter Details Date Type Department Care Team ([facility] Contact Info) Description 12/16/2022 Telephone [facility] MEDICINE [address] [place] [address] [phone] Glenna Grossman MD [address] [place] [address] [phone] Social History Tobacco Use Types Packs/Day Years [...] Upcoming Encounters Date Type Department Care Team ([facility] Contact Info) Description 08/09/2024 2:45 PM EDT Office Visit [facility] MEDICINE [address] [place] [address] [phone] Glenna Grossman MD [address] [place] [address] [phone] 08/25/2024 1:30 PM EDT Telemedicine [facility] MEDICINE [address] [place] [address] [phone] Steph Molina, RN documented as of this encounter Visit Diagnoses Not on filedocumented in this encounter Care Teams Appliance Painter And Refinisher Relationship Specialty Start Date End Date Glenna Grossman MD [address] [place] [phone] PCP - General Family Medicine 07/10/20 documented as of this encounter
--- OUTSIDE RECORDS SUMMARY | 2024-07-07 06:07 | XMS_ITS | Encounter Summary ---
Author Organization [employer] Address [address] [place] [address] 7t [place] [address] Care Team Providers Care Community Development Coordinator Name Role Phone Glenna Grossman MD Primary Care Provide r Reason for Visit * Reason Comments Med Refill Encounter Details Date Type Department Care Team ([facility] Contact Info) Description 02/03/2023 Refill [facility] MEDICINE [address] [place] [address] [phone] Glenna Grossman MD [address] [place] [address] [phone] Routine health maintenance Social History Tobacco Use Types Packs/Day Years [...] Description 08/09/2024 2:45 PM EDT Office Visit [facility] MEDICINE [address] [place] [address] [phone] Glenna Grossman MD [address] [place], [place] [phone] 08/25/2024 1:30 PM EDT Telemedicine [facility] MEDICINE [address] [place], [place] [phone] Steph Molina, DIVYA documented as of this encounter Visit Diagnoses Diagnosis Routine health maintenance Unspecified examination documented in this encounter Additional Health Concerns Assessment Noted Time PHQ-9 Depression Total Score: 0 01/07/20 23 11:14 AM EDT documented as of this encounter Care Teams Community Development Coordinator Relationship Specialty Start Date End Date Glenna Grossman MD [address] [place] [phone] PCP - General Family Medicine 07/10/20 documented as of this encounter
--- OUTSIDE RECORDS SUMMARY | 2024-07-07 06:07 | XMS_ITS | Encounter Summary ---
Author Organization [employer] Address [address] [place] [address] 7t [place] [address] Care Team Providers Care Carbon Paper Coating Machine Setter Name Role Phone Glenna Grossman MD Primary Care Provide r Reason for Visit * Reason Onset Date Comments Med Refill 01/14/2023 Encounter Details Date Type Department Care Team ([facility] st Contact Info) Description 01/14/2023 Telephone [facility] MEDICINE [address] [place], [place] [phone] Glenna Grossman MD [address] [place], [place] [phone] Med Refill Social History Tobacco Use Types [...] encounter Miscellaneous Notes * Telephone Encounter - Jessenia Aranda - 01/14/2023 2:00 PM EDT Tc from pt requesting med refill for medication traMADol (Ultram) 50 MG tablet. documented in this encounter Plan of Treatment Upcoming Encounters Date Type Department Care Team (Late st Contact Info) Description 08/09/2024 2:45 PM EDT Office Visit [facility] MEDICINE [address] [place] [address] [phone] Glenna Grossman MD [address] [place] [address] [phone] 08/25/2024 1:30 PM EDT Telemedicine [address] [phone] Steph Molina, DIVYA documented as of this encounter Visit Diagnoses Not on filedocumented in this encounter Additional Health Concerns Assessment Noted Time PHQ-9 Depression Total Score: 0 01/07/20 23 11:14 AM EDT documented as of this encounter Care Teams Carbon Paper Coating Machine Setter Relationship Specialty Start Date End Date Glenna Grossman MD [address] [place] [phone] PCP - General Family Medicine 07/10/20 documented as of this encounter
[2024-07-07 06:26] VITALS: BMI 33.6
[2024-07-07 06:42] VITALS: BP 109/50; PULSE 76; RESP 16; TEMP 37.1; O2SAT 96
[2024-07-07] MEDS: Lactated Ringers 1,000 ML 100 ML IVCONT (07:12)
--- NOTE | 2024-07-07 08:21 | W.PM.OPN ---
Operative Note Operative Note Date of Service: 07/07/24 Narrative: Preoperative diagnosis: [] Bilateral cervical adenopathy Postop diagnosis: [] The same Procedure [] excision right mid cervical enlarged suspicious lymph nodes Surgeon: [] Curtis Ase Certified Technician: [] Type of Anesthesia: [] Mac Indication for surgery: [] Bilateral cervical and supraclavicular adenopathy, right greater than left. Several enlarged very suspicious mid cervical lymph nodes uneventfully excised and sent as fresh specimen to pathology. Findings: [] Patient brought to the operating room, placed on operative table supine position after an adequate level of MAC anesthesia was induced, the right neck and upper chest area were prepped and draped in usual sterile fashion using a transverse incision in the mid cervical area, over 1 of the collection of lymph nodes, this carried down through skin, subcutaneous tissue, cervical fascia. Several lymph nodes clamped together were uneventfully excised using combination of blunt, sharp, and Bovie dissection sent to pathologist for specimen as noted above. Wound was irrigated, secured hemostasis, and closed in the following manner; cervical fascia was reapproximated using interrupted 3-0 Vicryl sutures. Skin was closed using running subcuticular 4-0 Vicryl suture followed by Steri-Strips and sterile dressings. Wound was infiltrated the beginning at the end of the case with 0.5% Marcaine/1 lidocaine.. Sponge, needle, and instrument counts were reported correct. Patient tolerated the procedure well and emerged from anesthesia stable condition. EBL minimal
[2024-07-07 08:25] VITALS: BP 123/37; PULSE 66; RESP 20; TEMP 36.1; O2SAT 97
[2024-07-07 08:30] VITALS: BP 127/42; PULSE 68; RESP 20; O2SAT 97
[2024-07-07 08:45] VITALS: BP 133/48; PULSE 60; RESP 20; O2SAT 97
[2024-07-07 08:54] VITALS: BP 137/52; PULSE 60; RESP 20; TEMP 36.5; O2SAT 97
== END 2024-07-07 09:48 | disposition home or self-care (01) ==
PROVIDERS: Pathology Anatomic Pathology & Clinical Pathology; PCP Internal Medicine; Visit Provider Surgery
PROC: (CPT 38510; principal; 2024-07-07 07:30)
DX: C85.10 Unspecified B-cell lymphoma, unspecified site (principal); C85.91 Non-Hodgkin lymphoma, unspecified, lymph nodes of head, face, and neck; M81.0 Age-related osteoporosis without current pathological fracture; M19.90 Unspecified osteoarthritis, unspecified site; I10 Essential (primary) hypertension; J45.909 Unspecified asthma, uncomplicated; E78.5 Hyperlipidemia, unspecified; E16.2 Hypoglycemia, unspecified; H40.9 Unspecified glaucoma; G47.30 Sleep apnea, unspecified; Z79.51 Long term (current) use of inhaled steroids; Z79.899 Other long term (current) drug therapy; Z88.5 Allergy status to narcotic agent; Z88.8 Allergy status to other drugs, medicaments and biological substances; Z90.49 Acquired absence of other specified parts of digestive tract; Z98.84 Bariatric surgery status; Z96.653 Presence of artificial knee joint, bilateral; Z98.890 Other specified postprocedural states
CPT/HCPCS: 38510; 88184; 88185; 88305; 88341; 88342; J0690; J2003; J2250; J2704; J2795; J3010

== ENCOUNTER → 2024-07-07 06:04 | Outpatient (BNV) | payer OTHER, SELFPAY | PROVIDERS: PCP Internal Medicine; Visit Provider Surgery | DX: R59.0 Localized enlarged lymph nodes (principal) | CPT/HCPCS: 38510 ==

== ENCOUNTER 2024-07-18 09:05 | Outpatient (AMB) | payer OTHER, SELFPAY ==
--- NOTE | 2024-07-18 09:12 | MHC.OFFVIS ---
Intake Visit Reasons: S/P WLE Rt. supra-clavicular mass Intake Note: Patient here s/p WLE Rt supraclavicular mass. Reports incision healing well. Patient c/o: small bumps along scar line. Surgery: 07-07-2024. 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 Required: No Accompanied by: Self / Same As Patient Allergies morphine [MORPHINE] Allergy (Severe, Verified 07/18/24 09:13) Agitated WADE Inhibitors Allergy (Intermediate, Verified 07/18/24 09:13) mouth swelling/cough amlodipine Allergy (Intermediate, Verified 07/18/24 09:13) headache/dizziness/nausea/vomiting pantoprazole [From Protonix] Allergy (Intermediate, Verified 07/18/24 09:13) Agitated celecoxib [From Celebrex] Adverse Reaction (Mild, Verified 07/18/24 09:13) Weakness milk [MILK] Adverse Reaction (Mild, Verified 07/18/24 09:13) STOMACH UPSET oxycodone [From Percocet] Adverse Reaction (Mild, Verified 07/18/24 09:13) NAUSEA/RAPID HR/BLURRED VISION HPI Comments Details: Patient was presents with her son for follow-up. No wound issues or complaints. Results of lymph node biopsy consistent with CLL were reviewed with the patient and her son. [facility] Medical History (Updated 07/14/24 @ 11:53 by RHONDA Daniel) B-cell non-Hodgkin lymphoma (07/07/24) Cardiology follow-up encounter Osteoporosis Sleep apnea GERD (gastroesophageal reflux disease) Hypoglycemia Glaucoma Arthritis Asthma HTN (hypertension) HLD (hyperlipidemia) Surgical History (Updated 07/18/24 @ 09:33 by Devonte Acevedo MD) History of knee replacement procedure of left knee Hx of cataract extraction Hx of breast biopsy History of esophagogastroduodenoscopy (EGD) Hx of colonoscopy History of appendectomy History of cholecystectomy History of knee replacement procedure of right knee Hx of gastric bypass Hx of hysterectomy Family History Father No problems noted. Mother No problems noted. Social History Household Members: None Household Members Other:: daughter lives downstairs Housing: House Are you a primary rn coronary care unit to a significant other at home: No Do you presently have visiting nurse or other home services: No Alcohol intake: never Patient Tobacco Use Status: Never used Tobacco Advance Directives Date on File: 06/24/21 service: No Physical Exam Neck Other: Incision clean dry and intact. Patient also has significant persistent adenopathy Assessment & Plan Assessment & Plan (1) Lymphoma: Code(s): C85.90 - Non-Hodgkin lymphoma, unspecified, unspecified site Category: Surgical (2) Adenopathy, cervical: Code(s): R59.0 - Localized enlarged lymph nodes Category: Surgical (3) Supraclavicular adenopathy: Code(s): R59.0 - Localized enlarged lymph nodes Category: Surgical (4) Axillary lymphadenopathy: Code(s): R59.0 - Localized enlarged lymph nodes Category: Surgical Plan Patient needs to see Oncology. Her son would prefer she went to [place] for this. Arrangements will be made. Patient will otherwise follow-up p.r.n.. Should the patient require a port, she has been instructed to contact me. Coding Level of Care Code Global (59781) Diagnoses Lymphoma C85.90 Adenopathy, cervical R59.0 Supraclavicular adenopathy R59.0 Axillary lymphadenopathy R59.0
--- OUTSIDE RECORDS SUMMARY | 2024-07-18 09:40 | XMS_ITS | Encounter Summary ---
Author Organization [employer] Address [address] [place] [address] 7t [place] [address] Care Team Providers Care Japanese Interpreter Name Role Phone Glenna Grossman MD Primary Care Provide r Encounter Details Date Type Department Care Team (Latest Contact Info) Description 01/09/2019 Abstract [facility] CONVERSIONS Dental, Provider, DDS Social History Tobacco [...] Description 08/09/2024 2:45 PM EDT Office Visit [facility] MEDICINE [address] [place] [phone] Glenna Grossman MD [address] [place] [phone] 08/25/2024 1:30 PM EDT Telemedicine [facility] MEDICINE [address] [place] [address] [phone] Steph Molina RN documented as of this encounter Visit Diagnoses Not on filedocumented in this encounter Care Teams Japanese Interpreter Relationship Specialty Start Date End Date Glenna Grossman MD [address] [place] [address] [phone] PCP - General Family Medicine 07/10/20 documented as of this encounter
--- OUTSIDE RECORDS SUMMARY | 2024-07-18 09:40 | XMS_ITS | Encounter Summary ---
Author Organization [employer] [facility] Address [address] [place] [address] 7t [place] [address] Care Team Providers Care Digital Sales Director Name Role Phone Glenna Grossman MD Primary Care Provide r Encounter Details Date Type Department Care Team (Late st Contact Info) Description 05/28/2022 Orders Only [address] [address] Isabella Cardoso RN Social History Tobacco Use [...] Description 08/09/2024 2:45 PM EDT Office Visit [address] [address] Glenna Grossman MD [address] [place] [phone] 08/25/2024 1:30 PM EDT Telemedicine [address] [phone] Steph Molina RN documented as of this encounter Procedures Procedure Name Priority Date/Time Associated Diagnosis Comments BI MAMMOGRAM SCREENING TOMOSYNTHESIS BILATERAL Routine 06/19/2022 10:55 AM EST documented in this encounter Results * BI Mammogram Screening Tomosynthesis Bilateral (06/19/2022 10:55 AM EST) Anatomical Region Laterality Modality Breast Bilateral Mammography 06/19/2022 10:5 5 AM EST Narrative 06/22/2022 3:57 PM EST ? [facility] ? [address] ?[place] [address] ? Mammography Report ? Signed ? Patient: Mayco Antonio,Lia ?MR#: ?? [id number] ? : 1940 ?Acct:[id number] ? Age/Sex: 82 / F ?ADM Date: 06/19/22 ? Loc: HO.MAMMO ? Attending Dr: Glenna Hassan MD ? Ordering Physician: Glenna Grossman MD ?Results: ?? 1Negative ? Date of Service: 06/19/22 ?Follow Up: 1 Year From Orig ?? inal Mammogram ? Procedure(s): MM tomosynthesis screening BI ?? Accession Number(s): [id number] ? cc: Glenna Grossman MD ? EXAMINATION: [...] 1555 ? DD/ 1055 ? TD/TT: ? Skein Winder: SANDS ? Procedure Note Nandiniter, Image - 06/22/2022 [facility] [address] [place], [place] [address] Mammography Report Signed Patient: Lia Strauss#: [id number] : 2Acct:[id number] Age/Sex: 82 / FADM Date: 06/19/22 Loc: MORTEZA Attending Dr: Glenna Hassan MD Ordering Physician: Glenna Grossman MDResults: 1Negative Date of Service: 06/19/22Follow Up: 1 Year From Orig inal Mammogram Procedure(s): MM tomosynthesis screening BI Accession Number(s): [id number] cc: Glenna Grossman MD EXAMINATION: MM SCREENING [...] in OV> 06/22/22 1555 DD/ 1055 TD/TT: Skein Winder: SANDS [facility] External Provider IMG BI PROCEDURES Edited Result - Final documented in this encounter Visit Diagnoses Not on filedocumented in this encounter Care Teams Digital Sales Director Relationship Specialty Start Date End Date Glenna Grossman MD [address] [place] [phone] PCP - General Family Medicine 07/10/20 documented as of this encounter
--- OUTSIDE RECORDS SUMMARY | 2024-07-18 09:40 | XMS_ITS | Encounter Summary ---
Author Organization [employer] Address [address] [place] [address] 7t [place] [address] Care Team Providers Care Labor Service Representative Name Role Phone Glenna Grossman MD Primary Care Provide r Reason for Visit * Reason Comments Med Refill Encounter Details Date Type Department Care Team (Late st Contact Info) Description 08/24/2022 Refill [facility] MEDICINE [address] [place] [address] [phone] Delores Alexis MD [address] [place] [address] [phone] Chronic bilateral low back pain, unspecified whether [...] Description 08/09/2024 2:45 PM EDT Office Visit [facility] MEDICINE [address] [place] [address] [phone] Glenna Grossman MD [address] [place] [address] [phone] 08/25/2024 1:30 PM EDT Telemedicine [facility] MEDICINE [address] [place] [address] [phone] Tracy, Steph, RN documented as of this encounter Visit Diagnoses Diagnosis Chronic bilateral low back pain, unspecified whether sciatica present documented in this encounter Care Teams Labor Service Representative Relationship Specialty Start Date End Date Glenna Grossman MD [address] [place] [address] PCP - General Family Medicine 07/10/20 documented as of this encounter
--- OUTSIDE RECORDS SUMMARY | 2024-07-18 09:40 | XMS_ITS | Encounter Summary ---
Author Organization [employer] Address [address] [place] [address] 7t [place] [address] Care Team Providers Care Assistant Construction Superintendent Name Role Phone Glenna Grossman MD Primary Care Provide r Encounter Details Date Type Department Care Team (Late st Contact Info) Description 06/23/2022 Abstract [facility] MEDICINE [address] [place] [address] [phone] Shahla Simon, RN [address] [place] [phone] Social History Tobacco Use Types Packs/Day Years [...] Description 08/09/2024 2:45 PM EDT Office Visit [facility] MEDICINE [address] [place] [address] [phone] Glenna Grossman MD [address] [place], [place] [phone] 08/25/2024 1:30 PM EDT Telemedicine [address] [address] Steph Molina, RN documented as of this encounter Procedures Procedure Name Priority Date/Time Associated Diagnosis Comments MAMMOGRAPHY Routine 06/19/2022 documented in this encounter Results * Mammography (06/19/2022) Mammogram BIRADS 1: Negative Repeat in 1 year Anatomical Region Laterality Modality Other Historical Provider HEALTH MAINTENANCE Final Result documented in this encounter Visit Diagnoses Not on filedocumented in this encounter Care Teams Assistant Construction Superintendent Relationship Specialty Start Date End Date Glenna Grossman MD [address] [place] [address] PCP - General Family Medicine 07/10/20 documented as of this encounter
--- OUTSIDE RECORDS SUMMARY | 2024-07-18 09:41 | XMS_ITS | Encounter Summary ---
Author Organization [employer] Address [address] [facility] 7t [place] [address] Care Team Providers Care In Service Coordinator Name Role Phone Glenna Grossman MD Primary Care Provide r Encounter Details Date Type Department Care Team ([facility] st Contact Info) Description 06/15/2024 Orders Only [facility] MEDICINE [address] [place], [place] [phone] Glenna Grossman MD 230 [place], [place] [phone] Social History Tobacco Use Types Packs/Day Years [...] your housing situation today? I have garcía ocoha 03/18/[address] you li [...] 2:45 PM EDT Office Visit [facility] MEDICINE [address] [place] [phone] Glenna Grossman MD [address] [place] [phone] 08/25/2024 1:30 PM EDT Telemedicine [facility] MEDICINE [address] [place] [phone] Steph Molina, RN documented as of this encounter Visit Diagnoses Not on filedocumented in this encounter Additional Health Concerns Assessment Noted Time PHQ-9 Depression Total Score: 9 05/02/20 24 11:03 AM EST documented as of this encounter Care Teams In Service Coordinator Relationship Specialty Start Date End Date Glenna Grossman MD [address] [place] [address] [phone] PCP - General Family Medicine 07/10/20 documented as of this encounter
--- OUTSIDE RECORDS SUMMARY | 2024-07-18 09:41 | XMS_ITS | Encounter Summary ---
Author Organization [employer] Address [address] [place] [address] 7t [place] [address] Care Team Providers Care Machine Hose Cutter Name Role Phone Glenna Grossman MD Primary Care Provide r Reason for Visit * Reason Comments Med Refill Encounter Details Date Type Department Care Team ([facility] Contact Info) Description 11/20/2022 Refill [facility] CH[facility] MED & PEDS [address] [place], [place] [phone] Glenna Grossman MD 230 [place], [place] [phone] Low back pain, unspecified Social History Tobacco [...] Upcoming Encounters Date Type Department Care Team ([facility] Contact Info) Description 08/09/2024 2:45 PM EDT Office Visit [facility] MEDICINE 230 [place] [address] Glenna Grossman MD [address] [place] [phone] 08/25/2024 1:30 PM EDT Telemedicine [facility] MEDICINE [address] [place] [address] [phone] Steph Molina RN documented as of this encounter Visit Diagnoses Diagnosis Low back pain, unspecified documented in this encounter Care Teams Machine Hose Cutter Relationship Specialty Start Date End Date Glenna Grossman MD [address] [place] [phone] PCP - General Family Medicine 07/10/20 documented as of this encounter
--- OUTSIDE RECORDS SUMMARY | 2024-07-18 09:41 | XMS_ITS | Encounter Summary ---
Author Organization [employer] Address [address] [place] [address] 7t [place] [address] Care Team Providers Care Skidway Man Name Role Phone Glenna Grossman MD Primary Care Provide r Reason for Visit * Reason Onset Date Comments Nurse Triage 03/28/2024 Encounter Details Date Type Department Care Team ([facility] st Contact Info) Description 03/28/[address] [facility] MEDICINE 230 [place], [place] [phone] Glenna Grossman MD 230 [place] [address] Nurse Triage Social History Tobacco Use Types [...] 03/28/2024 1:40 PM EDT Triage [place] [employer] [place] [id number] Mario Alberto, Pt is asking about hemaglobin possibly being low. Lab result on chart shows HGB with in normal limits. Pt reports appetite is poor but, hasbeen for a while. Pt reports obtained an earlier apt with PCP scheduled for 05/02/24 instead of July. Pt is asking about medications ordered by cardiology. Pt is encouraged to call the band tier office to inquire about orders. Pt has [...] caller accepted this outcome. Contact pt at [phone] (tuvaluan) documented in this encounter Plan of Treatment Upcoming Encounters Date Type Department Care Team (Late st Contact Info) Description 08/09/2024 2:45 PM EDT Office Visit [facility] MEDICINE [address] [place] [phone] Glenna Grossman MD [address] [place] [address] 08/25/2024 1:30 PM EDT Telemedicine [address] [address] Steph Molina RN documented as of this encounter Visit Diagnoses Not on filedocumented in this encounter Additional Health Concerns Assessment Noted Time PHQ-9 Depression Total Score: 17 024 11:08 AM EDT documented as of this encounter Care Teams Skidway Man Relationship Specialty Start Date End Date Glenna Grossman MD [address] [place] [address] [phone] PCP - General Family Medicine 07/10/20 documented as of this encounter
--- OUTSIDE RECORDS SUMMARY | 2024-07-18 09:41 | XMS_ITS | Encounter Summary ---
Author Organization [employer] Address [address] [facility] 7t [place] [address] Care Team Providers Care Hardwood Floor Installer Name Role Phone Glenna Grossman MD Primary Care Provide r Reason for Visit * Reason Comments Med Refill Encounter Details Date Type Department Care Team ([facility] st Contact Info) Description 04/26/2023 Refill [facility] 230 [place], [place] [phone] Glenna Grossman MD 230 [place] [address] Irritable bowel syndrome with constipation Social History [...] Description 08/09/2024 2:45 PM EDT Office Visit [facility] MEDICINE [address] [place] [address] Glenna Grossman MD [address] [place] [phone] 08/25/2024 1:30 PM EDT Telemedicine [facility] MEDICINE [address] [place] [address] Steph Molina, DIVYA documented as of this encounter Visit Diagnoses Diagnosis Irritable bowel syndrome with constipation Irritable bowel syndrome documented in this encounter Additional Health Concerns Assessment Noted Time PHQ-9 Depression Total Score: 0 01/07/20 23 11:14 AM EDT documented as of this encounter Care Teams Hardwood Floor Installer Relationship Specialty Start Date End Date Glenna Grossman MD [address] [place] [phone] PCP - General Family Medicine 07/10/20 documented as of this encounter
--- OUTSIDE RECORDS SUMMARY | 2024-07-18 09:41 | XMS_ITS | Encounter Summary ---
Author Organization [employer] Address 75 [facility] 7t [place] [address] Care Team Providers Care Communications Representative Name Role Phone Glenna Grossman MD Primary Care Provide r Reason for Visit * Reason Comments Med Refill Encounter Details Date Type Department Care Team ([facility] st Contact Info) Description 05/25/2023 Refill [facility] CHC MED & PEDS [address] [place], [place] [phone] Glenna Grossman MD 230 [place] [address] Social History Tobacco Use Types Packs/Day Years [...] Description 08/09/2024 2:45 PM EDT Office Visit [facility] MEDICINE [address] [place] [address] [phone] Glenna Grossman MD [address] [place] [address] 08/25/2024 1:30 PM EDT Telemedicine [facility] MEDICINE [address] [place] [address] [phone] Steph Molina, DIVYA documented as of this encounter Visit Diagnoses Not on filedocumented in this encounter Additional Health Concerns Assessment Noted Time PHQ-9 Depression Total Score: 0 01/07/20 23 11:14 AM EDT documented as of this encounter Care Teams Communications Representative Relationship Specialty Start Date End Date Glenna Grossman MD [address] [place] [address] [phone] PCP - General Family Medicine 07/10/20 documented as of this encounter
--- OUTSIDE RECORDS SUMMARY | 2024-07-18 09:41 | XMS_ITS | Encounter Summary ---
Author Organization [employer] Address [address] [facility] 7t [place] [address] Care Team Providers Care Junior Java Developer Name Role Phone Glenna Grossman MD Primary Care Provide r Reason for Visit * Reason Comments Med Refill Encounter Details Date Type Department Care Team ([facility] st Contact Info) Description 04/21/2023 Refill [facility] 230 [place], [place] [phone] Glenna Grossman MD 230 [place] [address] Irritable bowel syndrome with constipation Social History [...] Description 08/09/2024 2:45 PM EDT Office Visit [facility] [address] [place] [address] Glenna Grossman MD [address] [place] [address] 8[address] 08/25/2024 1:30 PM EDT Telemedicine [facility] [address] [place] [address] Steph Molina, DIVYA documented as of this encounter Visit Diagnoses Diagnosis Irritable bowel syndrome with constipation Irritable bowel syndrome documented in this encounter Additional Health Concerns Assessment Noted Time PHQ-9 Depression Total Score: 0 01/07/20 23 11:14 AM EDT documented as of this encounter Care Teams Junior Java Developer Relationship Specialty Start Date End Date Glenna Grossman MD [address] [place] [phone] PCP - General Family Medicine 07/10/20 documented as of this encounter
--- OUTSIDE RECORDS SUMMARY | 2024-07-18 09:41 | XMS_ITS | Encounter Summary ---
Author Organization [employer] Address [address] [place] [address] 7t [place] [address] Care Team Providers Care Editorial Clerk Name Role Phone Glenna Grossman MD Primary Care Provide r Reason for Visit * Reason Comments Med Refill Encounter Details Date Type Department Care Team (Late Contact Info) Description 02/21/2023 Refill [facility] MEDICINE [address] [place] [address] [phone] Glenna Grossman MD 230 [place], [place] [phone] Social History Tobacco Use Types Packs/Day Years [...] 2:45 PM EDT Office Visit [facility] MEDICINE [address] [place] [address] [phone] Glenna Grossman MD 230 [place], [place] [phone] 08/25/2024 1:30 PM EDT Telemedicine [facility] MEDICINE 230 [place], [place] [phone] Steph Molina, DIVYA documented as of this encounter Visit Diagnoses Not on filedocumented in this encounter Additional Health Concerns Assessment Noted Time PHQ-9 Depression Total Score: 0 01/07/20 23 11:14 AM EDT documented as of this encounter Care Teams Editorial Clerk Relationship Specialty Start Date End Date Glenna Grossman MD 230 [place] [address] PCP - General Family Medicine 07/10/20 documented as of this encounter
--- OUTSIDE RECORDS SUMMARY | 2024-07-18 09:41 | XMS_ITS | Encounter Summary ---
Author Organization [employer] Address [address] [place] [address] 7t [place] [address] Care Team Providers Care Sprue Cutting Press Operator Name Role Phone Glenna Grossman MD Primary Care Provide r Encounter Details Date Type Department Care Team ([facility] Contact Info) Description 12/16/2022 Telephone [facility] MEDICINE [address] [place] [address] [phone] Glenna Grossman MD [address] [place] [address] [phone] Social History Tobacco Use Types Packs/Day Years [...] Upcoming Encounters Date Type Department Care Team ([facility] Contact Info) Description 08/09/2024 2:45 PM EDT Office Visit [facility] MEDICINE [address] [place] [address] [phone] Glenna Grossman MD [address] [place] [address] [phone] 08/25/2024 1:30 PM EDT Telemedicine [facility] MEDICINE [address] [place] [address] [phone] Steph Molina, RN documented as of this encounter Visit Diagnoses Not on filedocumented in this encounter Care Teams Sprue Cutting Press Operator Relationship Specialty Start Date End Date Glenna Grossman MD 230 [place] [address] PCP - General Family Medicine 07/10/20 documented as of this encounter
--- OUTSIDE RECORDS SUMMARY | 2024-07-18 09:41 | XMS_ITS | Encounter Summary ---
Author Organization [employer] Address [address] [place] [address] 7t [place] [address] Care Team Providers Care Insurance Sales Associate Name Role Phone Glenna Grossman MD Primary Care Provide r Encounter Details Date Type Department Care Team (Late st Contact Info) Description 07/07/2024 Orders Only GENERIC EXTERNAL DATA DEPARTMENT Provider, Generic External Data Social History Tobacco Use Types Packs/Day Years [...] Description 08/09/2024 2:45 PM EDT Office Visit [address] [address] Glenna Grossman MD [address] [place] [address] [phone] 08/25/2024 1:30 PM EDT Telemedicine [address] [phone] Steph Molina RN documented as of this encounter Procedures Procedure Name Priority Date/Time Associated Diagnosis Comments GROSS AND MICROSCOPIC LEVEL 4 Routine 07/07/2024 8:10 AM EST documented in this encounter Results * Gross and Microscopic Level 4 (07/07/2024 8:10 AM EST) 07/07/2024 8:10 AM EST 07/07/2024 8:24 AM EST [facility] - 07/14/2024 7:42 AM EST ----- ------- Name: Lia Strauss ? Age/Sex: 84/F ? : 1940 Unit#: [id number] ?? Attend Dr: Devonte Acevedo MD ?Re07/07/24 ?Status: DEP SDC ? Location: HO.SSS ?Disch: ? ----- ------- SPEC : [id number] ?RECD: 07/07/24 ? STATUS: ??SOUT ? REQ NUM: [id number] ? LORI: 07/07/24 ? SUBM DR: Devonte Acevedo MD ? ENTERED: ??07/07/24 ?SP TYPE: Surgical ? OTHR DR: Glenna Grossman MD ? ORDERED: ??Gross Micro L4, IHC, Add. immunos/5 ? Diagnosis ?? 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 ??See description and comment. ? Comment: Concurrent flow cytometry is positive for clonal B-cells with minor subset CD5 ?? coexpression - see report in its entirety in the EMR - Reports/Pathology section as a ?? scanned report (camera icon). ??Taken together, the findings are most in- keeping with ?? Chronic lymphocytic leukemia/Small lymphocytic lymphoma. ??Further immunostains are ?? underway; results will be addended. ??Ample tissue is available for further testing (e.g. ?? FISH), as clinically appropriate. ? Data synopsis - Lymphoma ? Specimen: ?Lymph node ?? Procedure: ?Excision ?? Tumor site: ?Right cervical region ?? WHO classification: ?? B-cell lymphoma, favor Chronic lymphocytic leukemia/small ?? lymphocytic lymphoma ?? Immunophenotyping: ?? See description and flow cytometry ?? Ancillary studies: ?? None at the time of this report ?Clinical History Right neck adenopathy ?Microscopic Description Sections have a lymph node with architecture effaced by sheets of small lymphocytes with scant cytoplasm and round nuclei with speckled chromatin. ??At low power, areas of paler staining cells are present, which at higher power prove to be slightly larger lymphoid cells with more open chromatin and small nucleoli (so-called proliferation zones). ??By immunohistochemistry, CD3 highlights T-cells; CD10 is essentially non immunoreactive. ??The proliferation index is approximately 10% overall with Ki 67 immunostain; higher in the proliferation zones. ? Material Received ?? Right cervical lymph nodes ? CONTINUED ON NEXT PAGE ----- ------- Name: Lia Strauss ? Age/Sex: 84/F ? : 1940 Unit#: [id number] ?? Attend Dr: Devonte Acevedo MD ?Re07/07/24 ?Status: DEP SDC ? Location: HO.SSS ?Disch: ? ----- ------- SPEC : [id number] ?RECD: 07/07/24 ? STATUS: ??SOUT ? REQ NUM: [id number] ? LORI: 07/07/24 ? SUBM DR: Devonte Acevedo MD ? ENTERED: ??07/07/24 ?SP TYPE: Surgical ? OTHR DR: Glenna Grossman MD ? ORDERED: ??Gross Micro L4, IHC, Add. immunos/5 ? Gross Description Received fresh in saline labeled ?right cervical lymph nodes? are 8 rounded fragments of rubbery pink-sargent lymphoid tissue ranging from 0.4-1.5 cm in greatest dimension. ??The outer surfaces are smooth. ??There is a small amount of attached yellow lobulated adipose tissue. The cut surfaces are smooth and sargent-white. ??The outside sales account representative portion is submitted in RPMI to [employer] for flow cytometry. ??Remainder of the specimen is sectioned and submitted for microscopic examination in cassettes A1 through A3, 6 pieces each. ??[facility] Results were communicated to Dr. Acevedo via secure text on 07/14/2024. Special studies ordered and performed: immunostains for CD3, CD5, CD10 and Ki-67 Copies To: ?? Glenna Grossman MD ?? [facility] ?? [address] ?? [place] [address] ?? [phone] ?? Devonte Acevedo MD ?? [facility] ?? [address] ?? [place] ?? [phone] ?? [email or web address] ----- ------- Signed (signature on file) Calos Castellanos MD 07/14/24 0742 ? ----- ------- ? END OF REPORT ? us Generic External Data Provider LAB CYTOLOGY TARA HERMOSILLO Final Result [facility] [address] [place] [address] [phone] documented in this encounter Visit Diagnoses Not on filedocumented in this encounter Additional Health Concerns Assessment Noted Time PHQ-9 Depression Total Score: 9 05/02/20 24 11:03 AM EST documented as of this encounter Care Teams Insurance Sales Associate Relationship Specialty Start Date End Date Glenna Grossman MD [address] [place] [phone] PCP - General Family Medicine 07/10/20 documented as of this encounter
--- OUTSIDE RECORDS SUMMARY | 2024-07-18 09:41 | XMS_ITS | Encounter Summary ---
Author Organization [employer] Address [address] [place] [address] 7t [place] [address] Care Team Providers Care Mold Design Engineer Name Role Phone Glenna Grossman MD Primary Care Provide r Reason for Visit * Reason Onset Date Comments Med Refill 01/14/2023 Encounter Details Date Type Department Care Team ([facility] st Contact Info) Description 01/14/2023 Telephone [facility] MEDICINE 230 [place], [place] [phone] Glenna Grossman MD 230 [place], [place] [phone] Med Refill Social History Tobacco Use Types [...] 2:45 PM EDT Office Visit [facility] MEDICINE [address] [place] [address] [phone] Glenna Grossman MD [address] [place] [address] [phone] 08/25/2024 1:30 PM EDT Telemedicine [address] [phone] Steph Molina, DIVYA documented as of this encounter Visit Diagnoses Not on filedocumented in this encounter Additional Health Concerns Assessment Noted Time PHQ-9 Depression Total Score: 0 01/07/20 23 11:14 AM EDT documented as of this encounter Care Teams Mold Design Engineer Relationship Specialty Start Date End Date Glenna Grossman MD [address] [place] [phone] PCP - General Family Medicine 07/10/20 documented as of this encounter
--- OUTSIDE RECORDS SUMMARY | 2024-07-18 09:41 | XMS_ITS | Encounter Summary ---
Author Organization [employer] Address 75 [facility] 7t [place] [address] Care Team Providers Care Parts Lister Name Role Phone Glenna Grossman MD Primary Care Provide r Reason for Visit * Reason Comments Med Refill Encounter Details Date Type Department Care Team (Late st Contact Info) Description 11/19/2022 Refill [facility] MED & PEDS [address] [place], [place] [phone] Glenna Grossman MD 230 [place] [address] Chronic bilateral low back pain, unspecified whether [...] Description 08/09/2024 2:45 PM EDT Office Visit [facility] MEDICINE [address] [place] [address] Glenna Grossman MD [address] [place] [phone] 08/25/2024 1:30 PM EDT Telemedicine [facility] MEDICINE [address] [place] [address] [phone] Steph Molina, DIVYA documented as of this encounter Visit Diagnoses Diagnosis Chronic bilateral low back pain, unspecified whether sciatica present documented in this encounter Care Teams Parts Lister Relationship Specialty Start Date End Date Glenna Grossman MD [address] [place] [phone] PCP - General Family Medicine 07/10/20 documented as of this encounter
--- OUTSIDE RECORDS SUMMARY | 2024-07-18 09:41 | XMS_ITS | Encounter Summary ---
Author Organization [employer] Address [address] [place] [address] 7t [place] [address] Care Team Providers Care Traffic Lieutenant Name Role Phone Glenna Grossman MD Primary Care Provide r Reason for Visit * Reason Onset Date Comments Med Refill 04/26/2023 Encounter Details Date Type Department Care Team ([facility] st Contact Info) Description 04/26/2023 Telephone [facility] MEDICINE 230 [place], [place] [phone] Glenna Grossman MD 230 [place], [place] [phone] Med Refill Social History Tobacco Use Types [...] 2:45 PM EDT Office Visit [facility] MEDICINE [address] [place] [phone] Glenna Grossman MD 230 [place] [address] 08/25/2024 1:30 PM EDT Telemedicine [facility] MED[facility]INE [address] [place] [address] [phone] Steph Molina RN documented as of this encounter Visit Diagnoses Not on filedocumented in this encounter Additional Health Concerns Assessment Noted Time PHQ-9 Depression Total Score: 0 01/07/20 23 11:14 AM EDT documented as of this encounter Care Teams Traffic Lieutenant Relationship Specialty Start Date End Date Glenna Grossman MD 230 [place] [address] PCP - General Family Medicine 07/10/20 documented as of this encounter
--- OUTSIDE RECORDS SUMMARY | 2024-07-18 09:41 | XMS_ITS | Clinical Summary ---
Author Organization [employer] Address [address] [place] [address] 7t [place] [address] Care Team Providers Care Field Crops Harvest Machine Operator Name Role Phone Glenna Grossman MD Primary Care Provide r Allergies Active Allergy Reactions Criticality Noted Date Comments Avinash Inhibitors Angioedema High 03/21/2015 Other reaction(s): cough & mouth swelling Amlodipine Headache,Dizziness 01/14/2018 Nausea, vomiting Celecoxib 11/28/2018 weakness Other reaction(s): weakness Metoclopramide Hives 06/26/2010 Oxycodone Hives 06/26/2010 Pantoprazole Unknown 06/26/2010 Tiotropium 07/06/2018 Other reaction(s): per healthcare specialist Medications meclizine (Antivert) 25 MG tabletIndications:Dizzi ness TAKE 1 TABLET BY MOUTH THREE TIMES DAILY IN THE MORNING, AT NOON, AND AT BEDTIME NEEDED FOR DIZZINESS 30 tablet 023 Active Menthol (Cepacol Sore Throat) 5.4 MG lozengeIndications:Sore throat Dissolve 1 tablet in the mouth every 2 (two) hours if needed (angy throat). 20 lozenge 024 Active fluticasone (Flonase) 50 MCG/ACT nasal spray USE 2 SPRAYS IN EACH NOSTRIL EVERY MORNING 48 g 024 Active naloxone (Narcan) 4 mg/0.1 mL nasal sprayIndications:Chroni c 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 Administer 1 spray (4 mg) into affected nostril(s) if needed for opioid reversal. May repeat every 2-3 minutes if needed, alternating nostrils, until medical assistance becomes available. 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 30 tablet 1 024 2024 Active Multiple Vitamin (Multivitamin) tabletIndications:Pure hypercholesterolemia TAKE 1 TABLET BY MOUTH EVERY MORNING 90 tablet 1 024 Active theophylline ER (Elbert-Dur) 300 MG 12 hr tabletIndications:Sever e persistent asthma without complication TAKE 1 TABLET BY MOUTH TWICE DAILY IN THE MORNING AND AT BEDTIME 180 tablet 1 024 Active losartan (Cozaar) 25 MG tabletIndications:Sever e persistent asthma without complication TAKE 1 TABLET BY MOUTH EVERY MORNING 90 tablet 1 024 Active acetaminophen (Tylenol 8 Hour) 650 MG ER tabletIndications:Other type of osteoarthritis, unspecified site TAKE 1 TABLET BY MOUTH EVERY 8 HOURS NEEDED 60 tablet 1 024 Active baclofen (Lioresal) 5 MG tabletIndications:Myalg ia TAKE 1 TABLET BY MOUTH THREE TIMES DAILY 30 tablet 1 024 Active albuterol (2.5 MG/3ML) 0.083% nebulizer solutionIndications:Sev ere asthma, unspecified whether complicated, unspecified whether persistent INHALE 1 AMPULE USING A NEBULIZER SIX TIMES DAILY 180 mL 024 Active albuterol (Ventolin HFA) 108 (90 Base) MCG/ACT inhalerIndications:Samantha re asthma, unspecified whether complicated, unspecified whether persistent INHALE 2 PUFFS BY MOUTH FOUR TIMES DAILY DIRECTED 18 g 024 Active rosuvastatin (Crestor) 10 MG tabletIndications:Pure hypercholesterolemia TAKE 1 TABLET BY MOUTH EVERY MORNING 90 tablet 1 024 Active triamcinolone (Kenalog) 0.1 % creamIndications:Dry skin dermatitis Apply topically if needed in the morning and at bedtime (pain and swelling). 30 g 2 024 Active ondansetron (Zofran) 4 MG tabletIndications:Gastr oesophageal reflux disease without esophagitis Take 2 tablets (8 mg) by mouth every 8 (eight) hours if needed for nausea or vomiting. TAKE 2 TABLETS BY MOUTH EVERY 8 HOURS NEEDED FOR NAUSEA AND VOMITING 30 tablet 1 024 Active dicyclomine (Bentyl) 20 MG tabletIndications:Abdom inal pain, unspecified abdominal location TAKE 1 TABLET BY MOUTH EVERY MORNING 30 tablet 1 025 Active simethicone (Mylicon) 80 MG chewable tablet CHEW 1 TABLET BY MOUTH FOUR TIMES DAILY NEEDED 120 tablet 1 025 Active Advair HFA 230-21 MCG/ACT inhalerIndications:Samantha re persistent asthma, unspecified whether complicated INHALE 1 PUFF BY MOUTH TWICE DAILY IN THE MORNING AND AT BEDTIME. RINSE MOUTH AFTER USING., DO NOT SWALLOW. ADMINISTER WITH SPACER 12 g 11 025 Active traMADol (Ultram) 50 MG tabletIndications:Chron ic bilateral low back pain with left-sided sciatica TAKE 2 TABLETS BY MOUTH EVERY 8 HOURS NEEDED FOR SEVERE PAIN 168 tablet 025 2024 Active Problems Problem Noted Date Diagnosed Date [...] (06/24/2023 8:16 AM EST): Referred today to staying machine operator w noted hearing loss -reported as chronic [...] Encounters Date Type Department Care Team Description 07/07/2024 Orders Only GENERIC EXTERNAL DATA DEPARTMENT Provider, Generic External Data 06/16/2024 10:30 AM EST Telemedicine [facility] [address] [place] [address] Steph Molina, hide mill worker 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 06/16/2024 Travel 06/16/2024 Telephone [facility] [address] [place] [address] Aileen Palacios RN Results 06/16/2024 Telephone [facility] [address] [place] [address] Steph Molina, RN Recommend VOCATIONAL COUNSELOR Tele Tier 2 06/15/2024 Orders Only [facility] [address] [place] [address] Glenna Grossman MD 06/13/2024 Refill C MEDICINE [address] [place] [address] Glenna Grossman MD Chronic bilateral low back pain with left-sided sciatica 06/13/2024 Refill [facility] [address] [place] [address] Glenna Grossman MD Severe persistent asthma, unspecified whether complicated 06/09/2024 Refill [facility] MEDICINE [address] [place] [address] Glenna Grossman MD Abdominal pain, unspecified abdominal location 05/22/2024 Refill [facility] [address] [place] [address] Glenna Grossman MD Gastroesophageal reflux disease without esophagitis 05/10/[address] [address] Glenna Grossman MD 05/02/2024 11:00 AM EST Office Visit [address] [address] Glenna Grossman MD Head and neck lymphadenopathy (Primary Dx); Dry skin dermatitis; Non-healing skin lesion; Essential hypertension; Encounter for immunization 05/02/2024 Travel 05/01/[address] [address] Sonia Saldana [place] Chart Prep 04/19/2024 Orders Only GENERIC EXTERNAL DATA DEPARTMENT Provider, Generic External Data 04/19/[address] [address] Glenna Grossman MD Pure hypercholesterolemia; Abdominal pain, unspecified abdominal location 04/18/2024 Patient Outreach [address] [address] Glenna Grossman MD Pre-visit Planning ([facility] screening completed on 09/28/2023) 04/17/[address] [address] Ana Kraft MD Severe asthma, unspecified whether complicated, unspecified whether persistent 04/17/[address] [address] Glenna Grossman MD Chronic bilateral low back [...] 2:45 PM EDT Office Visit [facility] [address] [place] [phone] Glenna Grossman MD [address] [place] [phone] 08/25/2024 1:30 PM EDT Telemedicine [facility] [address] [place] [phone] Steph Molina RN Health Maintenance Due Date Last Done Comments [...] 01/11/2025 01/12/2024 Depression Screening 05/02/2025 05/02/2024, 05/02/20 24 Tobacco Screening 05/02/2025 05/02/2024 Dental X-Ray: Full [...] LEVEL 4 Routine 07/07/2024 8:10 AM EST US HEAD NECK SOFT TISSUE Routine 06/14/2024 [...] complication, without long-term current use of insulin ([facility]) BI MAMMOGRAM SCREENING TOMOSYNTHESIS BILATERAL Routine 07/22/2023 1:40 PM EST PANORAMIC RADIOGRAPHIC IMAGE Routine 09/23/2022 3:30 PM EDT PERIODIC ORAL EVALUATION - ESTABLISHED PATIENT Routine 09/23/2022 3:30 PM EDT from Last 3 Months or Most Recently Relevant to Health Maintenance Results * Gross and Microscopic Level 4 (07/07/2024 8:10 AM EST) 07/07/2024 8:10 AM EST 07/07/2024 8:24 AM EST [facility] LABS - 07/14/2024 7:42 AM EST ----- ------- Name: Lia Strauss ? Age/Sex: 84/F ? : 1940 Unit#: [id number] ?? Attend Dr: Devonte Acevedo MD ?Re07/07/24 ?Status: DEP SDC ? Location: HO.SSS ?Disch: ? ----- ------- SPEC : [id number] ?RECD: 07/07/24 ? STATUS: ??SOUT ? REQ NUM: [id number] ? LORI: 07/07/24 ? SUBM DR: Devonte [...] ? Age/Sex: 84/F ? : 1940 Unit#: [id number] ?? Attend Dr: Devonte Acevedo MD ?Re07/07/24 ?Status: DEP SDC ? Location: HO.SSS ?Disch: ? ----- ------- SPEC : [id number] ?RECD: 07/07/24 ? STATUS: ??SOUT ? REQ NUM: [id number] ? LORI: 07/07/24 ? SUBM DR: Devonte [...] cut surfaces are smooth and sargent-white. ??The u.s. representative portion is submitted in RPMI to [facility] for flow cytometry. ??Remainder of the specimen is sectioned and submitted for microscopic examination in cassettes A1 through A3, 6 pieces each. ??[facility] Results were communicated to Dr. Acevedo via secure text on 07/14/2024. Special studies ordered and performed: immunostains for CD3, CD5, CD10 and Ki-67 Copies To: ?? Glenna Grossman MD ?? [facility] ?? [address] ?? [place] [address] ?? [phone] ?? Devonte Acevedo MD ?? [facility] ?? [address] ?? [place] [address] ?? [phone] ?? [email or web address] ----- ------- Signed (signature on file) Calos Castellanos MD 07/14/24 0742 ? ----- ------- ? END OF REPORT ? us Generic External Data Provider LAB CYTOLOGY TARA HERMOSILLO Final Result [facility] [address] [place] [address] [phone] * US Head Neck Soft Tissue (06/14/2024 1:10 PM EST) Anatomical Region Laterality Modality Head, Neck Ultrasound 06/14/2024 1:10 PM EST Narrative 06/15/2024 8:59 AM EST ? [facility] ?[address] ?[place] [address] ? Ultrasound Report ? Signed ? Patient: Lia Strauss ?MR#: ?? [id number] ? : 1940 ?Acct:[id number] ? Age/Sex: 84 / F ?ADM Date: 06/14/24 ? Loc: HO.US ? Attending Dr: Glenna Hassan MD ? Ordering Physician: Glenna Grossman MD ?? Date of Service: 06/14/24 ?? Procedure(s): US soft tiss head and/or neck ?? Accession Number(s): [id number] ? cc: Glenna Grossman MD ? EXAMINATION: [...] DD/ 1310 ? TD/TT: 06/14/24 1325 ? Lending Manager: ? Procedure Note Emily, Image - 06/15/2024 [place] [address] Ultrasound Report Signed Patient: Lia Strauss#: [id number] : 2Acct:[id number] Age/Sex: 84 / FADM Date: 06/14/24 Loc: HO.US Attending Dr: Glenna Hassan MD Ordering Physician: Glenna Grossman MD Date of Service: 06/14/24 Procedure(s): US soft tiss head and/or neck Accession Number(s): [id number] cc: Glenna Grossman MD EXAMINATION: US SOFT [...] 06/15/24 0857 DD/ 1310 TD/TT: 06/14/24 1325 Lending Manager: us Glenna Hassan MD IMG US PROCEDURES Orestes eusebio Result - Final * Vitamin D, 25-Hydroxy, Total, Immunoassay (04/19/2024 10:18 AM EST) Vitamin D 25-OH Total 35.9 >30 ng/mL [facility] Comment:Health Based Referen ce Values*< 20 ng/mL Juhxpustz44-13 ng/mL Insufficient> 30 ng/mL Sufficient*Yoly PENALOZA. N [...] ORDERAB LES Final Result Performing Organization Address [facility] Co de Phone Number [facility] [address] [place] [phone] * (ABNORMAL) CREATININE, 24 HR GROUP (04/19/2024 9:22 AM EST) Creatinine, 24 Hour Urine 0.6(L) 1.0 - 2.0 G/Day [facility] Creatinine, Urine 24.14 [facility] Urine Total Volume 24 Hour 2,450 mL [facility] 04/19/2024 9:22 AM EST 04/19/2024 10:36 AM EST Narrative [facility] - 04/19/2024 12:17 PM EST [id number] Generic External Data Provider LAB URINE ORDERAB LES Final Result Performing Organization Address [facility]/ZIP Co de Phone Number [facility] [address] [place] [phone] * (ABNORMAL) Calcium, 24 Hour Urine W/ Creatinine (04/19/2024 9:22 AM EST) Calcium, 24 Hour Urine 25(A) mg/24 h [facility] Comment:Reference Range 35-2 50 Low calcium diet 35-200 Calcium/Creatini ne Ratio 37 30 - 275 mg/g creat [facility] Creatinine, 24 Hour Urine 0.66 0.50 - 2.15 g/24 h [facility] Comment:THIS TEST WAS PERFOR MED AT:[employer] [place] [phone] AVENDAÑO MD 04/19/2024 9:22 AM EST 04/19/2024 10:36 AM EST Narrative [facility] - 04/21/2024 5:07 PM EST [id number] us Generic External Data Provider LAB URINE ORDERAB LES Final Result [facility] [address] [place] [address] [phone] * POCT HGB A1C (01/12/2024 11:05 AM EDT) Hemoglobin A1C 5.3 4.0 - 6.0 % QC Media Lot # [id number] Lot# Expiration Date [id number] Blood 01/12/2024 11:0 5 AM EDT us Glenna Hassan MD POINT OF CARE TEST EN TER/EDIT ORDERABLES Final Result * Lipid Panel, Standard (10/06/2023 3:07 PM EDT) Triglycerides 65 <150 mg/dL [facility] Comment:Desirable Triglyceri de: less than 150 mg/dLBorderline High Triglyceride 150-199 mg/dLHigh Triglyceride: 200-499 mg/dLVery High Triglyceride: greater than or equal to 5OO mg/dL Cholesterol 145 <200 mg/dL [facility] Comment:Desirable Cholestero l: less than 200 mg/dLBorderline High Cholesterol: 200-239 mg/dLHigh Cholesterol: greater than 239 mg/dL LDL Cholesterol Calculated 59 <100 mg/dL [facility] Comment:Desirable LDL: less than 100 mg/dLNear Optimal/Above Optimal LDL: 110- 129 mg/dLBorderline High LDL: 130-159 mg/dLHigh LDL: 160-189 mg/dLVery High LDL: greater than or equal to 190 mg/dL HDL Cholesterol 73 >40 mg/dL [facility] Comment:Desirable HDL: great er than 40 mg/dL Note: This HDL assay may give artificially low results in patients with liver disease. Blood Venous blood specimen / Unknown 10/06/2023 3:07 PM EDT 10/06/2023 4:15 PM EDT us Glenna Hassan MD LAB BLOOD ORDERABLES Final Result [facility] [address] [place] [address] [phone] * BI Mammogram Screening Tomosynthesis Bilateral (07/22/2023 1:40 PM EST) Anatomical Region Laterality Modality Breast Bilateral Mammography 07/22/2023 1:40 PM EST Narrative 08/14/2023 10:46 PM EDT ? [facility] ? [address] ?[place] [address] ? Mammography Report ? Signed ? Patient: Lia Strauss ?MR#: ?? [id number] ? : 1940 ?Acct:[id number] ? Age/Sex: 83 / F ?ADM Date: 02/22/24 ? Loc: HO.MAMMO ? Attending Dr: Glenna Hassan MD ? Ordering Physician: Glenna Grossman MD ?Results: ?? 1Negative ? Date of Service: 02/22/24 ?Follow Up: 1 Year From Orig ?? inal Mammogram ? Procedure(s): MM tomosynthesis screening BI ?? Accession Number(s): [id number] ? cc: Glenna Grossman MD ? EXAMINATION: [...] by Abby Etienne MD in OV> ? 08/14/233 ? DD/ 1340 ? TD/TT: ? Lending Manager: ? Procedure Note Emily, Image - 08/14/2023 [facility] [address] [place] [address] [place] [address] Mammography Report Signed Patient: Humera Strauss#: [id number] : 1940cct:[id number] Age/Sex: 83 / FADM Date: 07/22/23 Loc: HO.MAMMO Attending Dr: Glenna Hassan MD Ordering Physician: Glenna Grossman MDResults: 1Negative Date of Service: 07/22/23Follow Up: 1 Year From Orig inal Mammogram Procedure(s): MM tomosynthesis screening BI Accession Number(s): [id number] cc: Glenna Grossman MD EXAMINATION: MM SCREENING [...] in OV> 08/14/23 2243 DD/ 1340 TD/TT: Lending Manager: Glenna Hassan MD IMG BI PROCEDURES Fin al Result from Last 3 Months or Most Recently Relevant to Health Maintenance Insurance [facility] - [facility] Care Teams Field Crops Harvest Machine Operator Relationship Specialty Start Date End Date Glenna Grossman MD [address] [place] [phone] PCP - General Family Medicine 07/10/20
--- OUTSIDE RECORDS SUMMARY | 2024-07-18 09:41 | XMS_ITS | Encounter Summary ---
Author Organization [employer] Address [address] [place] [address] 7t [place] [address] Care Team Providers Care Resident Care Spec Name Role Phone Glenna Grossman MD Primary Care Provide r Reason for Visit * Reason Comments Med Refill Encounter Details Date Type Department Care Team ([facility] Contact Info) Description 02/03/2023 Refill [facility] [address] [place] [address] [phone] Glenna Grossman MD [address] [place] [address] [phone] Routine health maintenance Social History Tobacco Use [...] Description 08/09/2024 2:45 PM EDT Office Visit [facility] [address] [place] [address] [phone] Glenna Grossman MD [address] [place], [place] [phone] 08/25/2024 1:30 PM EDT Telemedicine [facility] [address] [place], [place] [phone] Steph Molina, DIVYA documented as of this encounter Visit Diagnoses Diagnosis Routine health maintenance Unspecified examination documented in this encounter Additional Health Concerns Assessment Noted Time PHQ-9 Depression Total Score: 0 01/07/20 23 11:14 AM EDT documented as of this encounter Care Teams Resident Care Spec Relationship Specialty Start Date End Date Glenna Grossman MD [address] [place] [phone] PCP - General Family Medicine 07/10/20 documented as of this encounter
== END 2024-07-18 09:33 | disposition home or self-care (01) ==
PROVIDERS: PCP Internal Medicine; Visit Provider Surgery
DX: C85.90 Non-Hodgkin lymphoma, unspecified, unspecified site (principal); R59.0 Localized enlarged lymph nodes
CPT/HCPCS: 99024

== ENCOUNTER → 2024-07-18 09:05 | Outpatient (BNVA) | payer OTHER, SELFPAY | PROVIDERS: PCP Internal Medicine; Visit Provider Surgery | DX: C85.90 Non-Hodgkin lymphoma, unspecified, unspecified site (principal); R59.0 Localized enlarged lymph nodes | CPT/HCPCS: 99212 ==

== ENCOUNTER 2024-08-03 08:01 | Outpatient (REF) | payer OTHER, SELFPAY ==
--- OUTSIDE RECORDS SUMMARY | 2024-08-03 08:10 | XMS_ITS | Encounter Summary ---
Author Organization [employer] Address [address] [place] [address] 7t [place] [address] Care Team Providers Care Dumper Operator Name Role Phone Glenna Grossman MD Primary Care Provide r Reason for Visit * Reason Comments Med Refill Encounter Details Date Type Department Care Team (Late st Contact Info) Description 08/24/2022 Refill [facility] [address] [place] [address] [phone] Delores Alexis MD [address] [place] [address] [phone] Chronic bilateral low back pain, unspecified whether [...] Description 08/09/2024 2:45 PM EDT Office Visit [facility] [address] [place] [address] [phone] Glenna Grossman MD [address] [place] [address] [phone] 08/25/2024 1:30 PM EDT Telemedicine [facility] [address] [place] [address] [phone] Tracy, Steph, RN documented as of this encounter Visit Diagnoses Diagnosis Chronic bilateral low back pain, unspecified whether sciatica present documented in this encounter Care Teams Dumper Operator Relationship Specialty Start Date End Date Glenna Grossman MD [address] [place] [address] PCP - General Family Medicine 07/10/20 documented as of this encounter
--- OUTSIDE RECORDS SUMMARY | 2024-08-03 08:10 | XMS_ITS | Encounter Summary ---
Author Organization [employer] Address [address] [facility] 7t [place] [address] Care Team Providers Care A And P Mechanic Name Role Phone Glenna Grossman MD Primary Care Provide r Reason for Visit * Reason Comments Med Refill Encounter Details Date Type Department Care Team ([facility] st Contact Info) Description 04/21/2023 Refill [facility] [address] [place], [place] [phone] Glenna Grossman MD [address] [place] [address] Irritable bowel syndrome with constipation Social History [...] Description 08/09/2024 2:45 PM EDT Office Visit [facility] [address] [place] [phone] Glenna Grossman MD [address] [place] [phone] 08/25/2024 1:30 PM EDT Telemedicine [facility] [address] [place] [phone] Steph Molina, DIVYA documented as of this encounter Visit Diagnoses Diagnosis Irritable bowel syndrome with constipation Irritable bowel syndrome documented in this encounter Additional Health Concerns Assessment Noted Time PHQ-9 Depression Total Score: 0 01/07/20 23 11:14 AM EDT documented as of this encounter Care Teams A And P Mechanic Relationship Specialty Start Date End Date Glenna Grossman MD [address] [place] [phone] PCP - General Family Medicine 07/10/20 documented as of this encounter
--- OUTSIDE RECORDS SUMMARY | 2024-08-03 08:10 | XMS_ITS | Encounter Summary ---
Author Organization [employer] Address [address] [facility] 7t [place] [address] Care Team Providers Care Physics And Astronomy Professor Name Role Phone Glenna Grossman MD Primary Care Provide r Reason for Visit * Reason Comments Med Refill Encounter Details Date Type Department Care Team ([facility] st Contact Info) Description 05/25/2023 Refill [facility]EDS [address] [place], [place] [phone] Glenna Grossman MD [address] [place] [phone] Social History Tobacco Use Types Packs/Day Years [...] 08/09/2024 2:45 PM EDT Office Visit [facility] [address] [place] [address] [phone] Glenna Grossman MD [address] [place] [phone] 08/25/2024 1:30 PM EDT Telemedicine [facility] [address] [place] [address] [phone] Steph Molina, DIVYA documented as of this encounter Visit Diagnoses Not on filedocumented in this encounter Additional Health Concerns Assessment Noted Time PHQ-9 Depression Total Score: 0 01/07/20 23 11:14 AM EDT documented as of this encounter Care Teams Physics And Astronomy Professor Relationship Specialty Start Date End Date Glenna Grossman MD [address] [place] [address] [phone] PCP - General Family Medicine 07/10/20 documented as of this encounter
--- OUTSIDE RECORDS SUMMARY | 2024-08-03 08:10 | XMS_ITS | Encounter Summary ---
Author Organization [employer] Address [address] [facility] 7t [place] [address] Care Team Providers Care Consulting Senior Practice Director Name Role Phone Glenna Grossman MD Primary Care Provide r Reason for Visit * Reason Comments Med Refill Encounter Details Date Type Department Care Team (Late st Contact Info) Description 11/19/2022 Refill [facility]S [address] [place], [place] [phone] Glenna Grossman MD [address] [place] [address] Chronic bilateral low back pain, unspecified whether [...] Description 08/09/2024 2:45 PM EDT Office Visit [facility] [address] [place] [phone] Glenna Grossman MD [address] [place] [phone] 08/25/2024 1:30 PM EDT Telemedicine [facility] [address] [place] [address] [phone] Steph Molina, DIVYA documented as of this encounter Visit Diagnoses Diagnosis Chronic bilateral low back pain, unspecified whether sciatica present documented in this encounter Care Teams Consulting Senior Practice Director Relationship Specialty Start Date End Date Glenna Grossman MD [address] [place] [phone] PCP - General Family Medicine 07/10/20 documented as of this encounter
--- OUTSIDE RECORDS SUMMARY | 2024-08-03 08:10 | XMS_ITS | Encounter Summary ---
Author Organization [employer] Address [address] [place] [address] 7t [place] [address] Care Team Providers Care Damper Worker Name Role Phone Glenna Grossman MD Primary Care Provide r Reason for Visit * Reason Comments Med Refill Encounter Details Date Type Department Care Team ([facility] Contact Info) Description 11/20/2022 Refill [facility] [address] [place], [place] [phone] Glenna Grossman MD [address] [place], [place] [phone] Low back pain, unspecified Social History Tobacco [...] Upcoming Encounters Date Type Department Care Team ([facility] Contact Info) Description 08/09/2024 2:45 PM EDT Office Visit [facility] [address] [place] [address] Glenna Grossman MD [address] [place] [phone] 08/25/2024 1:30 PM EDT Telemedicine [facility] [address] [place] [phone] Steph Molina RN documented as of this encounter Visit Diagnoses Diagnosis Low back pain, unspecified documented in this encounter Care Teams Damper Worker Relationship Specialty Start Date End Date Glenna Grossman MD [address] [place] [phone] PCP - General Family Medicine 07/10/20 documented as of this encounter
--- OUTSIDE RECORDS SUMMARY | 2024-08-03 08:10 | XMS_ITS | Encounter Summary ---
Author Organization [employer] Address [address] [place] [address] 7t [place] [address] Care Team Providers Care Microwave Remote Sensing Scientist Name Role Phone Glenna Grossman MD Primary Care Provide r Encounter Details Date Type Department Care Team (Late st Contact Info) Description 06/23/2022 Abstract [facility] [address] [place] [address] [phone] Shahla Simon, RN [address] [place] [phone] Social History Tobacco Use Types Packs/Day Years [...] Office Visit [facility] [address] [place] [address] [phone] Glenna Grossman MD [address] [place], [place] [phone] 08/25/2024 1:30 PM EDT Telemedicine [address] [address] Steph Molina, RN documented as of this encounter Procedures Procedure Name Priority Date/Time Associated Diagnosis Comments MAMMOGRAPHY Routine 06/19/2022 documented in this encounter Results * Mammography (06/19/2022) Mammogram BIRADS 1: Negative Repeat in 1 year Anatomical Region Laterality Modality Other Historical Provider HEALTH MAINTENANCE Final Result documented in this encounter Visit Diagnoses Not on filedocumented in this encounter Care Teams Microwave Remote Sensing Scientist Relationship Specialty Start Date End Date Glenna Grossman MD [address] [place] [address] PCP - General Family Medicine 07/10/20 documented as of this encounter
--- OUTSIDE RECORDS SUMMARY | 2024-08-03 08:10 | XMS_ITS | Encounter Summary ---
Author Organization [employer] Address [address] [place] [address] 7t [place] [address] Care Team Providers Care Electroplating Worker Name Role Phone Glenna Grossman MD Primary Care Provide r Encounter Details Date Type Department Care Team ([facility] Contact Info) Description 12/16/2022 Telephone [facility] [address] [place] [address] [phone] Glenna Grossman MD [address] [place] [address] [phone] Social History Tobacco Use Types Packs/Day Years [...] Upcoming Encounters Date Type Department Care Team ([facility] Contact Info) Description 08/09/2024 2:45 PM EDT Office Visit [facility] [address] [place] [address] [phone] Glenna Grossman MD [address] [place] [address] [phone] 08/25/2024 1:30 PM EDT Telemedicine [facility] [address] [place] [address] [phone] Steph Molina, RN documented as of this encounter Visit Diagnoses Not on filedocumented in this encounter Care Teams Electroplating Worker Relationship Specialty Start Date End Date Glenna Grossman MD [address] [place] [address] PCP - General Family Medicine 07/10/20 documented as of this encounter
--- OUTSIDE RECORDS SUMMARY | 2024-08-03 08:10 | XMS_ITS | Encounter Summary ---
Author Organization [employer] Address [address] [facility] 7t [place] [address] Care Team Providers Care Waistline Joiner Overlock Name Role Phone Glenna Grossman MD Primary [...] Description 08/09/2024 2:45 PM EDT Office Visit [facility] [address] [place] [phone] Glenna Grossman MD [address] [place] [address] [phone] 08/25/2024 1:30 PM EDT Telemedicine [address] [phone] Steph Molina RN documented as of this encounter Procedures Procedure Name Priority Date/Time Associated Diagnosis Comments GROSS AND MICROSCOPIC LEVEL 4 Routine 07/07/2024 8:10 AM EST documented in this encounter Results * Gross and Microscopic Level 4 (07/07/2024 8:10 AM EST) 07/07/2024 8:10 AM EST 07/07/2024 8:24 AM EST [facility] - 07/20/2024 10:28 AM EST ----- ------- Name: Lia Strauss ? Age/Sex: 84/F ? : 1940 Unit#: [id number] ?? Attend Dr: Devonte Acevedo MD ?Re07/07/24 ?Status: DEP SDC ? Location: HO.SSS ?Disch: ? ----- ------- SPEC : [id number] ?RECD: 07/07/24 ? STATUS: ??SOUT ? REQ NUM: [id number] ? LORI: 07/07/24 ? SUBM DR: Devonte Acevedo MD ? ENTERED: ??07/07/24 ?SP TYPE: Surgical ? OTHR DR: Glenna Grossman MD ? ORDERED: ??Gross Micro L4, IHC, Add. immunos/6, IHC ER/ND/Her2N ? COMMENTS: Block A3 sent to [facility] for LEF1, Cyclin D1, CD20, CD23 ?? CD5 ?IHC's on 07/14/24. ?Addendum Addendum ??1 ?Entered: 07/20/24-1026 Further immunostains show the lesional cells to have weak reactivity with LEF1 and have dim patchy weak CD5 reactivity (highlighting brighter background T-cells). ??CD20 immunostain is diffusely reactive. ??CD21 highlights focal residual follicular dendritic meshwork. 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 ??A john marginal zone lymphoma is less likely. ??There is sufficient material for further testing if desired (e.g. FISH). This case was reviewed intradepartmentally. Technical services for immunohistochemistry studies performed at [facility], [place], [place]; CLIA #[id number] Addendum Signed (signature on file) Calos Castellanos MD 07/20/24 1028 ? ----- ------- ? Diagnosis ?? Lymph node, right cervical, [...] ?? B-cell lymphoma, favor Chronic lymphocytic leukemia/small ? CONTINUED ON NEXT PAGE ----- ------- Name: Lia Strauss ? Age/Sex: 84/F ? : 1940 Unit#: [id number] ?? Attend Dr: Devonte Acevedo MD ?Re07/07/24 ?Status: DEP SDC ? Location: HO.SSS ?Disch: ? ----- ------- SPEC : [id number] ?RECD: 07/07/24-823 ? STATUS: ??SOUT ? REQ NUM: [id number] ? LORI: 07/07/24 ? SUBM DR: Devonte Acevedo MD ? ENTERED: ??07/07/24 ?SP TYPE: Surgical ? OTHR DR: Glenna Grossman MD ? ORDERED: ??Gross Micro L4, IHC, Add. immunos/6, IHC ER/ND/Her2N ? COMMENTS: Block A3 sent to [facility] for LEF1, Cyclin D1, CD20, CD23 ?? CD5 ?IHC's on 07/14/24. ? Diagnosis ?(Continued) ?? lymphocytic lymphoma ?? Immunophenotyping: ?? See [...] Received ?? Right cervical lymph nodes ? Gross Description Received fresh in saline labeled ?right cervical lymph nodes? are 8 rounded fragments of rubbery pink-sargent lymphoid tissue ranging from 0.4-1.5 cm in greatest dimension. ??The outer surfaces are smooth. ??There is a small amount of attached yellow lobulated adipose tissue. The cut surfaces are smooth and sargent-white. ??The data entry representative portion is submitted in RPMI to [facility] for flow cytometry. ??Remainder of the specimen is sectioned and submitted for microscopic examination in cassettes A1 through A3, 6 pieces each. ??[facility] Results were communicated to Dr. Acevedo via secure text on 07/14/2024. Special studies ordered and performed: immunostains for CD3, CD5, CD10 and Ki-67 Copies To: ?? Glenna Grossman MD ?? [facility] ?? [address] [facility] [address] [address] ?? [place] [address] ?? [phone] ? CONTINUED ON NEXT PAGE ----- ------- Name: Lia Strauss ? Age/Sex: 84/F ? : 1940 Unit#: [id number] ?? Attend Dr: Devonte Acevedo MD ?Re07/07/24 ?Status: DEP SDC ? Location: HO.SSS ?Disch: ? ----- ------- SPEC : [id number] ?RECD: 07/07/24-823 ? STATUS: ??SOUT ? REQ NUM: [id number] ? LORI: 07/07/24-809 ? SUBM DR: Devonte Acevedo MD ? ENTERED: ??07/07/24 ?SP TYPE: Surgical ? OTHR DR: Glenna Grossman MD ? ORDERED: ??Gross Micro L4, IHC, Add. immunos/6, IHC ER/ND/Her2N ? COMMENTS: Block A3 sent to [facility] for LEF1, Cyclin D1, CD20, CD23 ?? CD5 ?IHC's on 07/14/24. Copies To: ??(Continued) ?? Devonte Acevedo MD ?? [facility] ?? [address] ?? [place] [address] ?? [phone] ?? [email or web address] ----- ------- Signed (signature on file) Calos Castellanos MD 07/14/24 0742 ? ----- ------- ? END OF REPORT ? us Generic External Data Provider LAB CYTOLOGY ORDE RABLES Final Result Performing Organization Address City/State/[facility] Co de Phone Number [facility] [address] [place] [address] [phone] documented in this encounter Visit Diagnoses Not on filedocumented in this encounter Additional Health Concerns Assessment Noted Time PHQ-9 Depression Total Score: 9 05/02/20 24 11:03 AM EST documented as of this encounter Care Teams Waistline Joiner Overlock Relationship Specialty Start Date End Date Glenna Grossman MD [address] [place] [address] PCP - General Family Medicine 07/10/20 documented as of this encounter
--- OUTSIDE RECORDS SUMMARY | 2024-08-03 08:10 | XMS_ITS | Clinical Summary ---
Author Organization [employer] Address [address] [place] [address] 7t [place] [address] Care Team Providers Care Bi Developer Name Role Phone Glenna Grossman MD Primary Care Provide r Allergies Active Allergy Reactions Criticality Noted Date Comments Avinash Inhibitors Angioedema High 03/21/2015 Other reaction(s): cough & mouth swelling Amlodipine Headache,Dizziness 01/14/2018 Nausea, vomiting Celecoxib 11/28/2018 weakness Other reaction(s): weakness Metoclopramide Hives 06/26/2010 Oxycodone Hives 06/26/2010 Pantoprazole Unknown 06/26/2010 Tiotropium 07/06/2018 Other reaction(s): per agency recruiter Medications meclizine (Antivert) 25 MG tabletIndications:Dizz iness [...] 11 2024 Active traMADol (Ultram) 50 MG tabletIndications:Forest Patrolman dom bilateral low back pain with left-sided sciatica TAKE 2 TABLETS BY MOUTH EVERY 8 HOURS PRIOR TO MEALS FOR SEVERE PAIN 168 tablet 2024 Active traMADol (Ultram) 50 MG tabletIndications:Forest Patrolman dom bilateral low back pain with left-sided sciatica TAKE 2 TABLETS BY MOUTH EVERY 8 HOURS NEEDED FOR SEVERE PAIN 168 tablet 07/20 Discontinued Active Problems Problem Noted Date Diagnosed [...] (06/24/2023 8:16 AM EST): Referred today to special assemblies supervisor w noted hearing loss -reported as chronic [...] Encounters Date Type Department Care Team Description 08/03/2024 Refill [facility] [address] [place] [address] Glenna Grossman MD Abdominal pain, unspecified abdominal location 08/02/2024 Patient Outreach [facility] [address] [place] [address] Glenna Grossman MD Pre-visit Planning ((Unable to reach for PVP screening and or LVM)) 07/20/2024 Refill [facility] [address] [place] [address] Glenna Grossman MD Chronic bilateral low back pain with left-sided sciatica 07/07/2024 Orders Only GENERIC EXTERNAL DATA DEPARTMENT Provider, Generic External Data 06/16/2024 10:30 AM EST Telemedicine [facility] [address] [place] [address] Steph Molina, car rental agency manager 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 06/16/2024 Travel 06/16/2024 Telephone [facility] [address] [place] [address] Aileen Palacios RN Results 06/16/2024 Telephone [facility] [address] [place] [address] Steph Molina, DIVYA Recommend MONITOR CAR OPERATOR Tele Tier 2 06/15/2024 Orders Only [facility] [address] [place] [address] Glenna Grossman MD 06/13/2024 Refill [facility] [address] [place] [address] Glenna Grossman MD Chronic bilateral low back pain with left-sided sciatica 06/13/2024 Refill [facility] [address] [place] [address] Glenna Grossman MD Severe persistent asthma, unspecified whether complicated 06/09/2024 Refill [facility] [address] [place] [address] Glenna Grossman MD Abdominal pain, unspecified abdominal location 05/22/2024 Refill [facility] [address] [place], [place] [phone] Glenna Grossman MD Gastroesophageal reflux disease without esophagitis 05/10/2024 Telephone [facility] [address] [place] [address] Glenna Grossman MD from Last 3 Months Immunizations Name Administration [...] 08/09/2024 2:45 PM EDT Office Visit [facility] [address] [place] [phone] Glenna Grossman MD [address] [place] [address] 08/25/2024 1:30 PM EDT Telemedicine [address] [address] Steph Molina, DIVYA Health Maintenance Due Date [...] 1:10 PM EST Head and neck lymphadenopathy POCT GLYCATED HEMOGLOBIN, TOTAL Routine 01/12/2024 11:05 AM EDT Prediabetes LIPID PANEL, STANDARD Routine 10/06/2023 3:07 PM EDT Essential hypertension Type 2 diabetes mellitus without complication, without long-term current use of insulin ([facility]) BI MAMMOGRAM SCREENING TOMOSYNTHESIS BILATERAL Routine 07/22/2023 1:40 PM EST PANORAMIC RADIOGRAPHIC IMAGE Routine 09/23/2022 3:30 PM EDT PERIODIC ORAL EVALUATION - ESTABLISHED PATIENT Routine 09/23/2022 3:30 PM EDT from Last 3 Months or Most Recently Relevant to Health Maintenance Results * Gross and Microscopic Level 4 (07/07/2024 8:10 AM EST) 07/07/2024 8:10 AM EST 07/07/2024 8:24 AM EST [facility] - 07/20/2024 10:28 AM EST ----- ------- Name: Lia Strauss ? Age/Sex: 84/F ? : 1940 Unit#: [id number] ?? Attend Dr: Devonte Acevedo MD ?Re07/07/24 ?Status: DEP [facility] ? Location: HO.SSS ?Disch: ? ----- ------- SPEC : [id number] ?RECD: 07/07/24 ? STATUS: ??SOUT ? REQ NUM: [id number] ? LORI: 07/07/24 ? SUBM DR: Devnote Acevedo MD ? ENTERED: ??07/07/24 ?SP TYPE: Surgical ? OTHR DR: Glenna Grossman MD ? ORDERED: ??Gross Micro L4, IHC, Add. /, IHC ER/DC/Her2N ? COMMENTS: Block A3 sent to [facility] for LEF1, Cyclin D1, CD20, CD23 ?? CD5 ?IHC's on 07/14/24. ?Addendum Addendum ??1 ?Entered: 07/20/24 Further immunostains show the lesional cells to [...] Technical services for immunohistochemistry studies performed at [facility] [place], [place], [place]; [facility] #[id number] Addendum Signed (signature on file) Calos Castellanos [...] ? Age/Sex: 84/F ? : 1940 Unit#: [id number] ?? Attend Dr: Devonte Acevedo MD ?Re07/07/24 ?Status: DEP SDC ? Location: HO.SSS ?Disch: ? ----- ------- SPEC : [id number] ?RECD: 07/07/24 ? STATUS: ??SOUT ? REQ NUM: [id number] ? LORI: 07/07/24 ? SUBM DR: Devonte Acevedo MD ? ENTERED: ??07/07/24 ?SP TYPE: Surgical ? OTHR DR: Glenna Grossman MD ? ORDERED: ??Gross Micro L4, IHC, Add. immunos/6, IHC ER/DC/Her2N ? COMMENTS: Block A3 sent to [facility] for LEF1, Cyclin D1, CD20, [...] cut surfaces are smooth and sargent-white. ??The treasury representative portion is submitted in RPMI to [facility] for flow cytometry. ??Remainder of the specimen is sectioned and submitted for microscopic examination in cassettes A1 through A3, 6 pieces each. ??[facility] Results were communicated to Dr. Acevedo via secure text on 07/14/2024. Special studies ordered and performed: immunostains for CD3, CD5, CD10 and Ki-67 Copies To: ?? Glenna Grossman MD ?? [facility] ?? [address] ?? [place] [address] ?? [phone] ? CONTINUED ON NEXT PAGE ----- ------- Name: Lia Strauss ? Age/Sex: 84/F ? : 1940 Unit#: [id number] ?? Attend Dr: Devonte Acevedo MD ?Re07/07/24 ?Status: DEP SDC ? Location: HO.SSS ?Disch: ? ----- ------- SPEC : [id number] ?RECD: 07/07/24 ? STATUS: ??SOUT ? REQ NUM: [id number] ? LORI: 07/07/24 ? SUBM DR: Devonte Acevedo MD ? ENTERED: ??07/07/24 ?SP TYPE: Surgical ? OTHR DR: Glenna Grossman MD ? ORDERED: ??Gross Micro L4, IHC, Add. immunos/6, IHC ER/DC/Her2N ? COMMENTS: Block A3 sent to [facility] for LEF1, Cyclin D1, CD20, CD23 ?? CD5 ?IHC's on 07/14/24. Copies To: ??(Continued) ?? Devonte Acevedo MD ?? [facility] ?? [address] ?? [place] [address] ?? [phone] ?? [email or web address] ----- ------- Signed (signature on file) Calos Castellanos MD 07/14/24 0742 ? ----- ------- ? END OF REPORT ? us Generic External Data Provider LAB CYTOLOGY TARA HERMOSILLO Final Result [facility] [address] [facility] [address] [phone] * US Head Neck Soft Tissue (06/14/2024 1:10 PM EST) Anatomical Region Laterality Modality Head, Neck Ultrasound 06/14/2024 1:10 PM EST Narrative 06/15/2024 8:59 AM EST ? [facility] ?[address] ?[place] [address] ? Ultrasound Report ? Signed ? Patient: Mayco Antonio,Lia ?MR#: ?? [id number] ? : 1940 ?Acct:[id number] ? Age/Sex: 84 / F ?ADM Date: 06/14/24 ? Loc: HO.US ? Attending Dr: Glenna Hassan MD ? Ordering Physician: Glenna Grossman MD ?? Date of Service: 06/14/24 ?? Procedure(s): US soft tiss head and/or neck ?? Accession Number(s): [id number] ? cc: Glenna Grossman MD ? EXAMINATION: [...] DD/ 1310 ? TD/TT: 06/14/24 1325 ? Crtt: ? Procedure Note Donsukhwinder, Image - 06/15/[address] [address] Ultrasound Report Signed Patient: Lia StraussMR#: [id number] : 1940cct:[id number] Age/Sex: 84 / FADM Date: 06/14/24 Loc: HO.US Attending Dr: Glenna Hassan MD Ordering Physician: Glenna Grossman MD Date of Service: 06/14/24 Procedure(s): US soft tiss head and/or neck Accession Number(s): [id number] cc: Glenna Grossman MD EXAMINATION: US SOFT [...] 06/15/24 0857 DD/ 1310 TD/TT: 06/14/24 1325 Crtt: Glenna Hassan MD IMG US PROCEDURES Orestes eusebio Result - Final * POCT HGB A1C (01/12/2024 11:05 AM EDT) Hemoglobin A1C 5.3 4.0 - 6.0 % QC Media Lot # [id number] Lot# Expiration Date [id number] Blood 01/12/2024 11:0 5 AM EDT Glenna Hassan MD POINT OF CARE TEST EN TER/EDIT ORDERABLES Final Result * Lipid Panel, Standard (10/06/2023 3:07 PM EDT) Triglycerides 65 <150 mg/dL [facility] Comment:Desirable Triglyceri de: less than 150 mg/dLBorderline High Triglyceride 150-199 mg/dLHigh Triglyceride: 200-499 mg/dLVery High Triglyceride: greater than or equal to 5OO mg/dL Cholesterol 145 <200 mg/dL [facility] Comment:Desirable Cholestero l: less than 200 mg/dLBorderline High Cholesterol: 200-239 mg/dLHigh Cholesterol: greater than 239 mg/dL LDL Cholesterol Calculated 59 <100 mg/dL [facility] Comment:Desirable LDL: less than 100 mg/dLNear Optimal/Above Optimal LDL: 110- 129 mg/dLBorderline High LDL: 130-159 mg/dLHigh LDL: 160-189 mg/dLVery High LDL: greater than or equal to 190 mg/dL HDL Cholesterol 73 >40 mg/dL [facility] Comment:Desirable HDL: great er than 40 mg/dL Note: This HDL assay may give artificially low results in patients with liver disease. Blood Venous blood specimen / Unknown 10/06/2023 3:07 PM EDT 10/06/2023 4:15 PM EDT Glenna Hassan MD LAB BLOOD ORDERABLES Final Result Performing Organization Address City/State/[facility] Co de Phone Number [facility] [address] [place] [address] [phone] * BI Mammogram Screening Tomosynthesis Bilateral (07/22/2023 1:40 PM EST) Anatomical Region Laterality Modality Breast Bilateral Mammography 07/22/2023 1:40 PM EST Narrative 08/14/2023 10:46 PM EDT ? [facility] [place] ? [address] ?[place] [address] ? Mammography Report ? Signed ? Patient: Mayco Antonio,Lia ?MR#: ?? [id number] ? : 1940 ?Acct:[id number] ? Age/Sex: 83 / F ?ADM Date: 02/22/24 ? Loc: HO.MAMMO ? Attending Dr: Glenna Hassan MD ? Ordering Physician: Glenna Grossman MD ?Results: ?? 1Negative ? Date of Service: 07/22/23 ?Follow Up: 1 Year From Orig ?? inal Mammogram ? Procedure(s): MM tomosynthesis screening BI ?? Accession Number(s): [id number] ? cc: Glenna Grossman MD ? EXAMINATION: ?? MM SCREENING DIGITAL BREAST TOMOSYNTHESIS, BILATERAL ? CLINICAL INFORMATION: ? Screening. Asymptomatic. ? COMPARISON: ?? Mammography: This study is compared with prior exams dating back to ?? 2018. ? TECHNIQUE: ?? Digital breast tomosynthesis is [...] by Abby Etienne MD in OV> ? 03/16/ 2243 ? DD/ 1340 ? TD/TT: ? Crtt: ? Procedure Note Donotuseinterpreter, Image - [facility] [address] [place] [address] Mammography Report Signed Patient: Lia StraussMR#: [id number] : 2Acct:[id number] Age/Sex: 83 / FADM Date: 07/22/23 Loc: HO.MAMMO Attending Dr: Glenna Hassan MD Ordering Physician: Glenna Grossman MDResults: 1Negative Date of Service: 07/22/23Follow Up: 1 Year From Orig inal Mammogram Procedure(s): MM tomosynthesis screening BI Accession Number(s): [id number] cc: Glenna Grossman MD EXAMINATION: MM SCREENING [...] in OV> 08/14/23 2243 DD/ 1340 TD/TT: Crtt: Glenna Hassan MD IMG BI PROCEDURES Fin al Result from Last 3 Months or Most Recently Relevant to Health Maintenance Insurance [facility] Care Teams Bi Developer Relationship Specialty Start Date End Date Glenna Grossman MD [address] [place] [phone] PCP - General Family Medicine 07/10/20
--- OUTSIDE RECORDS SUMMARY | 2024-08-03 08:10 | XMS_ITS | Encounter Summary ---
Author Organization [employer] Address [address] [place] [address] 7t [place] [address] Care Team Providers Care Nut Sheller Name Role Phone Glenna Grossman MD Primary Care Provide r Reason for Visit * Reason Comments Med Refill Encounter Details Date Type Department Care Team (Late Contact Info) Description 02/21/[address] [facility] [address] [place] [address] [phone] Glenna Grossman MD [address] [place], [place] [phone] Social History Tobacco Use Types Packs/Day Years [...] Description 08/09/2024 2:45 PM EDT Office Visit [facility] [address] [place] [address] [phone] Glenna Grossman MD [address] [place], [place] [phone] 08/25/2024 1:[address] [facility] [address] [place], [place] [phone] Steph Molina, DIVYA documented as of this encounter Visit Diagnoses Not on filedocumented in this encounter Additional Health Concerns Assessment Noted Time PHQ-9 Depression Total Score: 0 01/07/20 23 11:14 AM EDT documented as of this encounter Care Teams Nut Sheller Relationship Specialty Start Date End Date Glenna Grossman MD [address] [place] [address] PCP - General Family Medicine 07/10/20 documented as of this encounter
--- OUTSIDE RECORDS SUMMARY | 2024-08-03 08:10 | XMS_ITS | Encounter Summary ---
Author Organization [employer] Address [address] [place] [address] 7t [place] [address] Care Team Providers Care Maintenance Of Way Clerk Name Role Phone Glenna Grossman MD Primary Care Provide r Encounter Details Date Type Department Care Team (Latest Contact Info) Description 01/09/[address] [facility] CONVERSIONS Dental, Provider, DDS Social History Tobacco [...] 08/09/2024 2:45 PM EDT Office Visit [facility] [address] [place] [address] Glenna Grossman MD [address] [place] [address] 08/25/2024 1:30 PM EDT Telemedicine [facility] [address] [place] [address] [phone] Steph Molina RN documented as of this encounter Visit Diagnoses Not on filedocumented in this encounter Care Teams Maintenance Of Way Clerk Relationship Specialty Start Date End Date Glenna Grossman MD [address] [place] [address] [phone] PCP - General Family Medicine 07/10/20 documented as of this encounter
--- OUTSIDE RECORDS SUMMARY | 2024-08-03 08:10 | XMS_ITS | Encounter Summary ---
Author Organization [employer] Address [address] [place] [address] 7t [place] [address] Care Team Providers Care Laminating Machine Offbearer Name Role Phone Glenna Grossman MD Primary Care Provide r Reason for Visit * Reason Onset Date Comments Nurse Triage 03/28/2024 Encounter Details Date Type Department Care Team ([facility] st Contact Info) Description 03/28/2024 Telephone [facility] MEDICINE [address] [place], [place] [phone] Glenna Grossman MD 230 [place] [address] Nurse Triage Social History Tobacco Use Types [...] 03/28/2024 1:40 PM EDT Triage call [place] [facility] [place] [id number] Mario Alberto, Pt is asking about hemaglobin possibly being low. Lab result on chart shows HGB with in normal limits. Pt reports appetite is poor but, hasbeen for a while. Pt reports obtained an earlier apt with PCP scheduled for 05/02/24 instead of July. Pt is asking about medications ordered by cardiology. Pt is encouraged to call the production aide office to inquire about orders. Pt has [...] caller accepted this outcome. Contact pt at [phone] (mohawk) documented in this encounter Plan of Treatment Upcoming Encounters Date Type Department Care Team (Late st Contact Info) Description 08/09/2024 2:45 PM EDT Office Visit [facility] MEDICINE [address] [place] [address] Glenna Grossman MD [address] [place] [phone] 08/25/2024 1:30 PM EDT Telemedicine [address] [address] Steph Molina RN documented as of this encounter Visit Diagnoses Not on filedocumented in this encounter Additional Health Concerns Assessment Noted Time PHQ-9 Depression Total Score: 17 024 11:08 AM EDT documented as of this encounter Care Teams Laminating Machine Offbearer Relationship Specialty Start Date End Date Glenna Grossman MD [address] [place] [address] [phone] PCP - General Family Medicine 07/10/20 documented as of this encounter
--- OUTSIDE RECORDS SUMMARY | 2024-08-03 08:10 | XMS_ITS | Encounter Summary ---
Author Organization [employer] Address [address] [place] [address] 7t [place] [address] Care Team Providers Care Pin Ticket Machine Operator Name Role Phone Glenna Grossman MD Primary Care Provide r Reason for Visit * Reason Onset Date Comments Med Refill 01/14/2023 Encounter Details Date Type Department Care Team ([facility] st Contact Info) Description 01/14/2023 Telephone [facility] 230 [place], [place] [phone] Glenna Grossman MD 230 [place], [place] [phone] Med Refill Social History Tobacco Use Types [...] Description 08/09/2024 2:45 PM EDT Office Visit [facility] [address] [place] [address] [phone] Glenna Grossman MD [address] [place] [address] [phone] 08/25/2024 1:30 PM EDT Telemedicine [address] [phone] Steph Molina, DIVYA documented as of this encounter Visit Diagnoses Not on filedocumented in this encounter Additional Health Concerns Assessment Noted Time PHQ-9 Depression Total Score: 0 01/07/20 23 11:14 AM EDT documented as of this encounter Care Teams Pin Ticket Machine Operator Relationship Specialty Start Date End Date Glenna Grossman MD [address] [place] [phone] PCP - General Family Medicine 07/10/20 documented as of this encounter
--- OUTSIDE RECORDS SUMMARY | 2024-08-03 08:10 | XMS_ITS | Encounter Summary ---
Author Organization [employer] [facility] Address [address] [place] [address] 7t [place] [address] Care Team Providers Care Director Of Operations For Therapy Name Role Phone Glenna Grossman MD Primary Care Provide r Encounter Details Date Type Department Care Team (Late st Contact Info) Description 05/28/2022 Orders Only [address] [address] Isabella Cardoso RN Social History Tobacco Use [...] Description 08/09/2024 2:45 PM EDT Office Visit [address] [address] Glenna Grossman MD [address] [place] [address] 08/25/2024 1:30 PM EDT Telemedicine [address] [phone] Steph Molina RN documented as of this encounter Procedures Procedure Name Priority Date/Time Associated Diagnosis Comments BI MAMMOGRAM SCREENING TOMOSYNTHESIS BILATERAL Routine 06/19/2022 10:55 AM EST documented in this encounter Results * BI Mammogram Screening Tomosynthesis Bilateral (06/19/2022 10:55 AM EST) Anatomical Region Laterality Modality Breast Bilateral Mammography 06/19/2022 10:5 5 AM EST Narrative 06/22/2022 3:57 PM EST ? [facility] ? [address] ?[place] [address] ? Mammography Report ? Signed ? Patient: Mayco Antonio,Lia ?MR#: ?? [id number] ? : 1940 ?Acct:[id number] ? Age/Sex: 82 / F ?ADM Date: 06/19/22 ? Loc: HO.MAMMO ? Attending Dr: Glenna Hassan MD ? Ordering Physician: Glenna Grossman MD ?Results: ?? 1Negative ? Date of Service: 06/19/22 ?Follow Up: 1 Year From Orig ?? inal Mammogram ? Procedure(s): MM tomosynthesis screening BI ?? Accession Number(s): [id number] ? cc: Glenna Grossman MD ? EXAMINATION: [...] 1555 ? DD/ 1055 ? TD/TT: ? Commercial Front Load Operator: SANDS ? Procedure Note Nandiniter, Image - 06/22/2022 [facility] [address] [place], [place] [address] Mammography Report Signed Patient: Lia Strauss#: [id number] : 2Acct:[id number] Age/Sex: 82 / FADM Date: 06/19/22 Loc: MORTE[facility] Attending Dr: Glenna Hassan MD Ordering Physician: Glenna Grossman MDResults: 1Negative Date of Service: 06/19/22Follow Up: 1 Year From Orig inal Mammogram Procedure(s): MM tomosynthesis screening BI Accession Number(s): [id number] cc: Glenna Grossman MD EXAMINATION: MM SCREENING [...] in OV> 06/22/22 1555 DD/ 1055 TD/TT: Commercial Front Load Operator: SANDS [facility] External Provider IMG BI PROCEDURES Edited Result - Final documented in this encounter Visit Diagnoses Not on filedocumented in this encounter Care Teams Director Of Operations For Therapy Relationship Specialty Start Date End Date Glenna Grossman MD [address] [place] [phone] PCP - General Family Medicine 07/10/20 documented as of this encounter
--- OUTSIDE RECORDS SUMMARY | 2024-08-03 08:10 | XMS_ITS | Encounter Summary ---
Author Organization [employer] Address [address] [facility] 7t [place] [address] Care Team Providers Care Paramedic Rn Name Role Phone Glenna Grossman MD Primary Care Provide r Encounter Details Date Type Department Care Team ([facility] st Contact Info) Description 06/15/2024 Orders Only [facility] MED[facility]INE 230 [place], [place] [phone] Glenna Grossman MD 230 [place], [place] [phone] Social History Tobacco Use Types Packs/Day Years [...] Description 08/09/2024 2:45 PM EDT Office Visit [facility] MED[facility] [address] [place] [phone] Glenna Grossman MD [address] [place] [address] 08/25/2024 1:30 PM EDT Telemedicine [facility] [address] [place] [address] Steph Molina, RN documented as of this encounter Visit Diagnoses Not on filedocumented in this encounter Additional Health Concerns Assessment Noted Time PHQ-9 Depression Total Score: 9 05/02/20 24 11:03 AM EST documented as of this encounter Care Teams Paramedic Rn Relationship Specialty Start Date End Date Glenna Grossman MD [address] [place] [phone] PCP - General Family Medicine 07/10/20 documented as of this encounter
--- OUTSIDE RECORDS SUMMARY | 2024-08-03 08:10 | XMS_ITS | Encounter Summary ---
Author Organization [employer] Address [address] [facility] 7t [place] [address] Care Team Providers Care Rn Telehealth Name Role Phone Glenna Grossman MD Primary Care Provide r Reason for Visit * Reason Comments Med Refill Encounter Details Date Type Department Care Team (Late st Contact Info) Description 08/03/2024 Refill [facility] 230 [place], [place] [phone] Glenna Grossman MD 230 [place], [place] [phone] Abdominal pain, unspecified abdominal location Social History [...] Description 08/09/2024 2:45 PM EDT Office Visit [facility] [address] [place] [phone] Glenna Grossman MD [address] [place] [address] 08/25/2024 1:30 PM EDT Telemedicine [facility] [address] [place] [phone] Steph Molina RN documented as of this encounter Visit Diagnoses Diagnosis Abdominal pain, unspecified abdominal location documented in this encounter Additional Health Concerns Assessment Noted Time PHQ-9 Depression Total Score: 9 05/02/20 24 11:03 AM EST documented as of this encounter Care Teams Rn Telehealth Relationship Specialty Start Date End Date Glenna Grossman MD [address] [place] [phone] PCP - General Family Medicine 07/10/20 documented as of this encounter
--- OUTSIDE RECORDS SUMMARY | 2024-08-03 08:10 | XMS_ITS | Encounter Summary ---
Author Organization [employer] Address [address] [facility] 7t [place] [address] Care Team Providers Care Esthetician Facialist Name Role Phone Glenna Grossman MD Primary Care Provide r Reason for Visit * Reason Comments Med Refill Encounter Details Date Type Department Care Team ([facility] st Contact Info) Description 04/26/2023 Refill [facility] [address] [place], [place] [phone] Glenna Grossman MD 230 [place] [address] Irritable bowel syndrome with constipation Social History [...] Description 08/09/2024 2:45 PM EDT Office Visit [facility] [address] [place] [address] Glenna Grossman MD [address] [place] [address] 08/25/2024 1:30 PM EDT Telemedicine [facility] [address] [place] [address] Steph Molina, DIVYA documented as of this encounter Visit Diagnoses Diagnosis Irritable bowel syndrome with constipation Irritable bowel syndrome documented in this encounter Additional Health Concerns Assessment Noted Time PHQ-9 Depression Total Score: 0 01/07/20 23 11:14 AM EDT documented as of this encounter Care Teams Esthetician Facialist Relationship Specialty Start Date End Date Glenna Grossman MD [address] [place] [phone] PCP - General Family Medicine 07/10/20 documented as of this encounter
--- OUTSIDE RECORDS SUMMARY | 2024-08-03 08:10 | XMS_ITS | Encounter Summary ---
Author Organization [employer] Address [address] [place] [address] 7t [place] [address] Care Team Providers Care Warehouse Operations Associate Name Role Phone Glenna Grossman MD Primary Care Provide r Reason for Visit * Reason Comments Pre-visit Planning (Unable to reach for PVP screening and or LVM) Encounter Details Date Type Department Care Team ([facility] st Contact Info) Description 08/02/2024 Patient Outreach [facility] 230 [place], [place] [phone] Glenna Grossman MD 230 [place] [address] Pre-visit Planning ((Unable to reach for PVP screening and or LVM)) Social History Tobacco Use Types Packs/Day Years [...] the past 12 months, has t he [employer], gas, oil or water [employer] threatened to shut off services in your [...] as of this encounter Progress Notes * Elissa Aranda - 08/02/2024 10:11 AM EST CC Elissa placed outbound call to patient to complete pre-visit planning. No answer at this time. Patient name and were not confirmed. CC unable to leave a voice message. documented in this encounter Plan of Treatment Upcoming Encounters Date Type Department Care Team (Late st Contact Info) Description 08/09/2024 2:45 PM EDT Office Visit [facility] [address] [place] [phone] Glenna Grossman MD [address] [place] [address] 08/25/2024 1:30 PM EDT Telemedicine [facility] [address] [place] [phone] Steph Molina RN documented as of this encounter Visit Diagnoses Not on filedocumented in this encounter Additional Health Concerns Assessment Noted Time PHQ-9 Depression Total Score: 9 05/02/20 24 11:03 AM EST documented as of this encounter Care Teams Warehouse Operations Associate Relationship Specialty Start Date End Date Glenna Grossman MD 230 [place] [address] PCP - General Family Medicine 07/10/20 documented as of this encounter
--- OUTSIDE RECORDS SUMMARY | 2024-08-03 08:10 | XMS_ITS | Encounter Summary ---
Author Organization [employer] Address [address] [place] [address] 7t [place] [address] Care Team Providers Care Children Counselor Name Role Phone Glenna Grossman MD Primary Care Provide r Reason for Visit * Reason Comments Med Refill Encounter Details Date Type Department Care Team (Late st Contact Info) Description 07/20/2024 Refill [facility] 230 [place], [place] [phone] Glenna Grossman MD 230 [place] [address] Chronic bilateral low back pain with left-sided [...] Description 08/09/2024 2:45 PM EDT Office Visit [facility] [address] [place] [phone] lGenna Grossman MD [address] [place] [phone] 08/25/2024 1:30 PM EDT Telemedicine [facility] [address] [place] [address] Steph Molina RN documented as of this encounter Visit Diagnoses Diagnosis Chronic bilateral low back pain with left-sided sciatica documented in this encounter Additional Health Concerns Assessment Noted Time PHQ-9 Depression Total Score: 9 05/02/20 24 11:03 AM EST documented as of this encounter Care Teams Children Counselor Relationship Specialty Start Date End Date Glenna Grossman MD [address] [place] [phone] PCP - General Family Medicine 07/10/20 documented as of this encounter
--- OUTSIDE RECORDS SUMMARY | 2024-08-03 08:10 | XMS_ITS | Encounter Summary ---
Author Organization [employer] Address [address] [place] [address] 7t [place] [address] Care Team Providers Care Canvas Shrinker Name Role Phone Glenna Grossman MD Primary Care Provide r Reason for Visit * Reason Onset Date Comments Med Refill 04/26/2023 Encounter Details Date Type Department Care Team ([facility] st Contact Info) Description 04/26/2023 Telephone [facility] 230 [place], [place] [phone] Glenna Grossman MD 230 [place], [place] [phone] Med Refill Social History Tobacco Use Types [...] 08/09/2024 2:45 PM EDT Office Visit [facility] [address] [place] [phone] Glenna Grossman MD 230 [place] [address] 08/25/2024 1:30 PM EDT Telemedicine [facility] [address] [place] [address] [phone] Steph Molina RN documented as of this encounter Visit Diagnoses Not on filedocumented in this encounter Additional Health Concerns Assessment Noted Time PHQ-9 Depression Total Score: 0 01/07/20 23 11:14 AM EDT documented as of this encounter Care Teams Canvas Shrinker Relationship Specialty Start Date End Date Glenna Grossman MD 230 [place] [address] PCP - General Family Medicine 07/10/20 documented as of this encounter
--- OUTSIDE RECORDS SUMMARY | 2024-08-03 08:10 | XMS_ITS | Encounter Summary ---
Author Organization [employer] Address [address] [place] [address] 7t [place] [address] Care Team Providers Care Water/Wastewater Project Manager Name Role Phone Glenna Grossman MD Primary Care Provide r Reason for Visit * Reason Comments Med Refill Encounter Details Date Type Department Care Team ([facility] Contact Info) Description 02/03/2023 Refill [facility] [address] [place] [address] [phone] Glenna Grossman MD [address] [place] [address] [phone] Routine health maintenance Social History Tobacco Use [...] EDT Office Visit [facility] [address] [place] [address] [phone] Glenna Grossman MD 230 [place], [place] [phone] 08/25/2024 1:30 PM EDT Telemedicine [facility] 230 [place], [place] [phone] Steph Molina, DIVYA documented as of this encounter Visit Diagnoses Diagnosis Routine health maintenance Unspecified examination documented in this encounter Additional Health Concerns Assessment Noted Time PHQ-9 Depression Total Score: 0 01/07/20 23 11:14 AM EDT documented as of this encounter Care Teams Water/Wastewater Project Manager Relationship Specialty Start Date End Date Glenna Grossman MD [address] [place] [phone] PCP - General Family Medicine 07/10/20 documented as of this encounter
[2024-08-03 11:06] LABS: Creatinine, 24Hr Urine 0.6 G/Day (1.0-2.0); Total Volume 24 Hour Urine 2075 mL
[2024-08-05 18:38] LABS: Calcium, 24 Hr Urine 21 mg/24 h; Calcium/Creatinine Ratio 32 mg/g creat (30-275); Creatinine 24Hr Urine 0.64 g/24 h (0.50-2.15)
== END 2024-08-03 08:02 | disposition home or self-care (01) ==
LOC: HO.LNP 08:01
PROVIDERS: Visit Provider Internal Medicine Endocrinology, Diabetes & Metabolism
DX: M81.0 Age-related osteoporosis without current pathological fracture (principal)
CPT/HCPCS: 82340; 82570

== ENCOUNTER 2024-08-07 13:15 | Outpatient (AMB) | payer OTHER, SELFPAY ==
--- NOTE | 2024-08-07 13:29 | MHC.OFFVIS ---
Vital Signs 08/07/24 13:33 Height 4 ft 7.71 in Weight 110 lb 10.753 oz BMI 25.1 BP 124/60 Blood Pressure Location Lt brachial Position Sitting Pulse 78 Pulse Source Pulse Oximeter Pulse Oximetry (%) 98 Oxygen Delivery Method Room Air Intake Visit Reasons: f/u osteoporosis Intake Note: Patient present today for Osteoporosis follow up. Drill Press Operator Helper Required: Yes Drill Press Operator Helper Language: Mannequin Wig Maker Services: Drill Press Operator Helper Offered & Declined Drill Press Operator Helper Name: Son will interpret Accompanied by: Son Allergies morphine [MORPHINE] Allergy (Severe, Verified 08/07/24 13:34) Agitated WADE Inhibitors Allergy (Intermediate, Verified 08/07/24 13:34) mouth swelling/cough amlodipine Allergy (Intermediate, Verified 08/07/24 13:34) headache/dizziness/nausea/vomiting pantoprazole [From Protonix] Allergy (Intermediate, Verified 08/07/24 13:34) Agitated celecoxib [From Celebrex] Adverse Reaction (Mild, Verified 08/07/24 13:34) Weakness milk [MILK] Adverse Reaction (Mild, Verified 08/07/24 13:34) STOMACH UPSET oxycodone [From Percocet] Adverse Reaction (Mild, Verified 08/07/24 13:34) NAUSEA/RAPID HR/BLURRED VISION HPI Comments Details: 85 YO Female with PMHx bariatric surgery is seen in consultation at the request of PCP for Osteoporosis. Patient was previously seen by Dr. Batista for hypoglycemia First diagnosed in 10 yrs ago .Never saw specialist before for osteoporosis Never Received treatment in the past . No history of pathologic fracture or ONJ. Has several servings of dietary calcium per day in the form of cheese , yogurt .Not Takes Calcium supplement mg daily in divided doses. Not Takes [] IU of Vitamin D daily except in MVI . Denies ever using PPI, anticoagulant, antiepileptic but intermittent glucocorticoid medication for asthma. Not Does weight bearing exercise Fracture history: No Height loss: Yes ASSEMBLY LEADER history: Menarche at age 13- menopause at age 51 - nl menses Denies history of Kidney stones: Denies family history of Osteoporosis or hip fracture. UTD on dental cleanings and sees dentist every 6 months. No planned upcoming dental work or extractions. DXA dated 10/05/23: FINDINGS: LEFT FEMUR, NECK: Current: BMD 0.600 g/cm2, Z-score -0.9, T-score -3.2, osteoporosis. Prior: BMD 0.583 g/cm2. Baseline: BMD 0.794 g/cm2. LEFT FEMUR, TOTAL: Current: BMD 0.664 g/cm2, Z-score -0.6, T-score -2.7, osteoporosis, 1.5% decrease from previous, 25.5% decrease from baseline (<5% change is not significant). Prior: BMD 0.674 g/cm2. Baseline: BMD 0.891 g/cm2. AP SPINE L1-L4: Current: BMD 0.844 g/cm2, Z-score -0.9, T-score -2.8, osteoporosis, 0.8% decrease from previous, 10.5% decrease from baseline (<5% change is not significant). Prior: BMD 0.851 g/cm2. Baseline: BMD 0.943 g/cm2. IDENTIFIED RISK FACTORS: Menopause, rheumatoid arthritis, height loss. HISTORY OF FRACTURE: None listed. MEDICATIONS: Calcium supplements or multivitamin, vitamin D. MM/XR DEXA axial skeleton IMPRESSION: 1. DIAGNOSIS: Osteoporosis based on the lowest T-score value Labs: Secondary workup revealed a very low urinary calcium suggesting calcium malabsorption. 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 Mother No problems noted. Social History Household Members: None Household Members Other:: daughter lives downstairs Housing: House Are you a primary pharmacy customer care specialist to a significant other at home: No Do you presently have visiting nurse or other home services: No Alcohol intake: never Patient Tobacco Use Status: Never used Tobacco Advance Directives Date on File: 06/24/21 service: No Physical Exam Vital Signs: Last Vital Signs Pulse 78 08/07/24 13:33 BP 124/60 08/07/24 13:33 Pulse Ox 98 08/07/24 13:33 Oxygen Delivery Method Room Air 08/07/24 13:33 BMI result Body Mass Index 25.1 Assessment & Plan Assessment & Plan (1) Osteoporosis: Code(s): M81.0 - Age-related osteoporosis without current pathological fracture Category: Medical Plan: This 81-year-old female status post bariatric surgery found to have moderate to severe osteoporosis on bone density. Rule out osteomalacia and low calcium absorption status post bariatric surgery a secondary causes. 24 hour urine for calcium remains low Plan is to increase the calcium supplementation to 650 mg t.i.d.. We will recheck 24 hour urine for calcium and creatinine in 6 weeks time and adjust calcium intake appropriately. Once patient is calcium replete,could consider initiation of an anabolic agent proceeded by an anti resorptive agent. Orders: Orders Creatinine, 24 Hr Group 2 Months M81.0 - Age-related osteoporosis without current pathological fracture Calcium, 24 Hr Ur 2 Months M81.0 - Age-related osteoporosis without current pathological fracture Coding Level of Care Code Est Pt Level 3 (18443) Diagnoses Osteoporosis M81.0
[2024-08-07 13:33] VITALS: BP 124/60; PULSE 78; O2SAT 98; BMI 25.1
--- OUTSIDE RECORDS SUMMARY | 2024-08-07 14:56 | XMS_ITS | Encounter Summary ---
Author Organization [employer] Address [address] [place] [address] 7t [place] [address] Care Team Providers Care Winery Cellar Hand Name Role Phone Glenna Grossman MD Primary Care Provide r Reason for Visit * Reason Comments Med Refill Encounter Details Date Type Department Care Team ([facility] Contact Info) Description 11/20/2022 Refill [facility] CHC MED & PEDS [address] [place], [place] [phone] Glenna Grossman MD 230 [place], [place] [phone] Low back pain, unspecified Social History Tobacco [...] Upcoming Encounters Date Type Department Care Team ([facility] Contact Info) Description 08/09/2024 2:45 PM EDT Office Visit [facility] MEDICINE [address] [place] [address] Glenna Grossman MD [address] [place] [address] 08/25/2024 1:30 PM EDT Telemedicine [facility] MEDICINE [address] [place] [address] Steph Molina RN documented as of this encounter Visit Diagnoses Diagnosis Low back pain, unspecified documented in this encounter Care Teams Winery Cellar Hand Relationship Specialty Start Date End Date Glenna Grossman MD [address] [place] [phone] PCP - General Family Medicine 07/10/20 documented as of this encounter
--- OUTSIDE RECORDS SUMMARY | 2024-08-07 14:56 | XMS_ITS | Encounter Summary ---
Author Organization [employer] Address [address] [facility] 7t [place] [address] Care Team Providers Care Lumber Press Operator Name Role Phone Glenna Grossman MD Primary Care Provide r Encounter Details Date Type Department Care Team ([facility] st Contact Info) Description 06/15/2024 Orders Only [facility] MEDICINE 230 [place], [place] [phone] Glenna Grossman MD 230 [place], [place] [phone] Social History Tobacco Use Types Packs/Day Years [...] Description 08/09/2024 2:45 PM EDT Office Visit [facility] MEDICINE [address] [place] [address] Glenna Grossman MD [address] [place] [address] 185[address] 08/25/2024 1:30 PM EDT Telemedicine [facility] MEDICINE [address] [place] [address] 28351 Steph Molina, RN documented as of this encounter Visit Diagnoses Not on filedocumented in this encounter Additional Health Concerns Assessment Noted Time PHQ-9 Depression Total Score: 9 05/02/20 24 11:03 AM EST documented as of this encounter Care Teams Lumber Press Operator Relationship Specialty Start Date End Date Glenna Grossman MD [address] [place] [address] [phone] PCP - General Family Medicine 07/10/20 documented as of this encounter
--- OUTSIDE RECORDS SUMMARY | 2024-08-07 14:56 | XMS_ITS | Encounter Summary ---
Author Organization [employer] Address [address] [place] [address] 7t [place] [address] Care Team Providers Care Stage Electrician Helper Name Role Phone Glenna Grossman MD Primary Care Provide r Reason for Visit * Reason Comments Med Refill Encounter Details Date Type Department Care Team ([facility] Contact Info) Description 02/03/2023 Refill [facility] MEDICINE [address] [place] [address] [phone] Glenna Grossman MD [address] [place] [address] [phone] Routine health maintenance Social History Tobacco Use [...] 2:45 PM EDT Office Visit [facility] MEDICINE [address] [place] [address] [phone] Glenna Grossman MD 230 [place], [place] [phone] 08/25/2024 1:30 PM EDT Telemedicine [facility] MEDICINE 230 [place], [place] [phone] Steph Molina, DIVYA documented as of this encounter Visit Diagnoses Diagnosis Routine health maintenance Unspecified examination documented in this encounter Additional Health Concerns Assessment Noted Time PHQ-9 Depression Total Score: 0 01/07/20 23 11:14 AM EDT documented as of this encounter Care Teams Stage Electrician Helper Relationship Specialty Start Date End Date Glenna Grossman MD [address] [place] [phone] PCP - General Family Medicine 07/10/20 documented as of this encounter
--- OUTSIDE RECORDS SUMMARY | 2024-08-07 14:56 | XMS_ITS | Encounter Summary ---
Author Organization [employer] Address 75 [facility] 7t [place] [address] Care Team Providers Care First Coat Operator Name Role Phone Glenna Grossman MD Primary Care Provide r Reason for Visit * Reason Comments Med Refill Encounter Details Date Type Department Care Team (Late st Contact Info) Description 08/03/2024 Refill [facility] MEDICINE 230 [place], [place] [phone] Glenna Grossman MD 230 [place], [place] [phone] Abdominal pain, unspecified abdominal location Social History [...] Description 08/09/2024 2:45 PM EDT Office Visit [facility] MEDICINE [address] [place] [address] Glenna Grossman MD [address] [place] [address] 239[address] 08/25/2024 1:30 PM EDT Telemedicine [facility] MEDICINE [address] [place] [address] [phone] Steph Molina RN documented as of this encounter Visit Diagnoses Diagnosis Abdominal pain, unspecified abdominal location documented in this encounter Additional Health Concerns Assessment Noted Time PHQ-9 Depression Total Score: 9 05/02/20 24 11:03 AM EST documented as of this encounter Care Teams First Coat Operator Relationship Specialty Start Date End Date Glenna Grossman MD [address] [place] [phone] PCP - General Family Medicine 07/10/20 documented as of this encounter
--- OUTSIDE RECORDS SUMMARY | 2024-08-07 14:56 | XMS_ITS | Encounter Summary ---
Author Organization [employer] Address 75 [facility] 7t [place] [address] Care Team Providers Care Grid Operator Name Role Phone Glenna Grossman MD Primary Care Provide r Reason for Visit * Reason Comments Med Refill Encounter Details Date Type Department Care Team ([facility] st Contact Info) Description 04/21/2023 Refill [facility] CL[facility] 230 [place], [place] [phone] Glenna Grossman MD 230 [place] [address] Irritable bowel syndrome with constipation Social History [...] 08/09/2024 2:45 PM EDT Office Visit [facility] MEDICINE [address] [place] [address] Glenna Grossman MD [address] [place] [phone] 08/25/2024 1:30 PM EDT Telemedicine [facility] MEDICINE [address] [place] [address] 27091 Steph Molina, DIVYA documented as of this encounter Visit Diagnoses Diagnosis Irritable bowel syndrome with constipation Irritable bowel syndrome documented in this encounter Additional Health Concerns Assessment Noted Time PHQ-9 Depression Total Score: 0 01/07/20 23 11:14 AM EDT documented as of this encounter Care Teams Grid Operator Relationship Specialty Start Date End Date Glenna Grossman MD [address] [place] [phone] PCP - General Family Medicine 07/10/20 documented as of this encounter
--- OUTSIDE RECORDS SUMMARY | 2024-08-07 14:56 | XMS_ITS | Encounter Summary ---
Author Organization [employer] Address 75 [facility] 7t [place] [address] Care Team Providers Care Marketing Instructor Name Role Phone Glenna Grossman MD Primary Care Provide r Reason for Visit * Reason Comments Med Refill Encounter Details Date Type Department Care Team ([facility] st Contact Info) Description 05/25/2023 Refill [facility] CHC MED & PEDS [address] [place], [place] [phone] Glenna Grossman MD 230 [place] [address] Social History Tobacco Use Types Packs/Day Years [...] EDT Office Visit [facility] MEDICINE [address] [place] [address] [phone] Glenna Grossman MD [address] [place] [phone] 08/25/2024 1:30 PM EDT Telemedicine [facility] MEDICINE [address] [place] [address] [phone] Steph Molina, DIVYA documented as of this encounter Visit Diagnoses Not on filedocumented in this encounter Additional Health Concerns Assessment Noted Time PHQ-9 Depression Total Score: 0 01/07/20 23 11:14 AM EDT documented as of this encounter Care Teams Marketing Instructor Relationship Specialty Start Date End Date Glenna Grossman MD [address] [place] [address] [phone] PCP - General Family Medicine 07/10/20 documented as of this encounter
--- OUTSIDE RECORDS SUMMARY | 2024-08-07 14:56 | XMS_ITS | Encounter Summary ---
Author Organization [employer] Address [address] [place] [address] 7t [place] [address] Care Team Providers Care Assistant Production Manager Name Role Phone Glenna Grossman MD Primary Care Provide r Encounter Details Date Type Department Care Team (Late st Contact Info) Description 06/23/[address] [facility] MEDICINE [address] [place] [address] [phone] Shahla Simon, RN [address] [place] [address] 28[address] Social History Tobacco Use Types Packs/Day Years [...] EDT Office Visit [facility] MEDICINE [address] [place] [address] [phone] Glenna Grossman MD 230 [place], [place] [phone] 08/25/2024 1:30 PM EDT Telemedicine [address] [address] Steph Molina, RN documented as of this encounter Procedures Procedure Name Priority Date/Time Associated Diagnosis Comments MAMMOGRAPHY Routine 06/19/2022 documented in this encounter Results * Mammography (06/19/2022) Mammogram BIRADS 1: Negative Repeat in 1 year Anatomical Region Laterality Modality Other Historical Provider HEALTH MAINTENANCE Final Result documented in this encounter Visit Diagnoses Not on filedocumented in this encounter Care Teams Assistant Production Manager Relationship Specialty Start Date End Date Glenna Grossman MD 230 [place] [address] PCP - General Family Medicine 07/10/20 documented as of this encounter
--- OUTSIDE RECORDS SUMMARY | 2024-08-07 14:56 | XMS_ITS | Encounter Summary ---
Author Organization [employer] Address [address] [place] [address] 7t [place] [address] Care Team Providers Care Abattoir Supervisor Name Role Phone Glenna Grossman MD Primary Care Provide r Encounter Details Date Type Department Care Team (Latest Contact Info) Description 01/09/2019 Abstract [facility] CONVERSIONS Dental, Provider, DDS Social History [...] Description 08/09/2024 2:45 PM EDT Office Visit [facility] MEDICINE [address] [place] [phone] Glenna Grossman MD [address] [place] [phone] 08/25/2024 1:30 PM EDT Telemedicine [facility] MEDICINE [address] [place] [address] [phone] Steph Molina RN documented as of this encounter Visit Diagnoses Not on filedocumented in this encounter Care Teams Abattoir Supervisor Relationship Specialty Start Date End Date Glenna Grossman MD [address] [place] [address] [phone] PCP - General Family Medicine 07/10/20 documented as of this encounter
--- OUTSIDE RECORDS SUMMARY | 2024-08-07 14:56 | XMS_ITS | Encounter Summary ---
Author Organization [employer] Address [address] [place] [address] 7t [place] [address] Care Team Providers Care Chief Projectionist Name Role Phone Glenna Grossman MD Primary Care Provide r Reason for Visit * Reason Comments Med Refill Encounter Details Date Type Department Care Team (Late st Contact Info) Description 07/20/2024 Refill [facility] MEDICINE 230 [place], [place] [phone] Glenna Grossman MD 230 [place] [address] Chronic bilateral low back pain with left-sided [...] Description 08/09/2024 2:45 PM EDT Office Visit [facility] MEDICINE [address] [place] [phone] Glenna Grossman MD [address] [place] [address] 136[address] 08/25/2024 1:30 PM EDT Telemedicine [facility] MEDICINE [address] [place] [address] 25664 Steph Molina RN documented as of this encounter Visit Diagnoses Diagnosis Chronic bilateral low back pain with left-sided sciatica documented in this encounter Additional Health Concerns Assessment Noted Time PHQ-9 Depression Total Score: 9 05/02/20 24 11:03 AM EST documented as of this encounter Care Teams Chief Projectionist Relationship Specialty Start Date End Date Glenna Grossman MD [address] [place] [address] [phone] PCP - General Family Medicine 07/10/20 documented as of this encounter
--- OUTSIDE RECORDS SUMMARY | 2024-08-07 14:56 | XMS_ITS | Encounter Summary ---
Author Organization [facility] Address [address] [place] [address] 7t [place] [address] Care Team Providers Care Waiter/Waitress Formal Name Role Phone Glenna Grossman MD Primary Care Provide r Encounter Details Date Type Department Care Team (Late st Contact Info) Description 05/28/2022 Orders Only [address] [address] Isabella Cardoso RN Social History Tobacco Use [...] Description 08/09/2024 2:45 PM EDT Office Visit [address] [address] Glenna Grossman MD [address] [place] [address] 08/25/2024 1:30 PM EDT Telemedicine [address] [phone] Steph Molina RN documented as of this encounter Procedures Procedure Name Priority Date/Time Associated Diagnosis Comments BI MAMMOGRAM SCREENING TOMOSYNTHESIS BILATERAL Routine 06/19/2022 10:55 AM EST documented in this encounter Results * BI Mammogram Screening Tomosynthesis Bilateral (06/19/2022 10:55 AM EST) Anatomical Region Laterality Modality Breast Bilateral Mammography 06/19/2022 10:5 5 AM EST Narrative 06/22/2022 3:57 PM EST ? [facility] ? [address] ?[place] [address] ? Mammography Report ? Signed ? Patient: Mayco Antonio,Lia ?MR#: ?? [id number] ? : 1940 ?Acct:[id number] ? Age/Sex: 82 / F ?ADM Date: 06/19/22 ? Loc: HO.MAMMO ? Attending Dr: Glenna Hassan MD ? Ordering Physician: Glenna Grossman MD ?Results: ?? 1Negative ? Date of Service: 06/19/22 ?Follow Up: 1 Year From Orig ?? inal Mammogram ? Procedure(s): MM tomosynthesis screening BI ?? Accession Number(s): [id number] ? cc: Glenna Grossman MD ? EXAMINATION: [...] 1555 ? DD/ 1055 ? TD/TT: ? Comfort Advisor: SANDS ? Procedure Note Nandiniter, Image - 06/22/2022 [facility] [address] [place] [place], [place] [address] Mammography Report Signed Patient: Lia Strauss#: [id number] : 2Acct:[id number] Age/Sex: 82 / FADM Date: 06/19/22 Loc: MORTE[facility] Attending Dr: Glenna Hassan MD Ordering Physician: Glenna Grossman MDResults: 1Negative Date of Service: 06/19/22Follow Up: 1 Year From Orig inal Mammogram Procedure(s): MM tomosynthesis screening BI Accession Number(s): [id number] cc: Glenna Grossman MD EXAMINATION: MM SCREENING [...] in OV> 06/22/22 1555 DD/ 1055 TD/TT: Comfort Advisor: SANDS [facility] External Provider IMG BI PROCEDURES Edited Result - Final documented in this encounter Visit Diagnoses Not on filedocumented in this encounter Care Teams Waiter/Waitress Formal Relationship Specialty Start Date End Date Glenna Grossman MD [address] [place] [phone] PCP - General Family Medicine 07/10/20 documented as of this encounter
--- OUTSIDE RECORDS SUMMARY | 2024-08-07 14:56 | XMS_ITS | Encounter Summary ---
Author Organization [employer] Address [address] [place] [address] 7t [place] [address] Care Team Providers Care Pit Boss Name Role Phone Glenna Grossman MD Primary Care Provide r Reason for Visit * Reason Onset Date Comments Med Refill 04/26/2023 Encounter Details Date Type Department Care Team ([facility] st Contact Info) Description 04/26/2023 Telephone [facility] MEDICINE 230 [place], [place] [phone] Glenna Grossman MD 230 [place], [place] [phone] Med Refill Social History Tobacco Use Types [...] Description 08/09/2024 2:45 PM EDT Office Visit [facility] MEDICINE [address] [place] [phone] Glenna Grossman MD 230 [place] [address] 08/25/2024 1:30 PM EDT Telemedicine [facility] MEDICINE [address] [place] [address] [phone] Steph Molina RN documented as of this encounter Visit Diagnoses Not on filedocumented in this encounter Additional Health Concerns Assessment Noted Time PHQ-9 Depression Total Score: 0 01/07/20 23 11:14 AM EDT documented as of this encounter Care Teams Pit Boss Relationship Specialty Start Date End Date Glenna Grossman MD 230 [place] [address] PCP - General Family Medicine 07/10/20 documented as of this encounter
--- OUTSIDE RECORDS SUMMARY | 2024-08-07 14:56 | XMS_ITS | Encounter Summary ---
Author Organization [employer] Address 75 [facility] 7t [place] [address] Care Team Providers Care Gem Setter Name Role Phone Glenna Grossman MD Primary Care Provide r Reason for Visit * Reason Comments Med Refill Encounter Details Date Type Department Care Team ([facility] st Contact Info) Description 04/26/2023 Refill [facility]BILE VACCINE CLINIC 230 [place], [place] [phone] Glenna Grossman MD 230 [place] [address] Irritable bowel syndrome with constipation Social History [...] 2:45 PM EDT Office Visit [facility] MEDICINE [address] [place] [phone] Glenna Grossman MD [address] [place] [address] 08/25/2024 1:30 PM EDT Telemedicine [facility] MEDICINE [address] [place] [address] Steph Molina, DIVYA documented as of this encounter Visit Diagnoses Diagnosis Irritable bowel syndrome with constipation Irritable bowel syndrome documented in this encounter Additional Health Concerns Assessment Noted Time PHQ-9 Depression Total Score: 0 01/07/20 23 11:14 AM EDT documented as of this encounter Care Teams Gem Setter Relationship Specialty Start Date End Date Glenna Grossman MD [address] [place] [phone] PCP - General Family Medicine 07/10/20 documented as of this encounter
--- OUTSIDE RECORDS SUMMARY | 2024-08-07 14:56 | XMS_ITS | Encounter Summary ---
Author Organization [employer] Address [address] [place] [address] 7t [place] [address] Care Team Providers Care Manager Clinical Research Name Role Phone Glenna Grossman MD Primary Care Provide r Reason for Visit * Reason Comments Med Refill Encounter Details Date Type Department Care Team (Late Contact Info) Description 02/21/2023 Refill [facility] MEDICINE [address] [place] [address] [phone] Glenna Grossman MD 230 [place], [place] [phone] Social History Tobacco Use Types Packs/Day Years [...] Description 08/09/2024 2:45 PM EDT Office Visit [facility] MEDICINE [address] [place] [address] [phone] Glenna Grossman MD 230 [place], [place] [phone] 08/25/2024 1:30 PM EDT Telemedicine [facility] MEDICINE 230 [place], [place] [phone] Steph Molina, DIVYA documented as of this encounter Visit Diagnoses Not on filedocumented in this encounter Additional Health Concerns Assessment Noted Time PHQ-9 Depression Total Score: 0 01/07/20 23 11:14 AM EDT documented as of this encounter Care Teams Manager Clinical Research Relationship Specialty Start Date End Date Glenna Grossman MD 230 [place] [address] PCP - General Family Medicine 07/10/20 documented as of this encounter
--- OUTSIDE RECORDS SUMMARY | 2024-08-07 14:56 | XMS_ITS | Encounter Summary ---
Author Organization [employer] Address [address] [place] [address] 7t [place] [address] Care Team Providers Care Glass Curvature Gauger Name Role Phone Glenna Grossman MD Primary Care Provide r Encounter Details Date Type Department Care Team ([facility] Contact Info) Description 12/16/[address] [facility] MEDICINE [address] [place] [address] [phone] Glenna Grossman MD [address] [place] [address] [phone] Social History Tobacco Use Types Packs/Day Years [...] Upcoming Encounters Date Type Department Care Team ([facility] Contact Info) Description 08/09/2024 2:45 PM EDT Office Visit [facility] MEDICINE [address] [place] [address] [phone] Glenna Grossman MD [address] [place] [address] [phone] 08/25/2024 1:30 PM EDT Telemedicine [facility] MEDICINE [address] [place] [address] [phone] Steph Molina, RN documented as of this encounter Visit Diagnoses Not on filedocumented in this encounter Care Teams Glass Curvature Gauger Relationship Specialty Start Date End Date Glenna Grossman MD 230 [place] [address] PCP - General Family Medicine 07/10/20 documented as of this encounter
--- OUTSIDE RECORDS SUMMARY | 2024-08-07 14:56 | XMS_ITS | Encounter Summary ---
Author Organization [employer] Address [address] [place] [address] 7t [place] [address] Care Team Providers Care Sales Clerk Supervisor Name Role Phone Glenna Grossman MD Primary Care Provide r Reason for Visit * Reason Comments Pre-visit Planning (Unable to reach for PVP screening and or LVM) Encounter Details Date Type Department Care Team ([facility] st Contact Info) Description 08/02/2024 Patient Outreach [facility] MEDICINE 230 [place], [place] [phone] Glenna Grossman MD 230 [place] [address] Pre-visit Planning ((Unable to reach for PVP [...] the past 12 months, has t he [address], gas, oil or water [employer] threatened to shut off services in your [...] 2:45 PM EDT Office Visit [facility] MEDICINE [address] [place] [address] Glenna Grossman MD [address] [place] [address] 08/25/2024 1:30 PM EDT Telemedicine [facility] MEDICINE [address] [place] [phone] Steph Molina RN documented as of this encounter Visit Diagnoses Not on filedocumented in this encounter Additional Health Concerns Assessment Noted Time PHQ-9 Depression Total Score: 9 05/02/20 24 11:03 AM EST documented as of this encounter Care Teams Sales Clerk Supervisor Relationship Specialty Start Date End Date Glenna Grossman MD 230 [place] [address] PCP - General Family Medicine 07/10/20 documented as of this encounter
--- OUTSIDE RECORDS SUMMARY | 2024-08-07 14:56 | XMS_ITS | Encounter Summary ---
Author Organization [employer] Address 75 [facility] 7t [place] [address] Care Team Providers Care Public Speaker Name Role Phone Glenna Grossman MD Primary Care Provide r Reason for Visit * Reason Comments Med Refill Encounter Details Date Type Department Care Team (Late st Contact Info) Description 11/19/[address] [facility] CHC MED & PEDS [address] [place], [place] [phone] Glenna Grossman MD 230 [place] [address] Chronic bilateral low back pain, unspecified whether [...] [facility] MED[facility] [address] [place] [phone] Glenna Grossman MD [address] [place] [address] 08/25/2024 1:30 PM EDT Telemedicine [facility] MEDICINE [address] [place] [address] [phone] Steph Molina, DIVYA documented as of this encounter Visit Diagnoses Diagnosis Chronic bilateral low back pain, unspecified whether sciatica present documented in this encounter Care Teams Public Speaker Relationship Specialty Start Date End Date Glenna Grossman MD [address] [place] [phone] PCP - General Family Medicine 07/10/20 documented as of this encounter
--- OUTSIDE RECORDS SUMMARY | 2024-08-07 14:56 | XMS_ITS | Encounter Summary ---
Author Organization [employer] Address [address] [place] [address] 7t [place] [address] Care Team Providers Care Show Host Name Role Phone Glenna Grossman MD Primary Care Provide r Reason for Visit * Reason Onset Date Comments Med Refill 01/14/2023 Encounter Details Date Type Department Care Team ([facility] st Contact Info) Description 01/14/2023 Telephone [facility] [address] [place], [place] [phone] Glenna Grossman MD [address] [place], [place] [phone] Med Refill Social History Tobacco Use Types [...] 2:45 PM EDT Office Visit [facility] [address] [place] [address] [phone] Glenna Grossman MD [address] [place] [address] [phone] 08/25/2024 1:30 PM EDT Telemedicine [address] [phone] Steph Molina, DIVYA documented as of this encounter Visit Diagnoses Not on filedocumented in this encounter Additional Health Concerns Assessment Noted Time PHQ-9 Depression Total Score: 0 01/07/20 23 11:14 AM EDT documented as of this encounter Care Teams Show Host Relationship Specialty Start Date End Date Glenna Grossman MD [address] [place] [phone] PCP - General Family Medicine 07/10/20 documented as of this encounter
--- OUTSIDE RECORDS SUMMARY | 2024-08-07 14:56 | XMS_ITS | Encounter Summary ---
Author Organization [employer] Address [address] [place] [address] 7t [place] [address] Care Team Providers Care Automotive Professional Name Role Phone Glenna Grossman MD Primary Care Provide r Reason for Visit * Reason Comments Med Refill Encounter Details Date Type Department Care Team (Late st Contact Info) Description 08/24/2022 Refill [facility] MEDICINE [address] [place] [address] [phone] Delores Alexis MD [address] [place] [address] [phone] Chronic bilateral low back pain, unspecified whether [...] [facility] [address] [place] [address] [phone] Glenna Grossman MD [address] [place] [address] [phone] 08/25/2024 1:30 PM EDT Telemedicine [facility] MED[facility]INE [address] [place] [address] [phone] Tracy, Steph, RN documented as of this encounter Visit Diagnoses Diagnosis Chronic bilateral low back pain, unspecified whether sciatica present documented in this encounter Care Teams Automotive Professional Relationship Specialty Start Date End Date Glenna Grossman MD [address] [place] [address] PCP - General Family Medicine 07/10/20 documented as of this encounter
--- OUTSIDE RECORDS SUMMARY | 2024-08-07 14:57 | XMS_ITS | Clinical Summary ---
Author Organization [employer] Address [address] [place] [address] 7t [place] [address] Care Team Providers Care Structural Steel Trades Worker Name Role Phone Glenna Grossman MD Primary Care Provide r Allergies Active Allergy Reactions Criticality Noted Date Comments Avinash Inhibitors Angioedema High 03/21/2015 Other reaction(s): cough & mouth swelling Amlodipine Headache,Dizziness 01/14/2018 Nausea, vomiting Celecoxib 11/28/2018 weakness Other reaction(s): weakness Metoclopramide Hives 06/26/2010 Oxycodone Hives 06/26/2010 Pantoprazole Unknown 06/26/2010 Tiotropium 07/06/2018 Other reaction(s): per poultry husbandry teacher Medications meclizine (Antivert) 25 MG tabletIndications:Dizz iness [...] AND VOMITING 30 tablet 1 2023 Active Advair HFA 230-21 MCG/ACT inhalerIndications:Sev ere persistent asthma, unspecified whether complicated INHALE 1 PUFF BY MOUTH TWICE DAILY IN THE MORNING AND AT BEDTIME. RINSE MOUTH AFTER USING., DO NOT SWALLOW. 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 bilateral low back pain with left-sided sciatica TAKE 2 TABLETS BY MOUTH EVERY 8 HOURS PRIOR TO MEALS FOR SEVERE PAIN 168 tablet 2024 Active dicyclomine (Bentyl) 20 MG tabletIndications:Abdo maxim pain, unspecified abdominal location TAKE 1 TABLET BY MOUTH EVERY MORNING 30 tablet 1 2024 Active simethicone (Mylicon) 80 MG chewable tablet CHEW 1 TABLET BY MOUTH FOUR TIMES DAILY NEEDED 120 tablet 1 2024 Active dicyclomine (Bentyl) 20 MG tabletIndications:Abdo maxim pain, unspecified abdominal location TAKE 1 TABLET BY MOUTH EVERY MORNING 30 tablet 1 08/03 Discontinued simethicone (Mylicon) 80 MG chewable tablet CHEW 1 TABLET BY MOUTH FOUR TIMES DAILY NEEDED 120 tablet 1 08/03 Discontinued traMADol (Ultram) 50 MG tabletIndications:Director Of Officiating dom bilateral low back pain with left-sided [...] (06/24/2023 8:16 AM EST): Referred today to waxer w noted hearing loss -reported as chronic [...] Type Department Care Team Description 08/03/2024 Refill [facility] [address] [place] [address] Glenna Grossman MD Abdominal pain, unspecified abdominal location 08/02/2024 Patient Outreach [facility] [address] [place], [place] [phone] Glenna Grossman MD Pre-visit Planning ((Unable to reach for PVP screening and or LVM)) 07/20/2024 Refill [facility] [address] [place], [place] [phone] Glenna Grossman MD Chronic bilateral low back pain with left-sided sciatica 07/07/2024 Orders Only GENERIC EXTERNAL DATA DEPARTMENT Provider, Generic External Data 06/16/2024 10:30 AM EST Telemedicine [facility] [address] [place], [place] [phone] Steph Molina, banking attorney 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 06/16/2024 Travel 06/16/2024 Telephone [facility] [address] [place] [address] Aileen Palacios RN Results 06/16/2024 Telephone [facility] [address] [place] [address] Steph Molina RN Recommend MACHINE BURRER Tele Tier 2 06/15/2024 Orders Only [facility] [address] [place] [address] Glenna Grossman MD 06/13/2024 Refill [facility] [address] [place] [address] Glenna Grossman MD Chronic bilateral low back pain with left-sided sciatica 06/13/2024 Refill [facility] [address] [place] [address] Glenna Grossman MD Severe persistent asthma, unspecified whether complicated 06/09/2024 Refill [facility] [address] [place] [address] Glenna Grossman MD Abdominal pain, unspecified abdominal location 05/22/2024 Refill [facility] [address] [place] [address] Glnena Grossman MD Gastroesophageal reflux disease without esophagitis 05/10/2024 Telephone [facility] [address] [place] [address] Glenna Grossman MD from Last 3 Months [...] Description 08/09/2024 2:45 PM EDT Office Visit [facility] [address] [place] [phone] Glenna Grossman MD [address] [place] [phone] 08/25/2024 1:30 PM EDT Telemedicine [facility] [address] [place] [phone] Steph Molina, DVIYA Health Maintenance Due Date Last Done Comments [...] complication, without long-term current use of insulin ([facility]) BI MAMMOGRAM [...] 8:10 AM EST 07/07/2024 8:24 AM EST [facility] - 07/20/2024 10:28 AM EST ----- ------- Name: Lia Strauss ? Age/Sex: 84/F ? : 1940 Unit#: [id number] ?? Attend Dr: Devonte Acevedo MD ?Re07/07/24 ?Status: DEP SDC ? Location: HO.SSS ?Disch: ? ----- ------- SPEC : [id number] ?RECD: 07/07/24 ? STATUS: ??SOUT ? REQ NUM: [id number] ? LORI: 07/07/24 ? SUBM DR: Devonte Acevedo MD ? ENTERED: ??07/07/24 ?SP TYPE: Surgical ? OTHR DR: Glenna Grossman MD ? ORDERED: ??Gross Micro L4, IHC, Add. immunos/6, IHC ER/AK/Her2N ? COMMENTS: Block A3 sent to [facility] for LEF1, Cyclin D1, CD20, CD23 ?? CD5 ?IHC's on 07/14/24. ?Addendum Addendum ??1 ?Entered: 07/20/248 Further immunostains show the lesional cells to [...] Technical services for immunohistochemistry studies performed at [facility] [place], [place], [place]; [place] #[id number] Addendum Signed (signature on file) Calos Castellanos [...] ? Age/Sex: 84/F ? : 1940 Unit#: [id number] ?? Attend Dr: Devonte Acevedo MD ?Re07/07/24 ?Status: DEP SDC ? Location: HO.SSS ?Disch: ? ----- ------- SPEC : [id number] ?RECD: 07/07/24 ? STATUS: ??SOUT ? REQ NUM: [id number] ? LORI: 07/07/24 ? SUBM DR: Devonte Acevedo MD ? ENTERED: ??07/07/24 ?SP TYPE: Surgical ? OTHR DR: Glenna Grossman MD ? ORDERED: ??Gross Micro L4, IHC, Add. immunos/6, IHC ER/AK/Her2N ? COMMENTS: Block A3 sent to [facility] for LEF1, Cyclin D1, CD20, CD23 ?? [...] cut surfaces are smooth and sargent-white. ??The sales and marketing representative portion is submitted in RPMI to [facility] for flow cytometry. ??Remainder of the specimen is sectioned and submitted for microscopic examination in cassettes A1 through A3, 6 pieces each. ??[facility] Results were communicated to Dr. Acevedo via secure text on 07/14/2024. Special studies ordered and performed: immunostains for CD3, CD5, CD10 and Ki-67 Copies To: ?? Glenna Grossman MD ?? [facility] ?? [address] [facility] ?? [place] [address] ?? [phone] ? CONTINUED ON NEXT PAGE ----- ------- Name: Lia Strauss ? Age/Sex: 84/F ? : 1940 Unit#: [id number] ?? Attend Dr: Devonte Acevedo MD ?Re07/07/24 ?Status: DEP SDC ? Location: HO.SSS ?Disch: ? ----- ------- SPEC : [id number] ?RECD: 07/07/24-823 ? STATUS: ??SOUT ? REQ NUM: [id number] ? LORI: 07/07/24 ? SUBM DR: Devonte Acevedo MD ? ENTERED: ??07/07/24 ?SP TYPE: Surgical ? OTHR DR: Glenna Grossman MD ? ORDERED: ??Gross Micro L4, IHC, Add. immunos/6, IHC ER/AK/Her2N ? COMMENTS: Block A3 sent to [facility] for LEF1, Cyclin D1, CD20, CD23 ?? CD5 ?IHC's on 07/14/24. Copies To: ??(Continued) ?? Devonte Acevedo MD ?? [facility] Sur[facility] ?? [address] ?? [place] [address] ?? [phone] ?? [email or web address] ----- ------- Signed (signature on file) Calos Castellanos MD 07/14/24741 ? ----- ------- ? END OF REPORT ? us Generic External Data Provider LAB CYTOLOGY TARA HERMOSILLO Final Result [facility] [address] [place] [address] [phone] * US Head Neck Soft Tissue (06/14/2024 1:10 PM EST) Anatomical Region Laterality Modality Head, Neck Ultrasound 06/14/2024 1:10 PM EST Narrative 06/15/2024 8:59 AM EST ? [facility] ?[address] ?[place] [address] ? Ultrasound Report ? Signed ? Patient: Mayco Antonio,Lia ?MR#: ?? [id number] ? : 1940 ?Acct:[id number] ? Age/Sex: 84 / F ?ADM Date: 06/14/24 ? Loc: HO.US ? Attending Dr: Glenna Hassan MD ? Ordering Physician: Glenna Grossman MD ?? Date of Service: 06/14/24 ?? Procedure(s): US soft tiss head and/or neck ?? Accession Number(s): [id number] ? cc: Glenna Grossman MD ? EXAMINATION: [...] DD/ 1310 ? TD/TT: 06/14/24 1325 ? Beater Worker Helper: ? Procedure Note Doncarolealysiainterpreter, Image - 06/15/2024 [place] [address] Ultrasound Report Signed Patient: Lia Strauss#: [id number] : 2Acct:[id number] Age/Sex: 84 / FADM Date: 06/14/24 Loc: HO.US Attending Dr: Glenna Hassan MD Ordering Physician: Glenna Grossman MD Date of Service: 06/14/24 Procedure(s): US soft tiss head and/or neck Accession Number(s): [id number] cc: Glenna Grossman MD EXAMINATION: US SOFT [...] 06/15/24 0857 DD/ 1310 TD/TT: 06/14/24 1325 Beater Worker Helper: Glenna Hassan MD IMG US PROCEDURES Orestes eusebio Result - Final * POCT HGB A1C (01/12/2024 11:05 AM EDT) Hemoglobin A1C 5.3 4.0 - 6.0 % QC Media Lot # [id number] Lot# Expiration Date [id number] Blood 01/12/2024 11:0 5 AM EDT us Glenna Hassan MD POINT OF CARE TEST EN TER/EDIT ORDERABLES Final Result * Lipid Panel, Standard (10/06/2023 3:07 PM EDT) Triglycerides 65 <150 mg/dL [facility] Comment:Desirable Triglyceri de: less than 150 mg/dLBorderline High Triglyceride 150-199 mg/dLHigh Triglyceride: 200-499 mg/dLVery High Triglyceride: greater than or equal to 5OO mg/dL Cholesterol 145 <200 mg/dL [facility] Comment:Desirable Cholestero l: less than 200 mg/dLBorderline High Cholesterol: 200-239 mg/dLHigh Cholesterol: greater than 239 mg/dL LDL Cholesterol Calculated 59 <100 mg/dL [facility] Comment:Desirable LDL: less than 100 mg/dLNear Optimal/Above Optimal LDL: 110- 129 mg/dLBorderline High LDL: 130-159 mg/dLHigh LDL: 160-189 mg/dLVery High LDL: greater than or equal to 190 mg/dL HDL Cholesterol 73 >40 mg/dL [facility] Comment:Desirable HDL: great er than 40 mg/dL Note: This HDL assay may give artificially low results in patients with liver disease. Blood Venous blood specimen / Unknown 10/06/2023 3:07 PM EDT 10/06/2023 4:15 PM EDT Glenna Hassan MD LAB BLOOD ORDERABLES Final Result [facility] [address] [place] [phone] * BI Mammogram Screening Tomosynthesis Bilateral (07/22/2023 1:40 PM EST) Anatomical Region Laterality Modality Breast Bilateral Mammography 07/22/2023 1:40 PM EST Narrative 08/14/2023 10:46 PM EDT ? [facility] ? [address] ?[place] [address] ? Mammography Report ? Signed ? Patient: Mayco Antonio,Lia ?MR#: ?? [id number] ? : 1940 ?Acct:[id number] ? Age/Sex: 83 / F ?ADM Date: 02/22/24 ? Loc: HO.MAMMO ? Attending Dr: Glenna Hassan MD ? Ordering Physician: Glenna Grossman MD ?Results: ?? 1Negative ? Date of Service: 07/22/23 ?Follow Up: 1 Year From Orig ?? inal Mammogram ? Procedure(s): MM tomosynthesis screening BI ?? Accession Number(s): [id number] ? cc: Glenna Grossman MD ? EXAMINATION: [...] by Abby Etienne MD in OV> ? 08/14/232242 ? DD/ 1340 ? TD/TT: ? Beater Worker Helper: ? Procedure Note Donotuseinterpreter, Image - 08/14/2023 [facility] [address] [place] [address] Mammography Report Signed Patient: Lia StraussMR#: [id number] : 2Acct:[id number] Age/Sex: 83 / FADM Date: 07/22/23 Loc: HO.MAMMO Attending Dr: Glenna Hassan MD Ordering Physician: Glenna Grossman [facility] 1[facility] Date of Service: 07/22/23Follow Up: 1 Year From Orig inal Mammogram Procedure(s): MM tomosynthesis screening BI Accession Number(s): [id number] cc: Glenna Grossman MD EXAMINATION: MM SCREENING [...] in OV> 08/14/23 2243 DD/ 1340 TD/TT: Beater Worker Helper: Glenna Hassan MD IMG BI PROCEDURES Fin al Result from Last 3 Months or Most Recently Relevant to Health Maintenance Insurance [facility] - [facility] Care Teams Structural Steel Trades Worker Relationship Specialty Start Date End Date Glenna Grossman MD [address] [place] [address] PCP - General Family Medicine 07/10/20
--- OUTSIDE RECORDS SUMMARY | 2024-08-07 14:57 | XMS_ITS | Encounter Summary ---
Author Organization [employer] Address [address] [facility] 7t [place] [address] Care Team Providers Care Gold Marker Name Role Phone Glenna Grossman MD Primary [...] Description 08/09/2024 2:45 PM EDT Office Visit [facility] MEDICINE [address] [place] [phone] Glenna Grossman MD [address] [place] [address] [phone] 08/25/2024 1:30 PM EDT Telemedicine [address] [phone] Steph Molina RN documented as of this encounter Procedures Procedure Name Priority Date/Time Associated Diagnosis Comments GROSS AND MICROSCOPIC LEVEL 4 Routine 07/07/2024 8:10 AM EST documented in this encounter Results * Gross and Microscopic Level 4 (07/07/2024 8:10 AM EST) 07/07/2024 8:10 AM EST 07/07/2024 8:24 AM EST [facility] - 07/20/2024 10:28 AM EST ----- ------- Name: Lia Strauss ? Age/Sex: 84/F ? : 1940 Unit#: [id number] ?? Attend Dr: Devonte Acevedo MD ?Re07/07/24 ?Status: DEP SDC ? Location: HO.SSS ?Disch: ? ----- ------- SPEC : [id number] ?RECD: 07/07/24 ? STATUS: ??SOUT ? REQ NUM: [id number] ? LORI: 07/07/24 ? SUBM DR: Devonte Acevedo MD ? ENTERED: ??07/07/24 ?SP TYPE: Surgical ? OTHR DR: Glenna Grossman MD ? ORDERED: ??Gross Micro L4, IHC, Add. immunos/6, IHC ER/LA/Her2N ? COMMENTS: Block A3 sent to [facility] [...] Technical services for immunohistochemistry studies performed at [facility] [place], [place], [place]; CLIA #[id number] Addendum Signed (signature on file) Calos Castellanos [...] ? Age/Sex: 84/F ? : 1940 Unit#: [id number] ?? Attend Dr: Devonte Acevedo MD ?Re07/07/24 ?Status: DEP SDC ? Location: HO.SSS ?Disch: ? ----- ------- SPEC : [id number] ?RECD: 07/07/24-823 ? STATUS: ??SOUT ? REQ NUM: [id number] ? LORI: 07/07/24 ? SUBM DR: Devonte Acevedo MD ? ENTERED: ??07/07/24 ?SP TYPE: Surgical ? OTHR DR: Glenna Grossman MD ? ORDERED: ??Gross Micro L4, IHC, Add. immunos/6, IHC ER/LA/Her2N ? COMMENTS: Block A3 sent to [facility] [...] cut surfaces are smooth and sargent-white. ??The business representative portion is submitted in RPMI to [facility] for flow cytometry. ??Remainder of the specimen is sectioned and submitted for microscopic examination in cassettes A1 through A3, 6 pieces each. ??[facility] Results were communicated to Dr. Acevedo via secure text on 07/14/2024. Special studies ordered and performed: immunostains for CD3, CD5, CD10 and Ki-67 Copies To: ?? Glenna Grossman MD ?? [facility] ?? [address] [facility] ?? [place] [address] ?? [phone] ? CONTINUED ON NEXT PAGE ----- ------- Name: Lia Strauss ? Age/Sex: 84/F ? : 1940 Unit#: [id number] ?? Attend Dr: Devonte Acevedo MD ?Re07/07/24 ?Status: DEP SDC ? Location: HO.SSS ?Disch: ? ----- ------- SPEC : [id number] ?RECD: 07/07/24-823 ? STATUS: ??SOUT ? REQ NUM: [id number] ? LORI: 07/07/24-809 ? SUBM DR: Devonte Acevedo MD ? ENTERED: ??07/07/24 ?SP TYPE: Surgical ? OTHR DR: Glenna Grossman MD ? ORDERED: ??Gross Micro L4, IHC, Add. immunos/6, IHC ER/LA/Her2N ? COMMENTS: Block A3 sent to [facility] for LEF1, Cyclin D1, CD20, CD23 ?? CD5 ?IHC's on 07/14/24. Copies To: ??(Continued) ?? Devonte Acevedo MD ?? [facility] General Sur[facility] ?? [address] ?? [place] [address] ?? [phone] ?? [email or web address] ----- ------- Signed (signature on file) Calos Castellanos MD 07/14/24 0742 ? ----- ------- ? END OF REPORT ? us Generic External Data Provider LAB CYTOLOGY ORDE RABLES Final Result Performing Organization Address City/State/[facility] Co de Phone Number [facility] [address] [place] [address] [phone] documented in this encounter Visit Diagnoses Not on filedocumented in this encounter Additional Health Concerns Assessment Noted Time PHQ-9 Depression Total Score: 9 05/02/20 24 11:03 AM EST documented as of this encounter Care Teams Gold Marker Relationship Specialty Start Date End Date Glenna Grossman MD [address] [place] [address] PCP - General Family Medicine 07/10/20 documented as of this encounter
--- OUTSIDE RECORDS SUMMARY | 2024-08-07 14:57 | XMS_ITS | Encounter Summary ---
Author Organization [employer] Address [address] [place] [address] 7t [place] [address] Care Team Providers Care Computer Aided Design Operator Name Role Phone Glenna Grossman MD Primary Care Provide r Reason for Visit * Reason Onset Date Comments Nurse Triage 03/28/2024 Encounter Details Date Type Department Care Team ([facility] st Contact Info) Description 03/28/2024 Telephone [facility] MEDICINE [address] [place], [place] [phone] Glenna Grossman MD [address] [place] [address] Nurse Triage Social History Tobacco Use Types [...] 03/28/2024 1:40 PM EDT [place]riage [place] [id number] Mario Alberto, Pt is asking about hemaglobin possibly being low. Lab result on chart shows HGB with in normal limits. Pt reports appetite is poor but, hasbeen for a while. Pt reports obtained an earlier apt with PCP scheduled for 05/02/24 instead of July. Pt is asking about medications ordered by cardiology. Pt is encouraged to call the deoiling machine operator office to inquire about orders. Pt has [...] caller accepted this outcome. Contact pt at [phone] (polish) documented in this encounter Plan of Treatment Upcoming Encounters Date Type Department Care Team (Late st Contact Info) Description 08/09/2024 2:45 PM EDT Office Visit [facility] MEDICINE [address] [place] [phone] Glenna Grossman MD [address] [place] [phone] 08/25/2024 1:30 PM EDT Telemedicine [address] [address] Steph Molina RN documented as of this encounter Visit Diagnoses Not on filedocumented in this encounter Additional Health Concerns Assessment Noted Time PHQ-9 Depression Total Score: 17 024 11:08 AM EDT documented as of this encounter Care Teams Computer Aided Design Operator Relationship Specialty Start Date End Date Glenna Grossman MD [address] [place] [address] [phone] PCP - General Family Medicine 07/10/20 documented as of this encounter
== END 2024-08-07 14:01 | disposition home or self-care (01) ==
PROVIDERS: PCP Internal Medicine; Visit Provider Internal Medicine Endocrinology, Diabetes & Metabolism
DX: M81.0 Age-related osteoporosis without current pathological fracture (principal)
CPT/HCPCS: 99213

== ENCOUNTER → 2024-08-07 13:15 | Outpatient (BNVA) | payer OTHER, SELFPAY | PROVIDERS: PCP Internal Medicine; Visit Provider Internal Medicine Endocrinology, Diabetes & Metabolism | DX: M81.0 Age-related osteoporosis without current pathological fracture (principal) | CPT/HCPCS: 99212 ==

== ENCOUNTER 2024-09-19 11:25 | Outpatient (REF) | payer OTHER, SELFPAY ==
--- NOTE | ~2024-09-19 | MM_ITS ---
EXAMINATION: MM SCREENING DIGITAL BREAST TOMOSYNTHESIS, BILATERAL CLINICAL INFORMATION: Screening. Asymptomatic. COMPARISON: Mammography: Comparison is made with available priors TECHNIQUE: Digital breast mammography with tomosynthesis is performed in both the craniocaudal and mediolateral oblique views along with computer-aided detection (CAD). FINDINGS: There are scattered areas of fibroglandular density (ACR BI-RADS breast composition Category b). Left: Question prominent axillary lymph nodes. No suspicious masses or calcifications or other abnormal findings. Right: There are no significant masses, abnormal calcifications, or other abnormalities. MM/MM tomosynthesis screening BI IMPRESSION: Additional imaging is recommended ASSESSMENT: BI-RADS BI-RADS 0 - Incomplete: Needs additional Imaging. RECOMMENDATION: 1. Additional views of the left axilla with ultrasound 2. Radiology department staff will contact the patient for additional imaging. Additional Imaging required This examination should not preclude the clinical evaluation of a suspicious palpable abnormality. This patient's information was entered into a reminder system with a target due date for their next mammogram. Electronically signed by: Savanna Cartagena DO 09/19/2024 12:01 PM EDT
--- OUTSIDE RECORDS SUMMARY | 2024-09-19 13:44 | XMS_ITS | Encounter Summary ---
Author Organization [employer] Address [address] [place] [address] 7t [place] [address] Care Team Providers Care Anatomy Teacher Name Role Phone Glenna Grossman MD Primary Care Provide r Encounter Details Date Type Department Care Team (Latest Contact Info) Description 01/09/2019 Abstract [facility] CONVERSIONS Dental, Provider, DDS Social History [...] Care Team (Late st Contact Info) Description 09/29/2024 4:00 PM EDT Office Visit [facility] MEDICINE [address] [place] [phone] Gopi Iverson MD [address] [place] [phone] 10/27/2024 1:30 PM EDT Telemedicine [facility] MEDICINE [address] [place] [address] [phone] Steph Molina RN documented as of this encounter Visit Diagnoses Not on filedocumented in this encounter Care Teams Anatomy Teacher Relationship Specialty Start Date End Date Glenna Grossman MD [address] [place] [address] [phone] PCP - General Family Medicine 07/10/20 documented as of this encounter
--- OUTSIDE RECORDS SUMMARY | 2024-09-19 13:44 | XMS_ITS | Encounter Summary ---
Author Organization [employer] Address [address] [place] [address] 7t [place] [address] Care Team Providers Care Filter Washer And Presser Name Role Phone Glenna Grossman MD Primary Care Provide r Reason for Visit * Reason Comments Med Refill Encounter Details Date Type Department Care Team (Late st Contact Info) Description 08/24/2022 Refill [facility] MEDICINE [address] [place] [address] [phone] Delores Alexis MD [address] [place] [address] [phone] Chronic bilateral low back pain, unspecified whether [...] Description 09/29/2024 4:00 PM EDT Office Visit [facility] MED[facility]INE [address] [place] [address] [phone] Gopi Iverson MD [address] [place] [address] [phone] 10/27/2024 1:30 PM EDT Telemedicine [facility] [address] [place] [address] [phone] Tracy, Steph, RN documented as of this encounter Visit Diagnoses Diagnosis Chronic bilateral low back pain, unspecified whether sciatica present documented in this encounter Care Teams Filter Washer And Presser Relationship Specialty Start Date End Date Glenna Grossman MD [address] [place] [address] PCP - General Family Medicine 07/10/20 documented as of this encounter
--- OUTSIDE RECORDS SUMMARY | 2024-09-19 13:44 | XMS_ITS | Encounter Summary ---
Author Organization [employer] Address [address] [place] [address] 7t [place] [address] Care Team Providers Care Power Plant Supervisor Name Role Phone Glenna Grossman MD Primary Care Provide r Encounter Details Date Type Department Care Team (Late st Contact Info) Description 06/23/2022 Abstract [facility] MEDICINE [address] [place] [address] [phone] Shahla Simon RN [address] [place] [address] [phone] Social History Tobacco Use Types Packs/Day Years [...] Description 09/29/2024 4:00 PM EDT Office Visit [facility] MEDICINE [address] [place] [address] [phone] Gopi Iverson MD [address] [place] [address] 85333 10/27/2024 1:30 PM EDT Telemedicine [facility] MEDICINE [address] [place] [address] 30085 Steph Molina, RN documented as of this encounter Procedures Procedure Name Priority Date/Time Associated Diagnosis Comments MAMMOGRAPHY Routine 06/19/2022 documented in this encounter Results * Mammography (06/19/2022) Mammogram BIRADS 1: Negative Repeat in 1 year Anatomical Region Laterality Modality Other Historical Provider HEALTH MAINTENANCE Final Result documented in this encounter Visit Diagnoses Not on filedocumented in this encounter Care Teams Power Plant Supervisor Relationship Specialty Start Date End Date Glenna Grossman MD 230 [place] [address] PCP - General Family Medicine 07/10/20 documented as of this encounter
--- OUTSIDE RECORDS SUMMARY | 2024-09-19 13:44 | XMS_ITS | Encounter Summary ---
Author Organization [employer] Address 75 [facility] 7t [place] [address] Care Team Providers Care Movie Theater Manager Name Role Phone Glenna Grossman MD Primary Care Provide r Encounter Details Date Type Department Care Team ([facility] st Contact Info) Description 06/15/2024 Orders Only [facility] MEDICINE 230 [place], [place] [phone] Glenna Grossman MD 230 [place], [place] [phone] Social History Tobacco Use Types Packs/Day Years [...] Description 09/29/2024 4:00 PM EDT Office Visit [facility] [address] [place] [address] Gopi Iverson MD [address] [place] [address] 10/27/2024 1:30 PM EDT Telemedicine [facility] [address] [place] [address] Steph Molina, RN documented as of this encounter Visit Diagnoses Not on filedocumented in this encounter Additional Health Concerns Assessment Noted Time PHQ-9 Depression Total Score: 9 05/02/20 24 11:03 AM EST documented as of this encounter Care Teams Movie Theater Manager Relationship Specialty Start Date End Date Glenna Grossman MD [address] [place] [address] 538[address] PCP - General Family Medicine 07/10/20 documented as of this encounter
--- OUTSIDE RECORDS SUMMARY | 2024-09-19 13:44 | XMS_ITS | Encounter Summary ---
Author Organization [employer] Address [address] [place] [address] 7t [place] [address] Care Team Providers Care Licensed Clinical Psychologist Name Role Phone Glenna Grossman MD Primary Care Provide r Encounter Details Date Type Department Care Team (Late st Contact Info) Description 05/28/2022 Orders Only [address] [address] Isabella Cardoso RN Social History Tobacco Use [...] Description 09/29/2024 4:00 PM EDT Office Visit [address] [address] Gopi Iverson MD [address] [place] [address] 10/27/2024 1:30 PM EDT Telemedicine [address] [phone] Steph Molina, DIVYA documented as of this encounter Procedures Procedure Name Priority Date/Time Associated Diagnosis Comments BI MAMMOGRAM SCREENING TOMOSYNTHESIS BILATERAL Routine 06/19/2022 10:55 AM EST documented in this encounter Results * BI Mammogram Screening Tomosynthesis Bilateral (06/19/2022 10:55 AM EST) Anatomical Region Laterality Modality Breast Bilateral Mammography 06/19/2022 10:5 5 AM EST Narrative 06/22/2022 3:57 PM EST ? [facility] ? [address] ?[place] [address] ? Mammography Report ? Signed ? Patient: Mayco Antonio,Lia ?MR#: ?? [id number] ? : 1940 ?Acct:[id number] ? Age/Sex: 82 / F ?ADM Date: 06/19/22 ? Loc: HO.MAMMO ? Attending Dr: Glenna Hassan MD ? Ordering Physician: Glenna Grossman MD ?Results: ?? 1Negative ? Date of Service: 06/19/22 ?Follow Up: 1 Year From Orig ?? inal Mammogram ? Procedure(s): MM tomosynthesis screening BI ?? Accession Number(s): [id number] ? cc: Glenna Grossman MD ? EXAMINATION: [...] 1555 ? DD/ 1055 ? TD/TT: ? Nursing Agency Manager: SANDS ? Procedure Note Nandiniter, Image - 06/22/2022 [facility] [address] [place] [place], [place] [address] Mammography Report Signed Patient: Lia Strauss#: [id number] : 2Acct:[id number] Age/Sex: 82 / FADM Date: 06/19/22 Loc: MORTEZA Attending Dr: Glenna Hassan MD Ordering Physician: Glenna Grossman MDResults: 1Negative Date of Service: 06/19/22Follow Up: 1 Year From Orig inal Mammogram Procedure(s): MM tomosynthesis screening BI Accession Number(s): [id number] cc: Glenna Grossman MD EXAMINATION: MM SCREENING [...] in OV> 06/22/22 1555 DD/ 1055 TD/TT: Nursing Agency Manager: SANDS [facility] External Provider IMG BI PROCEDURES Edited Result - Final documented in this encounter Visit Diagnoses Not on filedocumented in this encounter Care Teams Licensed Clinical Psychologist Relationship Specialty Start Date End Date Glenna Grossman MD [address] [place] [phone] PCP - General Family Medicine 07/10/20 documented as of this encounter
--- OUTSIDE RECORDS SUMMARY | 2024-09-19 13:45 | XMS_ITS | Encounter Summary ---
Author Organization [employer] Address 75 [facility] 7t [place] [address] Care Team Providers Care Floor Space Allocator Name Role Phone Glenna Grossman MD Primary Care Provide r Reason for Visit * Reason Comments Med Refill Encounter Details Date Type Department Care Team ([facility] st Contact Info) Description 04/21/2023 Refill [facility] 230 [place], [place] [phone] Glenna Grossman MD 230 [place] [address] Irritable bowel syndrome with constipation Social History [...] Description 09/29/2024 4:00 PM EDT Office Visit [facility] MEDICINE [address] [place] [address] Gopi Iverson MD [address] [place] [address] 10/27/2024 1:30 PM EDT Telemedicine [facility] MEDICINE [address] [place] [address] Steph Molina, DIVYA documented as of this encounter Visit Diagnoses Diagnosis Irritable bowel syndrome with constipation Irritable bowel syndrome documented in this encounter Additional Health Concerns Assessment Noted Time PHQ-9 Depression Total Score: 0 01/07/20 23 11:14 AM EDT documented as of this encounter Care Teams Floor Space Allocator Relationship Specialty Start Date End Date Glenna Grossman MD [address] [place] [phone] PCP - General Family Medicine 07/10/20 documented as of this encounter
--- OUTSIDE RECORDS SUMMARY | 2024-09-19 13:45 | XMS_ITS | Encounter Summary ---
Author Organization [employer] Address 75 [facility] 7t [place] [address] Care Team Providers Care Vending Route Servicer Name Role Phone Glenna Grossman MD Primary Care Provide r Encounter Details Date Type Department Care Team ([facility] st Contact Info) Description 09/19/2024 Orders Only [facility] MEDICINE 230 [place], [place] [phone] Glenna Grossman MD 230 [place], [place] [phone] Social History Tobacco Use Types Packs/Day Years [...] Date Recorded Patient Health Questionnaire-9 Score 0 08/09/2024 Patient Health Questionnaire-9 Score 0 08/09/2024 Last PHQ-9: Questionnaire Data Not on file 0 08/09/2024 Housing Stability Answer Date Recorded What is [...] Date Recorded Patient Health Questionnaire-2 Score 0 08/09/2024 Internet Access Answer Date Recorded Internet Access Q1 No 08/09/2024 Internet Access Q2 I do not want or need it 07/29 Comments Unknown Sex and Gender Information Value [...] Description 09/29/2024 4:00 PM EDT Office Visit [facility] MEDICINE [address] [place] [address] Gopi Iverson MD [address] [place] [address] 10/27/2024 1:30 PM EDT Telemedicine [address] [address] Steph Molina RN documented as of this encounter Procedures Procedure Name Priority Date/Time Associated Diagnosis Comments BI MAMMOGRAM SCREENING TOMOSYNTHESIS BILATERAL Routine 09/19/2024 11:30 AM EDT documented in this encounter Results * BI Mammogram Screening Tomosynthesis Bilateral (09/19/2024 11:30 AM EDT) Anatomical Region Laterality Modality Breast Bilateral Mammography 09/19/2024 11:3 0 AM EDT Narrative 09/19/2024 12:03 PM EDT ? [facility] ? [address] ?[place] [address] ?[phone] ? Mammography Report ? Signed ? Patient: Mayco Antonio,Lia ?MR#: ?? [id number] ? : 1940 ?Acct:[id number] ? Age/Sex: 84 / F ?ADM Date: 09/19/25 ? Loc: HO.MAMMO ? Attending Dr: Glenna Hassan MD ? Ordering Physician: Glenna Grossman MD ?Results: 0Incomplete: Needs Additional Imaging ?? Evaluation ? Date of Service: // ?Follow Up: Additional Imagi ?? ng ? Procedure(s): MM tomosynthesis screening BI ?? Accession Number(s): [id number] ? cc: Glenna Grossman MD ? EXAMINATION: ?? MM SCREENING DIGITAL BREAST TOMOSYNTHESIS, BILATERAL ? CLINICAL INFORMATION: ? Screening. Asymptomatic. ? COMPARISON: ?? Mammography: Comparison is made with available priors ? TECHNIQUE: ?? Digital breast mammography with tomosynthesis is performed in both the ?? craniocaudal and mediolateral oblique views along with computer-aided ?? detection (CAD). ? FINDINGS: ?? There are scattered areas of fibroglandular density (ACR BI-RADS breast ?? composition Category b). ?? Left: ?? Question prominent axillary lymph nodes. ?? No suspicious masses or calcifications or other abnormal findings. ? Right: ?? There are no significant masses, abnormal calcifications, or other ?? abnormalities. ? MM/MM tomosynthesis screening BI ?? IMPRESSION: ?? Additional imaging is recommended ? ASSESSMENT: ? BI-RADS BI-RADS 0 - Incomplete: Needs additional Imaging. ? RECOMMENDATION: ?? 1. Additional views of the left axilla with ultrasound ?? 2. Radiology department staff will contact the patient for additional ?? imaging. ? Additional Imaging required ? This examination should not preclude the clinical evaluation of a ?? suspicious palpable abnormality. ? This patient's information was entered into a reminder system with a ?? target due date for their next mammogram. ? Electronically signed by: ??Savanna Cartagena DO ??09/19/2024 12:01 PM EDT ? Dictated By: ?Savanna Cartagena DO ? Signed By: ?<Electronically signed by Savanna Cartagena, DO in OV> ? 09/19/24 1201 ? DD/ 1130 ? TD/TT: 09/19/24 1148 ? Conditioner Tumbler: ? Procedure Note Nandiniter, Image - 09/19/2024 [facility] [address] [place] [address] Mammography Report Signed Patient: Lia Strauss#: [id number] : 2Acct:[id number] Age/Sex: 84 / FADM Date: 09/19/24 Loc: MORTEZA Attending Dr: Glenna Hassan MD Ordering Physician: Glenna Grossman MD Results: 0Incomplete: Needs Additional Imaging Evaluation Date of Service: 09/19/24Follow Up: Additional Imagi ng Procedure(s): MM tomosynthesis screening Accession Number(s): [id number] cc: Glenna Grossman MD EXAMINATION: MM SCREENING DIGITAL BREAST TOMOSYNTHESIS, BILATERAL CLINICAL INFORMATION: Screening. Asymptomatic. COMPARISON: Mammography: Comparison is made with available priors TECHNIQUE: Digital breast mammography with tomosynthesis is performed in both the craniocaudal and mediolateral oblique views along with computer-aided detection (CAD). FINDINGS: There are scattered areas of fibroglandular density (ACR BI-RADS breast composition Category b). Left: Question prominent axillary lymph nodes. No suspicious masses or calcifications or other abnormal findings. Right: There are no significant masses, abnormal calcifications, or other abnormalities. MM/MM tomosynthesis screening BI IMPRESSION: Additional imaging is recommended ASSESSMENT: BI-RADS BI-RADS 0 - Incomplete: Needs additional Imaging. RECOMMENDATION: 1. Additional views of the left axilla with ultrasound 2. Radiology department staff will contact the patient for additional imaging. Additional Imaging required This examination should not preclude the clinical evaluation of a suspicious palpable abnormality. This patient's information was entered into a reminder system with a target due date for their next mammogram. Electronically signed by: Savanna Cartagena DO 09/19/2024 12:01 PM EDT Dictated By: Savanna Cartagena DO Signed By: <Electronically signed by Savanna Cartagena DO in OV> 09/19/24 1201 DD/ 1130 TD/TT: 09/19/24 1148 Conditioner Tumbler: Glenna Hassan MD IMG BI PROCEDURES Fin al Result documented in this encounter Visit Diagnoses Not on filedocumented in this encounter Additional Health Concerns Assessment Noted Time PHQ-9 Depression Total Score: 0 08/10/19 25 2:48 PM EDT documented as of this encounter Care Teams Vending Route Servicer Relationship Specialty Start Date End Date Glenna Grossman MD [address] [place] [address] PCP - General Family Medicine 07/10/20 documented as of this encounter
--- OUTSIDE RECORDS SUMMARY | 2024-09-19 13:45 | XMS_ITS | Encounter Summary ---
Author Organization [employer] Address [address] [facility] 7t [place] [address] Care Team Providers Care Car Top Bolter Name Role Phone Glenna Grossman MD Primary Care Provide r Reason for Visit * Reason Comments Med Refill Encounter Details Date Type Department Care Team ([facility] st Contact Info) Description 04/26/2023 Refill [facility] 230 [place], [place] [phone] Glenna Grossman MD 230 [place] [address] Irritable bowel syndrome with constipation Social History [...] Description 09/29/2024 4:00 PM EDT Office Visit [facility] MEDICINE [address] [place] [address] Gopi Iverson MD [address] [place] [address] 10/27/2024 1:30 PM EDT Telemedicine [facility] MEDICINE [address] [place] [address] Steph Molina, DIVYA documented as of this encounter Visit Diagnoses Diagnosis Irritable bowel syndrome with constipation Irritable bowel syndrome documented in this encounter Additional Health Concerns Assessment Noted Time PHQ-9 Depression Total Score: 0 01/07/20 23 11:14 AM EDT documented as of this encounter Care Teams Car Top Bolter Relationship Specialty Start Date End Date Glenna Grossman MD [address] [place] [address] PCP - General Family Medicine 07/10/20 documented as of this encounter
--- OUTSIDE RECORDS SUMMARY | 2024-09-19 13:45 | XMS_ITS | Encounter Summary ---
Author Organization [employer] Address [address] [place] [address] 7t [place] [address] Care Team Providers Care Electrical Accessories Assembler Name Role Phone Glenna Grossman MD Primary Care Provide r Reason for Visit * Reason Onset Date Comments Med Refill 04/26/2023 Encounter Details Date Type Department Care Team ([facility] st Contact Info) Description 04/26/2023 Telephone [facility] MEDICINE 230 [place], [place] [phone] Glenna Grossman MD 230 [place], [place] [phone] Med Refill Social History Tobacco Use Types [...] Description 09/29/2024 4:00 PM EDT Office Visit [facility] MEDICINE [address] [place] [address] Gopi Iverson MD [address] [place] [address] 10/27/2024 1:30 PM EDT Telemedicine [facility] MEDICINE [address] [place] [address] [phone] Steph Molina RN documented as of this encounter Visit Diagnoses Not on filedocumented in this encounter Additional Health Concerns Assessment Noted Time PHQ-9 Depression Total Score: 0 01/07/20 23 11:14 AM EDT documented as of this encounter Care Teams Electrical Accessories Assembler Relationship Specialty Start Date End Date Glenna Grossman MD 230 [place] [address] PCP - General Family Medicine 07/10/20 documented as of this encounter
--- OUTSIDE RECORDS SUMMARY | 2024-09-19 13:45 | XMS_ITS | Encounter Summary ---
Author Organization [employer] Address [address] [place] [address] 7t [place] [address] Care Team Providers Care Conveyor Tender Name Role Phone Glenna Grossman MD Primary Care Provide r Reason for Visit * Reason Comments Med Refill Encounter Details Date Type Department Care Team (Late Contact Info) Description 02/21/2023 Refill [facility] MEDICINE [address] [place] [address] [phone] Glenna Grossman MD 230 [place], [place] [phone] Social History Tobacco Use Types Packs/Day Years [...] Department Care Team (Late Contact Info) Description 09/29/2024 4:00 PM EDT Office Visit [facility] MEDICINE [address] [place] [address] [phone] Gopi Iverson MD 230 [place], [place] [phone] 10/27/2024 1:30 PM EDT Telemedicine [facility] 230 [place], [place] [phone] Steph Molina, DIVYA documented as of this encounter Visit Diagnoses Not on filedocumented in this encounter Additional Health Concerns Assessment Noted Time PHQ-9 Depression Total Score: 0 01/07/20 23 11:14 AM EDT documented as of this encounter Care Teams Conveyor Tender Relationship Specialty Start Date End Date Glenna Grossman MD 230 [place] [address] PCP - General Family Medicine 07/10/20 documented as of this encounter
--- OUTSIDE RECORDS SUMMARY | 2024-09-19 13:45 | XMS_ITS | Encounter Summary ---
Author Organization [employer] Address [address] [place] [address] 7t [place] [address] Care Team Providers Care Bracelet Maker Novelty Name Role Phone Glenna Grossman MD Primary Care Provide r Encounter Details Date Type Department Care Team ([facility] Contact Info) Description 12/16/2022 Telephone [facility] MEDICINE [address] [place] [address] [phone] Glenna Grossman MD [address] [place] [address] [phone] Social History Tobacco Use Types Packs/Day Years [...] Upcoming Encounters Date Type Department Care Team ([facility] Contact Info) Description 09/29/2024 4:00 PM EDT Office Visit [facility] MEDICINE [address] [place] [address] [phone] Gopi Iverson MD [address] [place] [address] [phone] 10/27/2024 1:30 PM EDT Telemedicine [facility] MEDICINE [address] [place] [address] [phone] Steph Molina, RN documented as of this encounter Visit Diagnoses Not on filedocumented in this encounter Care Teams Bracelet Maker Novelty Relationship Specialty Start Date End Date Glenna Grossman MD 230 [place] [address] PCP - General Family Medicine 07/10/20 documented as of this encounter
--- OUTSIDE RECORDS SUMMARY | 2024-09-19 13:45 | XMS_ITS | Encounter Summary ---
Author Organization [employer] Address [address] [place] [address] 7t [place] [address] Care Team Providers Care Vision Teacher Name Role Phone Glenna Grossman MD Primary Care Provide r Reason for Visit * Reason Comments Med Refill Encounter Details Date Type Department Care Team ([facility] Contact Info) Description 11/20/2022 Refill [facility] MED & PEDS [address] [place], [place] [phone] Glenna Grossman MD 230 [place], [place] [phone] Low back pain, unspecified Social History Tobacco [...] Upcoming Encounters Date Type Department Care Team ([facility] Contact Info) Description 09/29/2024 4:00 PM EDT Office Visit [facility] MEDICINE 230 [place], [place] [phone] Gopi Iverson MD 230 [place] [address] 10/27/2024 1:30 PM EDT Telemedicine [facility] MEDICINE [address] [place] [address] Steph Molina, DIVYA documented as of this encounter Visit Diagnoses Diagnosis Low back pain, unspecified documented in this encounter Care Teams Vision Teacher Relationship Specialty Start Date End Date Glenna Grossman MD [address] [place] [phone] PCP - General Family Medicine 07/10/20 documented as of this encounter
--- OUTSIDE RECORDS SUMMARY | 2024-09-19 13:45 | XMS_ITS | Encounter Summary ---
Author Organization [employer] Address [address] [place] [address] 7t [place] [address] Care Team Providers Care Card Folder Name Role Phone Glenna Grossman MD Primary Care Provide r Reason for Visit * Reason Onset Date Comments Nurse Triage 03/28/2024 Encounter Details Date Type Department Care Team ([facility] st Contact Info) Description 03/28/2024 Telephone [facility] MEDICINE 230 [place], [place] [phone] Glenna Grossman MD 230 [place] [address] Nurse Triage Social History Tobacco Use Types [...] 03/28/2024 1:40 PM EDT Triage call [place] [id number] Mario Alberto, Pt is asking about hemaglobin possibly being low. Lab result on chart shows HGB with in normal limits. Pt reports appetite is poor but, hasbeen for a while. Pt reports obtained an earlier apt with PCP scheduled for 05/02/24 instead of July. Pt is asking about medications ordered by cardiology. Pt is encouraged to call the clinical operations manager office to inquire about orders. Pt has [...] caller accepted this outcome. Contact pt at [phone] (palestinian) documented in this encounter Plan of Treatment Upcoming Encounters Date Type Department Care Team (Late st Contact Info) Description 09/29/2024 4:00 PM EDT Office Visit [facility] MEDICINE [address] [place] [phone] Gopi Iverson MD [address] [place] [address] 10/27/2024 1:30 PM EDT Telemedicine [address] [address] Steph Molina RN documented as of this encounter Visit Diagnoses Not on filedocumented in this encounter Additional Health Concerns Assessment Noted Time PHQ-9 Depression Total Score: 17 024 11:08 AM EDT documented as of this encounter Care Teams Card Folder Relationship Specialty Start Date End Date Glenna Grossman MD [address] [place] [address] [phone] PCP - General Family Medicine 07/10/20 documented as of this encounter
--- OUTSIDE RECORDS SUMMARY | 2024-09-19 13:45 | XMS_ITS | Encounter Summary ---
Author Organization [employer] Address 75 [facility] 7t [place] [address] Care Team Providers Care Security Threat Analyst Name Role Phone Glenna Grossman MD Primary Care Provide r Reason for Visit * Reason Comments Med Refill Encounter Details Date Type Department Care Team ([facility] st Contact Info) Description 05/25/2023 Refill [facility] MED & PEDS [address] [place], [place] [phone] Glenna Grossman MD 230 [place] [address] Social History Tobacco Use Types Packs/Day Years [...] Description 09/29/2024 4:00 PM EDT Office Visit [facility] MEDICINE [address] [place] [address] Gopi Iverson MD [address] [place] [phone] 10/27/2024 1:30 PM EDT Telemedicine [facility] MEDICINE [address] [place] [address] Steph Molina, DIVYA documented as of this encounter Visit Diagnoses Not on filedocumented in this encounter Additional Health Concerns Assessment Noted Time PHQ-9 Depression Total Score: 0 01/07/20 23 11:14 AM EDT documented as of this encounter Care Teams Security Threat Analyst Relationship Specialty Start Date End Date Glenna Grossman MD [address] [place] [phone] PCP - General Family Medicine 07/10/20 documented as of this encounter
--- OUTSIDE RECORDS SUMMARY | 2024-09-19 13:45 | XMS_ITS | Encounter Summary ---
Author Organization [employer] Address [address] [place] [address] [address] [place] [address] Care Team Providers Care Cell Biology Scientist Name Role Phone Glenna Grossman MD Primary Care Provide r Reason for Visit * Reason Onset Date Comments Med Refill 01/14/2023 Encounter Details Date Type Department Care Team ([facility] st Contact Info) Description 01/14/2023 Telephone [facility] MEDICINE [address], [place] [phone] Glenna Grossman MD [address] [place], [place] [phone] Med Refill Social History Tobacco Use Types [...] 4:00 PM EDT Office Visit [facility] [address] [place] [address] [phone] Gopi Iverson MD [address] [place] [address] [phone] 10/27/2024 1:30 PM EDT Telemedicine [facility] [address] [place] [address] [phone] Steph Molina, DIVYA documented as of this encounter Visit Diagnoses Not on filedocumented in this encounter Additional Health Concerns Assessment Noted Time PHQ-9 Depression Total Score: 0 01/07/20 23 11:14 AM EDT documented as of this encounter Care Teams Cell Biology Scientist Relationship Specialty Start Date End Date Glenna Grossman MD [address] [place] [phone] PCP - General Family Medicine 07/10/20 documented as of this encounter
--- OUTSIDE RECORDS SUMMARY | 2024-09-19 13:45 | XMS_ITS | Clinical Summary ---
Author Organization [employer] Address [address] [place] [address] 7t [place] [address] Care Team Providers Care Sales Enablement Consultant Name Role Phone Glenna Grossman MD Primary Care Provide r Allergies Active Allergy Reactions Criticality Noted Date Comments Avinash Inhibitors Angioedema High 03/21/2015 Other reaction(s): cough & mouth swelling Amlodipine Headache,Dizziness 01/14/2018 Nausea, vomiting Celecoxib 11/28/2018 weakness Other reaction(s): weakness Metoclopramide Hives 06/26/2010 Oxycodone Hives 06/26/2010 Pantoprazole Unknown 06/26/2010 Tiotropium 07/06/2018 Other reaction(s): per machine tool technician instructor Medications meclizine (Antivert) 25 MG tabletIndications:Dizz iness [...] NOSTRIL EVERY MORNING 48 g 2023 Active diclofenac (Cataflam) 50 MG tabletIndications:Poly arthralgia,Myalgia,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 30 tablet 1 01/11 Active baclofen (Lioresal) 5 MG tabletIndications:Myal darren [...] EVERY MORNING 90 tablet 1 2023 Active Advair HFA 230-21 MCG/ACT inhalerIndications:Sev ere persistent asthma, unspecified whether complicated INHALE 1 PUFF BY MOUTH TWICE DAILY IN THE MORNING AND AT BEDTIME. RINSE MOUTH AFTER USING., DO NOT SWALLOW. ADMINISTER WITH SPACER 12 g 11 2024 Active dicyclomine (Bentyl) 20 MG tabletIndications:Abdo maxim pain, unspecified abdominal location TAKE 1 TABLET BY MOUTH EVERY MORNING 30 tablet 1 2024 Active simethicone (Mylicon) 80 MG chewable tablet CHEW 1 TABLET BY MOUTH FOUR TIMES DAILY NEEDED 120 tablet 1 2024 Active ondansetron (Zofran) 4 MG tabletIndications:Shahana roesophageal reflux disease without esophagitis TAKE 2 TABLETS BY MOUTH EVERY 8 HOURS NEEDED FOR NAUSEA AND VOMITING 30 tablet 1 2024 Active famotidine (Pepcid) 40 MG tabletIndications:Shahana roesophageal reflux disease without esophagitis TAKE 1 TABLET BY MOUTH TWICE DAILY IN THE MORNING AND AT BEDTIME 180 tablet 2 2024 Active losartan (Cozaar) 25 MG tabletIndications:Samantha re persistent asthma without complication TAKE 1 TABLET BY MOUTH EVERY MORNING 90 tablet 1 2024 Active Multiple Vitamin (Multivitamin) tabletIndications:Pure hypercholesterolemia TAKE 1 TABLET BY MOUTH EVERY MORNING 90 tablet 1 2024 Active theophylline ER (Elbert-Dur) 300 MG 12 hr tabletIndications:Samantha re persistent asthma without complication TAKE 1 TABLET BY MOUTH TWICE DAILY IN THE MORNING AND AT BEDTIME 180 tablet 1 2024 Active dilTIAZem CD (Cardizem CD) 240 MG 24 hr capsuleIndications:Sev ere persistent asthma without complication TAKE 1 CAPSULE BY MOUTH EVERY MORNING 90 capsule 1 2024 Active acetaminophen (Tylenol 8 Hour) 650 MG ER tabletIndications:Othe r type of osteoarthritis, unspecified site TAKE 1 TABLET BY MOUTH EVERY 8 HOURS NEEDED 60 tablet 3 2024 Active cetirizine (ZyrTEC) 10 MG tabletIndications:Sheldon rgic rhinitis, unspecified seasonality, unspecified trigger TAKE 1 TABLET BY MOUTH EVERY EVENING 90 tablet 1 2024 Active triamcinolone (Kenalog) 0.1 % creamIndications:Dry skin dermatitis APPLY TO THE AFFECTED AREA(S) TOPICALLY TWICE DAILY IN THE MORNING AND AT BEDTIME NEEDED FOR PAIN AND FOR SWELLING 30 g 2 2024 Active traMADol (Ultram) 50 MG tabletIndications:Butadiene Convertor Operator dom bilateral low back pain with left-sided sciatica Take 2 tablets (100 mg) by mouth every 8 (eight) hours if needed for severe pain. 168 tablet 2024 Active naloxone (Narcan) 4 mg/0.1 mL nasal sprayIndications:Chron ic 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 Administer 1 spray (4 mg) into affected nostril(s) if needed for opioid reversal. May repeat every 2-3 minutes if needed, alternating nostrils, until medical assistance becomes available. 2 each 3 08/29 cetirizine (ZyrTEC) 10 MG tabletIndications:Sheldon rgic rhinitis, unspecified seasonality, unspecified trigger TAKE 1 TABLET BY MOUTH EVERY EVENING 90 tablet 1 09/05 Discontinued triamcinolone (Kenalog) 0.1 % creamIndications:Dry skin dermatitis Apply topically if needed in the morning and at bedtime (pain and swelling). 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 Assessment & Plan (08/09/2024 4:41 PM EDT): Today discussion about her diagnosis was done, I let her know surgery already refer her to oncology but patient tells me she has not hear from them as of yet, as per her request I will put also a referral to oncology today I let her know further discussion of the next steps (management/treatment) will be discussed with the specialist Head and neck lymphadenopathy 05/02/2024 Dry skin dermatitis 05/02/2024 Non-healing skin lesion 05/02/2024 Prediabetes 01/12/2024 Assessment & Plan (08/09/2024 4:40 PM EDT): Extensive counseling about healthy diet with small frequent meals (about 5 times a day) rich in proteins and vegetables was done today, this diet is to prevent hypoglycemia Assessment & Plan (01/12/2024 4:11 PM EDT): [...] (06/24/2023 8:16 AM EST): 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 w noted hearing loss -reported as chronic per pt Encounter for preventative adult health care excameron mination 01/06/2023 Assessment & Plan (01/06/2023 12:54 [...] 04/10/2015 Essential hypertension 04/10/2015 Assessment & Plan (08/09/2024 4:40 PM EDT): I advised low-sodium diet and to take her medications every day without missing any dose Assessment & Plan (05/03/2024 5:04 PM EST): [...] Encounters Date Type Department Care Team Description 09/19/2024 Orders Only [facility] MEDICINE [address] [place] [address] Glenna Grossman MD 09/13/2024 Refill [facility] P[facility]S [address] [place], [place] [phone] Glenna Grossman MD Chronic bilateral low back pain with left-sided sciatica 09/12/2024 Refill [facility] MED[facility]INE [address] [place] [address] Glenna Grossman MD Dry skin dermatitis 09/04/[address] [address] Glenna Grossman MD Allergic rhinitis, unspecified seasonality, unspecified trigger 08/23/2024 Telephone [facility]INE [address] [place] [phone] Glenna Grossman MD 08/15/[address] [address] Steph Molina RN Received TIRE SERVICER Agreement and BPI 08/09/2024 2:45 PM EDT Office Visit [address] [address] Glenna Grossman MD Essential hypertension (Primary Dx); Other type of osteoarthritis, unspecified site; Prediabetes; 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, unspecified B-cell lymphoma type (CMS/HCC) 08/09/2024 Travel 08/09/2024 Refill [facility] MED[facility]INE [address] [place], [place] [phone] Glenna Grossman MD Severe persistent asthma without complication 08/08/[address] [address] Glenna Grossman MD Chart Prep 08/08/2024 Refill [facility] MED[facility]INE [address] [place] [address] Glenna Grossman MD Severe persistent asthma without complication; Gastroesophageal reflux disease without esophagitis; Pure hypercholesterolemia 08/07/2024 Refill [facility] PEDS [address] [place], [place] [phone] Glenna Grossman MD Gastroesophageal reflux disease without esophagitis 08/03/2024 Refill [facility] [address] [place] [address] Glenna Grossman MD Abdominal pain, unspecified abdominal location 08/02/2024 Patient Outreach [facility] [address] [place] [address] Glenna Grossman MD Pre-visit Planning ((Unable to reach for PVP screening and or LVM)) 07/20/2024 Refill [facility] [address] [place] [address] Glenna Grossman MD Chronic bilateral low back pain with left-sided sciatica 07/07/2024 Orders Only GENERIC EXTERNAL DATA DEPARTMENT Provider, Generic External Data from Last 3 Months Immunizations Name Administration [...] Sign Reading Time Taken Comments Blood Pressure 142/54 08/09/2024 2:47 PM EDT Pulse 78 08/09/2024 2:47 PM EDT Temperature 36.7 ??C (98 ??F) 08/09/2024 2:47 PM EDT Respiratory Rate 20 08/09/2024 2:47 PM EDT Oxygen Saturation 97% 08/09/2024 2:47 PM EDT Inhaled Oxygen Concentration - - Weight 59.7 kg (131 lb 9.6 oz) 08/09/2024 2:47 P M EDT Height 137.2 cm (4' 6 ) 08/09/2024 2:47 PM EDT Body Mass Index 31.73 08/09/2024 2:47 PM EDT Plan of Treatment Upcoming Encounters Date Type Department Care Team (Late st Contact Info) Description 09/29/2024 4:00 PM EDT Office Visit [facility] MEDICINE [address] [place] [phone] Gopi Iverson MD [address] [place] [phone] 10/27/2024 1:30 PM EDT Telemedicine [facility] MEDICINE [address] [place] [phone] Steph Molina, DIVYA Health Maintenance Due Date Last Done Comments Dental Prophylaxis 1940 Dental X-Ray: Bitewings 1940 Diabetes: Foot Exam 1951 Eye Exam 1951 Diabetes: Urine Protein Screening 1960 Dental Oral Exam 03/26/2023 09/23/2022 COVID-19 Vaccine ( season) 2024 04/01/2021, 08/09/2020, 07/12/2020 Diabetes: Hemoglobin A1C 07/14/2024 024, 10/06/2023, 06/23/2023, Additional history exists Mammogram 07/22/2024 09/19/2024, 07/02, 06/19/2022, Additional history exists Lipid Panel 10/05/2024 10/06/2023, 12/04/2021 Alcohol/Substance Use Screening 08/09/2025 08/09/2024 Depression Screening 08/09/2025 08/09/2024, 08/10/19 SDOH Screening 08/09/2025 08/09/2024 Tobacco Screening 08/09/2025 08/09/2024 Dental X-Ray: Full Mouth 09/24/2025 09/23/2022 DTaP/Tdap/Td [...] TOMOSYNTHESIS BILATERAL Routine 09/19/2024 11:30 AM EDT GROSS AND MICROSCOPIC LEVEL 4 Routine 07/07/2024 8:10 AM EST POCT GLYCATED HEMOGLOBIN, TOTAL Routine 01/12/2024 11:05 AM EDT Prediabetes LIPID PANEL, STANDARD Routine 10/06/2023 3:07 PM EDT Essential hypertension Type 2 diabetes mellitus without complication, without long-term current use of insulin ([facility]) PANORAMIC RADIOGRAPHIC IMAGE Routine 09/23/2022 3:30 PM EDT PERIODIC ORAL EVALUATION - ESTABLISHED PATIENT Routine 09/23/2022 3:30 PM EDT from Last 3 Months or Most Recently Relevant to Health Maintenance Results * BI Mammogram Screening Tomosynthesis Bilateral (09/19/2024 11:30 AM EDT) Anatomical Region Laterality Modality Breast Bilateral Mammography 09/19/2024 11:3 0 AM EDT Narrative 09/19/2024 12:03 PM EDT ? [facility] [place] ? [address] ?[place] [address] ?[phone] ? Mammography Report ? Signed ? Patient: Mayco Antonio,Lia ?MR#: ?? [id number] ? : 1940 ?Acct:[id number] ? Age/Sex: 84 / F ?ADM Date: 04/22/25 ? Loc: HO.MAMMO ? Attending Dr: Glenna Hassan MD ? Ordering Physician: Glenna Grossman MD ?Results: 0Incomplete: Needs Additional Imaging ?? Evaluation ? Date of Service: 09/19/24 ?Follow Up: Additional Imagi ?? ng ? Procedure(s): MM tomosynthesis screening BI ?? Accession Number(s): [id number] ? cc: Glenna Grossman MD ? EXAMINATION: [...] ??Savanna Cartagena DO ??09/19/2024 12:01 PM EDT ?? RP ? Dictated By: ?Savanna Cartagena DO ? Signed By: ?<Electronically signed by Savanna Cartagena, DO in OV> ? 09/19/24 1201 ? DD/ 1130 ? TD/TT: 09/19/24 1148 ? Circuit Walker: ? Procedure Note Donmarielleter, Image - [facility]19[facility]20[facility] [address] [place] [address] Mammography Report Signed Patient: Lia Strauss#: [id number] : 1940cct:[id number] Age/Sex: 84 / FADM Date: 09/19/24 Loc: HO.MAMMO Attending Dr: Glenna Hassan MD Ordering Physician: Glenna Grossman MD Results: 0Incomplete: Needs Additional Imaging Evaluation Date of Service: 09/19/24Follow Up: Additional Imagi ng Procedure(s): MM tomosynthesis screening BI Accession Number(s): [id number] cc: Glenna Grossman MD EXAMINATION: MM SCREENING [...] 09/19/24 1201 DD/ 1130 TD/TT: 09/19/24 1148 Circuit Walker: us Ally Hayes Hassan MD IMG BI PROCEDURES Fin al Result * Gross and Microscopic Level 4 (07/07/2024 8:10 AM EST) 07/07/2024 8:10 AM EST 07/07/2024 8:24 AM EST [facility] - 07/20/2024 10:28 AM EST ----- ------- Name: Lia Strauss ? Age/Sex: 84/F ? : 1940 Unit#: [id number] ?? Attend Dr: Devonte Acevedo MD ?Re07/07/24 ?Status: DEP SDC ? Location: HO.SSS ?Disch: ? ----- ------- SPEC : [id number] ?RECD: 07/07/24 ? STATUS: ??SOUT ? REQ NUM: [id number] ? LORI: 07/07/24 ? SUBM DR: Devonte Acevedo MD ? ENTERED: ??07/07/24 ?SP TYPE: Surgical ? OTHR DR: Glenna Grossman MD ? ORDERED: ??Gross Micro L4, IHC, Add. immunos/6, IHC ER/CT/Her2N ? COMMENTS: Block A3 sent to TOM [...] Technical services for immunohistochemistry studies performed at [facility] [place], [place], [place]; [place] #[id number] Addendum Signed (signature on file) Calos Castellanos [...] ? Age/Sex: 84/F ? : 1940 Unit#: [id number] ?? Attend Dr: Devonte Acevedo MD ?Re07/07/24 ?Status: DEP SDC ? Location: HO.SSS ?Disch: ? ----- ------- SPEC : [id number] ?RECD: 07/07/24 ? STATUS: ??SOUT ? REQ NUM: [id number] ? LORI: 07/07/24 ? SUBM DR: Devonte Acevedo MD ? ENTERED: ??07/07/24 ?SP TYPE: Surgical ? OTHR DR: Glenna Grossman MD ? ORDERED: ??Gross Micro L4, IHC, Add. immunos/6, IHC ER/CT/Her2N ? COMMENTS: Block A3 sent to TOM [...] cut surfaces are smooth and sargent-white. ??The environmental marketing representative portion is submitted in RPMI to [facility] for flow cytometry. ??Remainder of the specimen is sectioned and submitted for microscopic examination in cassettes A1 through A3, 6 pieces each. ??[facility] Results were communicated to Dr. Acevedo via secure text on 07/14/2024. Special studies ordered and performed: immunostains for CD3, CD5, CD10 and Ki-67 Copies To: ?? Glenna Grossman MD ?? [facility] ?? [address] [facility] ?? [place] [address] ?? [phone] ? CONTINUED ON NEXT PAGE ----- ------- Name: Lia Strauss ? Age/Sex: 84/F ? : 1940 Unit#: [id number] ?? Attend Dr: Devonte Acevedo MD ?Re07/07/24 ?Status: DEP SDC ? Location: HO.SSS ?Disch: ? ----- ------- SPEC : [id number] ?RECD: 07/07/24 ? STATUS: ??SOUT ? REQ NUM: [id number] ? LORI: 07/07/24 ? SUBM DR: Devonte Acevedo MD ? ENTERED: ??07/07/24 ?SP TYPE: Surgical ? OTHR DR: Glenna Grossman MD ? ORDERED: ??Gross Micro L4, IHC, Add. immunos/6, IHC ER/CT/Her2N ? COMMENTS: Block A3 sent to TOM for LEF1, Cyclin D1, CD20, CD23 ?? CD5 ?IHC's on 07/14/24. Copies To: ??(Continued) ?? Devonte Acevedo MD ?? [facility] ?? [address] ?? [place] ?? [phone] ?? [email or web address] ----- ------- Signed (signature on file) Calos Castellanos MD 07/14/24 0742 ? ----- ------- ? END OF REPORT ? us Generic External Data Provider LAB CYTOLOGY TARA HERMOSILLO Final Result [facility] [address] [facility] [place] [address] [phone] * POCT HGB A1C (01/12/2024 11:05 AM EDT) Hemoglobin A1C 5.3 4.0 - 6.0 % QC Media Lot # [id number] Lot# Expiration Date ,641,020 Blood 01/12/2024 11:0 5 AM EDT us Glenna Hassan MD POINT OF CARE TEST EN TER/EDIT ORDERABLES Final Result * Lipid Panel, Standard (10/06/2023 3:07 PM EDT) Triglycerides 65 <150 mg/dL [facility] Comment:Desirable Triglyceri de: less than 150 mg/dLBorderline High Triglyceride 150-199 mg/dLHigh Triglyceride: 200-499 mg/dLVery High Triglyceride: greater than or equal to 5OO mg/dL Cholesterol 145 <200 mg/dL [facility] Comment:Desirable Cholestero l: less than 200 mg/dLBorderline High Cholesterol: 200-239 mg/dLHigh Cholesterol: greater than 239 mg/dL LDL Cholesterol Calculated 59 <100 mg/dL [facility] Comment:Desirable LDL: less than 100 mg/dLNear Optimal/Above Optimal LDL: 110- 129 mg/dLBorderline High LDL: 130-159 mg/dLHigh LDL: 160-189 mg/dLVery High LDL: greater than or equal to 190 mg/dL HDL Cholesterol 73 >40 mg/dL [facility] Comment:Desirable HDL: great er than 40 mg/dL Note: This HDL assay may give artificially low results in patients with liver disease. Blood Venous blood specimen / Unknown 10/06/2023 3:07 PM EDT 10/06/2023 4:15 PM EDT us Glenna Hassan MD LAB BLOOD ORDERABLES Final Result [facility] [address] [place] [address] [phone] from Last 3 Months or Most Recently Relevant to Health Maintenance Insurance [facility] Care Teams Sales Enablement Consultant Relationship Specialty Start Date End Date Glenna Grossman MD [address] [place] [phone] PCP - General Family Medicine 07/10/20
--- OUTSIDE RECORDS SUMMARY | 2024-09-19 13:45 | XMS_ITS | Encounter Summary ---
Author Organization [employer] Address [address] [facility] 7t [place] [address] Care Team Providers Care Magnetic Prospector Name Role Phone Glenna Grossman MD Primary Care Provide r Reason for Visit * Reason Comments Med Refill Encounter Details Date Type Department Care Team (Late st Contact Info) Description 11/19/2022 Refill [facility] MED & PEDS [address] [place], [place] [phone] Glenna Grossman MD [address] [place] [address] Chronic bilateral low back pain, unspecified whether [...] Description 09/29/2024 4:00 PM EDT Office Visit [facility] MEDICINE [address] [place] [phone] Gopi Iverson MD [address] [place] [phone] 10/27/2024 1:30 PM EDT Telemedicine [facility] [address] [place] [phone] Steph Molina, DIVYA documented as of this encounter Visit Diagnoses Diagnosis Chronic bilateral low back pain, unspecified whether sciatica present documented in this encounter Care Teams Magnetic Prospector Relationship Specialty Start Date End Date Glenna Grossman MD [address] [place] [phone] PCP - General Family Medicine 07/10/20 documented as of this encounter
--- OUTSIDE RECORDS SUMMARY | 2024-09-19 13:45 | XMS_ITS | Encounter Summary ---
Author Organization [employer] Address [address] [place] [address] 7t [place] [address] Care Team Providers Care Drug Safety Assistant Name Role Phone Glenna Grossman MD Primary Care Provide r Reason for Visit * Reason Comments Med Refill Encounter Details Date Type Department Care Team ([facility] Contact Info) Description 02/03/2023 Refill [facility] MEDICINE [address] [place] [address] [phone] Glenna Grossman MD [address] [place], [place] [phone] Routine health maintenance Social History Tobacco Use [...] Visit [facility] MEDICINE [address] [place] [address] [phone] Gopi Iverson MD [address] [place], [place] [phone] 10/27/2024 1:30 PM EDT Telemedicine [facility] MEDICINE [address] [place], [place] [phone] Steph Molina, DIVYA documented as of this encounter Visit Diagnoses Diagnosis Routine health maintenance Unspecified examination documented in this encounter Additional Health Concerns Assessment Noted Time PHQ-9 Depression Total Score: 0 01/07/20 23 11:14 AM EDT documented as of this encounter Care Teams Drug Safety Assistant Relationship Specialty Start Date End Date Glenna Grossman MD [address] [place] [phone] PCP - General Family Medicine 07/10/20 documented as of this encounter
== END 2024-09-19 11:26 | disposition home or self-care (01) ==
LOC: HO.MAMMO 11:25
PROVIDERS: PCP Internal Medicine; Visit Provider Internal Medicine
DX: Z12.31 Encounter for screening mammogram for malignant neoplasm of breast (principal)
CPT/HCPCS: 77063; 77067

== ENCOUNTER → 2024-09-19 11:30 | Outpatient (BNV) | payer OTHER, SELFPAY | PROVIDERS: PCP Internal Medicine; Visit Provider Internal Medicine | DX: Z12.31 Encounter for screening mammogram for malignant neoplasm of breast (principal) | CPT/HCPCS: 77063; 77067 ==

== ENCOUNTER 2024-11-01 10:13 | Outpatient (REF) | payer OTHER, SELFPAY ==
--- OUTSIDE RECORDS SUMMARY | 2024-11-01 10:51 | XMS_ITS | Encounter Summary ---
Author Organization [employer] Address [address] [place] [address] 7t [place] [address] Care Team Providers Care Event Lighting Specialist Name Role Phone Glenna Grossman MD Primary Care Provide r Reason for Visit * Reason Comments Med Refill Encounter Details Date Type Department Care Team (Late Contact Info) Description 08/24/2022 Refill [facility] MED[facility] [address] [place] [phone] Delores Alexis MD [address] [place] [phone] Chronic bilateral low back pain, unspecified whether [...] Department Care Team (Late Contact Info) Description 11/03/2024 10:45 AM EDT Telemedicine [facility] [address] [place] [address] [phone] Glenna Grossman MD [address] [place] [address] [phone] 01/15/2025 1:30 PM EDT Office Visit [facility] [address] [place] [phone] Glenna Grossman MD [address] [place] [phone] 05/04/2025 9:00 AM EST Telemedicine [facility] [address] [place] [address] [phone] Steph Molina RN documented as of this encounter Visit Diagnoses Diagnosis Chronic bilateral low back pain, unspecified whether sciatica present documented in this encounter Care Teams Event Lighting Specialist Relationship Specialty Start Date End Date Glenna Grossman MD [address] [place] [phone] PCP - General Family Medicine 07/10/20 documented as of this encounter
[2024-11-01 12:58] LABS: Creatinine, mg/dL 22.95
[2024-11-01 14:11] LABS: Creatinine, 24Hr Urine 0.6 G/Day (1.0-2.0); Total Volume 24 Hour Urine 2450 mL
[2024-11-05 17:18] LABS: Calcium, 24 Hr Urine 61 mg/24 h; Calcium/Creatinine Ratio 100 mg/g creat (30-275); Creatinine 24Hr Urine 0.61 g/24 h (0.50-2.15)
== END 2024-11-01 10:14 | disposition home or self-care (01) ==
LOC: HO.10HDLNP 10:13
PROVIDERS: Visit Provider Internal Medicine Endocrinology, Diabetes & Metabolism
DX: M81.0 Age-related osteoporosis without current pathological fracture (principal)
CPT/HCPCS: 82340; 82570

== ENCOUNTER 2024-11-07 13:11 | Outpatient (AMB) | payer OTHER, SELFPAY ==
[2024-11-07 13:19] VITALS: BP 128/58; PULSE 83; O2SAT 95; BMI 29.1
--- NOTE | 2024-11-07 13:19 | MHC.OFFVIS ---
Vital Signs 11/07/24 13:19 Height 4 ft 7.43 in Weight 126 lb 15.78 oz BMI 29.1 BP 128/58 L Blood Pressure Location Rt brachial Position Sitting Pulse 83 Pulse Source Pulse Oximeter Pulse Oximetry (%) 95 Oxygen Delivery Method Room Air Intake Visit Reasons: Osteoporosis Intake Note: Patient present today for Osteoporosis follow up. Location Analyst Required: Yes Location Analyst Language: Ladle Operator Services: Location Analyst Offered & Declined Accompanied by: Self / Same As Patient Allergies morphine [MORPHINE] Allergy (Severe, Verified 11/07/24 13:20) Agitated WADE Inhibitors Allergy (Intermediate, Verified 11/07/24 13:20) mouth swelling/cough amlodipine Allergy (Intermediate, Verified 11/07/24 13:20) headache/dizziness/nausea/vomiting pantoprazole [From Protonix] Allergy (Intermediate, Verified 11/07/24 13:20) Agitated celecoxib [From Celebrex] Adverse Reaction (Mild, Verified 11/07/24 13:20) Weakness milk [MILK] Adverse Reaction (Mild, Verified 11/07/24 13:20) STOMACH UPSET oxycodone [From Percocet] Adverse Reaction (Mild, Verified 11/07/24 13:20) NAUSEA/RAPID HR/BLURRED VISION Medication List - Last Reconciled 11/07/24 by Narendra Elias MD acetaminophen 500 mg PO TID PRN albuterol sulfate 1 amp inhalation 6XD PRN albuterol sulfate 90 mcg/actuation 2 inhalations inhalation QID PRN alprazolam mg PO DAILY alprazolam 1 mg PO DAILY PRN blood-glucose meter (FreeStyle Lite Meter kit) As directed cetirizine 10 mg PO DAILY cholecalciferol (vitamin D3) (Vitamin D3) 50 mcg PO QAM citalopram 10 mg PO DAILY famotidine 40 mg PO BID fluticasone propion-salmeterol 230-21 mcg/actuation 2 puffs inhalation DAILY fluticasone propionate 50 mcg/actuation 2 sprays intranasal DAILY lancets (FreeStyle Lancets) 4x daily as needed losartan 25 mg PO DAILY magnesium 200 mg PO DAILY magnesium hydroxide (Milk Of Magnesia Concentrated) 10 mL PO DAILY PRN multivitamin 1 tab PO QAM ondansetron 4 mg PO Q6-8H PRN ondansetron 4 mg PO Q8H PRN rabeprazole 20 mg PO DAILY rosuvastatin 10 mg PO BEDTIME simethicone 80 mg PO BID-QID theophylline ER 300 mg PO BID tizanidine 4 mg PO TID tramadol 50 mg PO TID PRN HPI Comments Details: 84 YO Female with PMHx bariatric surgery is seen in consultation at the request of PCP for Osteoporosis. First diagnosed in 10 yrs ago .Never saw specialist before for osteoporosis Never Received treatment in the past . No history of pathologic fracture or ONJ. Has several servings of dietary calcium per day in the form of cheese , yogurt .Not Takes Calcium supplement mg daily in divided doses. Not Takes [] IU of Vitamin D daily except in MVI . Denies ever using PPI, anticoagulant, antiepileptic but intermittent glucocorticoid medication for asthma. 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 UTD on dental cleanings and sees dentist every 6 months. No planned upcoming dental work or extractions. DXA dated 10/05/23: FINDINGS: LEFT FEMUR, NECK: Current: BMD 0.600 g/cm2, Z-score -0.9, T-score -3.2, osteoporosis. Prior: BMD 0.583 g/cm2. Baseline: BMD 0.794 g/cm2. LEFT FEMUR, TOTAL: Current: BMD 0.664 g/cm2, Z-score -0.6, T-score -2.7, osteoporosis, 1.5% decrease from previous, 25.5% decrease from baseline (<5% change is not significant). Prior: BMD 0.674 g/cm2. Baseline: BMD 0.891 g/cm2. AP SPINE L1-L4: Current: BMD 0.844 g/cm2, Z-score -0.9, T-score -2.8, osteoporosis, 0.8% decrease from previous, 10.5% decrease from baseline (<5% change is not significant). Prior: BMD 0.851 g/cm2. Baseline: BMD 0.943 g/cm2. IDENTIFIED RISK FACTORS: Menopause, rheumatoid arthritis, height loss. HISTORY OF FRACTURE: None listed. MEDICATIONS: Calcium supplements or multivitamin, vitamin D. MM/XR DEXA axial skeleton IMPRESSION: 1. DIAGNOSIS: Osteoporosis based on the lowest T-score value Labs: Secondary workup revealed a very low urinary calcium suggesting calcium malabsorption. Taking calcium with last 24 hour urine being sufficient The patient is an 84-year-old female presenting with low bone density. Her ongoing low bone density, despite improved calcium absorption, has been attributed partly to a previous bariatric surgery, increasing her fracture risk. At present, she is undergoing treatment for lymphoma, discovered after detecting lumps in her neck. The treatment, initiated two months ago, consists only of pills and excludes radiation therapy. No history of bone fractures was noted. Additionally, her blood sugar experiences fluctuations similar to hypoglycemia episodes, yet she is nondiabetic. Compounding her medical condition includes a significant reduction in white blood cell count as a part of her treatment response, decreasing from 67,000 to 34,000, a positive indicator for lymphoma management. Given the possible side effects and her current treatment phase, she prefers delaying new medications for osteoporosis until completing lymphoma treatments. - Calcium supplements: Taken for low bone density; improved calcium absorption noted. - Forteo: Proposed as a treatment for bone density issue but not started. - Tymlos: Proposed as a treatment for bone density but not started. - Other potential osteoporosis medications: Awaiting approval pending lymphoma treatment completion. - Viactive: Calcium chew reported to cause constipation, patient currently uses it. 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 Mother No problems noted. Social History Household Members: None Household Members Other:: daughter lives downstairs Housing: House Are you a primary career development facilitator to a significant other at home: No Do you presently have visiting nurse or other home services: No Alcohol intake: never Patient Tobacco Use Status: Never used Tobacco Advance Directives Date on File: 06/24/21 service: No Physical Exam Vital Signs: BMI result Body Mass Index 29.1 Assessment & Plan Assessment & Plan (1) Osteoporosis: Code(s): M81.0 - Age-related osteoporosis without current pathological fracture Category: Medical Plan: This 81-year-old female status post bariatric surgery found to have moderate to severe osteoporosis on bone density. Rule out osteomalacia and low calcium absorption status post bariatric surgery a secondary causes. 24 hour urine for calcium remains low. Last 24 hour urine was sufficient on increase calcium supplementation Plan is to consider initiation of an anabolic agent proceeded by an anti resorptive agent. Considering very low bone density and high risk of fracture we will consider an anabolic agent initially should as Evenity, Tymlos or Forteo proceeded by an anti resorptive agent. However, would defer this treatment until after lymphoma treatments are completed which would be in about 3-4 months' time estimated 1. Low Bone Density/Osteopenia The patient requires treatment to improve bone density due to increased fracture risk post-bariatric surgery. Proposed medical therapies include Evenity Forteo and Tymlos, to commence post-lymphoma treatment to prevent fracture risks. 3. Post-Bariatric Surgery with Dumping Syndrome Maintain calcium and vitamin D supplementation, monitoring glucose fluctuations. I discussed the patient's diagnosis of low bone density extensively, taking into account her concurrent lymphoma treatment. We explored potential osteoporosis treatments, stressing the importance of addressing this post-lymphoma therapy to avert fractures. The discussion emphasized deferring these until after the November oncologist appointment. We addressed treatment costs, insurance limitations, and alternative management options. For the ongoing lymphoma treatment, discussions will continue post assessment results and following her oncologist review on December 12. We briefly touched upon dietary considerations, particularly reducing constipation associated with calcium chews, and the patient's history of bariatric surgery. - Continue taking calcium and vitamin D supplements daily. - Avoid new osteoporosis medication until after the lymphoma treatment cycle. - Monitor any changes and report particularly concerning symptoms, especially related to hypoglycemia. - Follow up with your oncologist regarding further lymphoma management. - Contact us after Jessica 15th with any updated information from the oncology consultation. - The patient had an opportunity to ask questions regarding treatment plan. The patient expressed understanding and agreement with the above treatment plan. Patient was informed and verbally consented to the use of an ambient scribe for clinic note documentation during this visit. Coding Level of Care Code Est Pt Level 3 (75167) Diagnoses Osteoporosis M81.0
--- OUTSIDE RECORDS SUMMARY | 2024-11-07 15:34 | XMS_ITS | Encounter Summary ---
Author Organization [employer] Address [address] [place] [address] [address] [place] [address] Care Team Providers Care Anglesmith Helper Name Role Phone Glenna Grossman MD Primary Care Provide r Reason for Visit * Reason Comments Med Refill Encounter Details Date Type Department Care Team (Late Contact Info) Description 08/24/2022 Refill [facility] [address] [place] [address] [phone] Delores Alexis MD [address] [place] [id number] [phone] Chronic bilateral low back pain, unspecified whether [...] Department Care Team (Late Contact Info) Description 01/15/2025 1:30 PM EDT Office Visit [facility] [address] [place] [address] [phone] Glenna Grossman MD [address] [place] [address] [phone] 05/04/2025 9:00 AM EST Telemedicine [facility] [address] [place] [address] [phone] Tracy, Steph, RN documented as of this encounter Visit Diagnoses Diagnosis Chronic bilateral low back pain, unspecified whether sciatica present documented in this encounter Care Teams Anglesmith Helper Relationship Specialty Start Date End Date Glenna Grossman MD [address] [place] [address] PCP - General Family Medicine 07/10/20 documented as of this encounter
== END 2024-11-07 13:44 | disposition home or self-care (01) ==
LOC: HO.ENCR 13:12
PROVIDERS: PCP Internal Medicine; Visit Provider Internal Medicine Endocrinology, Diabetes & Metabolism
DX: M81.0 Age-related osteoporosis without current pathological fracture (principal)
CPT/HCPCS: 99213

== ENCOUNTER → 2024-11-07 13:11 | Outpatient (BNVA) | payer OTHER, SELFPAY | PROVIDERS: PCP Internal Medicine; Visit Provider Internal Medicine Endocrinology, Diabetes & Metabolism | DX: M81.0 Age-related osteoporosis without current pathological fracture (principal) | CPT/HCPCS: 99212 ==

== ENCOUNTER 2025-02-12 12:52 | Outpatient (AMB) | payer OTHER, SELFPAY ==
--- OUTSIDE RECORDS SUMMARY | 2025-02-08 13:15 | XMS_ITS | Encounter Summary ---
Author Organization [employer] Address [address] [place] [address] [address] [place] [address] Care Team Providers Care Coke Production Heater Name Role Phone Glenna Grossman MD Primary Care Provide r Reason for Referral * Consultation (Routine) - Closed Specialty Diagnoses / Procedures Referred By Paulette vanegas Referred To Contact Otolaryngology Diagnoses Tinnitus of both ears Decreased hearing of both ears Glenna Grossman MD [address] [place] [address] Phone: tel: fax: [facility] [address] [place] [address] Phone: tel: fax: Referral ID Status Reason Start Date Expiration Date V isits Requested Visits Authorized [id number] Closed Specialty Services Required 02/08/2025 02/08/2026 1 1 * Consultation (Routine) - Closed Specialty Diagnoses / Procedures Referred By Contdenise t Referred To Contact Audiology Diagnoses Tinnitus of both ears Decreased hearing of both ears Glenna Grossman MD [address] [place] [address] Phone: tel: fax: [facility] [place] [facility] [address] [place], [place] Phone: tel: fax: Referral ID Status Reason Start Date Expiration Date V isits Requested Visits Authorized [id number] Closed Specialty Services Required 02/08/2025 02/08/2026 1 1 Reason for Visit * Reason Comments office vist extended Office visit Encounter Details Date Type Department Care Team (Late st Contact Info) Description 02/08/2025 1:15 PM EDT Office Visit [facility] [address] [place] [address] Glenna Grossman MD [address] [place] [address] Prediabetes (Primary Dx); Essential hypertension; Tinnitus of both ears; Decreased hearing of both ears; SOB (shortness of breath); Decreased breath sounds at left lung base; Allergic rhinitis, unspecified seasonality, unspecified trigger; Other type of osteoarthritis, unspecified site; Severe asthma, unspecified whether complicated, unspecified whether persistent Social History Tobacco Use Types Packs/Day Years [...] Answer Date Recorded Patient Health Questionnaire-9 Score 14 02/08/2025 Patient Health Questionnaire-9 Score 14 02/08/2025 Last PHQ-9: Questionnaire Data Not on file 0 02/08/2025 Housing Stability Answer Date Recorded What is [...] Answer Date Recorded Patient Health Questionnaire-2 Score 4 02/08/2025 Internet Access Answer Date Recorded Internet Access [...] AM EDT documented as of this encounter Last Filed Vital Signs Vital Sign Reading Time Taken Comments Blood Pressure 150/72 02/08/2025 1:28 PM EDT Pulse 86 02/08/2025 1:28 PM EDT Temperature 36.2 C (97.1 F) 02/08/2025 1:28 PM EDT Respiratory Rate 20 02/08/2025 1:28 PM EDT Oxygen Saturation - - Inhaled Oxygen Concentration - - Weight 57.6 kg (127 lb) 02/08/2025 1:28 PM EDT Height 139.7 cm (4' 7 ) 02/08/2025 1:28 PM EDT Body Mass Index 29.52 02/08/2025 1:28 PM EDT documented in this encounter Functional Status * Over the past 2 weeks, how often have you been bothered by any of the following problems? Question Answer Date of Assessment Author Patient Health Questionnaire-2 Score 4 02/08/2025 1:32 PM EDT Marcy Palma MA * Little interest or pleasure in doing things Answer Date of Assessment Author Nearly every day 02/08/2025 1:32 PM EDT Marcy Palma MA * Feeling down, depressed, or hopeless Answer Date of Assessment Author Several days 02/08/2025 1:32 PM EDT Marcy Palma MA * Trouble falling or staying asleep, or sleeping too much Answer Date of Assessment Author Nearly every day 02/08/2025 1:32 PM EDT Marcy Palma MA * Feeling tired or having little energy Answer Date of Assessment Author Nearly every day 02/08/2025 1:32 PM EDT Marcy Palma MA * Poor appetite or overeating Answer Date of Assessment Author More than half the days 02/08/2025 1:32 PM EDT B Marcy Ca MA * Feeling bad about yourself - or that you are a failure or have let yourself or your family down Answer Date of Assessment Author Not at all 02/08/2025 1:32 PM EDT Marcy Palma MA * Trouble concentrating on things, such as reading the newspaper or watching television Answer Date of Assessment Author More than half the days 02/08/2025 1:32 PM EDT Marcy Arredondo MA * Moving or speaking so slowly that other people could have noticed? Or the opposite - being so fidgety or restless that you have been moving around a lot more than usual. Answer Date of Assessment Author Not at all 02/08/2025 1:32 PM EDT Marcy Palma MA * Thoughts that you would be better off or hurting yourself in some way Answer Date of Assessment Author Not at all 02/08/2025 1:32 PM EDT Marcy Palma MA * Patient Health Questionnaire-9 Score Answer Date of Assessment Author 14 02/08/2025 1:32 PM EDT Marcy Palma MA * Over the last 2 weeks, how often have you been bothered by any of the following problems? Question Answer Date of Assessment Author Feeling nervous, anxious, or on edge 3 02/08/2025 1:32 PM EDT Marcy Palma MA Not being able to stop or control worrying 2 02/08/2025 1:32 PM EDT Marcy Palma MA Worrying too much about different things 2 02/08/2025 1:32 PM EDT Marcy Palma MA Trouble relaxing 2 02/08/2025 1:32 PM EDT Marcy Arredondo MA Being so restless that it is hard to sit still 1 02/08/2025 1:32 PM EDT Marcy Palma MA Becoming easily annoyed or irritable 3 02/08/2025 1:32 PM EDT Marcy Palma MA Feeling afraid as if something awful might happen 1 02/08/2025 1:32 PM EDT Marcy Palma MA LEONARDO-7 Total Score 14 02/08/2025 1:32 PM EDT Marcy Palma MA documented as of this encounter Progress Notes * Glenna Hassan MD - 02/08/2025 1:15 PM EDT SUBJECTIVE: Lia Mao is a 84 y.o. year old female who presents for comprehensive Occupation:retired Lives with:alone she has [employer] services Social Hx: denies drinking EtOH, denies smoking cigarettes and denes recreational drug use. Diet:regular Exercise:sedentary Eye Care:up to date Dental Care:up to date Hearing Care:referral in PMHx:on chart Immunizations: Reviewed Patient reports she has med boxes but she has not been taking the diltiazem 240 mg because her blood pressure was in the low side she is only taking losartan 25 mg daily, today her blood pressure is 150/72 and she reports at home she has been having similar readings she denies any headache chest pain dizziness weakness or other symptoms Today on physical exam I noticed diminished air movement on the left lower base when I asked if he has been having some shortness of breath she tells me yes but she thinks is secondary to her medications for her lymphoma she does not have any other symptoms like cough, fever, etc. Patient today also complains of tinnitus and diminished hearing Social History Social History Narrative Not on file Allergic rhinitis Anemia Anxiety Asthenia Atopic dermatitis Chronic low back pain Concentration deficit Constipation Dizziness Empty sella syndrome (CMS/HCC) Essential hypertension Female stress incontinence History of total knee arthroplasty Glaucoma Gastroesophageal reflux disease without esophagitis Hypoglycemia COVID-19 Ileus (CMS/HCC) Lower abdominal pain Mixed anxiety and depressive disorder Lumbosacral spondylosis without myelopathy Severe asthma Obesity Obstructive sleep apnea syndrome Osteoarthritis of knee Pure hypercholesterolemia Spasm Vascular insufficiency Laceration of oral cavity Edentulous maxilla Encounter for preventative adult health care examination Hearing loss Upper respiratory infection Bilateral hip pain Chronic 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 Shoulder pain Asymptomatic menopause Prediabetes Decreased hearing of both ears Polyarthralgia Myalgia Encounter for preventive care Head and neck lymphadenopathy Dry skin dermatitis Non-healing skin lesion 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 Negative for activity change, appetite change, chills, diaphoresis, fever and unexpected weight change. HENT: Negative. Respiratory: Negative. Cardiovascular: Negative. Musculoskeletal: Positive for arthralgias and myalgias. OBJECTIVE: Vitals: 02/08/25 1328 BP: (!) 150/72 BP Location: Left arm Patient Position: Sitting BP Cuff Size: Adult Pulse: 86 Resp: 20 Temp: 97.1 ??F (36.2 ??C) TempSrc: Oral Weight: 127 lb (57.6 kg) Height: 4' 7 (1.397 m) Physical Exam Constitutional: Appearance: Normal appearance. Cardiovascular: Rate and Rhythm: Normal rate and regular rhythm. Pulmonary: Breath sounds: Examination of the left-middle field reveals decreased breath sounds. Examination ofthe left-lower field reveals decreased breath sounds. Decreased breath sounds present. Neurological: Mental Status: She is alert. Follow Up: Follow up in about 3 months (around 05/10/2025) for televisit chronic conditions . Medications Ordered Prior to Encounter[2] Problem List Items Addressed This Visit Prediabetes - Primary Counseling about healthy diet and exercise done today Relevant Orders POCT Hgb A1c (Completed) POCT Glucose (Completed) Essential hypertension Today I initiated her again on diltiazem but at the lower dose of 120 mg daily and continue with losartan 25 mg I asked her to monitor her blood pressure at home and report back to me if she continues to have readings of 140/90 and above Relevant Medications dilTIAZem CD (Cardizem CD) 120 MG 24 hr capsule Tinnitus of both ears I refer patient to ENT and audiology Relevant Medications fluticasone (Flonase) 50 MCG/ACT nasal spray Other Relevant Orders Referral to Audiology Referral to ENT Decreased hearing of both ears Relevant Medications fluticasone (Flonase) 50 MCG/ACT nasal spray Other Relevant Orders Referral to Audiology Referral to ENT SOB (shortness of breath) I will order the x-ray and contact her with results Relevant Medications albuterol (2.5 MG/3ML) 0.083% nebulizer solution albuterol (Ventolin HFA) 108 (90 Base) MCG/ACT inhaler Other Relevant Orders XR Chest 2 Views Decreased breath sounds at left lung base I ordered an x-ray I will contact patient with results Relevant Medications albuterol (2.5 MG/3ML) 0.083% nebulizer solution albuterol (Ventolin HFA) 108 (90 Base) MCG/ACT inhaler Other Relevant Orders XR Chest 2 Views Allergic rhinitis Relevant Medications fluticasone (Flonase) 50 MCG/ACT nasal spray Severe asthma Stable continue with same interventions Refills done today Relevant Medications fluticasone (Flonase) 50 MCG/ACT nasal spray albuterol (2.5 MG/3ML) 0.083% nebulizer solution albuterol (Ventolin HFA) 108 (90 Base) MCG/ACT inhaler Other Visit Diagnoses Other type of osteoarthritis, unspecified site Relevant Medications acetaminophen (Tylenol 8 Hour) 650 MG ER tablet [1] No family history on file. [2] Current Outpatient Medications on File Prior to Visit Medication Sig Dispense Refill Advair HFA 230-21 MCG/ACT inhaler INHALE 1 PUFF BY MOUTH TWICE DAILY IN THE MORNING AND AT BEDTIME.RINSE MOUTH AFTER USING., DO NOT SWALLOW. ADMINISTER WITH SPACER 12 g 11 cetirizine (ZyrTEC) 10 MG tablet TAKE 1 TABLET BY MOUTH EVERY EVENING 90 tablet 1 dicyclomine (Bentyl) 20 MG tablet TAKE 1 TABLET BY MOUTH EVERY MORNING 30 tablet 1 famotidine (Pepcid) 40 MG tablet TAKE 1 TABLET BY MOUTH TWICE DAILY IN THE MORNING AND AT BEDTIME 180 tablet 2 losartan (Cozaar) 25 MG tablet TAKE 1 TABLET BY MOUTH EVERY MORNING 90 tablet 1 meclizine (Antivert) 25 MG tablet TAKE 1 TABLET BY MOUTH THREE TIMES DAILY IN THE MORNING, AT NOON,AND AT BEDTIME NEEDED FOR DIZZINESS 30 tablet 0 Menthol (Cepacol Sore Throat) 5.4 MG lozenge Dissolve 1 tablet in the mouth every 2 (two) hours if needed (angy throat). 20 lozenge 0 Multiple Vitamin (Multivitamin) tablet TAKE 1 TABLET BY MOUTH EVERY MORNING 90 tablet 1 ondansetron (Zofran) 4 MG tablet Take 2 tablets (8 mg) by mouth every 8 (eight) hours if needed fornausea or vomiting. 30 tablet 1 rosuvastatin (Crestor) 10 MG tablet TAKE 1 TABLET BY MOUTH EVERY MORNING 90 tablet 1 simethicone (Mylicon) 80 MG chewable tablet CHEW 1 TABLET BY MOUTH FOUR TIMES DAILY NEEDED 120 tablet 1 theophylline ER (Elbert-Dur) 300 MG 12 hr tablet TAKE 1 TABLET BY MOUTH TWICE DAILY IN THE MORNING AND AT BEDTIME 180 tablet 1 traMADol (Ultram) 50 MG tablet TAKE 2 TABLETS BY MOUTH EVERY 8 HOURS NEEDED FOR SEVERE PAIN 168 tablet 0 triamcinolone (Kenalog) 0.1 % cream APPLY TO THE AFFECTED AREA(S) TOPICALLY TWICE DAILY IN THE MORNING AND AT BEDTIME NEEDED FOR PAIN AND FOR SWELLING 30 g 2 [DISCONTINUED] acetaminophen (Tylenol 8 Hour) 650 MG ER tablet TAKE 1 TABLET BY MOUTH EVERY 8 HOURSAS NEEDED 60 tablet 3 [DISCONTINUED] albuterol (2.5 MG/3ML) 0.083% nebulizer solution INHALE 1 AMPULE USING A NEBULIZER SIX TIMES DAILY 180 mL 0 [DISCONTINUED] albuterol (Ventolin HFA) 108 (90 Base) MCG/ACT inhaler INHALE 2 PUFFS BY MOUTH FOUR TIMES DAILY DIRECTED 18 g 0 [DISCONTINUED] baclofen (Lioresal) 5 MG tablet TAKE 1 TABLET BY MOUTH THREE TIMES DAILY 30 tablet 1 [DISCONTINUED] dilTIAZem CD (Cardizem CD) 240 MG 24 hr capsule TAKE 1 CAPSULE BY MOUTH EVERY MORNING 90 capsule 1 [DISCONTINUED] fluticasone (Flonase) 50 MCG/ACT nasal spray USE 2 SPRAYS IN EACH NOSTRIL EVERY MORNING 48 g 0 [DISCONTINUED] traMADol (Ultram) 50 MG tablet TAKE 2 TABLETS BY MOUTH EVERY 8 HOURS NEEDED FOR SEVERE PAIN 168 tablet 0 No current facility-administered medications on file prior to visit. documented in this encounter Miscellaneous Notes * Assessment & Plan Note - Glenna Hassan MD - 02/08/2025 4:19 PM EDT Associated Problem(s): SOB (shortness of breath) I will order the x-ray and contact her with results * Assessment & Plan Note - Glenna Hassan MD - 02/08/2025 4:18 PM EDT Associated Problem(s): Severe asthma Stable continue with same interventions Refills done today * Assessment & Plan Note - Glenna Hassan MD - 02/08/2025 4:18 PM EDT Associated Problem(s): Decreased breath sounds at left lung base I ordered an x-ray I will contact patient with results * Assessment & Plan Note - Glenna Hassan MD - 02/08/2025 4:18 PM EDT Associated Problem(s): Prediabetes Counseling about healthy diet and exercise done today * Assessment & Plan Note - Glenna Hassan MD - 02/08/2025 4:18 PM EDT Associated Problem(s): Tinnitus of both ears I refer patient to ENT and audiology * Assessment & Plan Note - Glenna Hassan MD - 02/08/2025 4:18 PM EDT Associated Problem(s): Essential hypertension Today I initiated her again on diltiazem but at the lower dose of 120 mg daily and continue with losartan 25 mg I asked her to monitor her blood pressure at home and report back to me if she continues to have readings of 140/90 and above documented in this encounter Plan of Treatment Upcoming Encounters Date Type Department Care Team (Late st Contact Info) Description 05/04/2025 9:00 AM EST Telemedicine [facility] [address] [place] [id number] Steph Molina RN Pending Results Name Type Priority Associated Diagnoses Date /Time Referral to ENT Outpatient Referral Routine Tinnitus of both ears Decreased hearing of both ears 02/08/2025 Scheduled Orders Name Type Priority Associated Diagnoses Orde r Schedule XR Chest 2 Views Imaging Routine SOB (shortness of breath) Decreased breath sounds at left lung base Expected: 02/08/2025, Expires: 02/08/2026 Scheduled Referrals Name Type Priority Associated Diagnoses Orde r Schedule Referral to Audiology Outpatient Referral Routine Tinnitus of both ears Decreased hearing of both ears Expected: 02/08/2025 (Approximate), Expires: 02/08/2026 Referral to ENT Outpatient Referral Routine Tinnitus of both ears Decreased hearing of both ears Expected: 02/08/2025 (Approximate), Expires: 02/08/2026 documented as of this encounter Procedures Procedure Name Priority Date/Time Associated Diagnosis Comments POCT GLYCATED HEMOGLOBIN, TOTAL Routine 02/08/2025 1:35 PM EDT Prediabetes POCT GLUCOSE Routine 02/08/2025 1:30 PM EDT Prediabetes documented in this encounter Results * POCT Hgb A1c (02/08/2025 1:35 PM EDT) Hemoglobin A1C 5.1 4.0 - 5.7 % QC Media Lot # [id number] Lot# Expiration Date [id number] Blood 02/08/2025 1:35 PM EDT us Glenna Hassan MD POINT OF CARE TEST EN TER/EDIT ORDERABLES Final Result * POCT Glucose (02/08/2025 1:30 PM EDT) Glucose Blood, POC 121 60 - 200 mg/dL QC Media Lot # [id number] Lot# Expiration Date Blood Capillary blood specimen / Unknown 02/08/2025 1:30 PM EDT Glenna Hassan MD POINT OF CARE TEST EN TER/EDIT ORDERABLES Final Result documented in this encounter Visit Diagnoses Diagnosis Prediabetes- Primary Other abnormal glucose Essential hypertension Unspecified essential hypertension Tinnitus of both ears Unspecified tinnitus Decreased hearing of both ears SOB (shortness of breath) Shortness of breath Decreased breath sounds at left lung base Allergic rhinitis, unspecified seasonality, unspecified trigger Other type of osteoarthritis, unspecified site Severe asthma, unspecified whether complicated, unspecified whether persistent documented in this encounter Additional Health Concerns Assessment Noted Time PHQ-9 Depression Total Score: 14 025 1:32 PM EDT documented as of this encounter Care Teams [employer] Heater Relationship Specialty Start Date End Date Glenna Grossman MD [address] [place] [phone] PCP - General Family Medicine 07/10/20 documented as of this encounter
--- NOTE | 2025-02-12 13:04 | A.OFFVIS_ITS ---
Vital Signs 02/12/25 13:18 Height 4 ft 7 in Weight 123 lb 14.397 oz BMI 28.8 BP 134/63 Blood Pressure Location Rt brachial Position Sitting Pulse 75 Intake Visit Reasons: 3 MO F/U r/s 06/30/24 R/09/01/24 Intake Note: Lia presents in the office as a 3 month follow up. CC: Patient reports that she is taking Milk of magnesia for constipation and it helps her. Fire Operations Forester Required: Yes Fire Operations Forester Language: Volunteer Assistant Services: Fire Operations Forester Offered & Declined Fire Operations Forester Name: grandson Accompanied by: Grand Child Allergies morphine (MORPHINE) Allergy (Severe, Verified 02/12/25 13:22) Agitated WADE Inhibitors Allergy (Intermediate, Verified 02/12/25 13:22) mouth swelling/cough amlodipine Allergy (Intermediate, Verified 02/12/25 13:22) headache/dizziness/nausea/vomiting pantoprazole (From Protonix) Allergy (Intermediate, Verified 02/12/25 13:22) Agitated celecoxib (From Celebrex) Adverse Reaction (Mild, Verified 02/12/25 13:22) Weakness milk (MILK) Adverse Reaction (Mild, Verified 02/12/25 13:22) STOMACH UPSET oxycodone (From Percocet) Adverse Reaction (Mild, Verified 02/12/25 13:22) NAUSEA/RAPID HR/BLURRED VISION HPI HPI 3 MO F/U r/s 06/30/24 R/09/01/24: Details: 84 y/o f w/ VIRIDIANA, OA, gastric bypass being seen for f/u RECAP: Issues: 1/ GERD--I changed her from rabeprazole to pantoprazole 2/ chronic constipation--takes MoM once a week which was helping her EGD/colonoscopy: 2012- small hiatal hernia, one small tubular adenoma removed. colonoscopy--11/2018--serrated polyp removed, redundant colon with looping, tortuous, suspected she had right sided ischemic colitis Admission with ileus 05/2021, medically managed, constipation noted, she also had covid chronci tramdol use for arthritis pain INTERIM: she was dx with CLL/SLL she has noted LLQ discomfort she wonders if coming from mesh she has poor appetite she has constipation it works well for her she takes it every 2 d EXAM: GENERAL: The patient is well developed and nontoxic. VITAL SIGNS:see workflow HEENT: Nonicteric sclerae, PERRLA, EOMI. Oropharynx clear. Moist mucous membranes. Conjunctivae appear well perfused. No thyroid mass. CHEST: Chest wall is nontender. HEART: Regular rate and rhythm without murmurs. LUNGS: Clear to auscultation bilaterally. ABDOMEN: Soft, positive bowel sounds, tender LUQ, no organomegaly.no flank tenderness--scar noted from prior mesh surgery SKIN: No rash, no excessive bruising, petechiae, or purpura. NEUROLOGIC: Cranial nerves II-XII intact without motor/sensory deficit. psych--nml affect A/P 1. Chronic idiopathic constipation--taking MOm q2 --- may also be due to tramadol use, adhesions, slow transit and age 2. Chronic GERD, on H2B, PPI not covered by insurance 3. 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 Mother No problems noted. Social History Household Members: None Household Members Other:: daughter lives downstairs Housing: House Are you a primary home care specialist to a significant other at home: No Do you presently have visiting nurse or other home services: No Alcohol intake: never Patient Tobacco Use Status: Never used Tobacco Advance Directives Date on File: 06/24/21 service: No Physical Exam Vital Signs: Last Vital Signs Pulse 75 02/12/25 13:18 BP 134/63 02/12/25 13:18 BMI result Body Mass Index 28.8 Assessment & Plan Assessment & Plan (1) Lymphoma: Code(s): C85.90 - Non-Hodgkin lymphoma, unspecified, unspecified site Category: Surgical Plan: as above Orders: Orders CT soft tissue neck w IV con Today C85.90 - Non-Hodgkin lymphoma, unspecified, unspecified site CT chest w IV con Today C85.90 - Non-Hodgkin lymphoma, unspecified, unspecified site CT abdomen pelvis w IV con Today C85.90 - Non-Hodgkin lymphoma, unspecified, unspecified site Medications: New dronabinol (Marinol) 2.5 mg PO BEDTIME 30 caps 0RF dronabinol (Marinol) 2.5 mg PO BEDTIME 30 caps 0RF Coding Level of Care Code Est Pt Level 3 (60883) Diagnoses Lymphoma C85.90
[2025-02-12 13:18] VITALS: BP 134/63; PULSE 75; BMI 28.8
--- OUTSIDE RECORDS SUMMARY | 2025-02-12 17:43 | XMS_ITS | Encounter Summary ---
Author Organization [employer] Address [address] [place] [address] [address] [place] [address] Care Team Providers Care Line Tender Name Role Phone Glenna Grossman MD Primary Care Provide r Encounter Details Date Type Department Care Team (Latest Contact Info) Description 01/09/2019 Abstract [facility] CONVERSIONS Dental, Provider, DDS Social History [...] Info) Description 05/04/2025 9:00 AM EST Telemedicine [facility] [address] [place] [address] Steph Molina, RN documented as of this encounter Visit Diagnoses Not on filedocumented in this encounter Care Teams Line Tender Relationship Specialty Start Date End Date Glenna Grossman MD [address] [place] [address] PCP - General Family Medicine 07/10/20 documented as of this encounter
--- OUTSIDE RECORDS SUMMARY | 2025-02-12 17:43 | XMS_ITS | Encounter Summary ---
Author Organization [employer] Address [address] [place] [address] 7t [place] [address] Care Team Providers Care Whale Trainer Name Role Phone Glenna Grossman MD Primary Care Provide r Encounter Details Date Type Department Care Team ([facility] st Contact Info) Description 06/15/2024 Orders Only [facility] MEDICINE [address] [place], [place] [phone] Glenna Grossman MD 230 [place], [place] [phone] Social History Tobacco Use Types Packs/Day Years [...] Info) Description 05/04/2025 9:00 AM EST Telemedicine [facility] MEDICINE [address] [place] [address] Steph Molina, DIVYA documented as of this encounter Visit Diagnoses Not on filedocumented in this encounter Additional Health Concerns Assessment Noted Time PHQ-9 Depression Total Score: 9 05/02/20 24 11:03 AM EST documented as of this encounter Care Teams Whale Trainer Relationship Specialty Start Date End Date Glenna Grossman MD 230 [place] [address] PCP - General Family Medicine 07/10/20 documented as of this encounter
--- OUTSIDE RECORDS SUMMARY | 2025-02-12 17:43 | XMS_ITS | Encounter Summary ---
Author Organization [employer] Address [address] [place] [address] 7t [place] [address] Care Team Providers Care Lap Winder Name Role Phone Glenna Grossman MD Primary Care Provide r Reason for Visit * Reason Comments Med Refill Encounter Details Date Type Department Care Team ([facility] Contact Info) Description 08/24/2022 Refill [facility] MEDICINE 230 [place] [address] Delores Alexis MD [address] [place] [address] Chronic bilateral low back pain, unspecified whether [...] Department Care Team (Late Contact Info) Description 05/04/2025 9:00 AM EST Telemedicine [facility] MEDICINE 230 [place], [place] [phone] Steph Molina RN documented as of this encounter Visit Diagnoses Diagnosis Chronic bilateral low back pain, unspecified whether sciatica present documented in this encounter Care Teams Lap Winder Relationship Specialty Start Date End Date Glenna Grossman MD [address] [place], [place] [phone] PCP - General Family Medicine 07/10/20 documented as of this encounter
--- OUTSIDE RECORDS SUMMARY | 2025-02-12 17:43 | XMS_ITS | Encounter Summary ---
Author Organization [employer] Address [address] [place] [address] 7t [place] [address] Care Team Providers Care Home Care Assistant Name Role Phone Glenna Grossman MD Primary Care Provide r Reason for Visit * Reason Comments Med Refill Encounter Details Date Type Department Care Team ([facility] st Contact Info) Description 04/26/2023 Refill [facility] [address] [place], [place] [phone] Glenna Grossman MD 230 [place] [address] Irritable bowel syndrome with constipation Social History [...] 05/04/2025 9:00 AM EST Telemedicine [facility] MEDICINE [address] [place] [address] Steph Molina RN documented as of this encounter Visit Diagnoses Diagnosis Irritable bowel syndrome with constipation Irritable bowel syndrome documented in this encounter Additional Health Concerns Assessment Noted Time PHQ-9 Depression Total Score: 0 01/07/20 23 11:14 AM EDT documented as of this encounter Care Teams Home Care Assistant Relationship Specialty Start Date End Date Glenna Grossman MD 230 [place] [address] PCP - General Family Medicine 07/10/20 documented as of this encounter
--- OUTSIDE RECORDS SUMMARY | 2025-02-12 17:43 | XMS_ITS | Encounter Summary ---
Author Organization [employer] Address [address] [place] [address] 7t [place] [address] Care Team Providers Care Air Purifier Servicer Name Role Phone Glenna Grossman MD Primary Care Provide r Reason for Visit * Reason Onset Date Comments Med Refill 04/26/2023 Encounter Details Date Type Department Care Team ([facility] st Contact Info) Description 04/26/2023 Telephone [facility] MEDICINE 230 [place], [place] [phone] Glenna Grossman MD 230 [place] [address] Med Refill Social History Tobacco Use Types [...] Info) Description 05/04/2025 9:00 AM EST Telemedicine [facility] MEDICINE [address] [place] [address] Steph Molina RN documented as of this encounter Visit Diagnoses Not on filedocumented in this encounter Additional Health Concerns Assessment Noted Time PHQ-9 Depression Total Score: 0 01/07/20 23 11:14 AM EDT documented as of this encounter Care Teams Air Purifier Servicer Relationship Specialty Start Date End Date Glenna Grossman MD 230 [place] [address] PCP - General Family Medicine 07/10/20 documented as of this encounter
--- OUTSIDE RECORDS SUMMARY | 2025-02-12 17:43 | XMS_ITS | Encounter Summary ---
Author Organization [employer] Address [address] [place] [address] 7t [place] [address] Care Team Providers Care Register Clerk Name Role Phone Glenna Grossman MD Primary Care Provide r Reason for Visit * Reason Onset Date Comments Med Refill 01/14/2023 Encounter Details Date Type Department Care Team ([facility] st Contact Info) Description 01/14/2023 Telephone [facility] MEDICINE [address] [place], [place] [phone] Glenna Grossman MD 230 [place] [address] Med Refill Social History Tobacco Use Types [...] Info) Description 05/04/2025 9:00 AM EST Telemedicine [facility] MEDICINE [address] [place] [address] Steph Molina RN documented as of this encounter Visit Diagnoses Not on filedocumented in this encounter Additional Health Concerns Assessment Noted Time PHQ-9 Depression Total Score: 0 01/07/20 23 11:14 AM EDT documented as of this encounter Care Teams Register Clerk Relationship Specialty Start Date End Date Glenna Grossman MD 230 [place] [address] PCP - General Family Medicine 07/10/20 documented as of this encounter
--- OUTSIDE RECORDS SUMMARY | 2025-02-12 17:43 | XMS_ITS | Encounter Summary ---
Author Organization [employer] Address [address] [place] [address] 7t [place] [address] Care Team Providers Care Clinical Courier Name Role Phone Glenna Grossman MD Primary Care Provide r Reason for Visit * Reason Comments Med Refill Encounter Details Date Type Department Care Team ([facility] st Contact Info) Description 11/19/[address] [facility] CHC MED & PEDS [address] [place], [place] [phone] Glenna Grossman MD 230 [place] [address] Chronic bilateral low back pain, unspecified whether [...] Info) Description 05/04/2025 9:00 AM EST Telemedicine [facility] MEDICINE 230 [place] [address] Steph Molina RN documented as of this encounter Visit Diagnoses Diagnosis Chronic bilateral low back pain, unspecified whether sciatica present documented in this encounter Care Teams Clinical Courier Relationship Specialty Start Date End Date Glenna Grossman MD 230 [place] [address] PCP - General Family Medicine 07/10/20 documented as of this encounter
--- OUTSIDE RECORDS SUMMARY | 2025-02-12 17:43 | XMS_ITS | Encounter Summary ---
Author Organization [employer] Address [address] [place] [address] 7t [place] [address] Care Team Providers Care Nurse Discharge Planner Name Role Phone Glenna Grossman MD Primary Care Provide r Reason for Visit * Reason Comments Med Refill Encounter Details Date Type Department Care Team (Late Contact Info) Description 11/20/2022 Refill [facility] CHC MED & PEDS [address] [place], [place] [phone] Glenna Grossman MD 230 [place], [place] [phone] Low back pain, unspecified Social History Tobacco [...] Upcoming Encounters Date Type Department Care Team ([facility] Contact Info) Description 05/04/2025 9:00 AM EST Telemedicine [facility] MEDICINE 230 [place], [place] [phone] Steph Molina, RN documented as of this encounter Visit Diagnoses Diagnosis Low back pain, unspecified documented in this encounter Care Teams Nurse Discharge Planner Relationship Specialty Start Date End Date Glenna Grossman MD 230 [place] [address] PCP - General Family Medicine 07/10/20 documented as of this encounter
--- OUTSIDE RECORDS SUMMARY | 2025-02-12 17:43 | XMS_ITS | Encounter Summary ---
Author Organization [employer] Address [address] [place] [address] 7t [place] [address] Care Team Providers Care Sail Cutter Name Role Phone Glenna Grossman MD Primary Care Provide r Encounter Details Date Type Department Care Team ([facility] st Contact Info) Description 10/27/2024 Orders Only [facility] MEDICINE [address] [place], [place] [phone] Glenna Grossman MD 230 [place], [place] [phone] Social History Tobacco Use Types Packs/Day Years [...] [facility] MEDICINE [address] [place] [address] Steph Molina RN documented as of this encounter Visit Diagnoses Not on filedocumented in this encounter Additional Health Concerns Assessment Noted Time PHQ-9 Depression Total Score: 0 08/10/19 25 2:48 PM EDT documented as of this encounter Care Teams Sail Cutter Relationship Specialty Start Date End Date Glenna Grossman MD 230 [place] [address] PCP - General Family Medicine 07/10/20 documented as of this encounter
--- OUTSIDE RECORDS SUMMARY | 2025-02-12 17:43 | XMS_ITS | Encounter Summary ---
Author Organization [employer] Address [address] [place] [address] 7t [place] [address] Care Team Providers Care Gypsum Block Setter Name Role Phone Glenna Grossman MD Primary Care Provide r Reason for Visit * Reason Comments Med Refill Encounter Details Date Type Department Care Team (Late Contact Info) Description 02/21/2023 Refill [facility] MEDICINE [address] [place] [address] [phone] Glenna Grossman MD 230 [place], [place] [phone] Social History Tobacco Use Types Packs/Day Years [...] Info) Description 05/04/2025 9:00 AM EST Telemedicine [facility] MEDICINE 230 [place], [place] [phone] Steph Molina RN documented as of this encounter Visit Diagnoses Not on filedocumented in this encounter Additional Health Concerns Assessment Noted Time PHQ-9 Depression Total Score: 0 01/07/20 23 11:14 AM EDT documented as of this encounter Care Teams Gypsum Block Setter Relationship Specialty Start Date End Date Glenna Grossman MD 230 [place] [address] PCP - General Family Medicine 07/10/20 documented as of this encounter
--- OUTSIDE RECORDS SUMMARY | 2025-02-12 17:43 | XMS_ITS | Encounter Summary ---
Author Organization [employer] Address [address] [place] [address] 7t [place] [address] Care Team Providers Care Fish Machine Feeder Name Role Phone Glenna Grossman MD Primary Care Provide r Reason for Visit * Reason Comments Med Refill Encounter Details Date Type Department Care Team (Late Contact Info) Description 02/03/2023 Refill [facility] MEDICINE [address] [place] [address] [phone] Glenna Grossman MD 230 [place], [place] [phone] Routine health maintenance Social History Tobacco Use [...] Info) Description 05/04/2025 9:00 AM EST Telemedicine [facility] MEDICINE [address] [place] [address] [phone] Steph Molina RN documented as of this encounter Visit Diagnoses Diagnosis Routine health maintenance Unspecified examination documented in this encounter Additional Health Concerns Assessment Noted Time PHQ-9 Depression Total Score: 0 01/07/20 23 11:14 AM EDT documented as of this encounter Care Teams Fish Machine Feeder Relationship Specialty Start Date End Date Glenna Grossman MD 230 [place] [address] PCP - General Family Medicine 07/10/20 documented as of this encounter
--- OUTSIDE RECORDS SUMMARY | 2025-02-12 17:43 | XMS_ITS | Encounter Summary ---
Author Organization [employer] Address [address] [place] [address] 7t [place] [address] Care Team Providers Care Manager Icu Name Role Phone Glenna Grossman MD Primary Care Provide r Reason for Visit * Reason Comments Med Refill Encounter Details Date Type Department Care Team ([facility] st Contact Info) Description 05/25/2023 Refill [facility] CHC MED & PEDS [address] [place], [place] [phone] Glenna Grossman MD 230 [place] [address] Social History Tobacco Use Types Packs/Day Years [...] Info) Description 05/04/2025 9:00 AM EST Telemedicine [facility] MEDICINE 230 [place] [address] Steph Molina RN documented as of this encounter Visit Diagnoses Not on filedocumented in this encounter Additional Health Concerns Assessment Noted Time PHQ-9 Depression Total Score: 0 01/07/20 23 11:14 AM EDT documented as of this encounter Care Teams Manager Icu Relationship Specialty Start Date End Date Glenna Grossman MD 230 [place] [address] PCP - General Family Medicine 07/10/20 documented as of this encounter
--- OUTSIDE RECORDS SUMMARY | 2025-02-12 17:43 | XMS_ITS | Encounter Summary ---
Author Organization [employer] Address [address] [place] [address] 7t [place] [address] Care Team Providers Care Associate Financial Advisor Name Role Phone Glenna Grossman MD Primary Care Provide r Encounter Details Date Type Department Care Team (Late st Contact Info) Description 05/28/2022 Orders Only [facility] MEDICINE [address] [place] [phone] Isabella Cardoso RN Social History Tobacco Use [...] Info) Description 05/04/2025 9:00 AM EST Telemedicine [address] [address] Steph Molina, RN documented as of this encounter Procedures Procedure Name Priority Date/Time Associated Diagnosis Comments BI MAMMOGRAM SCREENING TOMOSYNTHESIS BILATERAL Routine 06/19/2022 10:55 AM EST documented in this encounter Results * BI Mammogram Screening Tomosynthesis Bilateral (06/19/2022 10:55 AM EST) Anatomical Region Laterality Modality Breast Bilateral Mammography 06/19/2022 10:5 5 AM EST Narrative 06/22/2022 3:57 PM EST [address] [place] [address] Mammography Report Signed Patient: Lia Strauss MR#: [id number] : 1940 Acct:[id number] Age/Sex: 82 / F ADM Date: 06/19/22 Loc: HO.MAMMO Attending Dr: Glenna Hassan MD Ordering Physician: Glenna Grossman MD Results: 1Negative Date of Service: 06/19/22 Follow Up: 1 Year From Orig inal Mammogram Procedure(s): MM tomosynthesis screening BI Accession Number(s): [id number] cc: Glenna Grossman MD EXAMINATION: MM SCREENING [...] in OV> 06/22/22 1555 DD/ 1055 TD/TT: Lead Welder: WICHO Procedure Note Donotuseinterpreter, Image - 06/22/[address] [place] [place] [address] Mammography Report Signed Patient: Lia Strauss#: [id number] : 2Acct:[id number] Age/Sex: 82 / FADM Date: 06/19/22 Loc: HO.MAMMO Attending Dr: Glenna Hassan MD Ordering Physician: Glenna Grossman MDResults: 1Negative Date of Service: 06/19/22Follow Up: 1 Year From Orig inal Mammogram Procedure(s): MM tomosynthesis screening BI Accession Number(s): [id number] cc: Glenna Grossman MD EXAMINATION: MM SCREENING [...] in OV> 06/22/22 1555 DD/ 1055 TD/TT: Lead Welder: [facility] External Provider IMG BI PROCEDURES Edited Result - Final documented in this encounter Visit Diagnoses Not on filedocumented in this encounter Care Teams Associate Financial Advisor Relationship Specialty Start Date End Date Glenna Grossman MD 230 [place] [address] PCP - General Family Medicine 07/10/20 documented as of this encounter
--- OUTSIDE RECORDS SUMMARY | 2025-02-12 17:43 | XMS_ITS | Encounter Summary ---
Author Organization [employer] Address [address] [place] [address] 7t [place] [address] Care Team Providers Care Skein Winding Operator Name Role Phone Glenna Grossman MD Primary Care Provide r Encounter Details Date Type Department Care Team ([facility] Contact Info) Description 06/23/2022 Abstract [facility] MEDICINE [address] [place] [address] [phone] Shahla Simon, DIVYA [address] [place] [address] Social History Tobacco Use Types Packs/Day Years [...] Info) Description 05/04/2025 9:00 AM EST Telemedicine [facility] MEDICINE 230 [place], [place] [phone] Steph Molina, RN documented as of this encounter Procedures Procedure Name Priority Date/Time Associated Diagnosis Comments MAMMOGRAPHY Routine 06/19/2022 documented in this encounter Results * Mammography (06/19/2022) Mammogram BIRADS 1: Negative Repeat in 1 year Anatomical Region Laterality Modality Other us Historical Provider HEALTH MAINTENANCE Final Result documented in this encounter Visit Diagnoses Not on filedocumented in this encounter Care Teams Skein Winding Operator Relationship Specialty Start Date End Date Glenna Grossman MD [address] [place] [address] PCP - General Family Medicine 07/10/20 documented as of this encounter
--- OUTSIDE RECORDS SUMMARY | 2025-02-12 17:43 | XMS_ITS | Encounter Summary ---
Author Organization [employer] Address [address] [place] [address] 7t [place] [address] Care Team Providers Care Electrician Master Name Role Phone Glenan Grossman MD Primary Care Provide r Reason for Visit * Reason Comments Med Refill Encounter Details Date Type Department Care Team ([facility] st Contact Info) Description 04/21/2023 Refill [facility] 230 [place], [place] [phone] Glenna Grossman MD 230 [place] [address] Irritable bowel syndrome with constipation Social History [...] Info) Description 05/04/2025 9:00 AM EST Telemedicine [facility] MEDICINE [address] [place] [address] Steph Molina RN documented as of this encounter Visit Diagnoses Diagnosis Irritable bowel syndrome with constipation Irritable bowel syndrome documented in this encounter Additional Health Concerns Assessment Noted Time PHQ-9 Depression Total Score: 0 01/07/20 23 11:14 AM EDT documented as of this encounter Care Teams Electrician Master Relationship Specialty Start Date End Date Glenna Grossman MD 230 [place] [address] PCP - General Family Medicine 07/10/20 documented as of this encounter
--- OUTSIDE RECORDS SUMMARY | 2025-02-12 17:43 | XMS_ITS | Encounter Summary ---
Author Organization [employer] Address [address] [facility] 7t [place] [address] Care Team Providers Care Radiology Supervisor Name Role Phone Glenna Grossman MD Primary Care Provide r Encounter Details Date Type Department Care Team ([facility] st Contact Info) Description 01/03/2025 Telephone [facility]S [address] [place], [place] [phone] Glenna Grossman MD 230 [place] [address] Social History Tobacco Use Types Packs/Day Years [...] Info) Description 05/04/2025 9:00 AM EST Telemedicine [facility] MEDICINE 230 [place] [address] Steph Molina RN documented as of this encounter Visit Diagnoses Not on filedocumented in this encounter Additional Health Concerns Assessment Noted Time PHQ-9 Depression Total Score: 0 08/10/19 25 2:48 PM EDT documented as of this encounter Care Teams Radiology Supervisor Relationship Specialty Start Date End Date Glenna Grossman MD 230 [place] [address] PCP - General Family Medicine 07/10/20 documented as of this encounter
--- OUTSIDE RECORDS SUMMARY | 2025-02-12 17:43 | XMS_ITS | Encounter Summary ---
Author Organization [employer] Address [address] [place] [address] 7t [place] [address] Care Team Providers Care Recovery Collector Name Role Phone Glenna Grossman MD Primary Care Provide r Encounter Details Date Type Department Care Team ([facility] Contact Info) Description 12/16/2022 Telephone [facility] MEDICINE [address] [place] [address] [phone] Glenna Grossman MD [address] [place] [address] [phone] Social History Tobacco Use Types Packs/Day Years [...] Upcoming Encounters Date Type Department Care Team ([facility] Contact Info) Description 05/04/2025 9:00 AM EST Telemedicine [facility] MEDICINE [address] [place] [address] [phone] Steph Molina RN documented as of this encounter Visit Diagnoses Not on filedocumented in this encounter Care Teams Recovery Collector Relationship Specialty Start Date End Date Glenna Grossman MD [address] [place] [address] [phone] PCP - General Family Medicine 07/10/20 documented as of this encounter
--- OUTSIDE RECORDS SUMMARY | 2025-02-12 17:44 | XMS_ITS | Encounter Summary ---
Author Organization [employer] Address [address] [facility] 7t [place] [address] Care Team Providers Care Horse Stud Worker Name Role Phone Glenna Grossman MD Primary Care Provide r Reason for Visit * Reason Comments Med Refill Encounter Details Date Type Department Care Team ([facility] st Contact Info) Description 02/07/2025 Refill [facility] MED & PEDS [address] [place], [place] [phone] Glenna Grossman MD 230 [place] [address] Chronic bilateral low back pain with left-sided [...] Info) Description 05/04/2025 9:00 AM EST Telemedicine [facility] 230 [place] [address] Steph Molina, RN documented as of this encounter Visit Diagnoses Diagnosis Chronic bilateral low back pain with left-sided sciatica documented in this encounter Additional Health Concerns Assessment Noted Time PHQ-9 Depression Total Score: 0 08/10/19 25 2:48 PM EDT documented as of this encounter Care Teams Horse Stud Worker Relationship Specialty Start Date End Date Glenna Grossman MD [address] [place] [address] PCP - General Family Medicine 07/10/20 documented as of this encounter
--- OUTSIDE RECORDS SUMMARY | 2025-02-12 17:44 | XMS_ITS | Encounter Summary ---
Author Organization [employer] Address [address] [place] [address] 7t [place] [address] Care Team Providers Care Quality Review Trainer Name Role Phone Glenna Grossman MD Primary Care Provide r Reason for Visit * Reason Onset Date Comments Nurse Triage 03/28/2024 Encounter Details Date Type Department Care Team ([facility] st Contact Info) Description 03/28/2024 Telephone [facility] MEDICINE [address] [place], [place] [phone] Glenna Grossman MD 230 [place] [address] Nurse Triage Social History Tobacco Use Types [...] 03/28/2024 1:40 PM EDT [place] [id number] Mario Alberto, Pt is asking about hemaglobin possibly being low. Lab result on chart shows HGB with in normal limits. Pt reports appetite is poor but, hasbeen for a while. Pt reports obtained an earlier apt with PCP scheduled for 05/02/24 instead of July. Pt is asking about medications ordered by cardiology. Pt is encouraged to call the decommissioning well site manager office to inquire about orders. Pt [...] become worse * Telephone Encounter - Maggy Carlos Eduardo - 03/28/2024 1:05 PM EDT Symptom: Lethargic (Tired) Outcome: Schedule an urgent appointment (within 4 hours) or talk to a nurse or provider soon Reason: Getting worse The caller accepted this outcome. Contact pt at [phone] (maori) documented in this encounter Plan of Treatment Upcoming Encounters Date Type Department Care Team ([facility] st Contact Info) Description 05/04/2025 9:00 AM EST Telemedicine [facility] MEDICINE [address] [place] [address] Steph Molina, DIVYA documented as of this encounter Visit Diagnoses Not on filedocumented in this encounter Additional Health Concerns Assessment Noted Time PHQ-9 Depression Total Score: 17 024 11:08 AM EDT documented as of this encounter Care Teams Quality Review Trainer Relationship Specialty Start Date End Date Glenna Grossman MD 230 [place] [address] PCP - General Family Medicine 07/10/20 documented as of this encounter
--- OUTSIDE RECORDS SUMMARY | 2025-02-12 17:44 | XMS_ITS | Encounter Summary ---
Author Organization [employer] Address [address] [place] [address] [address] [place] [address] Care Team Providers Care Painter Helper Sign Name Role Phone Glenna Grossman MD Primary Care Provide r Encounter Details Date Type Department Care Team (Latest Contact Info) Description 02/08/2025 Travel Social History Tobacco Use Types Packs/Day [...] AM EDT documented as of this encounter Functional Status * Over the [...] 1:32 PM EDT Marcy Arredondo MA * Feeling bad about yourself - [...] [place] documented as of this encounter Plan of Treatment Upcoming Encounters Date Type Department Care Team (Late st Contact Info) Description 05/04/2025 9:00 AM EST Telemedicine [facility] [address] [place] [address] Steph Molina, RN documented as of this encounter Visit Diagnoses Not on filedocumented in this encounter Additional Health Concerns Assessment Noted Time PHQ-9 Depression Total Score: 14 025 1:32 PM EDT documented as of this encounter Care Teams Painter Helper Sign Relationship Specialty Start Date End Date Glenna Grossman MD [address] [place] [address] PCP - General Family Medicine 07/10/20 documented as of this encounter
--- OUTSIDE RECORDS SUMMARY | 2025-02-12 17:44 | XMS_ITS | Clinical Summary ---
Author Organization [employer] Address [address] [place] [address] [address] [place] [address] Care Team Providers Care Bufferer Name Role Phone Glenna Grossman MD Primary Care Provide r Allergies Active Allergy Reactions Criticality Noted Date Comments Avinash Inhibitors Angioedema High 03/21/2015 Other reaction(s): cough & mouth swelling Amlodipine Headache,Dizziness 01/14/2018 Nausea, vomiting Celecoxib 11/28/2018 weakness Other reaction(s): weakness Metoclopramide Hives 06/26/2010 Oxycodone Hives 06/26/2010 Pantoprazole Unknown 06/26/2010 Tiotropium 07/06/2018 Other reaction(s): per wood buffer Medications meclizine (Antivert) 25 MG tabletIndications:Dizz iness TAKE 1 TABLET BY MOUTH THREE TIMES DAILY IN THE MORNING, AT NOON, AND AT BEDTIME NEEDED FOR DIZZINESS 30 tablet 023 Active Menthol (Cepacol Sore Throat) 5.4 MG lozengeIndications:Sor e throat Dissolve 1 tablet in the mouth every 2 (two) hours if needed (angy throat). 20 lozenge 024 Active Advair HFA 230-21 MCG/ACT inhalerIndications:Sev ere persistent asthma, unspecified whether complicated INHALE 1 PUFF BY MOUTH TWICE DAILY IN THE MORNING AND AT BEDTIME. RINSE MOUTH AFTER USING., DO NOT SWALLOW. ADMINISTER WITH SPACER 12 g 11 025 Active famotidine (Pepcid) 40 MG tabletIndications:Shahana roesophageal reflux disease without esophagitis TAKE 1 TABLET BY MOUTH TWICE DAILY IN THE MORNING AND AT BEDTIME 180 tablet 2 025 Active cetirizine (ZyrTEC) 10 MG tabletIndications:Sheldon rgic rhinitis, unspecified seasonality, unspecified trigger TAKE 1 TABLET BY MOUTH EVERY EVENING 90 tablet 1 025 Active triamcinolone (Kenalog) 0.1 % creamIndications:Dry skin dermatitis APPLY TO THE AFFECTED AREA(S) TOPICALLY TWICE DAILY IN THE MORNING AND AT BEDTIME NEEDED FOR PAIN AND FOR SWELLING 30 g 2 025 Active rosuvastatin (Crestor) 10 MG tabletIndications:Pure hypercholesterolemia TAKE 1 TABLET BY MOUTH EVERY MORNING 90 tablet 1 025 Active ondansetron (Zofran) 4 MG tabletIndications:Naus ea,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 30 tablet 1 025 Active dicyclomine (Bentyl) 20 MG tabletIndications:Abdo maxim pain, unspecified abdominal location TAKE 1 TABLET BY MOUTH EVERY MORNING 30 tablet 1 025 Active simethicone (Mylicon) 80 MG chewable tablet CHEW 1 TABLET BY MOUTH FOUR TIMES DAILY NEEDED 120 tablet 025 Active losartan (Cozaar) 25 MG tabletIndications:Samantha re persistent asthma without complication TAKE 1 TABLET BY MOUTH EVERY MORNING 90 tablet 1 025 Active Multiple Vitamin (Multivitamin) tabletIndications:Pure hypercholesterolemia TAKE 1 TABLET BY MOUTH EVERY MORNING 90 tablet 1 025 Active theophylline ER (Elbert-Dur) 300 MG 12 hr tabletIndications:Samantha re persistent asthma without complication TAKE 1 TABLET BY MOUTH TWICE DAILY IN THE MORNING AND AT BEDTIME 180 tablet 1 025 Active traMADol (Ultram) 50 MG tabletIndications: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 30 capsule 11 025 02/08 Active fluticasone (Flonase) 50 MCG/ACT nasal sprayIndications:Aller gic rhinitis, unspecified seasonality, unspecified trigger USE 2 SPRAYS IN EACH NOSTRIL EVERY MORNING 48 g 025 Active acetaminophen (Tylenol 8 Hour) 650 MG ER tabletIndications:Othe r type of osteoarthritis, unspecified site TAKE 1 TABLET BY MOUTH EVERY 8 HOURS NEEDED 60 tablet 3 025 Active albuterol (2.5 MG/3ML) 0.083% nebulizer solutionIndications:Se karie asthma, unspecified whether complicated, unspecified whether persistent INHALE 1 AMPULE USING A NEBULIZER SIX TIMES DAILY 180 mL 025 Active albuterol (Ventolin HFA) 108 (90 Base) MCG/ACT inhalerIndications:Sev ere asthma, unspecified whether complicated, unspecified whether persistent INHALE 2 PUFFS BY MOUTH FOUR TIMES DAILY DIRECTED 18 g 025 Active fluticasone (Flonase) 50 MCG/ACT nasal spray USE 2 SPRAYS IN EACH NOSTRIL EVERY MORNING 48 g 024 02/08 Discontinued( Reorder (will not trigger notification to Pharmacy)) baclofen (Lioresal) 5 MG tabletIndications:Myal darren TAKE 1 TABLET BY MOUTH THREE TIMES DAILY 30 tablet 1 024 02/08 Discontinued albuterol (2.5 MG/3ML) 0.083% nebulizer solutionIndications:Se karie asthma, unspecified whether complicated, unspecified whether persistent INHALE 1 AMPULE USING A NEBULIZER SIX TIMES DAILY 180 mL 024 02/08 Discontinued( Reorder (will not trigger notification to Pharmacy)) albuterol (Ventolin HFA) 108 (90 Base) MCG/ACT inhalerIndications:Sev ere asthma, unspecified whether complicated, unspecified whether persistent INHALE 2 PUFFS BY MOUTH FOUR TIMES DAILY DIRECTED 18 g 024 02/08 Discontinued( Reorder (will not trigger notification to Pharmacy)) losartan (Cozaar) 25 MG tabletIndications:Samantha re persistent asthma without complication TAKE 1 TABLET BY MOUTH EVERY MORNING 90 tablet 1 025 01/23 Discontinued Multiple Vitamin (Multivitamin) tabletIndications:Pure hypercholesterolemia TAKE 1 TABLET BY MOUTH EVERY MORNING 90 tablet 1 025 01/23 Discontinued theophylline ER (Elbert-Dur) 300 MG 12 hr tabletIndications:Smaantha re persistent asthma without complication TAKE 1 TABLET BY MOUTH TWICE DAILY IN THE MORNING AND AT BEDTIME 180 tablet 1 025 01/23 Discontinued dilTIAZem CD (Cardizem CD) 240 MG 24 hr capsuleIndications:Sev ere persistent asthma without complication TAKE 1 CAPSULE BY MOUTH EVERY MORNING 90 capsule 1 025 01/23 Discontinued acetaminophen (Tylenol 8 Hour) 650 MG ER tabletIndications:Othe r type of osteoarthritis, unspecified site TAKE 1 TABLET BY MOUTH EVERY 8 HOURS NEEDED 60 tablet 3 025 02/08 Discontinued( Reorder (will not trigger notification to Pharmacy)) dicyclomine (Bentyl) 20 MG tabletIndications:Abdo maxim pain, unspecified abdominal location TAKE 1 TABLET BY MOUTH EVERY MORNING 30 tablet 1 025 01/22 Discontinued simethicone (Mylicon) 80 MG chewable tablet CHEW 1 TABLET BY MOUTH FOUR TIMES DAILY NEEDED 120 tablet 1 025 01/22 Discontinued traMADol (Ultram) 50 MG tabletIndications: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 dom bilateral low back pain with left-sided sciatica TAKE 2 TABLETS BY MOUTH EVERY 8 HOURS NEEDED FOR SEVERE PAIN 168 tablet 025 02/08 Discontinued dilTIAZem CD (Cardizem CD) 240 MG 24 hr capsuleIndications:Sev ere persistent asthma without complication TAKE 1 CAPSULE BY MOUTH EVERY MORNING 90 capsule 1 025 02/08 Discontinued Active Problems Problem Noted Date Diagnosed Date Tinnitus of both ears 02/08/2025 Assessment & Plan (02/08/2025 4:18 PM EDT): I refer patient to ENT and audiology SOB (shortness of breath) 02/08/2025 Assessment & Plan (02/08/2025 4:19 PM EDT): I will order the x-ray and contact her with results Decreased breath sounds at left lung base 2024 Assessment & Plan (02/08/2025 4:18 PM EDT): I ordered an x-ray I will contact patient with results Nausea 11/03/2024 Assessment & Plan (11/03/2024 11:27 AM EDT): I prescribed Zofran as needed Long-term current use of opiate analgesic 2024 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 Assessment & Plan (11/03/2024 11:27 AM EDT): Patient has been having a lot of nausea and loss of appetite as a consequence of the treatment for her lymphoma, I put a prescription in for Zofran to be taken as needed Assessment & Plan (08/09/2024 4:41 PM EDT): [...] lesion 05/02/2024 Prediabetes 01/12/2024 Assessment & Plan (02/08/2025 4:18 PM EDT): Counseling about healthy diet and exercise done today Assessment & Plan (08/09/2024 4:40 PM EDT): [...] hearing of both ears 01/12/2024 Polyarthralgia 01/12/2024 Assessment & Plan (11/03/2024 11:26 AM EDT): We will continue with same tramadol regimen 100 mg every 8 hours and we agree to take acetaminophen between tramadol doses if needed for pain Myalgia 01/12/2024 Encounter for preventive care 01/12/2024 [...] (06/24/2023 8:16 AM EST): Referred today to general adjuster w noted hearing loss -reported as [...] Female stress incontinence 02/05/2017 Assessment & Plan (11/03/2024 11:29 AM EDT): Female urine pads for urinary incontinence prescription for 6-month supply will be renewed Assessment & Plan (07/21/2023 2:12 PM EST): Prescription for underwear pads will be done for patient Empty sella syndrome 10/23/2015 Allergic rhinitis 04/10/2015 Anxiety 04/10/2015 Dizziness 04/10/2015 Essential hypertension 04/10/2015 Assessment & Plan (02/08/2025 4:18 PM EDT): Today I initiated her again on diltiazem but at the lower dose of 120 mg daily and continue with losartan 25 mg I asked her to monitor her blood pressure at home and report back to me if she continues to have readings of 140/90 and above Assessment & Plan (11/03/2024 11:28 AM EDT): I explained to patient with age therapist and increase difference between systolic and diastolic blood pressure, she tells me sometimes the blood pressure is high to 150s but is only sometimes and sometimes the diastolic blood pressure is in the 40s and 50s, reports overall she feels well but sometimes she feels strange fatigue I advised in that case to maintain hydration and elevate legs if needed I also asked her to log her blood pressure for next appointment Assessment & Plan (08/09/2024 4:40 PM EDT): [...] done Severe asthma 04/10/2015 Assessment & Plan (02/08/2025 4:19 PM EDT): Stable continue with same interventions Refills done today Assessment & Plan (01/06/2023 12:54 PM EDT): [...] Encounters Date Type Department Care Team Description 02/08/2025 1:15 PM EDT Office Visit [facility] [address] [place] [address] Glenna Grossman MD Prediabetes (Primary Dx); Essential hypertension; Tinnitus of both ears; Decreased hearing of both ears; SOB (shortness of breath); Decreased breath sounds at left lung base; Allergic rhinitis, unspecified seasonality, unspecified trigger; Other type of osteoarthritis, unspecified site; Severe asthma, unspecified whether complicated, unspecified whether persistent 02/08/2025 Travel 02/07/2025 Refill [facility] [address] [place], [place] [id number] Glenna Grossman MD Chronic bilateral low back pain with left-sided sciatica 02/07/2025 Telephone [facility] [address] [place] [address] Glenna Grossman MD Chart Prep 01/23/2025 Refill [facility] [address] [place] [address] Glenna Grossman MD Severe persistent asthma without complication; Pure hypercholesterolemia 01/20/2025 Refill [facility] [address] [place] [address] Glenna Grossman MD Abdominal pain, unspecified abdominal location 01/15/2025 Telephone [facility] [address] [place] [address] Glenna Grossman MD No Show 01/03/2025 Telephone [facility] [address] [place], [place] [phone] Glenna Grossman MD 12/25/2024 Refill [facility] [address] [place] [address] Glenna Grossman MD Chronic bilateral low back pain with left-sided sciatica 11/24/2024 Refill [facility] [address] [place] [address] Glenna Grossman MD Abdominal pain, unspecified abdominal location from Last 3 Months Immunizations Immunization Administration Dates Next Due Hep B, adult [...] 20 02/08/2025 1:28 PM EDT Oxygen Saturation 97% 08/09/2024 2:47 PM EDT Inhaled Oxygen Concentration - - Weight 57.6 kg (127 lb) 02/08/2025 1:28 PM EDT Height 139.7 cm (4' 7 ) 02/08/2025 1:28 PM EDT Body Mass Index 29.52 02/08/2025 1:28 PM EDT Plan of Treatment Upcoming Encounters Date Type Department Care Team (Late st Contact Info) Description 05/04/2025 9:00 AM EST Telemedicine [facility] [address] [place] [address] Steph Molina, RN Health Maintenance Due Date Last Done Comments Dental Prophylaxis 1940 Dental X-Ray: Bitewings 1940 Dental Oral Exam 03/26/2023 09/23/2022 COVID-19 Vaccine ( season) 2025 04/01/2021, 08/09/2020, 07/12/2020 Influenza Vaccine (#1) 2025 , 05/02/2024, 04/14/2022, Additional history exists Depression Monitoring 08/08/2025 02/08/2025, 025 Alcohol/Substance Use Screening 08/09/2025 08/09/2024 SDOH Screening 08/09/2025 08/09/2024 Tobacco Screening 08/09/2025 08/09/2024 Mammogram 09/19/2025 09/19/2024, 07/02, 06/19/2022, Additional history exists Dental X-Ray: Full Mouth 09/24/2025 09/23/2022 Diabetes: Hemoglobin A1C 02/08/2026 025, 01/12/2024, 10/06/2023, Additional history exists Lipid Panel 10/05/2028 10/06/2023, 12/04/2021 DTaP/Tdap/Td Vaccines (3 - Td or Tdap) 07/21/2033 07/21/2023, 02/08/2013, 08/26/2010, Additional history exists Hepatitis B Vaccines Completed 06/23/2007, 05/22/2001, 03/29/2001 Zoster Vaccines Completed 04/10/2020, 08/2018, 04/10/2015 Pneumococcal Vaccine: 50+ Years Completed 07/30/2023, 04/22/2016, 04/10/2015, Additional history exists RSV Patients and Patients Aged 60 years or older Completed 07/30/2023 HIB Vaccines Aged Out No longer eligi [...] patient's age to complete this topic Meningococcal B Vaccine Aged Out No l onger eligible based on patient's age to complete [...] GLUCOSE Routine 02/08/2025 1:30 PM EDT Prediabetes BI MAMMOGRAM SCREENING TOMOSYNTHESIS BILATERAL Routine 09/19/2024 11:30 AM EDT LIPID PANEL, STANDARD Routine 10/06/2023 3:07 PM EDT Essential hypertension Type 2 diabetes mellitus without complication, without long-term current use of insulin ([facility]) PANORAMIC RADIOGRAPHIC IMAGE Routine 09/23/2022 3:30 PM EDT PERIODIC ORAL EVALUATION - ESTABLISHED PATIENT Routine 09/23/2022 3:30 PM EDT from Last 3 Months or Most Recently Relevant to Health Maintenance Results * POCT Hgb A1c (02/08/2025 1:35 PM EDT) Hemoglobin A1C 5.1 4.0 - 5.7 % QC Media Lot # [id number] Lot# Expiration Date [id number] Blood 02/08/2025 1:35 PM EDT Glenna Hassan MD POINT OF CARE TEST EN TER/EDIT ORDERABLES Final Result * POCT Glucose (02/08/2025 1:30 PM EDT) Glucose Blood, POC 121 60 - 200 mg/dL QC Media Lot # [id number] Lot# Expiration Date Blood Capillary blood specimen / Unknown 02/08/2025 1:30 PM EDT Glenna Hassan MD POINT OF CARE TEST EN TER/EDIT ORDERABLES Final Result * BI Mammogram Screening Tomosynthesis Bilateral (09/19/2024 11:30 AM EDT) Anatomical Region Laterality Modality Breast Bilateral Mammography 09/19/2024 11:3 0 AM EDT Narrative 09/19/2024 12:03 PM EDT [address] 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 She will be starting treatment at [facility]. These findings are concordant with the enlarged lymph nodes seen in the left axilla and therefore at this time the patient does not need to come back for additional imaging ultrasound or biopsy as lymphoma is the reason for enlarged lymph nodes in this case. Electronically signed by: Savanna Cartagena DO 09/22/2024 02:24 PM EDT RP Addendum Dictated By: Savanna Cartagena DO Addendum Signed By: <Electronically signed by Savanna Cartagena DO in OV> 09/22/24 1424 Addendum Cosigned By: DD/ TD/TT: 09/19/24 EXAMINATION: MM SCREENING DIGITAL BREAST TOMOSYNTHESIS, BILATERAL [...] Savanna Cartagena DO 09/19/2024 12:01 PM EDT RP Dictated By: Savanna Cartagena DO Signed By: <Electronically signed by Savanna Cartagena DO in OV> 09/19/24 1201 DD/ 1130 TD/TT: 09/19/24 1148 Athletic Director: Procedure Note Donotuseinterpreter, Image - 09/22/2024 [facility] [address] [place] [address] 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 She will be starting treatment at [facility]. These findings are concordant with the enlarged lymph nodes seen in the left axilla and therefore at this time the patient does not need to come back for additional imaging ultrasound or biopsy as lymphoma is the reason for enlarged lymph nodes in this case. Electronically signed by: Savanna Cartagena DO 09/22/2024 02:24 PM EDT Addendum Dictated By: Savanna Cartagena DO Addendum Signed By: <Electronically signed by DO Yane in OV> 09/22/24 1424 Addendum Cosigned By: DD/ TD/TT: 09/19/24 EXAMINATION: MM SCREENING DIGITAL BREAST TOMOSYNTHESIS, BILATERAL [...] Savanna Cartagena DO 09/19/2024 12:01 PM EDT RP Dictated By: Savanna Cartagena DO Signed By: <Electronically signed by Savanna Cartagena DO in OV> 09/19/24 1201 DD/ 1130 TD/TT: 09/19/24 1148 Athletic Director: Glenna Hassan MD IMG BI PROCEDURES Orestes eusebio Result - Final * Lipid Panel, Standard (10/06/2023 3:07 PM EDT) Triglycerides 65 <150 mg/dL [facility] Comment:Desirable Triglyceri de: less than 150 mg/dLBorderline High Triglyceride 150-199 mg/dLHigh Triglyceride: 200-499 mg/dLVery High Triglyceride: greater than or equal to 5OO mg/dL Cholesterol 145 <200 mg/dL [facility] Comment:Desirable Cholestero l: less than 200 mg/dLBorderline High Cholesterol: 200-239 mg/dLHigh Cholesterol: greater than 239 mg/dL LDL Cholesterol Calculated 59 <100 mg/dL [facility] Comment:Desirable LDL: less than 100 mg/dLNear Optimal/Above Optimal LDL: 110- 129 mg/dLBorderline High LDL: 130-159 mg/dLHigh LDL: 160-189 mg/dLVery High LDL: greater than or equal to 190 mg/dL HDL Cholesterol 73 >40 mg/dL [facility] Comment:Desirable HDL: great er than 40 mg/dL Note: This HDL assay may give artificially low results in patients with liver disease. Blood Venous blood specimen / Unknown 10/06/2023 3:07 PM EDT 10/06/2023 4:15 PM EDT Glenna Hassan MD LAB BLOOD ORDERABLES Final Result [facility] [address] [place] [address] [phone] from Last 3 Months or Most Recently Relevant to Health Maintenance Insurance [facility] [employer] (HMO D-SNP) [place] [id number] [facility] [address] [place] [address] Care Teams Bufferer Relationship Specialty Start Date End Date Glenna Grossman MD [address] [place] [address] PCP - General Family Medicine 07/10/20
--- OUTSIDE RECORDS SUMMARY | 2025-02-12 17:44 | XMS_ITS | Patient Health Record ---
Author Organization [facility] Address [address] [place] [phone] Care Team Providers Care Dry Roaster Name Role Phone Callum BENDER, Yasmin Primary Care Provider Unavailab Narendra Cerna Unavailable [phone] MARGUERITE MCCORMICK Unavailable Unavailable Allergies Allergen (clinical drug ingredient) Drug/Non Drug Allergy documented on EMR Reaction Allergy Type Onset Date Status acetaminophen / oxycodone Percocet Unknown Drug Allergy Active Reason For Referral No Information Medications Medication SIG (Take, Route, Frequency, Duration) Notes Start Date End Date Status Albuterol Sulfate (2.5 MG/3ML) 0.083% 3 ml as needed Orally prn Active Crestor 10 MG 1 tablet Orally Once a day Active Aspirin 81 MG 1 tablet Orally Once a day Active RABEprazole Sodium 20 MG 1 tablet Orally Once a day Active Theophylline ER 300 MG Orally Active Vitamin D2 1.25 mg 1 Orally every week Active Montelukast Sodium 10 MG 1 tablet in the evening Orally Once a day Active Culturelle Orally Active Aspir-81 81 MG 1 tablet Orally Once a day Active Florastor 250 MG 1 capsule Orally Twi ce a day Active Vitamin C Active Vitamin B12 Active Meclizine HCl 12.5 MG 1 tablet as needed Orally prn Active Cyclobenzaprine HCl 10 MG 1 tablet Orall y Three times a day Active Multi Vitamin/Minerals 1 1 Orally QD Active Lactulose 10 GM 1 packet Orally Once a day Active ALPRAZolam 1 MG 1/2 tablet QAM and 2 QHS Orally qd Active Mapap 500 MG 1 tablet as needed Orally every 6 hrs Active Cetirizine HCl 10 MG 1 tablet as needed Orally Once a day Active Artificial Tears 0.4 % 1 drop into affec eusebio eye as needed Ophthalmic Once a day Active Polyethylene Glycol Active Citalopram Hydrobromide 40 MG 1 tablet O rally Once a day Active Mi-Acid Gas Relief 80 MG 1 tablet after meals and at bedtime as needed Orally Four times a day Active Fluticasone Propionate 50 MCG/ACT 1 spray in each nostril Nasally Once a day Active Advair Diskus 100-50 MCG/DOSE 1 puff Inh alation Twice a day Active prednisoLONE Acetate 1 % 2 drops into af fected eye Ophthalmic Four times a day Active Aciphex 20 MG 1 tablet Orally Once a day Active traMADol HCl 50 MG 2 tablet as needed Orally QD Active Problems Problem Type SNOMED Code ICD Code Onset Dates Problem Status W/U Status Risk Notes Problem [id number] Constipation, unspecified constipation type (K59.00) Active confirmed Plan Of Treatment Future Test Test Name Order Date UPPER GI ENDOSCOPY 08/25/2012 COLONOSCOPY 08/25/2012 Insurance Providers Payer Name Payer Address Payer Phone Subscriber Number Group Number Insured Name Patient Relationship to Insured Coverage Start Date Coverage End Date [facility] [address] [place] [address] [id number] RUBENS KAY Self - patient is the insured MEDICAID OF [facility] [address] [place] [address] [id number] RUBENS KAY Self - patient is the insured Medical (General) History Medical History History ICD Code asthma hypertension anxiety depression arthritis Denies MT,DM,CVA,renal disease GERD-told of a hiatal hernia --had [place] E[place] [address] Cook- and gastritis-neg. 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
--- OUTSIDE RECORDS SUMMARY | 2025-02-12 17:44 | XMS_ITS | Encounter Summary ---
Author Organization [employer] Address [address] [place] [address] [address] [place] [address] Care Team Providers Care Clinical Rn Manager Name Role Phone Glenna Grossman MD Primary Care Provide r Reason for Visit * Reason Onset Date Comments Chart Prep 02/07/2025 Encounter Details Date Type Department Care Team ([facility] st Contact Info) Description 02/07/2025 Telephone [facility] MEDICINE [address], [place] [phone] Glenna Grossman MD [address] [place] [address] Chart Prep Social History Tobacco Use Types Packs/Day Years [...] encounter Miscellaneous Notes * Telephone Encounter - Venus Smith [place] - 02/07/2025 1:59 PM EDT Chart Prep Labs: not applicable Images: done Referrals: not applicable Vaccines due: Covid and Flu Screenings: not applicable Overdue care gaps: A1c, Glucose, PHQ-9, and LEONARDO-7 documented in this encounter Plan of Treatment Upcoming Encounters Date Type Department Care Team (Late st Contact Info) Description 05/04/2025 9:00 AM EST Telemedicine [facility] MEDICINE [address] [place] [address] Steph Molina RN documented as of this encounter Visit Diagnoses Not on filedocumented in this encounter Additional Health Concerns Assessment Noted Time PHQ-9 Depression Total Score: 0 08/10/19 25 2:48 PM EDT documented as of this encounter Care Teams Clinical Rn Manager Relationship Specialty Start Date End Date Glenna Grossman MD [address] [place] [address] PCP - General Family Medicine 07/10/20 documented as of this encounter
== END 2025-02-12 13:58 | disposition home or self-care (01) ==
LOC: HO.HGI 12:53
PROVIDERS: PCP Internal Medicine; Visit Provider Internal Medicine Gastroenterology
DX: C85.90 Non-Hodgkin lymphoma, unspecified, unspecified site (principal)
CPT/HCPCS: 99213

== ENCOUNTER → 2025-02-12 12:52 | Outpatient (BNVA) | payer OTHER, SELFPAY | PROVIDERS: PCP Internal Medicine; Visit Provider Internal Medicine Gastroenterology | DX: K21.9 Gastro-esophageal reflux disease without esophagitis (principal); K59.04 Chronic idiopathic constipation; C85.90 Non-Hodgkin lymphoma, unspecified, unspecified site | CPT/HCPCS: 99212 ==

== ENCOUNTER 2025-03-06 12:54 | Outpatient (AMB) | payer OTHER, SELFPAY ==
[2025-03-06 12:59] VITALS: BP 110/62; PULSE 81; O2SAT 97; BMI 29.3
--- NOTE | 2025-03-06 12:59 | A.OFFVIS_ITS ---
Vital Signs 03/06/25 12:59 Height 4 ft 7 in Weight 125 lb 14.143 oz BMI 29.3 BP 110/62 Blood Pressure Location Lt brachial Position Sitting Pulse 81 Pulse Source Pulse Oximeter Pulse Oximetry (%) 97 Oxygen Delivery Method Room Air Intake Visit Reasons: Osteoporosis Intake Note: Patient present today for Osteoporosis follow up. World Renowned Chef And Restaurant Owner Required: Yes World Renowned Chef And Restaurant Owner Language: Plugman Services: World Renowned Chef And Restaurant Owner Offered & Declined World Renowned Chef And Restaurant Owner Name: Natasha Accompanied by: grandson Allergies morphine (MORPHINE) Allergy (Severe, Verified 03/06/25 13:03) Agitated WADE Inhibitors Allergy (Intermediate, Verified 03/06/25 13:03) mouth swelling/cough amlodipine Allergy (Intermediate, Verified 03/06/25 13:03) headache/dizziness/nausea/vomiting pantoprazole (From Protonix) Allergy (Intermediate, Verified 03/06/25 13:03) Agitated celecoxib (From Celebrex) Adverse Reaction (Mild, Verified 03/06/25 13:03) Weakness milk (MILK) Adverse Reaction (Mild, Verified 03/06/25 13:03) STOMACH UPSET oxycodone (From Percocet) Adverse Reaction (Mild, Verified 03/06/25 13:03) NAUSEA/RAPID HR/BLURRED VISION HPI Comments Details: 84 YO Female with PMHx bariatric surgery is seen in consultation at the request of PCP for Osteoporosis. First diagnosed in 10 yrs ago .Never saw specialist before for osteoporosis Never Received treatment in the past . No history of pathologic fracture or ONJ. Has several servings of dietary calcium per day in the form of cheese , yogurt .Not Takes Calcium supplement mg daily in divided doses. Not Takes [] IU of Vitamin D daily except in MVI . Denies ever using PPI, anticoagulant, antiepileptic but intermittent glucocorticoid medication for asthma. 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 UTD on dental cleanings and sees dentist every 6 months. No planned upcoming dental work or extractions. DXA dated 10/05/23: FINDINGS: LEFT FEMUR, NECK: Current: BMD 0.600 g/cm2, Z-score -0.9, T-score -3.2, osteoporosis. Prior: BMD 0.583 g/cm2. Baseline: BMD 0.794 g/cm2. LEFT FEMUR, TOTAL: Current: BMD 0.664 g/cm2, Z-score -0.6, T-score -2.7, osteoporosis, 1.5% decrease from previous, 25.5% decrease from baseline (<5% change is not significant). Prior: BMD 0.674 g/cm2. Baseline: BMD 0.891 g/cm2. AP SPINE L1-L4: Current: BMD 0.844 g/cm2, Z-score -0.9, T-score -2.8, osteoporosis, 0.8% decrease from previous, 10.5% decrease from baseline (<5% change is not significant). Prior: BMD 0.851 g/cm2. Baseline: BMD 0.943 g/cm2. IDENTIFIED RISK FACTORS: Menopause, rheumatoid arthritis, height loss. HISTORY OF FRACTURE: None listed. MEDICATIONS: Calcium supplements or multivitamin, vitamin D. MM/XR DEXA axial skeleton IMPRESSION: 1. DIAGNOSIS: Osteoporosis based on the lowest T-score value Labs: Secondary workup revealed a very low urinary calcium suggesting calcium malabsorption. 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 Mother No problems noted. Social History Household Members: None Household Members Other:: daughter lives downstairs Housing: House Are you a primary long term care social worker to a significant other at home: No Do you presently have visiting nurse or other home services: No Alcohol intake: never Patient Tobacco Use Status: Never used Tobacco Advance Directives Date on File: 06/24/21 service: No Physical Exam Vital Signs: Last Vital Signs Pulse 81 03/06/25 12:59 BP 110/62 03/06/25 12:59 Pulse Ox 97 03/06/25 12:59 Oxygen Delivery Method Room Air 03/06/25 12:59 BMI result Body Mass Index 29.3 Assessment & Plan Assessment & Plan (1) Osteoporosis: Code(s): M81.0 - Age-related osteoporosis without current pathological fracture Category: Medical Plan: This 84-year-old female status post bariatric surgery found to have moderate to severe osteoporosis on bone density. Secondary causes have been ruled out. The patient has been undergoing treatment for lymphoma Plan is to consider initiation of intravenous bisphosphonate namely zoledronic acid are Reclast once lymphoma treatments are completed. Would be hesitant to use anabolic therapy in the setting of lymphoma even though bone density is very low on patient is a high risk for fracture. We also went over continue calcium and vitamin-D supplementation. Also will obtain oncology visit near future and S son to discuss the Reclast with the oncologist Coding Level of Care Code Est Pt Level 3 (63848) Diagnoses Osteoporosis M81.0
--- OUTSIDE RECORDS SUMMARY | 2025-03-06 15:48 | XMS_ITS | Encounter Summary ---
Author Organization [employer] [facility] Address [address] [place] [address] 7t [place] [address] Care Team Providers Care Admission Nurse Name Role Phone Glenna Grossman MD Primary Care Provide r Encounter Details Date Type Department Care Team (Late st Contact Info) Description 05/28/2022 Orders Only [facility] MEDICINE [address] [place] [phone] Isabella Cardoso RN Social History Tobacco Use [...] Info) Description 05/04/2025 9:00 AM EST Telemedicine [address] [phone] Steph Molina, RN 05/10/2025 11:30 AM EST Telemedicine [facility] MEDICINE [address] [place] [address] Glenna Grossman MD [address] [place] [address] [phone] documented as of this encounter Procedures Procedure Name Priority Date/Time Associated Diagnosis Comments BI MAMMOGRAM SCREENING TOMOSYNTHESIS BILATERAL Routine 06/19/2022 10:55 AM EST documented in this encounter Results * BI Mammogram Screening Tomosynthesis Bilateral (06/19/2022 10:55 AM EST) Anatomical Region Laterality Modality Breast Bilateral Mammography 06/19/2022 10:5 5 AM EST Narrative 06/22/2022 3:57 PM EST [facility] [address] [place] [address] Mammography Report Signed Patient: Lia Strauss MR#: [id number] : 1940 Acct:[id number] Age/Sex: 82 / F ADM Date: 06/19/22 Loc: HO.MAMMO Attending Dr: Glenna Hassan MD Ordering Physician: Glenna Grossman MD Results: 1Negative Date of Service: 06/19/22 Follow Up: 1 Year From Orig inal Mammogram Procedure(s): MM tomosynthesis screening BI Accession Number(s): [id number] cc: Glenna Grossamn MD EXAMINATION: MM SCREENING DIGITAL BREAST TOMOSYNTHESIS, [...] in OV> 06/22/22 1555 DD/ 1055 TD/TT: Backup Administrative Coordinator: SANDS Procedure Note Donotuseinterpreter, Image - 06/22/2022 [facility] [address] [place] [address] Mammography Report Signed Patient: Lia StraussMR#: [id number] : 2Acct:[id number] Age/Sex: 82 / FADM Date: 06/19/22 Loc: HO.MAMMO Attending Dr: Glenna Hassan MD Ordering Physician: Glenna Grossman MDResults: 1Negative Date of Service: 06/19/22Follow Up: 1 Year From Orig inal Mammogram Procedure(s): MM tomosynthesis screening BI Accession Number(s): [id number] cc: Glenna Grossman MD EXAMINATION: MM SCREENING [...] in OV> 06/22/22 1555 DD/ 1055 TD/TT: Backup Administrative Coordinator: [facility] External Provider IMG BI PROCEDURES Edited Result - Final documented in this encounter Visit Diagnoses Not on filedocumented in this encounter Care Teams Admission Nurse Relationship Specialty Start Date End Date Glenna Grossman MD [address] [place] [address] PCP - General Family Medicine 07/10/20 documented as of this encounter
--- OUTSIDE RECORDS SUMMARY | 2025-03-06 15:48 | XMS_ITS | Encounter Summary ---
Author Organization [employer] [facility] Address [address] [place] [address] 7t [place] [address] Care Team Providers Care Sustainability Purchasing Agent Name Role Phone Glenna Grossman MD Primary Care Provide r Encounter Details Date Type Department Care Team (Late st Contact Info) Description 06/23/2022 [facility] MEDICINE [address] [place] [address] [phone] Shahla Simon, RN [address] [place] [address] Social History Tobacco Use Types Packs/Day Years [...] Info) Description 05/04/2025 9:00 AM EST Telemedicine [facility] MEDICINE [address] [place] [phone] Steph Molina, RN 05/10/2025 11:30 AM EST Telemedicine [facility] MEDICINE [address] [place] [address] [phone] Glenna Grossman MD [address] [place], [place] [phone] documented as of this encounter Procedures Procedure Name Priority Date/Time Associated Diagnosis Comments MAMMOGRAPHY Routine 06/19/2022 documented in this encounter Results * Mammography (06/19/2022) Mammogram BIRADS 1: Negative Repeat in 1 year Anatomical Region Laterality Modality Other Historical Provider HEALTH MAINTENANCE Final Result documented in this encounter Visit Diagnoses Not on filedocumented in this encounter Care Teams Sustainability Purchasing Agent Relationship Specialty Start Date End Date Glenna Grossman MD [address] [place] [phone] PCP - General Family Medicine 07/10/20 documented as of this encounter
--- OUTSIDE RECORDS SUMMARY | 2025-03-06 15:48 | XMS_ITS | Encounter Summary ---
Author Organization [employer] Address [address] [place] [address] 7t [place] [address] Care Team Providers Care Hand Marker Name Role Phone Glenna Grossman MD Primary Care Provide r Reason for Visit * Reason Comments Med Refill Encounter Details Date Type Department Care Team ([facility] st Contact Info) Description 04/21/2023 Refill [facility] [address] [place], [place] [phone] Glenna Grossman MD [address] [place] [address] Irritable bowel syndrome with constipation Social History [...] 05/04/2025 9:00 AM EST Telemedicine [facility] MEDICINE [address] [place] [phone] Steph Molina RN 05/10/2025 11:30 AM EST Telemedicine [facility] MEDICINE [address] [place] [phone] Glenna Grossman MD [address] [place] [phone] documented as of this encounter Visit Diagnoses Diagnosis Irritable bowel syndrome with constipation Irritable bowel syndrome documented in this encounter Additional Health Concerns Assessment Noted Time PHQ-9 Depression Total Score: 0 01/07/20 23 11:14 AM EDT documented as of this encounter Care Teams Hand Marker Relationship Specialty Start Date End Date Glenna Grossman MD [address] [place] [phone] PCP - General Family Medicine 07/10/20 documented as of this encounter
--- OUTSIDE RECORDS SUMMARY | 2025-03-06 15:48 | XMS_ITS | Encounter Summary ---
Author Organization [employer] Address [address] [place] [address] 7t [place] [address] Care Team Providers Care Electroencephalographic Technologist Name Role Phone Glenna Grossman MD Primary Care Provide r Reason for Visit * Reason Onset Date Comments Med Refill 04/26/2023 Encounter Details Date Type Department Care Team ([facility] st Contact Info) Description 04/26/2023 Telephone [facility] MEDICINE [address] [place], [place] [phone] Glenna Grossman MD [address] [place] [address] Med Refill Social History Tobacco Use Types [...] Info) Description 05/04/2025 9:00 AM EST Telemedicine [facility] MEDICINE [address] [place] [phone] Steph Molina RN 05/10/2025 11:30 AM EST Telemedicine [facility] MEDICINE [address] [place] [address] Glenna Grossman MD [address] [place] [address] documented as of this encounter Visit Diagnoses Not on filedocumented in this encounter Additional Health Concerns Assessment Noted Time PHQ-9 Depression Total Score: 0 01/07/20 23 11:14 AM EDT documented as of this encounter Care Teams Electroencephalographic Technologist Relationship Specialty Start Date End Date Glenna Grossman MD [address] [place] [address] PCP - General Family Medicine 07/10/20 documented as of this encounter
--- OUTSIDE RECORDS SUMMARY | 2025-03-06 15:48 | XMS_ITS | Encounter Summary ---
Author Organization [employer] Address [address] [place] [address] 7t [place] [address] Care Team Providers Care Roundhouse Worker Name Role Phone Glenna Grossman MD Primary Care Provide r Encounter Details Date Type Department Care Team ([facility] st Contact Info) Description 10/27/2024 Orders Only [facility] MED[facility]INE [address] [place], [place] [phone] Glenna Grossman MD [address] [place], [place] [phone] Social History Tobacco Use Types Packs/Day Years [...] Info) Description 05/04/2025 9:00 AM EST Telemedicine [facility] MED[facility]INE [address] [place] [phone] Steph Molina RN 05/10/2025 11:30 AM EST Telemedicine [facility] [address] [place] [phone] Glenna Grossman MD [address] [place] [phone] documented as of this encounter Visit Diagnoses Not on filedocumented in this encounter Additional Health Concerns Assessment Noted Time PHQ-9 Depression Total Score: 0 08/10/19 25 2:48 PM EDT documented as of this encounter Care Teams Roundhouse Worker Relationship Specialty Start Date End Date Glenna Grossman MD [address] [place] [phone] PCP - General Family Medicine 07/10/20 documented as of this encounter
--- OUTSIDE RECORDS SUMMARY | 2025-03-06 15:48 | XMS_ITS | Encounter Summary ---
Author Organization [employer] Address [address] [place] [address] 7t [place] [address] Care Team Providers Care Position Classification Manager Name Role Phone Glenna Grossman MD Primary Care Provide r Reason for Visit * Reason Comments Med Refill Encounter Details Date Type Department Care Team ([facility] st Contact Info) Description 05/25/2023 Refill [facility] [address] [place], [place] [phone] Glenna Grossman MD [address] [place] [address] Social History Tobacco Use Types Packs/Day Years [...] Info) Description 05/04/2025 9:00 AM EST Telemedicine [facility] MEDICINE [address] [place] [phone] Steph Molina RN 05/10/2025 11:30 AM EST Telemedicine [facility] MEDICINE [address] [place] [phone] Glenna Grossman MD [address] [place] [phone] documented as of this encounter Visit Diagnoses Not on filedocumented in this encounter Additional Health Concerns Assessment Noted Time PHQ-9 Depression Total Score: 0 01/07/20 23 11:14 AM EDT documented as of this encounter Care Teams Position Classification Manager Relationship Specialty Start Date End Date Glenna Grossman MD [address] [place] [phone] PCP - General Family Medicine 07/10/20 documented as of this encounter
--- OUTSIDE RECORDS SUMMARY | 2025-03-06 15:48 | XMS_ITS | Patient Health Record ---
Author Organization [facility] Address [address] [place] [address] Care Team Providers Care Continuing Education Specialist Name Role Phone Callum BENDER, Yasmin Primary Care Provider Unavailab Narendra Cerna Unavailable [phone] MARGUERITE MCCORMICK Unavailable Unavailable Allergies Allergen (clinical [...] Problem Status W/U Status Risk Notes Problem [id number] Constipation, unspecified constipation type (K59.00) Active confirmed Plan Of Treatment Future Test Test Name Order Date UPPER GI ENDOSCOPY 08/25/2012 COLONOSCOPY 08/25/2012 Insurance Providers Payer Name Payer Address Payer Phone Subscriber Number Group Number Insured Name Patient Relationship to Insured Coverage Start Date Coverage End Date [facility] [address] [place] [address] [id number] RUBENS KAY Self - patient is the insured MEDICAID OF [facility] [address] [place] [address] [id number] RUBENS KAY Self - patient is the insured Medical (General) History Medical History History ICD Code asthma hypertension anxiety depression arthritis Denies [place],DM,CVA,renal disease GERD-told of a hiatal hernia --had [...]
--- OUTSIDE RECORDS SUMMARY | 2025-03-06 15:48 | XMS_ITS | Encounter Summary ---
Author Organization [employer] Address [address] [place] [address] 7t [place] [address] Care Team Providers Care Ecd Name Role Phone Glenna Grossman MD Primary Care Provide r Reason for Visit * Reason Onset Date Comments Nurse Triage 03/28/2024 Encounter Details Date Type Department Care Team ([facility] st Contact Info) Description 03/28/2024 Telephone [facility] MEDICINE [address] [place], [place] [phone] Glenna Grossman MD 230 [place] [address] Nurse Triage Social History Tobacco Use Types [...] 03/28/2024 1:40 PM EDT [place]riage call [place] [id number] Mario Alberto, Pt is asking about hemaglobin possibly being low. Lab result on chart shows HGB with in normal limits. Pt reports appetite is poor but, hasbeen for a while. Pt reports obtained an earlier apt with PCP scheduled for 05/02/24 instead of July. Pt is asking about medications ordered by cardiology. Pt is encouraged to call the supervisor assembly and packing office to inquire about orders. Pt has [...] caller accepted this outcome. Contact pt at [phone] (eritrean) documented in this encounter Plan of Treatment Upcoming Encounters Date Type Department Care Team (Late st Contact Info) Description 05/04/2025 9:00 AM EST Telemedicine [facility] MEDICINE [address] [place] [phone] Steph Molina RN 05/10/2025 11:30 AM EST Telemedicine [facility] MED[facility]INE [address] [place] [phone] Glenna Grossman MD [address] [place] [phone] documented as of this encounter Visit Diagnoses Not on filedocumented in this encounter Additional Health Concerns Assessment Noted Time PHQ-9 Depression Total Score: 17 024 11:08 AM EDT documented as of this encounter Care Teams Ecd Relationship Specialty Start Date End Date Glenna Grossman MD [address] [place] [phone] PCP - General Family Medicine 07/10/20 documented as of this encounter
--- OUTSIDE RECORDS SUMMARY | 2025-03-06 15:48 | XMS_ITS | Encounter Summary ---
Author Organization [employer] Address [address] [place] [address] 7t [place] [address] Care Team Providers Care Forepart Reducer Name Role Phone Glenna Grossman MD Primary Care Provide r Reason for Visit * Reason Onset Date Comments Med Refill 01/14/2023 Encounter Details Date Type Department Care Team ([facility] st Contact Info) Description 01/14/2023 Telephone [facility] MEDICINE [address] [place], [place] [phone] Glenna Grossman MD [address] [place] [address] Med Refill Social History Tobacco Use Types [...] Info) Description 05/04/2025 9:00 AM EST Telemedicine [facility] MED[facility]INE [address] [place] [phone] Steph Molina RN 05/10/2025 11:30 AM EST Telemedicine [address] [address] Glenna Grossman MD [address] [place] [phone] documented as of this encounter Visit Diagnoses Not on filedocumented in this encounter Additional Health Concerns Assessment Noted Time PHQ-9 Depression Total Score: 0 01/07/20 23 11:14 AM EDT documented as of this encounter Care Teams Forepart Reducer Relationship Specialty Start Date End Date Glenna Grossman MD [address] [place] [phone] PCP - General Family Medicine 07/10/20 documented as of this encounter
--- OUTSIDE RECORDS SUMMARY | 2025-03-06 15:48 | XMS_ITS | Encounter Summary ---
Author Organization [employer] Address [address] [place] [address] 7t [place] [address] Care Team Providers Care Acid Pumper Name Role Phone Glenna Grossman MD Primary Care Provide r Reason for Visit * Reason Comments Med Refill Encounter Details Date Type Department Care Team (Late Contact Info) Description 02/21/2023 Refill [facility] MEDICINE [address] [place] [address] [phone] Glenna Grossman MD [address] [place] [phone] Social History Tobacco Use Types Packs/Day Years [...] Info) Description 05/04/2025 9:00 AM EST Telemedicine [facility] MEDICINE [address] [place] [phone] Steph Molina RN 05/10/2025 11:30 AM EST Telemedicine [facility] [address] [place] [phone] Glenna Grossman MD 230 [place] [address] documented as of this encounter Visit Diagnoses Not on filedocumented in this encounter Additional Health Concerns Assessment Noted Time PHQ-9 Depression Total Score: 0 01/07/20 23 11:14 AM EDT documented as of this encounter Care Teams Acid Pumper Relationship Specialty Start Date End Date Glenna Grossman MD 230 [place] [address] PCP - General Family Medicine 07/10/20 documented as of this encounter
--- OUTSIDE RECORDS SUMMARY | 2025-03-06 15:48 | XMS_ITS | Encounter Summary ---
Author Organization [employer] Address [address] [place] [address] 7t [place] [address] Care Team Providers Care Machine Tool Electrician Name Role Phone Glenna Grossman MD Primary Care Provide r Reason for Visit * Reason Comments Med Refill Encounter Details Date Type Department Care Team ([facility] st Contact Info) Description 04/26/2023 Refill [facility] [address] [place], [place] [phone] Glenna Grossman MD 230 [place] [address] Irritable bowel syndrome with constipation Social History [...] 05/04/2025 9:00 AM EST Telemedicine [facility] MEDICINE [address] [place] [phone] Steph Molina RN 05/10/2025 11:30 AM EST Telemedicine [facility] MED[facility]INE [address] [place] [phone] Glenna Grossman MD [address] [place] [phone] documented as of this encounter Visit Diagnoses Diagnosis Irritable bowel syndrome with constipation Irritable bowel syndrome documented in this encounter Additional Health Concerns Assessment Noted Time PHQ-9 Depression Total Score: 0 01/07/20 23 11:14 AM EDT documented as of this encounter Care Teams Machine Tool Electrician Relationship Specialty Start Date End Date Glenna Grossman MD [address] [place] [phone] PCP - General Family Medicine 07/10/20 documented as of this encounter
--- OUTSIDE RECORDS SUMMARY | 2025-03-06 15:48 | XMS_ITS | Encounter Summary ---
Author Organization [employer] Address [address] [place] [address] 7t [place] [address] Care Team Providers Care Otolaryngology Teacher Name Role Phone Glenna Grossman MD Primary Care Provide r Encounter Details Date Type Department Care Team (Late Contact Info) Description 12/16/2022 Telephone [facility] MEDICINE [address] [place] [address] [phone] Glenna Grossman MD [address] [place] [address] [phone] Social History Tobacco Use Types Packs/Day Years [...] Upcoming Encounters Date Type Department Care Team ([facility] Contact Info) Description 05/04/2025 9:00 AM EST Telemedicine [facility] MEDICINE [address] [place] [address] [phone] Steph Molina RN 05/10/2025 11:30 AM EST Telemedicine [facility] [address] [place] [address] [phone] Glenna Grossman MD [address] [place] [address] [phone] documented as of this encounter Visit Diagnoses Not on filedocumented in this encounter Care Teams Otolaryngology Teacher Relationship Specialty Start Date End Date Glenna Grossman MD 230 [place] [address] PCP - General Family Medicine 07/10/20 documented as of this encounter
--- OUTSIDE RECORDS SUMMARY | 2025-03-06 15:48 | XMS_ITS | Encounter Summary ---
Author Organization [employer] Address [address] [place] [address] 7t [place] [address] Care Team Providers Care Developmental Writing Instructor Name Role Phone Glenna Grossman MD Primary Care Provide r Encounter Details Date Type Department Care Team (Latest Contact Info) Description 01/09/2019 Abstract [facility] CONVERSION[facility] Dental, Provider, DDS Social History Tobacco [...] Info) Description 05/04/2025 9:00 AM EST Telemedicine [facility] MEDICINE [address] [place] [phone] Steph Molina RN 05/10/2025 11:30 AM EST Telemedicine [facility] MEDICINE [address] [place] [phone] Glenna Grossman MD 230 [place] [address] documented as of this encounter Visit Diagnoses Not on filedocumented in this encounter Care Teams Developmental Writing Instructor Relationship Specialty Start Date End Date Glenna Grossman MD [address] [place] [address] [phone] PCP - General Family Medicine 07/10/20 documented as of this encounter
--- OUTSIDE RECORDS SUMMARY | 2025-03-06 15:48 | XMS_ITS | Encounter Summary ---
Author Organization [employer] Address [address] [facility] 7t [place] [address] Care Team Providers Care Spring Layer Name Role Phone Glenna Grossman MD Primary Care Provide r Encounter Details Date Type Department Care Team ([facility] st Contact Info) Description 01/03/2025 Telephone [facility] [address] [place], [place] [phone] Glenna Grossman MD 230 [place] [address] Social History Tobacco Use Types Packs/Day Years [...] Info) Description 05/04/2025 9:00 AM EST Telemedicine [facility] MEDICINE [address] [place] [phone] Steph Molina RN 05/10/2025 11:30 AM EST Telemedicine [facility] MEDICINE [address] [place] [phone] Glenna Grossman MD 230 [place] [address] documented as of this encounter Visit Diagnoses Not on filedocumented in this encounter Additional Health Concerns Assessment Noted Time PHQ-9 Depression Total Score: 0 08/10/19 25 2:48 PM EDT documented as of this encounter Care Teams Spring Layer Relationship Specialty Start Date End Date Glenna Grossman MD [address] [place] [phone] PCP - General Family Medicine 07/10/20 documented as of this encounter
--- OUTSIDE RECORDS SUMMARY | 2025-03-06 15:48 | XMS_ITS | Encounter Summary ---
Author Organization [employer] Address [address] [place] [address] 7t [place] [address] Care Team Providers Care Cutter And Paster Press Clippings Name Role Phone Glenna Grossman MD Primary Care Provide r Reason for Visit * Reason Onset Date Comments dec recall 03/05/2025 Encounter Details Date Type Department Care Team ([facility] st Contact Info) Description 03/05/2025 Telephone [facility] MEDICINE 230 [place], [place] [phone] Glenna Grossman MD 230 [place] [address] dec recall Social History Tobacco Use Types Packs/Day Years [...] encounter Miscellaneous Notes * Telephone Encounter - Kristine Carr MA - 03/05/2025 3:41 PM EDT Telephone call to patient to schedule the following recall: Visit type: Televisit Appointment notes: Chronic conditions Patient agree to appointment on 05/10/25 at 11:30 AM with [facility]. documented in this encounter Plan of Treatment Upcoming Encounters Date Type Department Care Team (Late st Contact Info) Description 05/04/2025 9:00 AM EST Telemedicine [facility] MEDICINE [address] [place] [phone] Steph Molina RN 05/10/2025 11:30 AM EST Telemedicine [facility] MEDICINE [address] [place] [address] Glenna Grossman MD 230 [place] [address] documented as of this encounter Visit Diagnoses Not on filedocumented in this encounter Additional Health Concerns Assessment Noted Time PHQ-9 Depression Total Score: 14 025 1:32 PM EDT documented as of this encounter Care Teams Cutter And Paster Press Clippings Relationship Specialty Start Date End Date Glenna Grossman MD [address] [place] [address] PCP - General Family Medicine 07/10/20 documented as of this encounter
--- OUTSIDE RECORDS SUMMARY | 2025-03-06 15:48 | XMS_ITS | Encounter Summary ---
Author Organization [employer] Address [address] [place] [address] 7t [place] [address] Care Team Providers Care Customer Technical Services Manager Name Role Phone Glenna Grossman MD Primary Care Provide r Reason for Visit * Reason Comments Med Refill Encounter Details Date Type Department Care Team (Late Contact Info) Description 02/03/[address] [facility] MEDICINE [address] [place] [phone] Glenna Grossman MD [address] [place] [phone] Routine health maintenance Social History Tobacco Use [...] Info) Description 05/04/2025 9:[address] [facility] MEDICINE [address] [place] [phone] Steph Molina RN 05/10/2025 11:[address] [facility] MEDICINE [address] [place] [phone] Glenna Grossman MD 230 [place] [address] documented as of this encounter Visit Diagnoses Diagnosis Routine health maintenance Unspecified examination documented in this encounter Additional Health Concerns Assessment Noted Time PHQ-9 Depression Total Score: 0 01/07/20 23 11:14 AM EDT documented as of this encounter Care Teams Customer Technical Services Manager Relationship Specialty Start Date End Date Glenna Grossman MD 230 [place] [address] PCP - General Family Medicine 07/10/20 documented as of this encounter
--- OUTSIDE RECORDS SUMMARY | 2025-03-06 15:48 | XMS_ITS | Encounter Summary ---
Author Organization [employer] Address [address] [place] [address] 7t [place] [address] Care Team Providers Care Maintenance Shop Welder Name Role Phone Glenna Grossman MD Primary Care Provide r Reason for Visit * Reason Comments Med Refill Encounter Details Date Type Department Care Team ([facility] st Contact Info) Description 11/19/2022 Refill [facility] [address] [place], [place] [phone] Glenna Grossman MD [address] [place] [address] Chronic bilateral low back pain, unspecified whether [...] Info) Description 05/04/2025 9:00 AM EST Telemedicine [address] [phone] Steph Molina RN 05/10/2025 11:30 AM EST Telemedicine [address] [address] Glenna Grossman MD [address] [place] [phone] documented as of this encounter Visit Diagnoses Diagnosis Chronic bilateral low back pain, unspecified whether sciatica present documented in this encounter Care Teams Maintenance Shop Welder Relationship Specialty Start Date End Date Glenna Grossman MD [address] [place] [phone] PCP - General Family Medicine 07/10/20 documented as of this encounter
--- OUTSIDE RECORDS SUMMARY | 2025-03-06 15:48 | XMS_ITS | Encounter Summary ---
Author Organization [employer] Address [address] [place] [address] 7t [place] [address] Care Team Providers Care Food Processor Name Role Phone Glenna Grossman MD Primary Care Provide r Reason for Visit * Reason Comments Med Refill Encounter Details Date Type Department Care Team (Late Contact Info) Description 11/20/2022 Refill [facility]S [address] [place], [place] [phone] Glenna Grossman MD 230 [place], [place] [phone] Low back pain, unspecified Social History Tobacco [...] Upcoming Encounters Date Type Department Care Team ([facility] Contact Info) Description 05/04/2025 9:00 AM EST Telemedicine [facility] MEDICINE 230 [place], [place] [phone] Steph Molina, RN 05/10/2025 11:30 AM EST Telemedicine [facility] MEDICINE [address] [place] [address] Glenna Grossman MD [address] [place] [phone] documented as of this encounter Visit Diagnoses Diagnosis Low back pain, unspecified documented in this encounter Care Teams Food Processor Relationship Specialty Start Date End Date Glenna Grossman MD [address] [place] [phone] PCP - General Family Medicine 07/10/20 documented as of this encounter
--- OUTSIDE RECORDS SUMMARY | 2025-03-06 15:48 | XMS_ITS | Clinical Summary ---
Author Organization [employer] Address [address] [place] [address] [address] [place] [address] Care Team Providers Care Watch Parts Grinder Name Role Phone Glenna Grossman MD Primary Care Provide r Allergies Active Allergy Reactions Criticality Noted Date Comments Avinash Inhibitors Angioedema High 03/21/2015 Other reaction(s): cough & mouth swelling Amlodipine Headache,Dizziness 01/14/2018 Nausea, vomiting Celecoxib 11/28/2018 weakness Other reaction(s): weakness Metoclopramide Hives 06/26/2010 Oxycodone Hives 06/26/2010 Pantoprazole Unknown 06/26/2010 Tiotropium 07/06/2018 Other reaction(s): per mortgage manager Medications meclizine (Antivert) 25 MG tabletIndications:Dizz iness [...] inhalerIndications:Sev ere persistent asthma, unspecified whether complicated (HCC) INHALE 1 PUFF BY MOUTH TWICE DAILY IN THE MORNING AND AT BEDTIME. RINSE MOUTH AFTER USING., DO NOT SWALLOW. ADMINISTER WITH SPACER 12 g 11 025 Active famotidine (Pepcid) 40 MG tabletIndications:Shahana roesophageal reflux disease without esophagitis TAKE 1 TABLET BY MOUTH TWICE DAILY IN THE MORNING AND AT BEDTIME 180 tablet 2 025 Active triamcinolone (Kenalog) 0.1 % creamIndications:Dry [...] of neck, unspecified B-cell lymphoma type (CMS/HCC) (HCC) Take 2 tablets (8 mg) by mouth [...] DAILY NEEDED 120 tablet 1 025 Active losartan (Cozaar) 25 MG tabletIndications:Samantha re persistent asthma without complication (HCC) TAKE 1 TABLET BY MOUTH EVERY MORNING 90 tablet 1 025 Active Multiple Vitamin (Multivitamin) tabletIndications:Pure hypercholesterolemia TAKE 1 TABLET BY MOUTH EVERY MORNING 90 tablet 1 025 Active theophylline ER (Elbert-Dur) 300 MG 12 hr tabletIndications:Samantha re persistent asthma without complication (HCC) TAKE 1 TABLET BY MOUTH TWICE DAILY IN THE MORNING AND AT BEDTIME 180 tablet 1 025 Active traMADol (Ultram) 50 MG tabletIndications:Crusher Plant Operator dom bilateral low back pain with [...] TIMES DAILY DIRECTED 18 g 025 Active cetirizine (ZyrTEC) 10 MG tabletIndications:Sheldon rgic rhinitis, unspecified seasonality, unspecified trigger TAKE 1 TABLET BY MOUTH EVERY EVENING 90 tablet 1 025 Active fluticasone (Flonase) 50 MCG/ACT nasal [...] Reorder (will not trigger notification to Pharmacy)) cetirizine (ZyrTEC) 10 MG tabletIndications:Sheldon rgic rhinitis, unspecified seasonality, unspecified trigger TAKE 1 TABLET BY MOUTH EVERY EVENING 90 tablet 1 025 02/21 Discontinued acetaminophen (Tylenol 8 Hour) 650 MG ER tabletIndications:Othe r type of osteoarthritis, unspecified site TAKE 1 TABLET BY MOUTH EVERY 8 HOURS NEEDED 60 tablet 3 025 02/08 Discontinued( Reorder (will not trigger notification to Pharmacy)) traMADol (Ultram) 50 MG tabletIndications:Crusher Plant Operator dom bilateral low back pain with left-sided sciatica TAKE 2 TABLETS BY MOUTH EVERY 8 HOURS NEEDED FOR SEVERE PAIN 168 tablet 025 02/08 Discontinued dilTIAZem CD (Cardizem CD) 240 MG 24 hr capsuleIndications:Sev ere persistent asthma without complication (HCC) TAKE 1 CAPSULE BY MOUTH EVERY MORNING [...] 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) 08/09/2024 Assessment & Plan (11/03/2024 11:27 AM EDT): [...] (06/24/2023 8:16 AM EST): Referred today to clinical biochemist w noted hearing loss -reported as chronic [...] Constipation 05/28/2022 Hypoglycemia 05/28/2022 COVID-19 05/28/2022 Ileus (CMS/HCC) 05/28/2022 Lower abdominal pain 05/28/2022 Mixed anxiety [...] Encounters Date Type Department Care Team Description 03/05/2025 Telephone [facility] [address] [place] [address] Glenna Grossman MD dec recall 02/20/2025 Refill [facility] [address] [place] [address] Ana Kraft MD Allergic rhinitis, unspecified seasonality, unspecified trigger 02/08/2025 1:15 PM EDT Office Visit [facility] [address] [place] [address] Glenna Grossman MD Prediabetes (Primary Dx); Essential hypertension; Tinnitus of both ears; Decreased hearing of both ears; SOB (shortness of breath); Decreased breath sounds at left lung base; Allergic rhinitis, unspecified seasonality, unspecified trigger; Other type of osteoarthritis, unspecified site; Severe asthma, unspecified whether complicated, unspecified whether persistent 02/08/2025 Travel 02/07/2025 Refill [facility] [address] [place] [address] Glenna Grossman MD Chronic bilateral low back pain with left-sided sciatica 02/07/2025 Telephone [facility] [address] [place] [address] Glenna Grossman MD Chart Prep 01/23/2025 Refill [facility] [address] [place] [address] Glenna Grossman MD Severe persistent asthma without complication; Pure hypercholesterolemia 01/20/2025 Refill [facility] [address] [place] [address] Glenna Grossman MD Abdominal pain, unspecified abdominal location 01/15/2025 Telephone [facility] [address] [place] [address] Glenna Grossman MD No Show 01/03/2025 Telephone [facility] [address] [place] [address] Glenna Grossman MD 12/25/2024 Refill [facility] [address], [place] [phone] Glenna Grossman MD Chronic bilateral low back pain with left-sided sciatica from Last 3 Months Immunizations Immunization Administration [...] Info) Description 05/04/2025 9:00 AM EST Telemedicine [facility] [address] [place] [phone] Steph Molina RN 05/10/2025 11:30 AM EST Telemedicine [facility] [address] [place] [address] Glenna Grossman MD [address] [place] [address] Health Maintenance Due Date Last Done Comments [...] complication, without long-term current use of insulin ([facility]) PANORAMIC RADIOGRAPHIC IMAGE Routine 09/23/2022 3:30 [...] Media Lot # [id number] Lot# Expiration Date 11325 Blood Capillary blood specimen / Unknown 02/08/2025 1:30 PM EDT Glenna Hassan MD POINT OF CARE TEST EN TER/EDIT ORDERABLES Final Result * BI Mammogram Screening Tomosynthesis Bilateral (09/19/2024 11:30 AM EDT) Anatomical Region Laterality Modality Breast Bilateral Mammography 09/19/2024 11:3 0 AM EDT Narrative 09/19/2024 12:03 PM EDT [facility] [address] 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 She will be starting treatment at [facility]. These findings are concordant with [...] Cartagena DO in OV> 09/19/24 1201 DD/ 29 TD/TT: 09/19/241147 Laundry Machine Tender: Procedure Note Donotuseinterpreter, Image - 09/22/2024 [facility] [address] [place] [address] 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 She will be starting treatment at [facility]. These findings are concordant with [...] 09/19/24 1201 DD/ 1130 TD/TT: 09/19/24 1148 Laundry Machine Tender: us Glenna Hassan MD IMG BI PROCEDURES Orestes eusebio Result - Final * Lipid Panel, Standard (10/06/2023 3:07 PM EDT) Triglycerides 65 <150 mg/dL [facility] Comment:Desirable Triglyceri de: less than 150 mg/dLBorderline High Triglyceride 150-199 mg/dLHigh Triglyceride: 200-499 mg/dLVery High Triglyceride: greater than or equal to 5OO mg/dL Cholesterol 145 <200 mg/dL [facility] Comment:Desirable Cholestero l: less than 200 mg/dLBorderline High Cholesterol: 200-239 mg/dLHigh Cholesterol: greater than 239 mg/dL LDL Cholesterol Calculated 59 <100 mg/dL [facility] Comment:Desirable LDL: less than 100 mg/dLNear Optimal/Above Optimal LDL: 110- 129 mg/dLBorderline High LDL: 130-159 mg/dLHigh LDL: 160-189 mg/dLVery High LDL: greater than or equal to 190 mg/dL HDL Cholesterol 73 >40 mg/dL [facility] Comment:Desirable HDL: great er than 40 mg/dL Note: This HDL assay may give artificially low results in patients with liver disease. Blood Venous blood specimen / Unknown 10/06/2023 3:07 PM EDT 10/06/2023 4:15 PM EDT us Glenna Hassan MD LAB BLOOD ORDERABLES Final Result [facility] [address] [place] [phone] from Last 3 Months or Most Recently Relevant to Health Maintenance Insurance [facility] CUSTODIAL OPT[employer] (HMO D-SNP) DENTAL - [facility] [place] Care Teams Watch Parts Grinder Relationship Specialty Start Date End Date Glenna Grossman MD [address] [place] [phone] PCP - General Family Medicine 07/10/20
--- OUTSIDE RECORDS SUMMARY | 2025-03-06 15:48 | XMS_ITS | Encounter Summary ---
Author Organization [employer] Address [address] [place] [address] [address] [place] [address] Care Team Providers Care Instructional Systems Designer Name Role Phone Glenna Grossman MD Primary Care Provide r Encounter Details Date Type Department Care Team ([facility] st Contact Info) Description 06/15/2024 Orders Only [facility] [address] [place], [place] [phone] Glenna Grossman MD [address] [place], [place] [phone] Social History Tobacco Use Types Packs/Day Years [...] Info) Description 05/04/2025 9:00 AM EST Telemedicine [facility] [address] [place] [address] Steph Molina RN 05/10/2025 11:30 AM EST Telemedicine [facility] [address] [place] [phone] Glenna Grossman MD [address] [place] [address] documented as of this encounter Visit Diagnoses Not on filedocumented in this encounter Additional Health Concerns Assessment Noted Time PHQ-9 Depression Total Score: 9 05/02/20 24 11:03 AM EST documented as of this encounter Care Teams Instructional Systems Designer Relationship Specialty Start Date End Date Glenna Grossman MD [address] [place] [address] PCP - General Family Medicine 07/10/20 documented as of this encounter
--- OUTSIDE RECORDS SUMMARY | 2025-03-06 15:48 | XMS_ITS | Encounter Summary ---
Author Organization [employer] Address [address] [place] [address] [address] [place] [address] Care Team Providers Care Manager Decision Support Name Role Phone Glenna Grossman MD Primary Care Provide r Reason for Visit * Reason Comments Med Refill Encounter Details Date Type Department Care Team (Late Contact Info) Description 08/24/2022 Refill [facility] [address] [place] [phone] Delores Alexis MD [address] [place] [phone] Chronic bilateral low back pain, unspecified whether [...] Info) Description 05/04/2025 9:00 AM EST Telemedicine [facility] [address] [place] [phone] Steph Molina RN 05/10/2025 11:30 AM EST Telemedicine [facility] [address] [place] [phone] Glenna Grossman MD [address] [place] [phone] documented as of this encounter Visit Diagnoses Diagnosis Chronic bilateral low back pain, unspecified whether sciatica present documented in this encounter Care Teams Manager Decision Support Relationship Specialty Start Date End Date Glenna Grossman MD [address] [place] [phone] PCP - General Family Medicine 07/10/20 documented as of this encounter
== END 2025-03-06 13:28 | disposition home or self-care (01) ==
LOC: HO.ENCR 12:55
PROVIDERS: PCP Internal Medicine; Visit Provider Internal Medicine Endocrinology, Diabetes & Metabolism
DX: M81.0 Age-related osteoporosis without current pathological fracture (principal)
CPT/HCPCS: 99213

== ENCOUNTER → 2025-03-06 12:54 | Outpatient (BNVA) | payer OTHER, SELFPAY | PROVIDERS: PCP Internal Medicine; Visit Provider Internal Medicine Endocrinology, Diabetes & Metabolism | DX: M81.0 Age-related osteoporosis without current pathological fracture (principal) | CPT/HCPCS: 99212 ==

== ENCOUNTER 2025-03-20 13:17 | Outpatient (REF) | payer OTHER, SELFPAY ==
--- NOTE | ~2025-03-20 | CT_ITS ---
EXAMINATION: CT SOFT TISSUE NECK WITH CONTRAST CLINICAL INFORMATION: CAD 5.90. Non-Hodgkin's,. COMPARISON: No prior CT. Correlated to Limited ultrasound dated June 14, 2024 TECHNIQUE: Following the intravenous administration of 65 mL of Omnipaque 350 intravenous contrast, helical imaging was performed in the axial plane with generation of coronal and sagittal reformatted images. This CT examination was performed using dose optimization techniques as appropriate, variously including the following: *Automated exposure control *Adjustment of mA and/or kV according to patient size (this includes techniques or standardized protocols for targeted exams where dose is matched to indication/reason for exam; i.e. extremities or head) *Use of iterative reconstruction technique. DLP: 181.9 mGy centimeter. FINDINGS: Bilateral, numerous, enlarged/prominent less than 1.2 cm cervical lymph nodes extending from the supraclavicular to the suboccipital region. Prominent palatine tonsils with dystrophic calcifications. Skull base, nasopharynx, retropharynx, oropharynx, hypopharynx and larynx demonstrated no gross masses. Salivary glands demonstrated no masses or sialolithiasis. Steel Rule Die Maker spaces, parapharyngeal spaces and carotid spaces demonstrated no gross masses. Thyroid gland is not enlarged. There is a 1.3 cm peripheral calcified hypodense nodule in the posterior left thyroid lobe. The vessels are patent. No air-fluid levels in the paranasal sinuses. Tympanic cavities and mastoid air cells are aerated. Edentulous, maxilla. Calcified plaques in the main branches of the thoracic aorta. Multilevel cervical spondylosis C3 C7 resulting in reverse curvature apex at C4-5. There is normal position of the cerebellar tonsils. CT/CT soft tissue neck w IV con IMPRESSION: Bilateral, numerous cervical lymphadenopathy extending from the supraclavicular notch to the suboccipital region measuring less than 1.2 cm Electronically signed by: David Lyon MD 03/20/2025 02:11 PM EDT
--- NOTE | ~2025-03-20 | CT_ITS ---
EXAMINATION: CT CHEST WITH IV CONTRAST INDICATION: C85.90 - Non-Hodgkin lymphoma, unspecified, unspecified site COMPARISON: Previous chest CT dated April [address] of the abdomen and pelvis from 2021 and 2022 TECHNIQUE: Helical CT scan of the chest was performed following administration of intravenous contrast. Coronal and sagittal reformatted images were generated and reviewed. This CT exam was performed with one or more of the following dose reduction techniques: automated exposure control, adjustment of the mA and/or kV according to patient size, use of iterative reconstruction technique. DLP: 236 mGy-cm CHEST: THYROID: Stable 1.5 mm calcified left lower thyroid nodule. No right thyroid nodule seen. LUNGS: Linear scarring or subsegmental atelectasis at the lung bases left greater than right. Lungs are otherwise clear. No pulmonary nodule. MEDIASTINUM: There are no enlarged mediastinal lymph nodes. ROHIT: No enlarged hilar lymph nodes. CARDIOVASCULATURE: The heart is upper normal in size. There is a small pericardial effusion. The thoracic aorta is normal in caliber. There is moderate aortic valve calcification. There is mitral annular calcification. DEGREE OF CORONARY CALCIFICATION: moderate PLEURA: There is no pleural effusion. No pneumothorax. MAIN AIRWAYS: The mainstem bronchi and proximal branches are patent. AXILLA: There is interval increase in size and number of bilateral axillary lymph nodes. Largest right axillary lymph nodes are upper normal in size measuring 10 cm in short axis for example axial image 19 and 23 series 3. Largest left axillary lymph node measures 11.3 cm in short axis axial image 17 series 3, minimally enlarged. There is bilateral lower cervical and supraclavicular lymphadenopathy appears increased. Largest lymph node measures 8.5 mm in short axis in the left supraclavicular region axial image 4 series 3 and 8 mm in short axis on the right coronal image 5 series 40. There is a new right internal mammary lymph node that is slightly enlarged measuring 5 mm in short axis axial image 128 series 7. There are small right cardiophrenic angle or anterior diaphragmatic lymph nodes. BONES AND SOFT TISSUES: Degenerative changes of the spine and mild scoliosis. UPPER ABDOMEN: Cholecystectomy. Mild extrahepatic biliary duct dilatation, common bile duct measuring 9 mm. This may be be normal postcholecystectomy. Mild dilatation of the main pancreatic duct measuring 5 mm. These findings do not appear appreciably changed from prior April 2022 exam. This could be further evaluated with MR of the abdomen with MRCP if clinically indicated. Postsurgical changes to the stomach, probably gastric bypass. Post ventral hernia repair with mesh. CT/CT chest w IV con IMPRESSION: Increasing bilateral axillary and lower cervical and supraclavicular and right internal mammary lymphadenopathy. Stable 1.5 cm calcified left thyroid nodule. Again this could be better evaluated with ultrasound. Moderate coronary artery and aortic valve calcification. Stable abdominal findings. Electronically signed by: Deisy Wood MD 03/20/2025 02:32 PM EDT
[2025-03-20] MEDS: iohexoL 350 MG/ML 100 ML INFUS..BTL IV (14:01)
[2025-03-20 15:54] LABS: Creatinine POC 1.0 mg/dL (0.5-1.4); GFR POC > 60
== END 2025-03-20 13:18 | disposition home or self-care (01) ==
LOC: HO.CT 13:17
PROVIDERS: PCP Internal Medicine; Visit Provider Internal Medicine Gastroenterology
DX: C85.90 Non-Hodgkin lymphoma, unspecified, unspecified site (principal)
CPT/HCPCS: 70491; 71260; 82565; Q9967

== ENCOUNTER → 2025-03-20 13:21 | Outpatient (BNV) | payer OTHER, SELFPAY | PROVIDERS: PCP Internal Medicine; Visit Provider Radiology Diagnostic Radiology | DX: R59.9 Enlarged lymph nodes, unspecified (principal); E04.1 Nontoxic single thyroid nodule; I25.10 Atherosclerotic heart disease of native coronary artery without angina pectoris | CPT/HCPCS: 70491; 71260 ==

== ENCOUNTER 2025-04-14 17:09 | Inpatient (IN) | payer OTHER, SELFPAY ==
--- NOTE | 2025-04-14 | ECG_ITS ---
Test Reason : ABD PAIN Blood Pressure : */* mmHG Vent. Rate : 72 BPM Atrial Rate : 72 BPM P-R Int : 160 ms QRS Dur : 100 ms QT Int : 390 ms P-R-T Axes : 65 -5 36 degrees QTcB Int : 427 ms Normal sinus rhythm with sinus arrhythmia Moderate voltage criteria for LVH, may be normal variant ( R in aVL , [place] product ) Borderline ECG When compared with ECG of 03-May-2022 10:16, No significant change was found Referred By: Generic ED Physician Electronically Signed By: JAMA LOPEZ MD
--- NOTE | ~2025-04-14 | CT_ITS ---
CLINICAL HISTORY: abdominal pain CT abdomen and pelvis with contrast Comparison: CT/REG/SR - CT ABDOMEN PELVIS W IV CON - 01/02/23 16:50 EDT Findings: The lung bases are clear. Postsurgical changes are present status post ventral abdominal herniorrhaphy. There is redundancy of mesh at the upper abdomen. Patient is status post gastric bypass. There is redemonstration of dilated loop of bowel adjacent to the herniorrhaphy mesh in the midline. Several fluid-filled loops of small bowel are present in the right upper quadrant. Large bowel is normal. There is diverticulosis without evidence of diverticulitis. Appendix is not visualized. No evidence of bowel obstruction. Hepatic parenchyma is normal. There is a 4 mm hypodensity in the medial right hepatic lobe. Patient is status post cholecystectomy. Spleen is normal. Adrenal glands are normal. Kidneys are normal in size. No nephrolithiasis. Mild dilated extrarenal pelves without hydroureter. Extensive vascular calcifications in the abdominal aorta and mesenteric vessels. No adenopathy or omental thickening. Severe bladder distention is present. There is a hypodense lesion in the left adnexa measuring 4 cm. This has increased since 01/02/2023 IMPRESSION: Severe bladder distention, consider catheterization and postvoid residuals. Enlarging left adnexal cystic lesion, concerning for ovarian neoplasm. Further evaluation may be obtained with outpatient MRI pelvis. Postsurgical changes status post ventral abdominal herniorrhaphy with unchanged morphology of herniorrhaphy mesh. Several dilated bowel loops are present adjacent to the mesh without evidence for high-grade obstruction. No pneumatosis or pneumoperitoneum. This document has been electronically signed by: Mike Phelps III, MD PHD on 04/14/2025 23:17:24
[2025-04-14 17:15] VITALS: BP 147/95; PULSE 77; O2SAT 98
[2025-04-14 17:29] VITALS: BP 152/52; PULSE 75; RESP 18; TEMP 37.3; O2SAT 100; BMI 28.5
--- NOTE | 2025-04-14 18:00 | PC.NURSE ---
Unable to obtain iv access/labs secondary to pt being a diff stick. Request extension service specialist in charge to place U/S iv.
--- NOTE | 2025-04-14 18:30 | PC.NURSE ---
While changing pt into gown, pt had approx 6 liquid stools sargent in color. Provider made aware.
--- NOTE | 2025-04-14 19:43 | ED.GENADULT ---
HPI - General Adult General Chief complaint: Abdominal Pain Stated complaint: AMS n/v , hx nonhodgekins lymphoma ab pain Time Seen by Provider: 04/14/25 19:29 Source: patient Mode of arrival: ambulatory Limitations: language barrier History of Present Illness ED Provider: Dr. Rosales HPI narrative: This is a 84-year-old female history of non-Hodgkin lymphoma currently on chemotherapy, presented hospital today for evaluation of nausea and vomiting and chills. Patient is also having symptoms of diarrhea as well. Patient is stated that she was eating a cheese prior to her symptoms. The patient's has 6 episode of nausea and vomiting shortly afterward. Did not have diarrhea then. However she is complaining of lower abdominal pain. Denies any dysuria. Related Data Home Medications ?Medication ?Instructions ?Recorded ?Confirmed cetirizine 10 mg tablet 10 mg PO DAILY 04/22/20 07/18/24 citalopram 10 mg tablet 10 mg PO DAILY 04/22/20 07/18/24 fluticasone propionate 50 2 spray intranasal DAILY 04/22/20 07/18/24 mcg/actuation nasal spray,suspension losartan 25 mg tablet 25 mg PO DAILY 04/22/20 07/18/24 multivitamin 1 tab PO QAM 04/22/20 07/18/24 rabeprazole 20 mg tablet,delayed 20 mg PO DAILY 04/22/20 07/18/24 release rosuvastatin 10 mg tablet 10 mg PO BEDTIME 04/22/20 07/18/24 acetaminophen 500 mg tablet 500 mg PO TID PRN Pain 06/05/20 07/18/24 albuterol sulfate 90 mcg/actuation 2 inh inhalation QID PRN Shortness 06/05/20 07/18/24 aerosol inhaler Of Breath fluticasone propionate 230 2 puff inhalation DAILY 06/05/20 07/18/24 mcg-salmeterol 21 mcg/actuation HFA inhaler theophylline 300 mg 300 mg PO BID 06/05/20 07/18/24 tablet,extended release,12 hr tramadol 50 mg tablet 50 mg PO TID PRN Pain 06/05/20 07/18/24 albuterol sulfate 2.5 mg/3 mL 1 amp inhalation 6XD PRN Wheezing 06/24/21 07/18/24 (0.083 %) solution for nebulization magnesium 200 mg tablet 200 mg PO DAILY 09/17/23 07/18/24 tizanidine 4 mg tablet 4 mg PO TID 09/17/23 07/18/24 alprazolam 0.5 mg tablet mg PO DAILY 01/13/24 07/18/24 alprazolam 1 mg tablet 1 mg PO DAILY PRN 01/13/24 07/18/24 zanubrutinib 80 mg capsule 80 mg PO BID 02/12/25 (Brukinsa) Previous Rx's ?Medication ?Instructions ?Recorded blood-glucose meter (FreeStyle #1 ea 06/07/20 Lite Meter kit) lancets 28 gauge (FreeStyle #100 ea 06/11/20 Lancets) famotidine 40 mg tablet 40 mg PO BID #90 tabs 03/03/22 ondansetron 4 mg disintegrating 4 mg PO Q8H PRN for 06/16/22 tablet nausea/vomiting #20 ea simethicone 80 mg chewable tablet 80 mg PO BID-QID for gas #90 tabs 06/16/22 magnesium hydroxide 2,400 mg/10 mL 10 ml PO DAILY PRN constipation 10/15/23 oral suspension (Milk Of Magnesia #1,000 mL Concentrated) cholecalciferol (vitamin D3) 50 50 mcg PO QAM #30 caps 07/06/24 mcg (2,000 unit) capsule (Vitamin D3) dronabinol 2.5 mg capsule (Marinol) 2.5 mg PO BEDTIME #30 caps 02/12/25 Allergies Allergy/AdvReac Type Severity Reaction Status Date / Time morphine (MORPHINE) Allergy Severe Agitated Verified 04/14/25 17:36 WADE Inhibitors Allergy Intermediate mouth Verified 04/14/25 17:36 swelling/cough amlodipine Allergy Intermediate headache/di Verified 04/14/25 17:36 zziness/galnia sea/vomitin g pantoprazole (From Protonix) Allergy Intermediate Agitated Verified 04/14/25 17:36 celecoxib (From Celebrex) AdvReac Mild Weakness Verified 04/14/25 17:36 milk (MILK) AdvReac Mild STOMACH Verified 04/14/25 17:36 UPSET oxycodone (From Percocet) AdvReac Mild NAUSEA/RAPID Verified 04/14/25 17:36 HR/BLURRED VISION Review of Systems Review of Systems: Pertinent review of systems as mentioned in HPI. All other system otherwise negative. 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 Mother No problems noted. Social History Social History Household Members: None Household Members Other:: daughter lives downstairs Housing: House Are you a primary resident care spec to a significant other at home: No Do you presently have visiting nurse or other home services: No Alcohol intake: never Patient Tobacco Use Status: Never used Tobacco Smoked in Last 30 Days: No Use of substances other than those prescribed or required for medical reasons: No Advance Directives: No Advance Directives Information Provided: Yes Advance Directives Date on File: 06/24/21 Do you have a plan to hurt others: No Plan service: No Physical Exam ED Exam Exam: General: Appears to be nauseous, with diarrhea Head: Normacephalic, atraumatic ENT: oral mucosa moist, neck supple, no tracheal deviation Cardiovascular: regular rate, regular rhythm, no murmurs, rubbing, gallops Respiratory: CTAB, no wheeze, rales, rhonchi Gastrointestinal: Soft, non distended, diffuse abdominal tenderness on palpation, no guarding Neurological: Awake and alert, no facial droop noted Skin: Warm and dry Psychiatric: Appropriate mood and thoughts Vital Signs: Vital Signs - 24 hr 04/14/25 17:29 04/15/25 00:07 04/15/25 00:12 Temperature 99.2 F 98 F 98 F Pulse Rate 75 79 73 Respiratory Rate 18 18 18 Blood Pressure 152/52 H 143/55 H 152/45 H Pulse Oximetry 100 98 96 Oxygen Delivery Method Room Air Room Air Room Air BMI result Body Mass Index 28.5 Medications Administered Discontinued Medications Generic Name Dose Route Start Last Admin Trade Name Freq PRN Reason Stop Dose Admin Famotidine 20 mg 04/14/25 20:38 04/14/25 20:56 Famotidine/Pf 20 Mg/2 Ml Vial IVPUSH 04/14/25 20:39 20 mg ONCE ONE Administration Lactated Ringer's 1,000 mls @ 999 mls/hr 04/14/25 20:45 04/14/25 20:42 Lr IV 04/14/25 21:45 999 mls/hr .Q1H1M OSMEL Administration Metronidazole 500 mg in 100 mls @ 100 mls/hr 04/14/25 21:41 04/15/25 00:07 Flagyl IV 04/14/25 22:40 100 mls/hr ONCE ONE Administration Ceftriaxone Sodium 2 gm/ 50 mls @ 100 mls/hr 04/14/25 23:34 04/15/25 00:25 Sodium Chloride IV 04/15/25 00:03 Infused ONCE ONE Infusion Iohexol 85 ml 04/14/25 21:58 04/14/25 22:00 Iohexol 350 Mg/Ml 100 Ml Infus..Btl IV 04/14/25 21:59 85 ml ONCE ONE Administration Ondansetron HCl 4 mg 04/14/25 20:38 04/14/25 20:56 Ondansetron Hcl 4 Mg/2 Ml Vial IVPUSH 04/14/25 20:39 4 mg ONCE ONE Administration Procedures Procedure Narrative Procedure Narrative: Ultrasound guided IV was placed in real time guidance. 20 gauge catheter was placed in right forearm. Medical Decision Making Medical Decision Making MDM Narrative: 84-year-old female history of non-Hodgkin's lymphoma presented hospital today for evaluation of nausea vomiting after eating some cheese earlier today. However she is currently presenting with persistent diarrhea. She is also complaining of chills. We will obtain a CBC abdominal lab work for the patient at this time. IV fluid be given to the patient. IV Pepcid will be given patient's IV Zofran will be given to the patient as well. Patient's white count was 24. We will plan to cover patient with IV metronidazole. She is not tachycardic she is afebrile. CT abdomen and pelvis will be obtained. Patient will be started on IV Flagyl and IV ceftriaxone. Patient is noted to be retaining urine on my bladder imaging. The patient was difficult IV access. I did obtain ultrasound-guided IV access in place a 20 gauge needle in the right forearm. Blood culture obtained. UA is currently pending at this time. Patient's C diff negative. Patient's CT imaging does show severe bladder distention with large left adnexal cystic lesion concerning for possible ovarian neoplasm. We will pending UA at this time. We will assess for any signs of UTI that may be causing her elevated leukocytosis and presentation at this time. After further discussion with the patient. She is taking Brukinsa (Sebastien tyrosine kinase inhibitor) for her non-Hodgkin's lymphoma. She takes 80 mg twice a day for this. Given the degree of her leukocytosis in setting of her cancer treatment. Patient is certainly high risk for serious infection. We will plan to admit the patient to the hospital for further monitoring at this time and IV antibiotics. Patient is overall clinically is improving. Patient's lab work did show some slight metabolic acidosis with a bicarb of 18. However lactic acid is normal at 1.3. No other signs of organ dysfunction. She does not meet SIRS criteria I did discuss the incidental finding of a adnexal mass in the left side. Patient's son and daughters stated that this was known by her oncologist and was discussed with them earlier in her course. Differential Diagnosis Differential Diagnoses: The differential diagnosis associated with the presentation includes Nausea, vomiting, diarrhea, C diff, infectious diarrhea, colitis Lab Data MDM Lab Attestation statement: I reviewed the patient's lab results. 04/14/25 20:32 04/14/25 20:32 Labs: Lab Results 04/14/25 04/14/25 Range/Units 20:32 20:35 WBC 24.8 H (4.8-10.8) X10*3/uL RBC 3.76 L (4.20-5.50) X10*6/uL Hgb 10.5 L (12.0-16.0) g/dl Hct 32.5 L (37.0-47.0) % MCV 86.4 (80.0-98.0) fL MCH 27.9 (27.0-33.0) pg MCHC 32.3 (31.0-35.0) g/dl RDW 14.8 (11.0-16.0) % Plt Count 99 L D (160-400) X10*3/uL MPV Not Reportable Immature Gran % (Auto) 0.3 (0.0-0.4) % Neut % (Auto) 36.3 L (45-73) % Lymph % (Auto) 61.1 H (20-40) % [place] % (Auto) 1.9 L (2-11) % Eos % (Auto) 0.0 (0-4) % Baso % (Auto) 0.4 (0-2) % Lymph # (Auto) 15.2 H (1.2-4.9) X10*3/uL [place] # (Auto) 0.5 (0.1-1.2) X10*3/uL Eos # (Auto) 0.0 (0.0-0.4) X10*3/uL Baso # (Auto) 0.1 (0.0-0.2) X10*3/uL Abs Immat Gran (auto) 0.08 H (0.00-0.03) X10*3/uL Absolute Neuts (auto) 9.0 H (2.0-8.3) x10*3/uL Absolute Nucleated RBC 0.020 H (0.0-0.012) X10*3/uL Nucleated RBC % (auto) 0.1 (0.0-0.2) /100WBC Smear Tech's Comments VERIFIED Sodium 141 (135-145) mmol/L Potassium 4.1 (3.3-5.1) mmol/L Chloride 112 H (96-108) mmol/L Carbon Dioxide 18 L (22-29) mmol/L Anion Gap 15 (12-20) BUN 20 H (9-16) mg/dL Creatinine 0.68 (0.5-1.4) mg/dL Estim Creat Clear Calc 48.7 Estimated GFR > 60 Random Glucose 98 (60-115) mg/dL Lactic Acid 1.3 (0.5-2.0) mmol/L Calcium 8.1 L D (8.4-10.2) mg/dL Total Bilirubin 0.4 (0.0-1.0) mg/dL Direct Bilirubin 0.1 (0.0-0.5) mg/dL AST 31 (5-31) U/L ALT 8 (0-31) U/L Alkaline Phosphatase 94 (39-117) U/L Total Protein 5.9 L (6.5-8.0) g/dL Albumin 3.8 (3.5-5.0) g/dL C. difficile Tox B Gene NEGATIVE (Negative) Independent Interpretation I performed an independent interpretation of an: CT Scan Radiology Impression Discussion of test interpretation with radiology: I have reviewed the radiologist's reading. Chronic Conditions Non hodgkin lymphoma Critical Care Time Critical Care Time Critical Care Time: Yes Total Critical Care Time: 38 Attestation: Time is exclusive of separately billable procedures. Time includes: direct patient care, patient reassessment, coordination of patient care, interpretation of data (laboratory data, pulse oximetry, arterial blood gases and chest xrays), review of patient's medical records, medical consultation and documentation of patient care. Procedures excluded from critical care time: central intravenous line placement and electrocardiography. Discharge Plan Discharge Clinical Impression: Enteritis, Non-Hodgkin lymphoma, Severe dehydration
--- NOTE | 2025-04-14 20:00 | PC.NURSE ---
Second RN will attempt U/S iv at this time. Awaiting for md shields
[2025-04-14] MEDS: Lactated Ringers 1,000 ML 999 ML IV (20:42)
[2025-04-14 20:58] LABS: Hematocrit 32.5 % (37.0-47.0); Hemoglobin 10.5 g/dl (12.0-16.0); Imm Gran Abs Auto 0.08 X10*3/uL (0.00-0.03); Imm Gran Pct Auto 0.3 % (0.0-0.4); MANUAL DIFF FLAG SCAN; Mean Corpuscular HGB Conc 32.3 g/dl (31.0-35.0); Mean Corpuscular Hemoglobin 27.9 pg (27.0-33.0); Mean Corpuscular Volume 86.4 fL (80.0-98.0); NRBC Abs Auto 0.020 X10*3/uL (0.0-0.012); NRBC Pct Auto 0.1 /100WBC (0.0-0.2); PLT CLUMP 1; Red Blood Count 3.76 X10*6/uL (4.20-5.50); SCAN SMEAR FLAG 1
--- NOTE | 2025-04-14 20:58 | PC.NURSE ---
Provider at bedside to examine pt, verbal order to remove rectal tube. Pt states diarrhea has calmed down
[2025-04-14 20:59] LABS: Lymphocytes Absolute Auto 15.2 X10*3/uL (1.2-4.9)
[2025-04-14 21:05] LABS: Alanine Aminotransferase 8 U/L (0-31); Albumin Level 3.8 g/dL (3.5-5.0); Alkaline Phosphatase 94 U/L (39-117); Anion Gap 15 (12-20); Aspartate Amino Transferase 31 U/L (5-31); Blood Urea Nitrogen 20 mg/dL (9-16); Calcium 8.1 mg/dL (8.4-10.2); Carbon Dioxide 18 mmol/L (22-29); Chloride 112 mmol/L (96-108); Creatinine Clr Calc Pharmacy 48.7; Estimated Glomerular Filt Rate > 60; Potassium 4.1 mmol/L (3.3-5.1); Sodium 141 mmol/L (135-145); Total Protein 5.9 g/dL (6.5-8.0)
[2025-04-14 21:31] LABS: Platelet Count 99 X10*3/uL (160-400); White Blood Count 24.8 X10*3/uL (4.8-10.8)
[2025-04-14 21:39] LABS: CDiff Gene PCR NEGATIVE (Negative)
[2025-04-14] MEDS: iohexoL 350 MG/ML 100 ML INFUS..BTL 85 ML IV (22:00)
--- NOTE | 2025-04-14 23:12 | PC.NURSE ---
assumed care of pt, family at bedside, provider to place ultrasound guide IV, will continue LR and medication as soon as IV access is in place.
[2025-04-15] VITALS (7 sets, daily range): BP systolic 116–154; BP diastolic 45–83; PULSE 68–79; RESP 16–20; TEMP 36.5–36.9; O2SAT 94–98
[2025-04-15] MEDS: metroNIDAZOLE/NS 500 MG/100 ML PIGGYBACK 100 MG IV ×4 (00:07→23:25)
--- NOTE | 2025-04-15 02:27 | PM.IMHP ---
History of Present Illness Date of Service: 04/15/25 Attending physician on admission: Maria Fernanda Tate Chief Complaint: Left lower quadrant pain Lia Antonio is a 84 years old woman with past medical history significant for B-cell non-Hodgkin lymphoma on zanubrutinib, bypass surgery, GERD, essential hypertension, anxiety/depression, asthma on theophylline and hyperlipidemia presents to the emergency department complaining of left lower quadrant pain associated with nausea. She denied vomiting, fever or chills. Upon arrival to the ED she had nonbloody watery diarrhea. Abdominal surgical history significant for bypass surgery, hernia repair with mesh placement x2, appendectomy and cholecystectomy. In the ED, she was found to have stable vital signs. Blood workup showed leukocytosis of 24.8, hemoglobin 10.5 and platelets 99. There are no significant electrolyte imbalances, however CO2 is 18. BUN is 20 and creatinine 0.69. LFTs are normal. Abdominal pelvis CT scan shows severe bladder distention an enlarging left adnexal cystic lesion concerning for ovarian neoplasm. ED tx: Zofran 4 mg IV, LR 1 L bolus, Pepcid 20 mg IV, metronidazole 500 mg IV, ceftriaxone 2 g IV Review of Systems Review of Systems: All 12 systems were reviewed and normal except as noted in HPI. 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 Mother No problems noted. Surgical History History of knee replacement procedure of left knee Hx of cataract extraction Hx of breast biopsy History of esophagogastroduodenoscopy (EGD) Hx of colonoscopy History of appendectomy History of cholecystectomy History of knee replacement procedure of right knee Hx of gastric bypass Hx of hysterectomy Social History Household Members: None Household Members Other:: daughter lives downstairs Housing: House Are you a primary neonatal intensive care nurse to a significant other at home: No Do you presently have visiting nurse or other home services: No Alcohol intake: never Patient Tobacco Use Status: Never used Tobacco Smoked in Last 30 Days: No Use of substances other than those prescribed or required for medical reasons: No Advance Directives: No Advance Directives Information Provided: Yes Advance Directives Date on File: 06/24/21 Do you have a plan to hurt others: No Plan service: No Meds Allergies Allergy/AdvReac Type Severity Reaction Status Date / Time morphine (MORPHINE) Allergy Severe Agitated Verified 04/14/25 17:36 WADE Inhibitors Allergy Intermediate mouth Verified 04/14/25 17:36 swelling/cough amlodipine Allergy Intermediate headache/di Verified 04/14/25 17:36 zziness/galina sea/vomitin g pantoprazole (From Protonix) Allergy Intermediate Agitated Verified 04/14/25 17:36 celecoxib (From Celebrex) AdvReac Mild Weakness Verified 04/14/25 17:36 milk (MILK) AdvReac Mild STOMACH Verified 04/14/25 17:36 UPSET oxycodone (From Percocet) AdvReac Mild NAUSEA/RAPID Verified 04/14/25 17:36 HR/BLURRED VISION Active Medications: Current Medications Acetaminophen (Acetaminophen 325 Mg Tablet) 650 mg PO Q6H PRN PRN Reason: Arthritic pain,Fever,Headache Calcium Carbonate (Calcium Carbonate 750 Mg Tab.Chew) 750 mg PO Q4H PRN PRN Reason: Heartburn Enoxaparin Sodium (Enoxaparin Sodium 40 Mg/0.4 Ml Syringe) 40 mg SUBCUT Q24H OSMEL Hydromorphone HCl (Hydromorphone Hcl 1 Mg/Ml Syringe) 0.5 mg IVPUSH Q4H PRN; Protocol PRN Reason: Pain, Severe (Pain Scale 7-10) Lactated Ringer's (Lr) 1,000 mls @ 100 mls/hr IVCONT .Q10H OSMEL Stop: 04/15/25 12:29 Sodium Chloride (0.9 % Sodium Chloride Flush 3 Ml Syringe) 3 ml IVFLUSH QSHIFT OSMEL Tramadol HCl (Tramadol Hcl 50 Mg Tablet) 100 mg PO ONCE ONE Stop: 04/15/25 09:01 Home Medications ?Medication ?Instructions ?Recorded ?Confirmed ?Last Taken ?Type cetirizine 10 mg tablet 10 mg PO DAILY 04/22/20 07/18/24 Unknown History citalopram 10 mg tablet 10 mg PO DAILY 04/22/20 07/18/24 Unknown History fluticasone propionate 50 2 spray intranasal DAILY 04/22/20 07/18/24 Unknown History mcg/actuation nasal spray,suspension losartan 25 mg tablet 25 mg PO DAILY 04/22/20 07/18/24 07/07/24 History multivitamin 1 tab PO QAM 04/22/20 07/18/24 Unknown History rabeprazole 20 mg tablet,delayed 20 mg PO DAILY 04/22/20 07/18/24 Unknown History release rosuvastatin 10 mg tablet 10 mg PO BEDTIME 04/22/20 07/18/24 Unknown History acetaminophen 500 mg tablet 500 mg PO TID PRN Pain 06/05/20 07/18/24 Unknown History albuterol sulfate 90 mcg/actuation 2 inh inhalation QID PRN Shortness 06/05/20 07/18/24 07/07/24 History aerosol inhaler Of Breath fluticasone propionate 230 2 puff inhalation DAILY 06/05/20 07/18/24 07/07/24 History mcg-salmeterol 21 mcg/actuation HFA inhaler theophylline 300 mg 300 mg PO BID 06/05/20 07/18/24 Unknown History tablet,extended release,12 hr tramadol 50 mg tablet 50 mg PO TID PRN Pain 06/05/20 07/18/24 Unknown History albuterol sulfate 2.5 mg/3 mL 1 amp inhalation 6XD PRN Wheezing 06/24/21 07/18/24 Unknown History (0.083 %) solution for nebulization magnesium 200 mg tablet 200 mg PO DAILY 09/17/23 07/18/24 Unknown History tizanidine 4 mg tablet 4 mg PO TID 09/17/23 07/18/24 Unknown History alprazolam 0.5 mg tablet mg PO DAILY 01/13/24 07/18/24 Unknown History alprazolam 1 mg tablet 1 mg PO DAILY PRN 01/13/24 07/18/24 Unknown History zanubrutinib 80 mg capsule 80 mg PO BID 02/12/25 Unknown History ([place]illy) Physical Exam Vital Signs and Narrative: Vital Signs: Last Vital Signs Temp 98 F 04/15/25 00:12 Pulse 73 04/15/25 00:12 Resp 18 04/15/25 00:12 BP 152/45 H 04/15/25 00:12 Pulse Ox 96 04/15/25 00:12 O2 Del Method Room Air 04/15/25 00:12 BMI result Body Mass Index 28.5 General: Alert, oriented, in no acute distress. Cooperative. Obese. Afebrile. HEENT: Head normocephalic, atraumatic. PER, EOMI. Sclerae anicteric, conjunctiva clear. Dry oral mucosa.. Neck: Supple, no lymphadenopathy, or JVD. Heart: RRR, (+) murmur. No rubs or gallops. Lungs: Clear to auscultation bilaterally. No wheezes, rales, or rhonchi. Normal respiratory effort. Abdomen: Soft, non tenderness, left lower quadrant tenderness without rebound or guarding, increased bowel sounds. Extremities: No calf tenderness bilaterally, no swelling Musculoskeletal: Full range of motion. No joint swelling, deformity, or tenderness. Normal muscle tone and strength. Skin: Warm/Dry. No pallor. No jaundice. Neurologic: Alert & oriented x4. Moving all extremities spontaneously. Normal speech. Psychological: Normal mood and affect. Thought process coherent. Results Labs 04/14/25 20:32 04/14/25 20:32 Labs: Laboratory Results - last 24 hr 04/14/25 04/14/25 20:32 20:35 MCV 86.4 MCH 27.9 MCHC 32.3 RDW 14.8 Plt Count 99 L D MPV Not Reportable Immature Gran % (Auto) 0.3 Neut % (Auto) 36.3 L Lymph % (Auto) 61.1 H [place] % (Auto) 1.9 L Eos % (Auto) 0.0 Baso % (Auto) 0.4 Lymph # (Auto) 15.2 H [place] # (Auto) 0.5 Eos # (Auto) 0.0 Baso # (Auto) 0.1 Abs Immat Gran (auto) 0.08 H Absolute Neuts (auto) 9.0 H Absolute Nucleated RBC 0.020 H Nucleated RBC % (auto) 0.1 Smear Tech's Comments VERIFIED Anion Gap 15 Estim Creat Clear Calc 48.7 Estimated GFR > 60 Random Glucose 98 Lactic Acid 1.3 Calcium 8.1 L D Total Bilirubin 0.4 Direct Bilirubin 0.1 AST 31 ALT 8 Alkaline Phosphatase 94 Total Protein 5.9 L Albumin 3.8 C. difficile Tox B Gene NEGATIVE Assessment and Plan (1) Enteritis: Status: Acute (2) Thrombocytopenia: Status: Acute Plan Lia Antonio is a 84 y/o woman with a PMHx significant for B-cell non-Hodgkin lymphoma on zanubrutinib and multiple abdominal surgery including: Ventral hernia repair with mesh, appendectomy and cholecystectomy. Abdominal pain, nausea and diarrhea; concern for acute infectious enteritis ?zanubrutinib side effect. Advance diet as tolerated. Hold zanubrutinib. Empiric IV antibiotic therapy with ceftriaxone and Flagyl. Pain control and antiemetic as needed. C diff toxin is negative. GI panel is pending. 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 Pt and family knew about this and will follow with her oncologist. Will obtain CA 125. She will need pelvic MRI and evaluation by gynecologic Oncology in the near future. Acute on chronic thrombocytopenia. Likely secondary to zanubrutinib. Continue to monitor. Chronic anemia. Continue to monitor. Essential hypertension. Continue diltiazem and losartan. GERD. Continue famotidine. Anxiety/depression. Continue Xanax and citalopram. Intermittent asthma. No acute symptoms. Bronchodilator therapy as needed. Continue home medications including cetirizine and C0 filling. Hyperlipidemia. Continue rosuvastatin. Arthritic pain. Continue tramadol. Code status: Full DVT prophylaxis: SCDs only due to thrombocytopenia. Patient will need hospitalization for at least 2 midnights for GI symptoms concerning for acute enteritis in the setting of immunocompromised state/takes zanubrutinib treatment with IV fluids, supportive therapy and empiric IV antibiotic therapy. This documentation was generated using dictation software; minor spreading or plastic roller errors may be present. Quality Stroke Does the patient have a stroke diagnosis?: No VTE Prior VTE?: No VTE Risk Level:: Medical - moderate - high VTE Device Contraindication: Treatment Not Indicated VTE Drug Contraindication: N/A - Med Ordered
[2025-04-15] MEDS: Lactated Ringers 1,000 ML 100 ML IVCONT (02:50)
--- NOTE | 2025-04-15 04:54 | PC.NURSE ---
verbal report given to Mark Anthony RN in overflow. technical developer will transport pt to overflow in 30 minute.
[2025-04-15 06:13] LABS: Anion Gap 13 (12-20); Blood Urea Nitrogen 15 mg/dL (9-16); Calcium 8.9 mg/dL (8.4-10.2); Carbon Dioxide 20 mmol/L (22-29); Chloride 112 mmol/L (96-108); Creatinine Clr Calc Pharmacy 46.7; Estimated Glomerular Filt Rate > 60; Magnesium 2.0 mg/dL (1.6-2.6); Potassium 3.9 mmol/L (3.3-5.1); Sodium 141 mmol/L (135-145)
[2025-04-15 08:49] LABS: Hemoglobin 11.4 g/dl (12.0-16.0); Imm Gran Pct Auto 0.2 % (0.0-0.4); MANUAL DIFF FLAG SCAN; NRBC Abs Auto 0.000 X10*3/uL (0.0-0.012); NRBC Pct Auto 0.0 /100WBC (0.0-0.2); SCAN SMEAR FLAG 1
[2025-04-15 08:51] LABS: Hematocrit 36.0 % (37.0-47.0); Imm Gran Abs Auto 0.05 X10*3/uL (0.00-0.03); Mean Corpuscular HGB Conc 31.7 g/dl (31.0-35.0); Mean Corpuscular Hemoglobin 27.9 pg (27.0-33.0); Mean Corpuscular Volume 88.0 fL (80.0-98.0); PLT CLUMP 1; Red Blood Count 4.09 X10*6/uL (4.20-5.50)
[2025-04-15 08:57] LABS: Lymphocytes Absolute Auto 22.6 X10*3/uL (1.2-4.9); PLT ABN DIST 1; Platelet Count 117 X10*3/uL (160-400); White Blood Count 28.2 X10*3/uL (4.8-10.8)
--- NOTE | 2025-04-15 09:19 | PC.NURSE ---
carbide die maker at bedside for med pass and assessment
--- NOTE | 2025-04-15 09:21 | PHA.MEDREC ---
Pharmacy Consult ? Medication Reconciliation Pharmacy has completed the medication reconciliation. Utilized [facility]. Patient has her HCP in room as well.
[2025-04-15 10:49] LABS: E. coli EAEC Not Detected (Not Detect.); E. coli EPEC Not Detected (Not Detect.); E. coli ETEC Not Detected (Not Detect.); E. coli STEC Not Detected (Not Detect.); Shigella sp./EIEC Not Detected (Not Detect.)
--- NOTE | 2025-04-15 10:56 | P.EN_ITS ---
Event Note Date of Service: 04/15/25 Event Note: Admitted this morning. Pt seen and examined. 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 Stool study pending, continue Abx for now, IVF, Cdif is negative, continue med per med rec. Plan discussed with pt and daughter via computer networking instructor Time Spent With Patient Time: Total time managing care of this patient today ____ minutes.
[2025-04-15] MEDS: Theophylline Anhydrous ER 300 MG TAB.ER.12H PO ×2 (13:11→20:49)
[2025-04-15] MEDS: dilTIAZem HCL CD 120 MG CAP.ER.DEG PO (13:11)
[2025-04-15] MEDS: 0.9 % Sodium Chloride Flush 3 ML SYRINGE IVFLUSH (20:49)
[2025-04-15] MEDS: Latanoprost 0.005 % Ophth Sol 2.5 ML DROPS 1 DROP EYE-BOTH (20:50)
[2025-04-16 03:00] VITALS: BP 137/61; PULSE 73; RESP 18; TEMP 36.4; O2SAT 98
--- NOTE | 2025-04-16 07:24 | P.CNHO_ITS ---
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 She is managed by Dr. Roche at [facility]. As per the daughter who is the main historian, she has been on zanubrutinib 160 mg p.o. daily since August 2024. She was briefly taken off this medication for left breast hematoma but resumed it again. Patient is currently admitted for small-bowel obstruction. She presented with abdominal pain, chills, nausea and dry heaves. She denies fever, she does have some diarrhea now. Patient says that she had a colonoscopy last year and was not told of any abnormal pathology. CT abdomen/pelvis with IV contrast performed 04/14/2025 shows postsurgical changes with ventral abdominal herniorrhaphy. Status post gastric bypass. Dilated loops of bowel adjacent to herniorrhaphy mesh in the midline. There is diverticulosis without diverticulitis. Status post cholecystectomy. Spleen is normal. No adenopathy or omental thickening. Severe bladder distention with hypodense lesion in the left adnexa measuring 4 cm, increased since 2022. Patient has been receiving IV antibiotics, ceftriaxone, metronidazole and Pepcid. She is being managed conservatively, she reports improvement in abdominal pain. Zanubrutinib has been on hold. Review of Systems - Constitutional Denies lack of energy, Denies weight loss - Cardiovascular Denies chest pain with activity - Respiratory Denies cough, Denies dyspnea - Gastrointestinal Denies black, tarry stools [facility] Medical History: Medical History (Last Reviewed 03/06/25 @ 13:03 by Jemma Eaton CMA) Arthritis Asthma B-cell non-Hodgkin lymphoma Onset Date: 07/07/24 Cardiology follow-up encounter GERD (gastroesophageal reflux disease) Glaucoma HLD (hyperlipidemia) HTN (hypertension) Hypoglycemia Osteoporosis Sleep apnea Family History: Family History (Last Reviewed 03/06/25 @ 13:03 by Jemma Eaton CMA) Father No problems noted. Mother No problems noted. Surgical History: Surgical History (Last Reviewed 03/06/25 @ 13:03 by Jemma Eaton [facility]) History of appendectomy History of cholecystectomy History of esophagogastroduodenoscopy (EGD) History of knee replacement procedure of left knee History of knee replacement procedure of right knee Hx of breast biopsy Hx of cataract extraction Hx of colonoscopy Hx of gastric bypass Hx of hysterectomy Social History: Social History (Last Reviewed 03/06/25 @ 13:03 by Jemma Eaton [facility]) Living Situation History: Household Members: Family Household Members: None Household Members Other:: daughter Housing: House Are you a primary pulmonary care nurse to a significant other at home: No Do you presently have visiting nurse or other home services: Yes Tobacco History: Patient Tobacco Use Status: Never used Tobacco Advance Directives: Advance Directives Date on File: 06/24/21 Occupation Assessmet: service: No Home Medications and Allergies Current Medications: Current Medications Acetaminophen (Acetaminophen 325 Mg Tablet) 650 mg PO Q6H PRN PRN Reason: Arthritic pain,Fever,Headache Albuterol Sulfate (Albuterol Sulfate (0.083%) 2.5 Mg/3 Ml Vial.Neb) 2.5 mg INHALE RQ4H PRN PRN Reason: Wheezing Albuterol Sulfate (Albuterol Sulfate 90 Mcg 8 Gm Inhaler) 2 puff INHALE QID PRN PRN Reason: Shortness of Breath Alprazolam (Alprazolam 0.5 Mg Tablet) 0.5 mg PO DAILY [facility] Last Admin: 04/15/25 13:11 Dose: 0.5 mg Alprazolam (Alprazolam 0.5 Mg Tablet) 1 mg PO BEDTIME [facility] Last Admin: 04/15/25 23:46 Dose: 1 mg Artificial Tears (Artificial Tears 15 Ml Drops) 1 drop EYE-BOTH QID PRN PRN Reason: Dry Eye(S) Atorvastatin Calcium (Atorvastatin Calcium 40 Mg Tablet) 40 mg PO BEDTIME [facility] Last Admin: 04/15/25 20:49 Dose: 40 mg Calcium Carbonate (Calcium Carbonate 750 Mg Tab.Chew) 750 mg PO Q4H PRN PRN Reason: Heartburn Calcium Carbonate (Calcium Carbonate 750 Mg Tab.Chew) 750 mg PO DAILY [facility] Cyanocobalamin (Cyanocobalamin (Vitamin B-12) 1,000 Mcg Tablet) 1,000 mcg PO DAILY [facility] Last Admin: 04/15/25 13:12 Dose: 1,000 mcg Dicyclomine HCl (Dicyclomine Hcl 10 Mg Capsule) 20 mg PO DAILY [facility] Last Admin: 04/15/25 13:10 Dose: 20 mg Diltiazem HCl (Diltiazem Hcl Cd 120 Mg Cap.Er.Deg) 120 mg PO DAILY [facility]; Protocol Last Admin: 04/15/25 13:11 Dose: 120 mg Escitalopram Oxalate (Escitalopram Oxalate 5 Mg Tablet) 5 mg PO DAILY [facility] Last Admin: 04/15/25 13:11 Dose: 5 mg Famotidine (Famotidine 20 Mg Tablet) 40 mg PO BID [facility] Last Admin: 04/15/25 20:49 Dose: 40 mg Fluticasone Propionate (Fluticasone Propionate Nasal 16 Gm [place]) 2 spray NOSTRIL-B DAILY [facility] Fluticasone/Vilanterol (Fluticasone/Vilanterol 200/25 Blst.W.Dev) 1 puff INHALE RDAILY [facility] Hydromorphone HCl (Hydromorphone Hcl 1 Mg/Ml Syringe) 0.5 mg IVPUSH Q4H PRN; Protocol PRN Reason: Pain, Severe (Pain Scale 7-10) Metronidazole (Flagyl) 500 mg in 100 mls @ 100 mls/hr IV Q8H [facility] Last Infusion: 04/16/25 00:25 Dose: Infused Ceftriaxone Sodium 1 gm/ (Sodium Chloride) 50 mls @ 100 mls/hr IV Q24H [facility] Last Infusion: 04/15/25 21:20 Dose: Infused Latanoprost (Latanoprost 0.005 % Ophth Tita 2.5 Ml Drops) 1 drop EYE-BOTH BEDTIME [facility] Last Admin: 04/15/25 20:50 Dose: 1 drop Loratadine (Loratadine 10 Mg Tablet) 10 mg PO DAILY [facility] Losartan Potassium (Losartan Potassium 25 Mg Tablet) 25 mg PO DAILY [facility]; Protocol Last Admin: 04/15/25 13:11 Dose: 25 mg Multivitamins/Vitamin C (Multivitamin Tablet) 1 tab PO DAILY [facility] Last Admin: 04/15/25 13:12 Dose: 1 tab Non-Formulary Medication (Zanubrutinib [Brukinsa]) 80 mg PO BID [facility] Omeprazole (Omeprazole 20 Mg Capsule.Dr) 20 mg PO DAILY@0630 [facility] Last Admin: 04/16/25 05:53 Dose: 20 mg Simethicone (Simethicone 80 Mg Tab.Chew) 80 mg PO QID PRN PRN Reason: Heartburn Sodium Chloride (0.9 % Sodium Chloride Flush 3 Ml Syringe) 3 ml IVFLUSH QSHIFT [facility] Last Admin: 04/15/25 20:49 Dose: 3 ml Theophylline (Theophylline Anhydrous Er 300 Mg Tab.Er.12h) 300 mg PO BID [facility] Last Admin: 04/15/25 20:49 Dose: 300 mg Tramadol HCl (Tramadol Hcl 50 Mg Tablet) 50 mg PO TID PRN PRN Reason: Pain, Severe (Pain Scale 7-10) Last Admin: 04/16/25 00:45 Dose: 50 mg Home Medications ?Medication ?Instructions ?Recorded ?Confirmed ?Type cetirizine 10 mg tablet 10 mg PO DAILY 04/22/20 04/15/25 History citalopram 10 mg tablet 10 mg PO DAILY 04/22/20 04/15/25 History fluticasone propionate 50 2 spray intranasal DAILY 04/22/20 History mcg/actuation nasal spray,suspension losartan 25 mg tablet 25 mg PO DAILY 04/22/20 04/15/25 History multivitamin 1 tab PO QAM 04/22/20 04/15/25 History rabeprazole 20 mg tablet,delayed 20 mg PO DAILY 04/22/20 04/15/25 History release rosuvastatin 10 mg tablet 10 mg PO BEDTIME 04/22/20 04/15/25 Histo ry acetaminophen 500 mg tablet 500 mg PO TID PRN Pain 06/05/20 04/15/25 History albuterol sulfate 90 mcg/actuation 2 inh inhalation QID PRN Shortness 06/0504/15/25 History aerosol inhaler Of Breath fluticasone propionate 230 2 puff inhalation DAILY 06/05/20 5 History mcg-salmeterol 21 mcg/actuation HFA inhaler theophylline 300 mg 300 mg PO BID 06/05/20 04/15/25 History tablet,extended release,12 hr tramadol 50 mg tablet 50 mg PO TID PRN Pain 06/05/20 04/15/25 History albuterol sulfate 2.5 mg/3 mL 1 amp inhalation 6XD PRN Wheezing 04/15/25 History (0.083 %) solution for nebulization alprazolam 0.5 mg tablet 0.5 mg PO DAILY 01/13/24 04/15/25 Histor y alprazolam 1 mg tablet 1 mg PO DAILY 01/13/24 04/15/25 History zanubrutinib 80 mg capsule 80 mg PO BID 02/12/25 04/15/25 History (Brukinsa) calcium carbonate (Calcium 600) 600 mg PO DAILY 04/15/25 04/15/25 Histor y cyanocobalamin (vitamin B-12) 1,000 mcg PO DAILY 04/15/25 04/15/25 His tory 1,000 mcg capsule dicyclomine 20 mg tablet 20 mg PO QAM 04/15/25 04/15/25 History diltiazem HCl 120 mg 120 mg PO QAM 04/15/25 04/15/25 History capsule,extended release 12 hr glycerin 1 drp ophthalmic (eye) QID PRN Dry 04/1504/15/25 History Eye(S) latanoprost 0.005 % eye drops 1 drp ophthalmic (eye) BEDTIME 04/15/25 04/15/25 History Allergies Allergy/AdvReac Type Severity Reaction Status Date / Time morphine (MORPHINE) Allergy Severe Agitated Verified 04/14/25 17:36 WADE Inhibitors Allergy Intermediate mouth Verified 04/14/25 17:36 swelling/cough amlodipine Allergy Intermediate headache/di Verified 04/14/25 17:36 zziness/galina sea/vomitin g pantoprazole (From Protonix) Allergy Intermediate Agitated Verified 04/14/25 17:36 celecoxib (From Celebrex) AdvReac Mild Weakness Verified 04/14/25 17:36 milk (MILK) AdvReac Mild STOMACH Verified 04/14/25 17:36 UPSET oxycodone (From Percocet) AdvReac Mild NAUSEA/RAPID Verified 04/14/25 17:36 HR/BLURRED VISION Physical Exam Vital signs: Vital Signs Temp 97.6 F 04/16/25 03:00 Pulse 73 04/16/25 03:00 Resp 18 04/16/25 03:00 BP 137/61 04/16/25 03:00 Pulse Ox 98 04/16/25 03:00 O2 Del Method Room Air 04/16/25 03:00 Intake & Output 04/15/25 04/16/25 04/16/25 18:59 06:59 18:59 Intake Total 1299 Balance 1299 Intake: Intake, Oral Amount 100 / 640 540 / 640 Intake, IV Amount 1200 / 1350 150 / 1350 cefTRIAXone sodium 1 gm In 0.9 50 / 50 % Sodium Chloride 50 ml @ 100 mls/hr IV Q24H [facility] Rx#: [id number] metroNIDAZOLE/NS 500 mg In 100 200 / 300 100 / 300 ml @ 100 mls/hr IV Q8H [facility] Rx#: [id number] Lactated Ringers 1,000 ml @ 100 1000 / 1000 mls/hr IVCONT .Q10H [facility] Rx#: [id number] Other: Number of Unmeasured Voids 2 Urine Bathroom Urine Color Yellow Last Bowel Movement 04/15/25 Weight 61.8 kg - Constitutional Present: no acute distress, average body habitus - Routine HEENT Exam Head: Present: normal inspection Eye: Present: EOMI, PERRL - Routine Neck Exam Present: supple. Absent: swelling - Routine Respiratory Exam Present: CTAB. Absent: rhonchi, wheezes - Routine Cardiovascular Exam Cardiovascular: Present: RRR, S1, S2 - Routine Abdominal Exam Present: distended, soft - Routine Extremities Exam Present: pulses intact. Absent: pedal edema Hem/Onc Consult Result - Labs CBC & Chem 7: 04/15/25 08:10 04/15/25 05:57 Labs: Short CBC 04/15/25 Range/Units 08:10 WBC 28.2 H (4.8-10.8) X10*3/uL Hgb 11.4 L (12.0-16.0) g/dl Hct 36.0 L (37.0-47.0) % Plt Count 117 L (160-400) X10*3/uL Assessment and Plan Patient Active problem list reviewed?: Yes (1) Non-Hodgkin lymphoma Status: Acute Assessment and plan: 1. This is a 84-year-old woman with stage III CLL/SLL diagnosed around July 2024. She presented with a cervical, bilateral axillary and retroperitoneal lymphadenopathy as well as B symptoms. She is under the care of oncologist at [facility]. She has been started on zanubrutinib 160 mg p.o. b.i.d. since August 2024. This is briefly held for hematoma of left breast in October or November 2024. Patient is currently admitted for abdominal pain, CT abdomen shows postsurgical changes with ventral abdominal herniorrhaphy. Status post gastric bypass. Dilated loops of bowel adjacent to herniorrhaphy mesh in the midline. There is diverticulosis without diverticulitis. Status post cholecystectomy. Spleen is normal. No adenopathy or omental thickening. Severe bladder distention with hypodense lesion in the left adnexa measuring 4 cm, increased since 2022. She may have bowel obstruction secondary to adhesions from prior surgery. Recommend surgical consultation. Leukocytosis, with lymphocytosis secondary to CLL as well as leukemoid reaction. Agree with holding zanubrutinib for now. For further evaluation of the left adnexal mass and to resume therapy for CLL, she can follow up with her oncologist as outpatient. All of the above was explained to patient and daughter in the presence of counter weigher. Thank you for the consultation. - Time Spent With Patient Time Spent with Patient (in minutes): 20
[2025-04-16 07:36] VITALS: BP 123/58; PULSE 67; RESP 16; TEMP 36.2; O2SAT 95
[2025-04-16] MEDS: Fluticasone/Vilanterol 200/25 BLST.W.DEV 1 PUFF INHALE (07:49)
[2025-04-16 07:52] VITALS: PULSE 86; RESP 18; O2SAT 95
[2025-04-16] MEDS: metroNIDAZOLE/NS 500 MG/100 ML PIGGYBACK 100 MG IV (09:12)
[2025-04-16] MEDS: 0.9 % Sodium Chloride Flush 3 ML SYRINGE IVFLUSH (09:12)
[2025-04-16] MEDS: Theophylline Anhydrous ER 300 MG TAB.ER.12H PO (09:27)
[2025-04-16] MEDS: dilTIAZem HCL CD 120 MG CAP.ER.DEG PO (09:29)
--- NOTE | 2025-04-16 10:05 | MHC.CLN ---
CONSULT ROUTINE CONSULT FOR WEIGHT LOSS. DIET RX: REGULAR. REVIEW OF WEIGHT HX SHOWS WEIGHT ESSENTIALLY STABLE X > ONE YEAR. NO NEW NUTRITION INTERVENTIONS.
--- NOTE | 2025-04-16 11:02 | P.DS_ITS ---
DS: Providers Provider Date of Service: 04/16/25 Date of admission: 04/15/25 01:31 Date of discharge: 04/16/25 Primary care physician: Glenna Hassna MD Consults: 04/15/25 11:02 Consult to Hematology / Oncology Routine Consulting Provider: [facility] [place]/Hematology Reason for consultation: B-cell non-Hodgkin lymphoma on zanubrutinib, adnexa mass Has provider been notified: Yes DS: Diagnosis Discharge Diagnosis (1) Non-Hodgkin lymphoma: Status: Acute DS: Summary Hospital Course Hospital Course: admission hpi Chief Complaint: Left lower quadrant pain Lia Antonio is a 84 years old woman with past medical history significant for B-cell non-Hodgkin lymphoma on zanubrutinib, bypass surgery, GERD, essential hypertension, anxiety/depression, asthma on theophylline and hyperlipidemia presents to the emergency department complaining of left lower quadrant pain associated with nausea. She denied vomiting, fever or chills. Upon arrival to the ED she had nonbloody watery diarrhea. Abdominal surgical history significant for bypass surgery, hernia repair with mesh placement x2, appendectomy and cholecystectomy. In the ED, she was found to have stable vital signs. Blood workup showed leukocytosis of 24.8, hemoglobin 10.5 and platelets 99. There are no significant electrolyte imbalances, however CO2 is 18. BUN is 20 and creatinine 0.69. LFTs are normal. Abdominal pelvis CT scan shows severe bladder distention an enlarging left adnexal cystic lesion concerning for ovarian neoplasm. ED tx: Zofran 4 mg IV, LR 1 L bolus, Pepcid 20 mg IV, metronidazole 500 mg IV, ceftriaxone 2 g IV Hospital coruse: Plan Lia Antonio is a 84 y/o woman with a PMHx significant for B-cell non- Hodgkin lymphoma on zanubrutinib and multiple abdominal surgery including: Ventral hernia repair with mesh, appendectomy and cholecystectomy. Abdominal pain, nausea and diarrhea; concern for acute infectious enteritis ?zanubrutinib side effect. Please does not have fever, WBC is high due to CLL. Hold zanubrutinib. treated with empiric IV antibiotic therapy with ceftriaxone and Flagyl. Pain has resolved. Pain control and antiemetic as needed. C diff toxin and GI panel are negative. Her diet has been advanced. Will transition to oral Flagyl and Ceftin for 7 days. 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 Pt and family knew about this and will follow with her oncologist. Will obtain CA 125. She will need pelvic MRI and evaluation by gynecologic Oncology in the near future. Acute on chronic thrombocytopenia. Likely secondary to zanubrutinib. Continue to monitor. Chronic anemia. Continue to monitor d/t chronic disease Leukocytosis d/t CLL, to follow up with oncolgoy Essential hypertension. Continue diltiazem and losartan. L GERD. Continue famotidine. Anxiety/depression. Continue Xanax and citalopram. Intermittent asthma. No acute symptoms. Bronchodilator therapy as needed. Continue home medications including cetirizine and C0 filling. Hyperlipidemia. Continue rosuvastatin. Arthritic pain. Continue tramadol. Time Attestation Discharge Coordination Time (in mins): 40 Quality: Safe Use of Opioids Does Pt have an Active Cancer Diagnosis on the Problem List?: Yes Opioid Measure Date for [facility] Report: 03/17/25 Opioid Measure Time for [facility] Report: 12:06 Quality: Stroke Does the patient have a stroke diagnosis?: No Physical Exam Vital Signs: Vital Signs: Last Vital Signs Temp 97.2 F 04/16/25 07:36 Pulse 86 04/16/25 07:52 Resp 18 04/16/25 07:52 BP 123/58 L 04/16/25 07:36 Pulse Ox 95 04/16/25 07:36 O2 Del Method Room Air 04/16/25 07:36 BMI result Body Mass Index 28.5 DS: Data Data Completed and Pending Labs on day of discharge: Laboratory Results - last 24 hr 04/14/25 20:35 Stl C. cayetanensis PCR Not Detected Stool Rotavirus A PCR Not Detected Stl Adenov F 40/41 PCR Not Detected Stool Astrovirus (PCR) Not Detected Stool Campylobacter PCR Not Detected Stool Cryptosporidium PCR Not Detected Stl Sh Tox Pr E STEC PCR Not Detected Stool E coli O157 PCR Not applicable Stl Enterotoxigenic E PCR Not Detected Stool EPEC (PCR) Not Detected Stool EAEC (PCR) Not Detected Stl E. histolytica PCR Not Detected Stool Giardia Lamblia PCR Not Detected Stl P. shigelloides PCR Not Detected Stool Salmonella PCR Not Detected Stool Sapovirus (PCR) Not Detected Stl Shigella/EIEC PCR Not Detected St Y.enterocolitica PCR Not Detected Stool Vibrio (PCR) Not Detected Stl Vibrio cholerae PCR Not Detected Stl Norovirus GI/GII PCR Not Detected Preliminary micro results at discharge 04/14/25 23:21 Blood Culture - Preliminary Blood - Venous No growth after 24 hours. 04/14/25 22:28 Blood Culture - Preliminary Blood - Venous No growth after 24 hours. Discharge Plan Discharge Anticipated Discharge Date/Time: 04/16/25 12:07 Patient Disposition: Home, Self-Care Discharge Diagnosis: Enteritis Referrals: Glenna Grossman MD [Primary Care Provider, Internal Medicine] - 1 Week Discharge Medications: New metronidazole 500 mg tablet 500 mg PO Q8H 5 Days Qty: 15 0RF cefuroxime axetil 500 mg tablet 500 mg PO BID 5 Days Qty: 10 0RF Continued (DME) blood-glucose meter [FreeStyle Lite Meter] Kit See Rx Instructions .ROUTE .MEDSUPPLY Qty: 1 0RF Rx Instructions: As directed (DME) lancets [FreeStyle Lancets] 28 gauge misc See Rx Instructions .ROUTE .MEDSUPPLY Qty: 100 11RF Rx Instructions: 4x daily as needed famotidine 40 mg tablet 40 mg PO BID Qty: 90 1RF ondansetron 4 mg tablet,disintegrating 4 mg PO Q8H PRN (Reason: for nausea/vomiting) Qty: 20 1RF simethicone 80 mg tablet,chewable 80 mg PO BID-QID Qty: 90 1RF albuterol sulfate 2.5 mg /3 mL (0.083 %) solution for nebulization 1 amp inhalation 6XD PRN (Reason: Wheezing) latanoprost 0.005 % drops 1 drp ophthalmic (eye) BEDTIME diltiazem HCl 120 mg capsule,extended release 12 hr 120 mg PO QAM calcium carbonate [Calcium 600] 600 mg calcium (1,500 mg) Tablet 600 mg PO DAILY dicyclomine 20 mg tablet 20 mg PO QAM Artificial Tears (glycerin) Drops 1 drp OPHTHALMIC (EYE) QID PRN (Reason: Dry Eye(S)) cyanocobalamin (vitamin B-12) 1,000 mcg Capsule 1,000 mcg PO DAILY losartan 25 mg tablet 25 mg PO DAILY rosuvastatin 10 mg tablet 10 mg PO BEDTIME fluticasone propionate 50 mcg/actuation spray,suspension 2 spray intranasal DAILY citalopram 10 mg tablet 10 mg PO DAILY cetirizine 10 mg tablet 10 mg PO DAILY multivitamin Tablet 1 tab PO QAM rabeprazole 20 mg tablet,delayed release (DR/EC) 20 mg PO DAILY acetaminophen 500 mg tablet 500 mg PO TID PRN (Reason: Pain) Rx Instructions: give with the tramadol albuterol sulfate 90 mcg/actuation HFA aerosol inhaler 2 inh inhalation QID PRN (Reason: Shortness Of Breath) fluticasone propion-salmeterol 230-21 mcg/actuation HFA aerosol inhaler 2 puff inhalation DAILY theophylline 300 mg tablet extended release 12 hr 300 mg PO BID tramadol 50 mg tablet 50 mg PO TID PRN (Reason: Pain) alprazolam 0.5 mg tablet 0.5 mg PO DAILY alprazolam 1 mg tablet 1 mg PO DAILY Brukinsa 80 mg capsule 80 mg PO BID Discharge Orders: Discharge Order (Routine); Ordered 04/16/25 Ordered By: Robb Martines Diet: Advance to usual diet Activity on Discharge: As tolerated Stand Alone Forms: Patient Portal Discharge page Print Language: Khmer Care Plan Goals: recovery from enteritis Health Concerns: enteritis ovarian mass elevated WBC B cell lymphoma Plan of Treatment: take Flagyl and Cefuroxime for enteritis Follow up with your Doctor in a week Follow up with your Oncology in a week, Plase ask them to arrange for MRI of the pelvis to assess ovarian mass Assessment: see above
[2025-04-16 11:31] LABS: Hematocrit 35.3 % (37.0-47.0); Hemoglobin 10.9 g/dl (12.0-16.0); Mean Corpuscular HGB Conc 30.9 g/dl (31.0-35.0); Mean Corpuscular Hemoglobin 27.9 pg (27.0-33.0); Mean Corpuscular Volume 90.3 fL (80.0-98.0); NRBC Abs Auto 0.020 X10*3/uL (0.0-0.012); NRBC Pct Auto 0.1 /100WBC (0.0-0.2); PLT CLUMP 1; Red Blood Count 3.91 X10*6/uL (4.20-5.50)
[2025-04-16 11:33] LABS: White Blood Count 27.9 X10*3/uL (4.8-10.8)
[2025-04-16 11:35] LABS: Anion Gap 12 (12-20); Blood Urea Nitrogen 9 mg/dL (9-16); Calcium 9.1 mg/dL (8.4-10.2); Carbon Dioxide 23 mmol/L (22-29); Chloride 107 mmol/L (96-108); Creatinine Clr Calc Pharmacy 46.7; Estimated Glomerular Filt Rate > 60; Potassium 4.2 mmol/L (3.3-5.1); Sodium 138 mmol/L (135-145)
[2025-04-16 11:49] LABS: Platelet Count 113 X10*3/uL (160-400)
[2025-04-16 12:00] VITALS: BP 123/58; PULSE 79; RESP 16; TEMP 37.2; O2SAT 96
--- NOTE | 2025-04-16 12:23 | MHC.CM.PN ---
pt dcd home self care
--- NOTE | 2025-04-16 13:00 | MHC.CM.PN ---
pt lives with mayelinchema who is her senior report developer 36 hrs a week pt has cca/rn visits every 3 months pt has own ride home
== END 2025-04-16 14:32 | disposition home or self-care (01) | DRG 392 ==
LOC: HO.ED 19:29 → HO.EDOVER 04-15 01:35 → HO.S3 04-15 14:43
PROVIDERS: Physician Assistant; Admitting Provider Internal Medicine; Emergency Provider Student in an Organized Health Care Education/Training Program; PCP Internal Medicine; Visit Provider Internal Medicine
DX: A09 Infectious gastroenteritis and colitis, unspecified (principal); C85.10 Unspecified B-cell lymphoma, unspecified site; E86.0 Dehydration; D69.59 Other secondary thrombocytopenia; T45.1X5A Adverse effect of antineoplastic and immunosuppressive drugs, initial encounter; D63.0 Anemia in neoplastic disease; E78.5 Hyperlipidemia, unspecified; Z98.84 Bariatric surgery status; I10 Essential (primary) hypertension; K21.9 Gastro-esophageal reflux disease without esophagitis; D39.12 Neoplasm of uncertain behavior of left ovary; F41.9 Anxiety disorder, unspecified; F32.A Depression, unspecified; J45.20 Mild intermittent asthma, uncomplicated; Z79.899 Other long term (current) drug therapy
CPT/HCPCS: 36415; 74177; 80048; 80053; 82248; 83605; 83735; 85025; 85027; 87040; 87493; 87507; 93005; 94640; 99285; J0696; J1308; J1836; J2405; J7120; Q9967

== ENCOUNTER → 2025-04-14 18:44 | Outpatient (BNV) | payer OTHER, SELFPAY | PROVIDERS: Admitting Provider Internal Medicine; Emergency Provider Student in an Organized Health Care Education/Training Program; PCP Internal Medicine; Visit Provider Internal Medicine Cardiovascular Disease | DX: R10.9 Unspecified abdominal pain (principal) | CPT/HCPCS: 93010 ==

== ENCOUNTER → 2025-04-14 20:38 | Outpatient (BNV) | payer OTHER, SELFPAY | PROVIDERS: Emergency Provider Student in an Organized Health Care Education/Training Program; PCP Internal Medicine; Visit Provider Radiology Diagnostic Radiology | DX: N32.89 Other specified disorders of bladder (principal); N83.202 Unspecified ovarian cyst, left side | CPT/HCPCS: 74177 ==

== ENCOUNTER → 2025-04-15 01:31 | Outpatient (BNV) | payer OTHER, SELFPAY | PROVIDERS: Admitting Provider Internal Medicine; Emergency Provider Student in an Organized Health Care Education/Training Program; PCP Internal Medicine; Visit Provider Internal Medicine | DX: C91.10 Chronic lymphocytic leukemia of B-cell type not having achieved remission (principal); R59.0 Localized enlarged lymph nodes | CPT/HCPCS: 99222 ==

== ENCOUNTER → 2025-04-15 01:31 | Outpatient (BNV) | payer OTHER, SELFPAY | PROVIDERS: Admitting Provider Internal Medicine; Emergency Provider Student in an Organized Health Care Education/Training Program; PCP Internal Medicine; Visit Provider Internal Medicine | DX: K52.9 Noninfective gastroenteritis and colitis, unspecified (principal); D69.6 Thrombocytopenia, unspecified; C85.90 Non-Hodgkin lymphoma, unspecified, unspecified site | CPT/HCPCS: 99222; 99499 ==